=== PATIENT | male | born 1960 | race Caucasian/White ===

== ENCOUNTER 2016-08-02 12:08 | Inpatient (IN) | payer OTHER ==
[~2016-08-02] VITALS: Ht 175.3 cm; Wt 96.8 kg
[2016-08-02] VITALS (9 sets, daily range): BP systolic 118–130; BP diastolic 67–110
[2016-08-02] MEDS ORDERED: DILTIAZEM 100 MG/VIAL (CARDIZEM) ADD-VANTAGE IV ONE (12:14)
[2016-08-02] MEDS ORDERED: DILTIAZEM 25 MG/5 ML INJ (CARDIZEM) VIAL ONE (12:14)
[2016-08-02] MEDS ORDERED: SODIUM CHLORIDE (ADD-VANTAGE) 100 ML IV ONE (12:15)
[2016-08-02 12:34] LABS: BASOPHILS # (AUTO) 0.1 10^3/uL (0.0-0.1); BASOPHILS % (AUTO) 1 % (0-10); EOSINOPHILS # (AUTO) 0.6 10^3/uL (0.0-0.3); EOSINOPHILS % (AUTO) 5 % (0-10); LYMPHOCYTES % (AUTO) 17 % (12-44); MEAN CORPUSCULAR HEMOGLOBIN 31 PG (25-34); MEAN CORPUSCULAR HGB CONC 33 G/DL (32-36); MEAN CORPUSCULAR VOLUME 93 FL (80-99); MEAN PLATELET VOLUME 10.1 FL (7.4-10.4); MONOCYTES % (AUTO) 8 % (0-12); NEUTROPHILS # (AUTO) 8.5 X 10^3 (1.8-7.8); NEUTROPHILS % (AUTO) 70 % (42-75); PLATELET COUNT 266 10^3/uL (130-400); RED BLOOD COUNT 4.99 10^6/uL (4.35-5.85); RED CELL DISTRIBUTION WIDTH 15.3 % (10.0-14.5); WHITE BLOOD COUNT 12.1 10^3/uL (4.3-11.0)
--- NOTE | 2016-08-02 12:41 | ED Cardiac General ---
History of Present Illness General Chief Complaint: Cardiac/General Problems Stated Complaint: SOB Source: patient Exam Limitations: no limitations History of Present Illness Time seen by provider: 12:40 Initial Comments To ER per private vehicle with reports of shortness of breath 1.5 weeks. He's never had this before. He had a cough that is nonproductive. States he is unable to lay flat because of the worsening dyspnea. He had some intermittent chest pains over the past week. He states that it's because of his cough he believed. No fevers. He does smoke. He states he nearly passed out several times this past week but ignored that. He does not have a regular physician and his last primary care physician was in [place]. 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 ASA po TUBER MACHINE OPERATOR: No Associated Systoms: Chest Pain, Cough Allergies and Home Medications Allergies Coded Allergies: No Known Drug Allergies (Unverified , 08/02/16) Review of Systems Constitutional: see HPI EENTM: No Symptoms Reported Respiratory: See HPI, Cough, Orthopnea Cardiovascular: See HPI, Chest Pain, Irregular Heart Rate, Palpitations, Other (near syncope) Gastrointestinal: See HPI Genitourinary: No Symptoms Reported Musculoskeletal: no symptoms reported Skin: no symptoms reported Psychiatric/Neurological: No Symptoms Reported Endocrine: No Symptoms Reported Hematologic/Lymphatic: No Symptoms Reported Past Cupeajd-Iodryv-Jahqpi Hx Patient Social History Recent Foreign Travel: No Contact w/Someone Who Travel: No Physical Exam Vital Signs Vital Sign - Last 12Hours 08/02/16 12:15 Temp 98.9 Pulse 166 Resp 30 B/P (MAP) 99/87 Pulse Ox 95 O2 Delivery Room Air Capillary Refill : General Appearance: No Apparent Distress, Moderate Distress, Other (heart rate 150-170 atrial fibrillation, blood pressure 100/80) HEENT: PERRL/EOMI, TMs Normal Neck: Full Range of Motion, Normal Inspection Respiratory: Normal Breath Sounds, No Accessory Muscle Use, No Respiratory Distress Cardiovascular: Normal Peripheral Pulses, Irregularly Irregular, Tachycardia Gastrointestinal: Normal Bowel Sounds, Non Tender, Soft Extremity: Normal Capillary Refill, Normal Inspection Neurologic/Psychiatric: Alert, Oriented x3, No Motor/Sensory Deficits Skin: Normal Color, Warm/Dry Progress/Results/Core Measures Results/Orders Lab Results Laboratory Tests Test 08/02/16 12:20 Range/Units White Blood Count 12.1 H 4.3-11.0 10^3/uL Red Blood Count 4.99 4.35-5.85 10^6/uL Hemoglobin 15.4 13.3-17.7 G/DL Hematocrit 47 40-54 % Mean Corpuscular Volume 93 80-99 FL Mean Corpuscular Hemoglobin 31 25-34 PG Mean Corpuscular Hemoglobin Concent 33 32-36 G/DL Red Cell Distribution Width 15.3 H 10.0-14.5 % Platelet Count 266 130-400 10^3/uL Mean Platelet Volume 10.1 7.4-10.4 FL Neutrophils (%) (Auto) 70 42-75 % Lymphocytes (%) (Auto) 17 12-44 % Monocytes (%) (Auto) 8 0-12 % Eosinophils (%) (Auto) 5 0-10 % Basophils (%) (Auto) 1 0-10 % Neutrophils # (Auto) 8.5 H 1.8-7.8 X 10^3 Lymphocytes # (Auto) 2.0 1.0-4.0 X 10^3 Monocytes # (Auto) 1.0 0.0-1.0 X 10^3 Eosinophils # (Auto) 0.6 H 0.0-0.3 10^3/uL Basophils # (Auto) 0.1 0.0-0.1 10^3/uL Prothrombin Time 15.9 H 12.2-14.7 SEC INR Comment 1.3 0.8-1.4 Activated Partial Thromboplast Time 30 24-35 SEC Sodium Level 137 135-145 MMOL/L Potassium Level 4.5 3.6-5.0 MMOL/L Chloride Level 104 98-107 MMOL/L Carbon Dioxide Level 24 21-32 MMOL/L Anion Gap 9 5-14 MMOL/L Blood Urea Nitrogen 13 7-18 MG/DL Creatinine 0.94 0.60-1.30 MG/DL Estimat Glomerular Filtration Rate > 60 BUN/Creatinine Ratio 14 Glucose Level 108 H 70-105 MG/DL Calcium Level 8.9 8.5-10.1 MG/DL Magnesium Level 1.8 1.8-2.4 MG/DL Total Bilirubin 1.1 H 0.1-1.0 MG/DL Aspartate Amino Transf (AST/SGOT) 51 H 5-34 U/L Alanine Aminotransferase (ALT/SGPT) 87 H 0-55 U/L Alkaline Phosphatase 101 40-136 U/L Troponin I < 0.30 <0.30 NG/ML B-Type Natriuretic Peptide 610.5 H <100.0 PG/ML Total Protein 6.2 L 6.4-8.2 G/DL Albumin 3.7 3.2-4.5 G/DL My Orders Orders - SHALA MAI APRN Troponin I (08/02/16 12:34) Magnesium (08/02/16 12:34) Protime With Inr (08/02/16 12:34) Partial Thromboplastin Time (08/02/16 12:34) Drug Screen Stat (Urine) (08/02/16 12:34) BNP (08/02/16 12:34) Sodium Chloride (Ad... W/Diltiazem Drip (08/02/16 12:45) Diltiazem Injection (Cardizem Injection) (08/02/16 12:45) Aspirin Chewable Tablet (Baby Aspirin Ch (08/02/16 12:45) Ns Iv 1000 Ml (Sodium Chloride 0.9%) (08/02/16 12:55) Apixaban Tablet (Eliquis Tablet) (08/02/16 13:15) Medications Given in ED Current Medications Medications Dose Ordered Sig/Rao Route Start Time Stop Time Status Last Admin Dose Admin Diltiazem HCl 10 mg ONCE ONCE IVP 08/02/16 12:45 08/02/16 12:46 DC 08/02/16 12:18 10 MG Vital Signs/I&O Vital Sign - Last 12Hours 08/02/16 08/02/16 12:15 12:23 Temp 98.9 Pulse 166 166 Resp 30 30 B/P (MAP) 99/87 99/87 Pulse Ox 95 95 O2 Delivery Room Air Departure Communication Time/Spoke to Admitting Phy: 13:[address] Moreland Time/Spoke to Consulting Physi: 13:13 Communication/Consulting Consult to Dr. Lugo who would like Eliquis and a 2-D echo. Progress Notes 1224-upon arrival patient was given a liter of IV fluids, 324 mg baby aspirin, 10 mg IV Cardizem and Cardizem drip started at 10 mg an hour and subsequently increased to 15 mg an hour. Heart rate decreased from 170s to 110s. Blood pressure improved. Dyspnea improved. Awaiting labs. 1313- heart rate reduced to the 105-110 range. Dyspnea is much improved. Cardizem drip remains at 15 mg an hour Impression Impression: Primary Impression: New onset atrial fibrillation Disposition: ADMITTED INPATIENT Condition: Stable Decision to Admit Reason: Admit from ER (General) Decision to Admit/Date: August 02, 2016 Time/Decision to Admit Time: 12:43 Departure-Patient Inst. Referrals: NO,LOCAL PHYSICIAN (PCP/Family) Primary Care Physician SHALA MAI APRN August 02, 2016 12:41
[2016-08-02 12:44] LABS: INR 1.3 (0.8-1.4); MAGNESIUM 1.8 MG/DL (1.8-2.4); PROTHROMBIN TIME PATIENT 15.9 SEC (12.2-14.7)
[2016-08-02] MEDS ORDERED: ASPIRIN 81 MG CHEW (CHILDREN'S ASA) PO ONE (12:45)
[2016-08-02] MEDS ORDERED: DILTIAZEM DRIP 100 MG in SODIUM CHLORIDE (ADD-VANTAGE) 100 ML IV SCH (12:45)
[2016-08-02] MEDS ORDERED: DILTIAZEM 25 MG/5 ML INJ (CARDIZEM) VIAL IVP ONE (12:45)
[2016-08-02 12:53] LABS: ALANINE AMINOTRANSFERASE 87 U/L (0-55); ALBUMIN 3.7 G/DL (3.2-4.5); ANION GAP 9 MMOL/L (5-14); ASPARTATE AMINO TRANSFERASE 51 U/L (5-34); BILIRUBIN,TOTAL 1.1 MG/DL (0.1-1.0); BLOOD UREA NITROGEN 13 MG/DL (7-18); BUN/CREATININE RATIO 14; CALCIUM 8.9 MG/DL (8.5-10.1); CARBON DIOXIDE 24 MMOL/L (21-32); CHLORIDE 104 MMOL/L (98-107); CREATININE SERUM 0.94 MG/DL (0.60-1.30); GFR ESTIMATED > 60; GLUCOSE 108 MG/DL (70-105); POTASSIUM 4.5 MMOL/L (3.6-5.0); SODIUM 137 MMOL/L (135-145); TOTAL PROTEIN 6.2 G/DL (6.4-8.2)
[2016-08-02] MEDS ORDERED: NS IV 1000 ML 1,000 ML ONE ×2 (12:55→14:48)
[2016-08-02 12:59] LABS: TROPONIN I < 0.30 NG/ML (<0.30)
[2016-08-02] MEDS ORDERED: APIXABAN 5 MG (ELIQUIS) TABLET PO ONE (13:15)
--- NOTE | 2016-08-02 13:15 | Diagnostic Imaging Report ---
INDICATION: Difficulty breathing x 1 week with intermittent chest pain. COMPARISON STUDY: None. FINDINGS: A portable view of the chest demonstrates the heart size to be in the upper normal range with mild infiltrates in the left base. The vascularity is normal. There are no effusions. IMPRESSION: There are mild infiltrates in the left lung base. Dictated by: Dictated on workstation # [id number]
[2016-08-02] MEDS ORDERED: CEFEPIME INJECTION 2,000 MG in NS (IVPB) 50 ML IV ONE (13:30)
[2016-08-02] MEDS ORDERED: LORazepam INJ 2 MG/ML (ATIVAN) VIAL IVP ONE (13:30)
[2016-08-02] MEDS: NS IV 1000 ML 1,000 ML IV SCH (15:07)
[2016-08-02] MEDS ORDERED: CATHETER FLUSH 10 ML SYR IV PRN (15:15)
[2016-08-02] MEDS: DILTIAZEM DRIP 100 MG/NS 100 ML IV SCH ×4 (15:51→18:53)
[2016-08-02] MEDS: LEVOFLOXACIN 750 MG/150 ML IV 150 ML IV SCH (16:53)
--- NOTE | 2016-08-02 17:58 | Consultation-Cardiology ---
HPI-Cardiology Cardiology Consultation: Date of Consultation 08/02/16 Date of Admission Attending Physician Gloria Moreland DO Admitting Physician Inocencia,Local Physician Consulting Physician Paul LUGO MD HPI: Chief Complaint: shortness of breath, fast heart beating this is a 55-year-old gentleman who denies any past medical or cardiac history. He presents with shortness of breath, cough and fast heart beating. He was found to be in atrial fibrillation with rapid ventricular rate. He responded to IV Cardizem. Chest x-ray showed an infiltrate in the left lung. Review of Systems-Cardiology Review of Systems Constitutional: No As described under HPI, No no symptoms reported, No chills, No fever, No lightheadedness, No malaise, No tiredness, No weight loss, No weight gain, No other Eyes: No As described under HPI, No no symptoms reported, No blindness, No blurred vision, No contact lenses, No drainage, No decreased acuity, No foreign body sensation, No glasses, No inflammation, No pain, No photophobia, No previous injury, No shadows, No tunnel vision, No other, No vision change Ears/Nose/Throat: No As described under HPI, No no symptoms reported, No chronic hearing loss, No epistaxis, No ear discharge, No ear pain, No loose teeth, No mouth pain, No mouth swelling, No nasal drainage, No nose pain, No recent hearing loss, No throat pain, No throat swelling, No ulcerations, No other Respiratory: cough, shortness of breath Cardiovascular: palpitations Gastrointestinal: No no symptoms reported, No As described under HPI, No abdomen distended, No abdominal pain, No blood streaked bowels, No constipation , No diarrhea, No difficulty swallowing, No nausea, No poor appetite, No poor fluid intake, No rectal bleeding, No vomiting, No other, No nausea/vomiting/ diarrhea, No stool coloration changes Genitourinary: No no symptoms reported, No As described under HPI, No burning, No dysuria, No discharge, No frequency, No flank pain, No hematuria, No incontinence, No pain, No urgency, No other, No urine frequency changes, No urine coloration changes Musculoskeletal: No no symptoms reported, No As describe under HPI, No back pain, No gout, No joint pain, No joint swelling, No muscle pain, No muscle stiffness, No neck pain, No other Skin: No no symptoms reported, No As described under HPI, No change in color, No change in hair/nails, No dryness, No lesions, No lumps, No rash, No other, No skin related problems, No ulcerations, No rash on exposed areas, No ulcerations on exposed areas Psychiatric/Neurological: No As described under HPI, No anxiety, No depression , No emotional problems, No focal weakness, No headache, No no symptoms reported , No numbness, No other, No pre-existing deficit, No seizure, No syncope, No tingling, No tremors, No weakness Hematologic: No no symptoms reported, No As described under HPI, No anemia, No blood clots, No easy bleeding, No easy bruising, No swollen glands, No other, No bleeding abnormalities MTS-Uaskhj-Tdmakg Hx Patient Social History Alcohol Use: Rarely Uses Recreational Drug Use: No Smoking Status: Current Everyday Smoker Type Used: Cigarettes 2nd Hand Smoke Exposure: No Recent Foreign Travel: No Recent Infectious Disease Expo: No Hospitalization with Isolation: Denies Physical Abuse Screen: No Sexual Abuse: No Past Medical History PMH As described under Assessment. Allergies and Home Medications Allergies Coded Allergies: No Known Drug Allergies (Unverified , 08/02/16) Home Medications No Active Prescriptions or Reported Meds Physical Exam-Cardiology Physical Exam Vital Signs/I&O Vital Sign - Last 12Hours 08/02/16 08/02/16 08/02/16 08/02/16 12:15 12:23 14:17 14:55 Temp 98.9 98.3 99.5 Pulse 166 166 109 Resp 30 30 20 B/P (MAP) 99/87 99/87 Pulse Ox 95 95 96 O2 Delivery Room Air 08/02/16 08/02/16 08/02/16 08/02/16 15:00 16:00 16:00 17:00 Temp 99.0 Pulse 108 92 112 Resp 30 17 22 B/P (MAP) 121/90 118/96 130/94 Pulse Ox 95 O2 Delivery Room Air Room Air Room Air Room Air 08/02/16 18:00 Pulse 118 Resp 22 B/P (MAP) 127/67 Pulse Ox 93 O2 Delivery Room Air Capillary Refill : Less Than 3 Seconds Constitutional: No appears stated age, No AAO x 3, No apparent distress, No PERRL, No well-developed, No well-nourished, No other HEENT: No PERRL, No normal ENT inspection, No TMs normal, No pharynx normal, No scleral icterus (R), No scleral icterus (L), No pale conjunctivae (R), No pale conjunctivae (L), No photophobia, No TM abnormal (R), No TM abnormal (L), No pharyngeal erythema, No tonsillar exudate, No other, No discharge, No EOMI, No hearing is well preserved, No hard of hearing, No oral hygience is good, No ulceration, No xanthelasmas are seen Neck: No non-tender, No full range of motion, No supple, No normal inspection, No carotid bruit, No limited range of motion, No lymphadenopathy (R), No lymphadenopathy (L), No tender lateral, No tender midline, No thyromegaly, No other, No carotid pulses are 2 + bilaterally, No with good upstrokes Respiratory: chest expansion is symmetric, chest is bilaterally symmetric, lungs clear to auscultation Cardiovascular: irregularly irregular, S1 and S2 Gastrointestinal: No tender, No soft, No round, No distended, No pulsatile mass , No organomegaly, No guarding, No rebound, No tenderness, No hernia, No mass, No audible bowel sounds, No abnormal bowel sounds, No abdominal bruits, No spleenomegaly, No other Rectal: deferred Extremities: No normal range of motion, No non-tender, No normal inspection, No pedal edema, No calf tenderness, No normal capillary refill, No pelvis stable , No calf tenderness, No inflammation, No pedal edema, No slow capillary refill , No swelling, No other, No abrasion, No clubbing, No cyanosis, No ecchymosis, No laceration, No no lower extremity edema bilateral, No significant edema, No tenderness, No wound Neurologic/Psychiatric: No assistant director of nursing II-XII nml as tested, No no motor/sensory deficits, No alert, No normal mood/affect, No oriented x 3, No abnormal cerebellar tests, No abnormal assistant director of nursing II-XII, No abnormal gait, No aphasia, No EOM palsy, No facial droop, No motor weakness, No sensory deficit, No depressed affect, No disoriented x 3, No other, No grossly intact, No power is 5/5 both on sides Skin: No normal color, No warm/dry, No cyanosis, No cool, No diaphoresis, No damp, No ecchymosis, No jaundice, No mottled, No pallor, No rash, No tattoos/ piercings, No ulcerations, No rash on exposed areas, No ulcerations on exposed areas, No other Data Review Labs Laboratory Tests 08/02/16 12:20: White Blood Count 12.1H, Red Blood Count 4.99, Hemoglobin 15.4, Hematocrit 47, Mean Corpuscular Volume 93, Mean Corpuscular Hemoglobin 31, Mean Corpuscular Hemoglobin Concent 33, Red Cell Distribution Width 15.3H, Platelet Count 266, Mean Platelet Volume 10.1, Neutrophils (%) (Auto) 70, Lymphocytes (%) (Auto) 17 , Monocytes (%) (Auto) 8, Eosinophils (%) (Auto) 5, Basophils (%) (Auto) 1, Neutrophils # (Auto) 8.5H, Lymphocytes # (Auto) 2.0, Monocytes # (Auto) 1.0, Eosinophils # (Auto) 0.6H, Basophils # (Auto) 0.1, Prothrombin Time 15.9H, INR Comment 1.3, Activated Partial Thromboplast Time 30, Sodium Level 137, Potassium Level 4.5, Chloride Level 104, Carbon Dioxide Level 24, Anion Gap 9, Blood Urea Nitrogen 13, Creatinine 0.94, Estimat Glomerular Filtration Rate > 60 , BUN/Creatinine Ratio 14, Glucose Level 108H, Calcium Level 8.9, Magnesium Level 1.8, Total Bilirubin 1.1H, Aspartate Amino Transf (AST/SGOT) 51H, Alanine Aminotransferase (ALT/SGPT) 87H, Alkaline Phosphatase 101, Troponin I < 0.30, B- Type Natriuretic Peptide 610.5H, Total Protein 6.2L, Albumin 3.7 08/02/16 13:31: Lactic Acid Level 0.84 ECG Impression ECG Initial ECG Impression: Atrial Fibrillation w/RVR A/P-Cardiology Assessment/Admission Diagnosis atrial fibrillation with RVR, Shortness of breath, Pneumonia Plan AF: IV cardizem, Eliquis. Echo. Shortness of breath: mild elevation of BNP. could be secondary to pneumonia and AF. No overt CHF. Pneumonia: defer to primary team. Thank you for your consultation. Please call me if you have any questions. Zen Lugo MD, FACP, FACC, FSCAI, FHRS, CCDS Interventional Cardiology Cardiac Electrophysiology Vascular Medicine and Endovascular Interventions Clinical Quality Measures AMI/AHF: ASA po Prior to arrival: No DVT/VTE Risk/Contraindication: Risk Factor Score Per Nursin RFS Level Per Nursing on Admit: 2=Moderate Paul LUGO MD August 02, 2016 5:58 pm
[2016-08-02] MEDS ORDERED: RT-ALBUTEROL/IPRATROPIUM 3 ML (DUONEB) VIAL ONE (19:25)
[2016-08-02] MEDS ORDERED: RT-ALBUTEROL/IPRATROPIUM 3 ML (DUONEB) VIAL INH PRN (20:45)
[2016-08-02] MEDS: APIXABAN 5 MG (ELIQUIS) TABLET PO SCH (21:25)
[2016-08-02] MEDS: CEFEPIME 2 GM/NS 50 ML IVPB IV SCH ×2 (21:26)
[2016-08-03] VITALS (15 sets, daily range): BP systolic 109–142; BP diastolic 86–109
[2016-08-03] MEDS: NS IV 1000 ML 1,000 ML IV SCH ×3 (02:17→16:04)
[2016-08-03 04:36] LABS: BASOPHILS # (AUTO) 0.1 10^3/uL (0.0-0.1); BASOPHILS % (AUTO) 1 % (0-10); EOSINOPHILS # (AUTO) 0.5 10^3/uL (0.0-0.3); EOSINOPHILS % (AUTO) 5 % (0-10); LYMPHOCYTES # (AUTO) 1.9 X 10^3 (1.0-4.0); LYMPHOCYTES % (AUTO) 18 % (12-44); MEAN CORPUSCULAR HEMOGLOBIN 31 PG (25-34); MEAN CORPUSCULAR HGB CONC 33 G/DL (32-36); MEAN CORPUSCULAR VOLUME 94 FL (80-99); MEAN PLATELET VOLUME 10.2 FL (7.4-10.4); MONOCYTES # (AUTO) 0.8 X 10^3 (0.0-1.0); MONOCYTES % (AUTO) 8 % (0-12); NEUTROPHILS # (AUTO) 7.4 X 10^3 (1.8-7.8); NEUTROPHILS % (AUTO) 69 % (42-75); PLATELET COUNT 230 10^3/uL (130-400); RED BLOOD COUNT 4.56 10^6/uL (4.35-5.85); RED CELL DISTRIBUTION WIDTH 15.3 % (10.0-14.5); WHITE BLOOD COUNT 10.7 10^3/uL (4.3-11.0)
[2016-08-03 04:48] LABS: ANION GAP 10 MMOL/L (5-14); BLOOD UREA NITROGEN 12 MG/DL (7-18); BUN/CREATININE RATIO 15; CALCIUM 8.5 MG/DL (8.5-10.1); CARBON DIOXIDE 18 MMOL/L (21-32); CHLORIDE 108 MMOL/L (98-107); CREATININE SERUM 0.82 MG/DL (0.60-1.30); GFR ESTIMATED > 60; GLUCOSE 102 MG/DL (70-105); MAGNESIUM 1.7 MG/DL (1.8-2.4); POTASSIUM 4.5 MMOL/L (3.6-5.0); SODIUM 136 MMOL/L (135-145)
[2016-08-03] MEDS: MAGNESIUM 1 GM/100 ML IVPB 100 ML IV SCH ×2 (05:11→06:16)
[2016-08-03] MEDS ORDERED: MAGNESIUM 1 GM/100 ML IVPB 100 ML IV SCH (06:00)
[2016-08-03] MEDS ORDERED: KCL 20 MEQ TAB (K-DUR) PO SCH (06:00)
[2016-08-03] MEDS ORDERED: POTASSIUM CL 10MEQ/50ML IVPB 50 ML IV SCH (06:00)
--- NOTE | 2016-08-03 06:22 | Pulmonary Consultation ---
History of Present Illness History of Present Illness Date of Consultation 08/03/16 06:16 Date of Admission History of Present Illness 55yo pt presented to ED secondary to SOB, cough and palpitations. Found to be in afib RVR. He was tx with IV cardizem which helpled. CXR shows left lung infiltrate. Pt admitted to ICU with cardizem gtt and IV Abx. I am consulted for pulmonary management. Allergies and Home Medications Allergies Coded Allergies: No Known Drug Allergies (Unverified , 08/02/16) Home Medications No Active Prescriptions or Reported Meds Past Junsmdf-Kvtlzc-Ryfoyc Hx Patient Social History Alcohol Use: Rarely Uses Recreational Drug Use: No Smoking Status: Current Everyday Smoker Type Used: Cigarettes 2nd Hand Smoke Exposure: No Recent Foreign Travel: No Contact w/Someone Who Travel: No Recent Infectious Disease Expo: No Recent Hopitalizations: No Physical Abuse Screen: No Sexual Abuse: No Seasonal Allergies Seasonal Allergies: No Reproductive System Sexually Transmitted Disease: No HIV/AIDS: No Musculoskeletal Musculoskeletal Disorders: Rheumatoid Arthritis Psychosocial Behavioral Health Disorders: Depression Blood Transfusions Adverse Reaction to a Blood Tr: No Review of Systems Constitutional: Malaise, Weakness, No: Chills, Fever, Other, Sweats Eyes: No: Conjunctivae inflammation, Eyelid inflammation, Other, Pain, Redness , Vision change ENT: No: Ear discharge, Ear pain, Mouth pain, Mouth swelling, Nose congestion, Nose discharge, Nose pain, Other, Throat pain, Throat swelling Respiratory: SOB with excertion, Shortness of breath, Sputum Cardiovascular: Lt Headedness, Orthopnea, Palpitations, Paroxysmal Noc. Dyspnea Gastrointestinal: No: Abdominal Pain, Constipation, Diarrhea, Hematochezia, Melena, Nausea, Other, Vomiting Genitourinary: No Dysuria, No Frequency, No Incontinence, No Hematuria, No Retention, No Other Musculoskeletal: No: arm pain, back pain, foot pain, hand pain, leg pain, neck pain, other, shoulder pain Exam Exam Vital Signs Date Time Temp Pulse Resp B/P (MAP) Pulse Ox O2 Delivery O2 Flow Rate FiO2 08/03/16 06:06 82 30 94 Room Air 08/03/16 05:04 98 33 93 Room Air 08/03/16 04:09 98.4 Room Air 08/03/16 04:00 103 30 94 Room Air 08/03/16 02:45 89 12 110/99 92 Room Air 08/03/16 02:00 87 24 122/101 94 Room Air 08/03/16 01:51 67 119/86 08/03/16 01:00 82 23 109/107 96 Room Air 08/03/16 00:59 85 08/03/16 00:23 97.4 Room Air 08/03/16 00:00 92 17 114/99 92 Room Air 08/02/16 23:00 90 31 118/110 96 Room Air 08/02/16 22:00 87 32 129/105 96 Room Air 08/02/16 21:00 100 23 129/104 95 Room Air 08/02/16 20:00 104 24 119/85 94 Room Air 08/02/16 19:40 98.6 Room Air 08/02/16 19:34 96 08/02/16 19:31 96 08/02/16 19:02 99 08/02/16 19:00 98 30 120/86 94 Room Air 08/02/16 18:53 108 111/92 08/02/16 18:00 118 22 127/67 93 Room Air 08/02/16 17:00 112 22 130/94 Room Air 08/02/16 16:00 92 17 118/96 95 Room Air 08/02/16 16:00 99.0 Room Air 08/02/16 15:00 108 30 121/90 Room Air 08/02/16 14:55 99.5 08/02/16 14:17 98.3 109 20 96 08/02/16 12:23 166 30 99/87 95 08/02/16 12:15 95 08/02/16 12:15 98.9 166 30 99/87 95 Room Air I & O 08/03/16 07:00 Intake Total 3440 ml Output Total 2250 ml Balance 1190 ml General Appearance: No Apparent Distress, Moderate Distress, Other (heart rate 150-170 atrial fibrillation, blood pressure 100/80) HEENT: PERRL/EOMI, TMs Normal Neck: Full Range of Motion, Normal Inspection Respiratory: Normal Breath Sounds, No Accessory Muscle Use, No Respiratory Distress Cardiovascular: Normal Peripheral Pulses, Irregularly Irregular, Tachycardia Capillary Refill: Less Than 3 Seconds Extremity: Normal Capillary Refill, Normal Inspection Neurologic/Psychiatric: Alert, Oriented x3, No Motor/Sensory Deficits Skin: Normal Color, Warm/Dry Results Lab Laboratory Tests 08/02/16 12:20 08/03/16 04:00 Assessment/Plan Assessment/Plan Pneumonia -stone culture -Continue cefepime, and levaquin Afib RVR -cardizem -Cardiology is consulted. Clinical Quality Measures AMI/AHF: ASA po Prior to arrival: No DVT/VTE Risk/Contraindication: Risk Factor Score Per Nursin RFS Level Per Nursing on Admit: 2=Moderate LUCRECIA ARAGON DO August 03, 2016 06:22
[2016-08-03] MEDS: ASPIRIN 81 MG CHEW (CHILDREN'S ASA) PO SCH (09:09)
[2016-08-03] MEDS: APIXABAN 5 MG (ELIQUIS) TABLET PO SCH ×2 (09:09→20:54)
[2016-08-03] MEDS: CEFEPIME 2 GM/NS 50 ML IVPB IV SCH ×4 (09:11→20:54)
[2016-08-03] MEDS ORDERED: DILTIAZEM 240 MG (CARDIZEM CD) CAP PO SCH (10:25)
[2016-08-03] MEDS: RT-ALBUTEROL/IPRATROPIUM 3 ML (DUONEB) VIAL INH SCH ×3 (10:49→20:04)
[2016-08-03] MEDS ORDERED: ASPI-999 PO (11:49)
[2016-08-03] MEDS ORDERED: DILT240C63 PO (11:49)
[2016-08-03] MEDS ORDERED: APIX5TAB PO (11:49)
[2016-08-03] MEDS ORDERED: CEFD300C3 PO (11:49)
--- NOTE | 2016-08-03 11:50 | Cardiology Progress Note ---
Cardiology SOAP Progress Note Subjective: Feeling better Objective: I&O/Vital Signs Vital Sign - Last 12Hours 08/03/16 08/03/16 08/03/16 08/03/16 00:00 00:23 00:59 01:00 Temp 97.4 Pulse 92 85 82 Resp 17 23 B/P (MAP) 114/99 109/107 Pulse Ox 92 96 O2 Delivery Room Air Room Air Room Air 08/03/16 08/03/16 08/03/16 08/03/16 01:51 02:00 02:45 04:00 Pulse 67 87 89 103 Resp 24 12 30 B/P (MAP) 119/86 122/101 110/99 Pulse Ox 94 92 94 O2 Delivery Room Air Room Air Room Air 08/03/16 08/03/16 08/03/16 08/03/16 04:09 05:04 06:06 06:26 Temp 98.4 Pulse 98 82 89 Resp 33 30 32 B/P (MAP) 122/107 Pulse Ox 93 94 94 O2 Delivery Room Air Room Air Room Air Room Air 08/03/16 08/03/16 07:00 10:49 Pulse 93 Pulse Ox 95 Intake and Output 08/03/16 00:00 Intake Total 2090 ml Output Total 1250 ml Balance 840 ml Weight (Pounds): 212 Weight (Ounces): 0.4 Weight (Calculated Kilograms): 96.255361 Constitutional: No appears stated age, No AAO x 3, No apparent distress, No PERRL, No well-developed, No well-nourished, No other Respiratory: chest expansion is symmetric, chest is bilaterally symmetric, lungs clear to auscultation Cardiovascular: irregularly irregular, S1 and S2 Gastrointestional: No tender, No soft, No round, No distended, No pulsatile mass, No organomegaly, No guarding, No rebound, No tenderness, No hernia, No mass, No audible bowel sounds, No abnormal bowel sounds, No abdominal bruits, No spleenomegaly, No other Extremities: No normal range of motion, No non-tender, No normal inspection, No pedal edema, No calf tenderness, No normal capillary refill, No pelvis stable , No calf tenderness, No inflammation, No pedal edema, No slow capillary refill , No swelling, No other, No abrasion, No clubbing, No cyanosis, No ecchymosis, No laceration, No no lower extremity edema bilateral, No significant edema, No tenderness, No wound Neurologic/Psychiatric: No certified dietary manager II-XII nml as tested, No no motor/sensory deficits, No alert, No normal mood/affect, No oriented x 3, No abnormal cerebellar tests, No abnormal certified dietary manager II-XII, No abnormal gait, No aphasia, No EOM palsy, No facial droop, No motor weakness, No sensory deficit, No depressed affect, No disoriented x 3, No other, No grossly intact, No power is 5/5 both on sides Skin: No normal color, No warm/dry, No cyanosis, No cool, No diaphoresis, No damp, No ecchymosis, No jaundice, No mottled, No pallor, No rash, No tattoos/ piercings, No ulcerations, No rash on exposed areas, No ulcerations on exposed areas, No other Results/Procedures: Labs Laboratory Tests 08/02/16 12:20: White Blood Count 12.1H, Red Blood Count 4.99, Hemoglobin 15.4, Hematocrit 47, Mean Corpuscular Volume 93, Mean Corpuscular Hemoglobin 31, Mean Corpuscular Hemoglobin Concent 33, Red Cell Distribution Width 15.3H, Platelet Count 266, Mean Platelet Volume 10.1, Neutrophils (%) (Auto) 70, Lymphocytes (%) (Auto) 17 , Monocytes (%) (Auto) 8, Eosinophils (%) (Auto) 5, Basophils (%) (Auto) 1, Neutrophils # (Auto) 8.5H, Lymphocytes # (Auto) 2.0, Monocytes # (Auto) 1.0, Eosinophils # (Auto) 0.6H, Basophils # (Auto) 0.1, Prothrombin Time 15.9H, INR Comment 1.3, Activated Partial Thromboplast Time 30, Sodium Level 137, Potassium Level 4.5, Chloride Level 104, Carbon Dioxide Level 24, Anion Gap 9, Blood Urea Nitrogen 13, Creatinine 0.94, Estimat Glomerular Filtration Rate > 60 , BUN/Creatinine Ratio 14, Glucose Level 108H, Calcium Level 8.9, Magnesium Level 1.8, Total Bilirubin 1.1H, Aspartate Amino Transf (AST/SGOT) 51H, Alanine Aminotransferase (ALT/SGPT) 87H, Alkaline Phosphatase 101, Troponin I < 0.30, B- Type Natriuretic Peptide 610.5H, Total Protein 6.2L, Albumin 3.7 08/02/16 13:31: Lactic Acid Level 0.84 08/03/16 04:00: White Blood Count 10.7, Red Blood Count 4.56, Hemoglobin 14.2, Hematocrit 43, Mean Corpuscular Volume 94, Mean Corpuscular Hemoglobin 31, Mean Corpuscular Hemoglobin Concent 33, Red Cell Distribution Width 15.3H, Platelet Count 230, Mean Platelet Volume 10.2, Neutrophils (%) (Auto) 69, Lymphocytes (%) (Auto) 18 , Monocytes (%) (Auto) 8, Eosinophils (%) (Auto) 5, Basophils (%) (Auto) 1, Neutrophils # (Auto) 7.4, Lymphocytes # (Auto) 1.9, Monocytes # (Auto) 0.8, Eosinophils # (Auto) 0.5H, Basophils # (Auto) 0.1, Sodium Level 136, Potassium Level 4.5, Chloride Level 108H, Carbon Dioxide Level 18L, Anion Gap 10, Blood Urea Nitrogen 12, Creatinine 0.82, Estimat Glomerular Filtration Rate > 60, BUN/ Creatinine Ratio 15, Glucose Level 102, Calcium Level 8.5, Magnesium Level 1.7L , Phosphorus Level 3.0 A/P: Assessment/Dx: atrial fibrillation with RVR, Shortness of breath, Pneumonia Plan: AF: Eliquis. Echo. Change IV Cardizem to by mouth Cardizem. Shortness of breath: mild elevation of BNP. could be secondary to pneumonia and AF. No overt CHF. Pneumonia: defer to primary team. Thank you for your consultation. Please call me if you have any questions. Zen Lugo MD, FACP, FACC, FSCAI, FHRS, CCDS Interventional Cardiology Cardiac Electrophysiology Vascular Medicine and Endovascular Interventions Clinical Quality Measures AMI/AHF: ASA po Prior to arrival: Paul Swift MD August 03, 2016 11:50
--- NOTE | 2016-08-03 12:04 | History & Physical-Hospitalist ---
HPI History of Present Illness: HPI/Chief Complaint CC: Shortness of breath HPI: This is a 55-year-old white male that previously was seeing a [facility] physician many years ago before he became homeless 8 years ago and could not afford an office visit and his blood pressure medication the presented to the emergency room with shortness of breath was found to have new onset atrial for ablation with rapid ventricular response and was placed in ICU on Cardizem drip and treated for pneumonia on chest x-ray. Overall he feels much better and doing quite well in the mist of converting from Cardizem drip to by mouth rate control and I appreciate cardiology management. Pharmacy Review: Pt will be on Omnicef at discharge plan for tomorrow. director service: Pt Cardizem drip has been stopped. Pt will have PO Cardizem. Dr. Dudley wants states pt needs ABX for a little longer. Pt is on normal saline of 100. Patient Interview: Pt states he is a current smoker. Pt denies drinking ETOH for 15 years. Pt states he has been homeless for the last 7-8 weeks (7-8 years?) and has been cold and wet. Pt states he was having difficulty breathing but states he feels better now. Physical exam was stable. Pt states he was on BP meds but could not afford it so stopped taking it. Pt states he is wanting to get out as soon as possible so he does not run up his medical bill. Pt states he has children in the area. Scribed by Adin Leyva under the direct supervision of Dr. Canchola. Source: patient Exam Limitations: no limitations Date Seen 08/03/16 Attending Physician Gloria Canchola DO PCP No,Local Physician Referring Physician Date of Admission August 02, 2016 at 13:28 Home Medications & Allergies Home Medications Reviewed patient Home Medication Reconciliation Form Allergies Allergies Coded Allergies No Known Drug Allergies (Unverified08/02/16) Past Mncywug-Hvrile-Ytbbqt Hx Patient Social History Marrital Status: single Employed/Student: unemployed Alcohol Use: Rarely Uses Recreational Drug Use: No Smoking Status: Current Everyday Smoker Type Used: Cigarettes 2nd Hand Smoke Exposure: No Physical Abuse Screen: No Sexual Abuse: No Recent Foreign Travel: No Contact w/other who traveled: No Recent Hopitalizations: No Recent Infectious Disease Expo: No Seasonal Allergies Seasonal Allergies: No Surgeries HX Surgeries: No Respiratory Hx Respiratory Disorders: No Cardiovascular Hx Cardiovascular Disorders: Yes Cardiac Disorders: Hypertension Neurological Hx Neurological Disorders: No Reproductive System Sexually Transmitted Disease: No HIV/AIDS: No Genitourinary Hx Genitourinary Disorders: No Gastrointestinal Hx Gastrointestinal Disorders: No Musculoskeletal Hx Musculoskeletal Disorders: Yes Musculoskeletal Disorders: Rheumatoid Arthritis Endocrine Hx Endocrine Disorders: No HEENT HX ENT Disorders: No Cancer Hx Cancer: No Psychosocial Hx Psychiatric Problems: No Behavioral Health Disorders: Depression Blood Transfusions Adverse Reaction to a Blood Tr: No Reviewed Nursing Assessment Reviewed/Agree w Nursing PMH: Yes Review of Systems Constitutional: see HPI, weakness EENTM: no symptoms reported Respiratory: dyspnea on exertion, short of breath, wheezing Cardiovascular: chest pain, palpitations Gastrointestinal: no symptoms reported Genitourinary: no symptoms reported Musculoskeletal: no symptoms reported Skin: no symptoms reported Psychiatric/Neurological: No Symptoms Reported All Other Systems Reviewed Negative Unless Noted: Yes Physical Exam Physical Exam Vital Signs Vital Sign - Last 12Hours Capillary Refill : Less Than 3 Seconds General Appearance: No Apparent Distress, WD/WN, Chronically ill, Obese Eyes: Bilateral Eye Normal Inspection, Bilateral Eye PERRL HEENT: PERRL/EOMI, Normal ENT Inspection, Pharynx Normal Neck: Full Range of Motion, Normal Inspection, Non Tender, Supple, Carotid Bruit Respiratory: Chest Non Tender, No Accessory Muscle Use, No Respiratory Distress , Crackles (subtle in the bases), Decreased Breath Sounds Cardiovascular: No Edema, No Gallop, No JVD, No Murmur, Normal Peripheral Pulses, Irregularly Irregular, Tachycardia Gastrointestinal: Normal Bowel Sounds, No Organomegaly, No Pulsatile Mass, Non Tender, Soft Back: Normal Inspection, No CVA Tenderness, No Vertebral Tenderness Extremity: Normal Capillary Refill, Normal Inspection, Normal Range of Motion, Non Tender, No Calf Tenderness, No Pedal Edema Neurologic/Psychiatric: Alert, Oriented x3, No Motor/Sensory Deficits, Normal Mood/Affect Skin: Normal Color, Warm/Dry Lymphatic: No Adenopathy Results Results/Procedures Lab Laboratory Tests 08/02/16 12:20 08/03/16 04:00 Assessment/Plan Admission Diagnosis Assessment: New onset atrial defibrillation with rapid ventricular response Pneumonia History of hypertension noncompliant with meds Homelessness Leukocytosis Elevated BNP with volume overload on chest x-ray Smoker Previous alcoholism Assessment and Plan Plan: Discharge is planned for Saturday since all medications were sent to [facility] and social work accommodated coupon for anticoagulation and help with antibiotic and rate control meds Smoking cessation counseled Establish with primary care provider for follow-up care Clinical Quality Measures AMI/AHF: ASA po Prior to arrival: No DVT/VTE Risk/Contraindication: Risk Factor Score Per Nursin RFS Level Per Nursing on Admit: 2=Moderate GLORIA CANCHOLA DO August 03, 2016 12:04
[2016-08-03] MEDS: LEVOFLOXACIN 750 MG/150 ML IV 150 ML IV SCH (16:04)
[2016-08-03] MEDS ORDERED: DILTIAZEM 120 MG (CARDIZEM CD) CAP PO NR (18:00)
[2016-08-04] MEDS: NS IV 1000 ML 1,000 ML IV SCH (03:29)
[2016-08-04 04:42] LABS: BASOPHILS # (AUTO) 0.1 10^3/uL (0.0-0.1); BASOPHILS % (AUTO) 1 % (0-10); EOSINOPHILS # (AUTO) 0.7 10^3/uL (0.0-0.3); EOSINOPHILS % (AUTO) 7 % (0-10); LYMPHOCYTES # (AUTO) 1.6 X 10^3 (1.0-4.0); LYMPHOCYTES % (AUTO) 16 % (12-44); MEAN CORPUSCULAR HEMOGLOBIN 31 PG (25-34); MEAN CORPUSCULAR HGB CONC 33 G/DL (32-36); MEAN CORPUSCULAR VOLUME 93 FL (80-99); MEAN PLATELET VOLUME 10.1 FL (7.4-10.4); MONOCYTES # (AUTO) 0.7 X 10^3 (0.0-1.0); MONOCYTES % (AUTO) 7 % (0-12); NEUTROPHILS # (AUTO) 7.1 X 10^3 (1.8-7.8); NEUTROPHILS % (AUTO) 70 % (42-75); PLATELET COUNT 227 10^3/uL (130-400); RED BLOOD COUNT 4.72 10^6/uL (4.35-5.85); RED CELL DISTRIBUTION WIDTH 15.3 % (10.0-14.5); WHITE BLOOD COUNT 10.2 10^3/uL (4.3-11.0)
[2016-08-04 05:02] LABS: ANION GAP 10 MMOL/L (5-14); BLOOD UREA NITROGEN 13 MG/DL (7-18); BUN/CREATININE RATIO 16; CALCIUM 8.8 MG/DL (8.5-10.1); CARBON DIOXIDE 17 MMOL/L (21-32); CHLORIDE 110 MMOL/L (98-107); CREATININE SERUM 0.83 MG/DL (0.60-1.30); GFR ESTIMATED > 60; GLUCOSE 102 MG/DL (70-105); MAGNESIUM 1.9 MG/DL (1.8-2.4); PHOSPHORUS 3.2 MG/DL (2.3-4.7); POTASSIUM 4.8 MMOL/L (3.6-5.0); SODIUM 137 MMOL/L (135-145)
[2016-08-04] MEDS: RT-ALBUTEROL/IPRATROPIUM 3 ML (DUONEB) VIAL INH SCH (07:39)
[2016-08-04 08:00] VITALS: BP 117/87
[2016-08-04] MEDS: APIXABAN 5 MG (ELIQUIS) TABLET PO SCH (08:37)
[2016-08-04] MEDS: ASPIRIN 81 MG CHEW (CHILDREN'S ASA) PO SCH (08:38)
[2016-08-04] MEDS: CEFEPIME 2 GM/NS 50 ML IVPB IV SCH ×2 (08:38)
[2016-08-04] MEDS ORDERED: DILT360C36 PO (08:41)
[2016-08-04] MEDS ORDERED: DILTIAZEM 180 MG (CARDIZEM CD) CAP PO SCH (09:00)
--- NOTE | 2016-08-04 09:50 | Discharge Summary-Hospitalist ---
Diagnosis/Chief Complaint Date of Admission August 02, 2016 at 13:28 Date of Discharge Admission Diagnosis Assessment: New onset atrial defibrillation with rapid ventricular response Pneumonia History of hypertension noncompliant with meds Homelessness Leukocytosis Elevated BNP with volume overload on chest x-ray Smoker Previous alcoholism Reason Hospital Visit/Course CC: Shortness of breath HPI: This is a 55-year-old white male that previously was seeing a [facility] physician many years ago before he became homeless 8 years ago and could not afford an office visit and his blood pressure medication the presented to the emergency room with shortness of breath was found to have new onset atrial for ablation with rapid ventricular response and was placed in ICU on Cardizem drip and treated for pneumonia on chest x-ray. Overall he feels much better and doing quite well in the mist of converting from Cardizem drip to by mouth rate control and I appreciate cardiology management. Pharmacy Review: Pt will be on Omnicef at discharge plan for tomorrow. thresher broomcorn: Pt Cardizem drip has been stopped. Pt will have PO Cardizem. Dr. Dudley wants states pt needs ABX for a little longer. Pt is on normal saline of 100. Patient Interview: Pt states he is a current smoker. Pt denies drinking ETOH for 15 years. Pt states he has been homeless for the last 7-8 weeks (7-8 years?) and has been cold and wet. Pt states he was having difficulty breathing but states he feels better now. Physical exam was stable. Pt states he was on BP meds but could not afford it so stopped taking it. Pt states he is wanting to get out as soon as possible so he does not run up his medical bill. Pt states he has children in the area. Scribed by Adin Leyva under the direct supervision of Dr. Moreland. Hospital course: Patient was admitted intensive care unit and started on a Cardizem drip as well as IV antibiotics. He apparently converted to sinus rhythm for short period of time but then was back in atrial fibrillation with controlled ventricular response on by mouth Cardizem. He was feeling much better afebrile maintaining saturations greater than 90 percent on room air with stable vital signs. He was set up to the [facility] to get Omnicef and Cardizem CD 360 mg every morning daily. He's been a patient apparently several years ago at [facility] and is either been given an appointment in there or the number of to call. He is motivated to follow up with medical care after this hospital admission. He understands the consequence of increased risk for stroke not to mention reduced exercise capability if he does not take his medication in regards controlling atrial fibrillation. he will be staying with his daughter and tell he is feeling better now. His nurse was advised to call Dr. Lugo to discuss future cardiology follow-up plans before discharge. Discharge Summary Discharge Physical Examination Allergies: Coded Allergies: No Known Drug Allergies (Unverified , 08/02/16) Vitals & I&Os Vital Signs Date Time Temp Pulse Resp B/P (MAP) Pulse Ox O2 Delivery O2 Flow Rate FiO2 08/04/16 08:13 91 08/04/16 08:00 97.3 99 16 117/87 08/03/16 14:00 Room Air Hospital Course Labs (last 24 hrs) Laboratory Tests 08/04/16 04:08: White Blood Count 10.2, Red Blood Count 4.72, Hemoglobin 14.5, Hematocrit 44, Mean Corpuscular Volume 93, Mean Corpuscular Hemoglobin 31, Mean Corpuscular Hemoglobin Concent 33, Red Cell Distribution Width 15.3H, Platelet Count 227, Mean Platelet Volume 10.1, Neutrophils (%) (Auto) 70, Lymphocytes (%) (Auto) 16 , Monocytes (%) (Auto) 7, Eosinophils (%) (Auto) 7, Basophils (%) (Auto) 1, Neutrophils # (Auto) 7.1, Lymphocytes # (Auto) 1.6, Monocytes # (Auto) 0.7, Eosinophils # (Auto) 0.7H, Basophils # (Auto) 0.1, Sodium Level 137, Potassium Level 4.8, Chloride Level 110H, Carbon Dioxide Level 17L, Anion Gap 10, Blood Urea Nitrogen 13, Creatinine 0.83, Estimat Glomerular Filtration Rate > 60, BUN/ Creatinine Ratio 16, Glucose Level 102, Calcium Level 8.8, Phosphorus Level 3.2 , Magnesium Level 1.9 Microbiology 08/02/16 Blood Culture - Preliminary, Resulted No growth 08/02/16 MRSA Screen - Final, Complete MRSA not isolated Pending Labs Laboratory Tests 08/04/16 04:08: White Blood Count 10.2, Red Blood Count 4.72, Hemoglobin 14.5, Hematocrit 44, Mean Corpuscular Volume 93, Mean Corpuscular Hemoglobin 31, Mean Corpuscular Hemoglobin Concent 33, Red Cell Distribution Width 15.3, Platelet Count 227, Mean Platelet Volume 10.1, Neutrophils (%) (Auto) 70, Lymphocytes (%) (Auto) 16 , Monocytes (%) (Auto) 7, Eosinophils (%) (Auto) 7, Basophils (%) (Auto) 1, Neutrophils # (Auto) 7.1, Lymphocytes # (Auto) 1.6, Monocytes # (Auto) 0.7, Eosinophils # (Auto) 0.7, Basophils # (Auto) 0.1, Sodium Level 137, Potassium Level 4.8, Chloride Level 110, Carbon Dioxide Level 17, Anion Gap 10, Blood Urea Nitrogen 13, Creatinine 0.83, Estimat Glomerular Filtration Rate > 60, BUN/ Creatinine Ratio 16, Glucose Level 102, Calcium Level 8.8, Phosphorus Level 3.2 , Magnesium Level 1.9 Discharge Home Medications: Active Scripts Active Diltiazem 24Hr ER (Diltiazem HCl) 360 Mg Cap.er.24h 360 Mg PO DAILY 30 Days Cefdinir 300 Mg Capsule 300 Mg PO BID Aspirin 81 Mg Tab.chew 81 Mg PO DAILY@0900 Eliquis (Apixaban) 5 Mg Tablet 5 Mg PO BID Instructions to patient/family Please see electonic discharge instructions given to patient. Clinical Quality Measures AMI/AHF: ASA po Prior to arrival: No DVT/VTE Risk/Contraindication: Risk Factor Score Per Nursin RFS Level Per Nursing on Admit: 2=Moderate GUSTAVO TRAN MD August 04, 2016 09:50
--- NOTE | 2016-08-04 11:21 | Cardiology Progress Note ---
Cardiology SOAP Progress Note Subjective: Significantly improved shortness of breath Objective: I&O/Vital Signs Vital Sign - Last 12Hours 08/03/16 08/03/16 08/04/16 08/04/16 23:58 23:59 01:28 04:00 Pulse 77 113 Pulse Ox 97 96 08/04/16 08/04/16 08/04/16 08/04/16 04:00 07:00 07:39 08:00 Temp 97.3 Pulse 105 96 99 Resp 16 B/P (MAP) 117/87 Pulse Ox 93 91 08/04/16 08:13 Pulse Ox 91 Intake and Output 08/04/16 00:00 Intake Total 2270 ml Output Total 625 ml Balance 1645 ml Weight (Pounds): 213 Weight (Ounces): 8.0 Weight (Calculated Kilograms): 96.814746 Constitutional: No appears stated age, No AAO x 3, No apparent distress, No PERRL, No well-developed, No well-nourished, No other Respiratory: chest expansion is symmetric, chest is bilaterally symmetric, lungs clear to auscultation Cardiovascular: irregularly irregular, S1 and S2 Gastrointestional: No tender, No soft, No round, No distended, No pulsatile mass, No organomegaly, No guarding, No rebound, No tenderness, No hernia, No mass, No audible bowel sounds, No abnormal bowel sounds, No abdominal bruits, No spleenomegaly, No other Extremities: No normal range of motion, No non-tender, No normal inspection, No pedal edema, No calf tenderness, No normal capillary refill, No pelvis stable , No calf tenderness, No inflammation, No pedal edema, No slow capillary refill , No swelling, No other, No abrasion, No clubbing, No cyanosis, No ecchymosis, No laceration, No no lower extremity edema bilateral, No significant edema, No tenderness, No wound Neurologic/Psychiatric: No regional commercial sales manager II-XII nml as tested, No no motor/sensory deficits, No alert, No normal mood/affect, No oriented x 3, No abnormal cerebellar tests, No abnormal regional commercial sales manager II-XII, No abnormal gait, No aphasia, No EOM palsy, No facial droop, No motor weakness, No sensory deficit, No depressed affect, No disoriented x 3, No other, No grossly intact, No power is 5/5 both on sides Skin: No normal color, No warm/dry, No cyanosis, No cool, No diaphoresis, No damp, No ecchymosis, No jaundice, No mottled, No pallor, No rash, No tattoos/ piercings, No ulcerations, No rash on exposed areas, No ulcerations on exposed areas, No other Results/Procedures: Labs Laboratory Tests 08/04/16 04:08: White Blood Count 10.2, Red Blood Count 4.72, Hemoglobin 14.5, Hematocrit 44, Mean Corpuscular Volume 93, Mean Corpuscular Hemoglobin 31, Mean Corpuscular Hemoglobin Concent 33, Red Cell Distribution Width 15.3H, Platelet Count 227, Mean Platelet Volume 10.1, Neutrophils (%) (Auto) 70, Lymphocytes (%) (Auto) 16 , Monocytes (%) (Auto) 7, Eosinophils (%) (Auto) 7, Basophils (%) (Auto) 1, Neutrophils # (Auto) 7.1, Lymphocytes # (Auto) 1.6, Monocytes # (Auto) 0.7, Eosinophils # (Auto) 0.7H, Basophils # (Auto) 0.1, Sodium Level 137, Potassium Level 4.8, Chloride Level 110H, Carbon Dioxide Level 17L, Anion Gap 10, Blood Urea Nitrogen 13, Creatinine 0.83, Estimat Glomerular Filtration Rate > 60, BUN/ Creatinine Ratio 16, Glucose Level 102, Calcium Level 8.8, Phosphorus Level 3.2 , Magnesium Level 1.9 Microbiology 08/02/16 Blood Culture - Preliminary, Resulted No growth 08/02/16 MRSA Screen - Final, Complete MRSA not isolated A/P: Assessment/Dx: atrial fibrillation with RVR, Shortness of breath, Pneumonia, Active smoking Plan: AF: Eliquis. By mouth Cardizem. Much better rate control. Shortness of breath: mild elevation of BNP. could be secondary to pneumonia and AF. No overt CHF. Complains of mild discomfort in the left thigh with exercise: This may suggest claudication. PAD workup as an outpatient is recommended. Smoking cessation was strongly recommended. Pneumonia: defer to primary team. Okay to discharge and follow up with me in office in 10 days. Thank you for your consultation. Please call me if you have any questions. Zen Lugo MD, FACP, FACC, FSCAI, FHRS, CCDS Interventional Cardiology Cardiac Electrophysiology Vascular Medicine and Endovascular Interventions Clinical Quality Measures AMI/AHF: ASA po Prior to arrival: Paul Swift MD August 04, 2016 11:21 am
[2016-08-04 11:30] VITALS: BP 117/87
--- NOTE | 2016-08-04 19:36 | ECHOCARDIOGRAPHY REPORT ---
DATE OF SERVICE: 08/02/2016 [facility] PHYSICIAN: Dr. Moreland. READING PHYSICIAN: Dr. Zen Lugo. DIAGNOSIS: New onset atrial fibrillation, left lower lobe pneumonia. FINDINGS: 1. The study is performed in atrial fibrillation. 2. There is mild left atrial enlargement. 3. Aortic root dimensions are normal. 4. Left ventricular systolic function is borderline normal. Left ventricular ejection fraction of 50%. Moderate concentric LVH is present with diastolic interventricular septal diameter 1.6 cm. 5. There is no significant wall motion abnormalities. 6. There is mild right ventricular enlargement and right atrial enlargement. 7. There is no evidence of pericardial effusion. 8. As this patient was in atrial fibrillation, complete diastolic evaluation was not performed. 9. IVC is dilated with a diameter of 2.7 cm, which suggests increased right atrial pressure. VALVULAR STRUCTURE OF THE HEART: Severe mitral regurgitation is noted with peak velocity of 5.89 meters per second. There is moderate tricuspid regurgitation with RVSP of 34 mmHg. Sclerotic aortic valve without stenosis is noted. The pulmonic valve was not well visualized. CONCLUSION: 1. Borderline LV systolic function with an EF of 50%. 2. Moderate concentric LVH. 3. Mildly enlarged right ventricle and right atrium. 4. Severe mitral regurgitation. 5. Moderate tricuspid regurgitation. 6. Dilated IVC suggests increased right atrial pressure. 7. The study was performed in atrial fibrillation. Job ID: [id number] DocumentID: [id number] Dictated Date: 08/03/2016 15:33:48 Cloth Cutting Inspector Date: 08/04/2016 10:48:51 Dictated By: LEW LUGO MD
== END 2016-08-04 11:35 | disposition home or self-care (01) | DRG 308 ==
LOC: EDUNIT# 12:08 → ER 12:11 → ICU 13:28
PROVIDERS: ADMIT Internal Medicine; ATTEND Internal Medicine
DX: I48.91 Unspecified atrial fibrillation (principal); J18.9 Pneumonia, unspecified organism; I10 Essential (primary) hypertension; F17.210 Nicotine dependence, cigarettes, uncomplicated; Z91.14 Patient's other noncompliance with medication regimen; Z59.0 Homelessness
CPT/HCPCS: 36415; 71010; 80048; 80053; 83605; 83735; 83880; 84100; 84484; 85025; 85610; 85730; 87040; 87081; 93005; 93306; 94640; 94760; 96361; 96365; 96366; 96375

== ENCOUNTER 2016-08-14 13:29 | Emergency (ER) | payer SELFPAY ==
[~2016-08-14] VITALS: Ht 175.3 cm; Wt 86.2 kg
[~2016-08-14 13:29] MED LIST: APIX5TAB PO; ASPI-999 PO; CEFD300C3 PO; DILT240C63 PO; DILT360C36 PO
[2016-08-14] MEDS ORDERED: NS IV 500 ML 500 ML IV ONE (13:44)
[2016-08-14] MEDS ORDERED: DILTIAZEM 25 MG/5 ML INJ (CARDIZEM) VIAL IVP ONE (13:45)
[2016-08-14] MEDS ORDERED: DILTIAZEM DRIP 100 MG in SODIUM CHLORIDE (ADD-VANTAGE) 100 ML IV SCH (13:45)
[2016-08-14] MEDS ORDERED: ASPIRIN 81 MG CHEW (CHILDREN'S ASA) PO ONE (13:45)
[2016-08-14 13:57] LABS: BASOPHILS # (AUTO) 0.1 10^3/uL (0.0-0.1); BASOPHILS % (AUTO) 1 % (0-10); EOSINOPHILS # (AUTO) 0.3 10^3/uL (0.0-0.3); EOSINOPHILS % (AUTO) 3 % (0-10); LYMPHOCYTES # (AUTO) 1.7 X 10^3 (1.0-4.0); LYMPHOCYTES % (AUTO) 16 % (12-44); MEAN CORPUSCULAR HEMOGLOBIN 31 PG (25-34); MEAN CORPUSCULAR HGB CONC 34 G/DL (32-36); MEAN CORPUSCULAR VOLUME 91 FL (80-99); MEAN PLATELET VOLUME 9.5 FL (7.4-10.4); MONOCYTES # (AUTO) 0.7 X 10^3 (0.0-1.0); MONOCYTES % (AUTO) 6 % (0-12); NEUTROPHILS # (AUTO) 8.2 X 10^3 (1.8-7.8); NEUTROPHILS % (AUTO) 75 % (42-75); PLATELET COUNT 346 10^3/uL (130-400); RED BLOOD COUNT 5.38 10^6/uL (4.35-5.85); RED CELL DISTRIBUTION WIDTH 14.8 % (10.0-14.5)
--- NOTE | 2016-08-14 13:57 | ED Chest Pain ---
General Chief Complaint: Respiratory Problems Stated Complaint: ABDOMINAL PAIN/DIARRHEA Source: patient Exam Limitations: no limitations History of Present Illness Time seen by provider: 13:35 Initial Comments Here with report of having abdominal pain over the past couple of days that is low to middle centrally and feeling increasingly short of breath. Patient was in the hospital recently for A. fib with rapid ventricular response. He was started on medicines for that as well as an antibiotic for questionable pneumonia. He was having difficulties with abdominal pain and nausea and vomiting and called his heart doctor who reportedly told him to call his primary care doctor and that doctor apparently wanted him to stop all meds and follow back up here. He reports that the abdominal pain is actually gotten better since he completed his antibiotics yesterday but he has been off of his Cardizem for 2 or 3 days. He notes that his shortness of breath is increasing today and he feels a fluttering in his chest. States nausea and vomiting got away now. Denies dysuria or diarrhea. Patient is having difficulty with access to care per his report. 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: No Associated Symptoms: No abdominal pain, fatigue, nausea/vomiting, shortness of breath, No weakness Allergies and Home Medications Allergies Coded Allergies: No Known Drug Allergies (Unverified , 08/02/16) Home Medications Apixaban 5 Mg Tablet, 5 MG PO BID, #60 Prescribed by: MAYITO CANCHOLA on 08/03/16 1149 Aspirin 81 Mg Tab.chew, 81 MG PO DAILY, (Reported) Diltiazem HCl 360 Mg Cap.er.24h, 360 MG PO DAILY for 30 Days Prescribed by: GUSTAVO TRAN on 08/04/16 0841 Review of Systems Constitutional: see HPI, No chills, No fever EENTM: No Symptoms Reported Respiratory: See HPI, Shortness of Air, SOA With Exertion, Denies Wheezing Cardiovascular: Denies Chest Pain, Irregular Heart Rate, Palpitations Gastrointestinal: No Symptoms Reported Genitourinary: No Symptoms Reported Musculoskeletal: no symptoms reported All Other Systems Reviewed Negative Unless Noted: Yes Past Zsyxcsx-Zrpsrb-Wedvtq Hx Patient Social History Alcohol Use: Denies Use Recreational Drug Use: No Smoking Status: Current Everyday Smoker Type Used: Cigarettes 2nd Hand Smoke Exposure: No Recent Foreign Travel: No Contact w/Someone Who Travel: No Recent Hopitalizations: No Seasonal Allergies Seasonal Allergies: No Surgeries HX Surgeries: No Respiratory Hx Respiratory Disorders: No Cardiovascular Hx Cardiac Disorders: Yes Cardiac Disorders: Atrial Fibrillation, Hypertension, Irregular Heartbeat, Palpitations Neurological Hx Neurological Disorders: No Reproductive System Sexually Transmitted Disease: No HIV/AIDS: No Genitourinary Hx Genitourinary Disorders: No Gastrointestinal Hx Gastrointestinal Disorders: No Musculoskeletal Hx Musculoskeletal Disorders: Yes Musculoskeletal Disorders: Rheumatoid Arthritis Endocrine Hx Endocrine Disorders: No HEENT HX ENT Disorders: No Cancer Hx Cancer: No Psychosocial Hx Psychiatric Problems: No Behavioral Health Disorders: Depression Blood Transfusions Adverse Reaction to a Blood Tr: No Reviewed Nursing Assessment Reviewed/Agree w Nursing PMH: Yes Family Medical History Significant Family History: No Pertinent Family Hx Physical Exam Vital Signs Vital Sign - Last 12Hours 08/14/16 13:37 Temp 97.9 Pulse 174 Resp 22 B/P (MAP) 146/138 Pulse Ox 95 O2 Delivery Room Air Capillary Refill : General Appearance: No Apparent Distress, WD/WN HEENT: PERRL/EOMI, Pharynx Normal Neck: Full Range of Motion, Non Tender, Supple Respiratory: Lungs Clear, Normal Breath Sounds Cardiovascular: No Murmur, Irregularly Irregular, Tachycardia Gastrointestinal: Normal Bowel Sounds, No Organomegaly, No Pulsatile Mass, Non Tender, Soft Extremity: Normal Inspection, Normal Range of Motion, Non Tender, No Calf Tenderness Neurologic/Psychiatric: Alert, Oriented x3, No Motor/Sensory Deficits Skin: Normal Color, Warm/Dry Progress/Results/Core Measures Results/Orders Lab Results Laboratory Tests Test 08/14/16 13:40 Range/Units White Blood Count 11.0 4.3-11.0 10^3/uL Red Blood Count 5.38 4.35-5.85 10^6/uL Hemoglobin 16.4 13.3-17.7 G/DL Hematocrit 49 40-54 % Mean Corpuscular Volume 91 80-99 FL Mean Corpuscular Hemoglobin 31 25-34 PG Mean Corpuscular Hemoglobin Concent 34 32-36 G/DL Red Cell Distribution Width 14.8 H 10.0-14.5 % Platelet Count 346 130-400 10^3/uL Mean Platelet Volume 9.5 7.4-10.4 FL Neutrophils (%) (Auto) 75 42-75 % Lymphocytes (%) (Auto) 16 12-44 % Monocytes (%) (Auto) 6 0-12 % Eosinophils (%) (Auto) 3 0-10 % Basophils (%) (Auto) 1 0-10 % Neutrophils # (Auto) 8.2 H 1.8-7.8 X 10^3 Lymphocytes # (Auto) 1.7 1.0-4.0 X 10^3 Monocytes # (Auto) 0.7 0.0-1.0 X 10^3 Eosinophils # (Auto) 0.3 0.0-0.3 10^3/uL Basophils # (Auto) 0.1 0.0-0.1 10^3/uL Prothrombin Time 14.0 12.2-14.7 SEC INR Comment 1.1 0.8-1.4 Activated Partial Thromboplast Time 31 24-35 SEC Sodium Level 137 135-145 MMOL/L Potassium Level 4.5 3.6-5.0 MMOL/L Chloride Level 104 98-107 MMOL/L Carbon Dioxide Level 24 21-32 MMOL/L Anion Gap 9 5-14 MMOL/L Blood Urea Nitrogen 21 H 7-18 MG/DL Creatinine 0.92 0.60-1.30 MG/DL Estimat Glomerular Filtration Rate > 60 BUN/Creatinine Ratio 23 Glucose Level 114 H 70-105 MG/DL Calcium Level 9.2 8.5-10.1 MG/DL Magnesium Level 2.1 1.8-2.4 MG/DL Total Bilirubin 1.2 H 0.1-1.0 MG/DL Aspartate Amino Transf (AST/SGOT) 50 H 5-34 U/L Alanine Aminotransferase (ALT/SGPT) 60 H 0-55 U/L Alkaline Phosphatase 78 40-136 U/L Myoglobin 70.5 10.0-92.0 NG/ML Troponin I < 0.30 <0.30 NG/ML Total Protein 6.8 6.4-8.2 G/DL Albumin 3.8 3.2-4.5 G/DL Amylase Level 33 25-125 U/L Lipase 23 8-78 U/L My Orders Orders - GLADIS ELLIS MD Cbc With Automated Diff (08/14/16 13:44) Magnesium (08/14/16 13:44) Chest 1 View, Ap/Pa Only (08/14/16 13:44) Ekg Tracing (08/14/16 13:44) Cardiac Profile 1 (08/14/16 13:44) Comprehensive Metabolic Panel (08/14/16 13:44) Myoglobin Serum (08/14/16 13:44) Protime With Inr (08/14/16 13:44) Partial Thromboplastin Time (08/14/16 13:44) O2 (08/14/16 13:44) Monitor-Rhythm Ecg Trace Only (08/14/16 13:44) Lipid Panel (08/15/16 06:00) Aspirin Chewable Tablet (Baby Aspirin Ch (08/14/16 13:45) Saline Lock/Iv-Start (08/14/16 13:44) Lipase (08/14/16 13:44) Amylase (08/14/16 13:44) Saline Lock/Iv-Start (08/14/16 13:44) Ns Iv 500 Ml (Sodium Chloride 0.9%) (08/14/16 13:44) Diltiazem Injection (Cardizem Injection) (08/14/16 13:45) Sodium Chloride (Ad... W/Diltiazem Drip (08/14/16 13:45) Apixaban Tablet (Eliquis Tablet) (08/14/16 14:00) Medications Given in ED Current Medications Medications Dose Ordered Sig/Rao Route Start Time Stop Time Status Last Admin Dose Admin Apixaban 5 mg ONCE ONCE PO 08/14/16 14:00 08/14/16 14:01 DC 08/14/16 14:27 5 MG Aspirin 324 mg ONCE ONCE PO 08/14/16 13:45 08/14/16 13:47 DC 08/14/16 13:52 324 MG Diltiazem HCl 15 mg ONCE ONCE IVP 08/14/16 13:45 08/14/16 13:47 DC 08/14/16 13:52 15 MG Sodium Chloride 500 ml @ 0 mls/hr Q0M ONCE IV 08/14/16 13:44 08/14/16 13:47 DC 08/14/16 13:57 0 MLS/HR Vital Signs/I&O Vital Sign - Last 12Hours 08/14/16 08/14/16 13:37 13:54 Temp 97.9 97.9 Pulse 174 174 Resp 22 22 B/P (MAP) 146/138 146/138 Pulse Ox 95 95 O2 Delivery Room Air Progress Note : Progress Note Seen and evaluated. IV, labs, EKG and chest x-ray ordered. ASA 324 mg by mouth. Eliquis 5 mg by mouth. Normal saline 500 mL bolus. Patient noted to be in A. fib with rapid ventricular response rate 160s to 170s. Cardizem bolus 15 mg IV and drip at 15 mg an hour initiated. Monitor patient. 1432: Patient does really want to stay. Rate is controlled on Cardizem. We will attempt oral Cardizem that he artery has. He has plenty of dosing. I did discuss the case with Dr. Lugo. He will happily see the patient in follow-up. If this fails he will also see him in the hospital as a consult as well. I did discuss this with the patient and he reports that he does have follow-up with Dr. Lugo on 08/22/16 at 11 a.m. He states he will keep that appointment. He really would like to go home if possible. We will monitor him for 30 minutes and make final decision at that point. 1540: Heart rate 95 and doing much better. He is still an atrial fibrillation. He is not having any abdominal pain. He has his medicines. He was instructed on follow-up instructions. He states he will definitely follow-up. Discharged home with return precautions. Patient verbalize understanding instructions and agreement with plan. ECG Initial ECG Impression Date: August 14, 2016 Initial ECG Impression Time: 13:51 Initial ECG Rate: 169 Initial ECG Rhythm: A Fib/Flutter Initial ECG Impression: Atrial Fibrillation w/RVR Comment Atrial fibrillation with rapid ventricular response. Normal rightward axis. No evidence of ST elevation MT. Morphology similar to previous but rate much increased from 08/02/16. Interpreted by me. Departure Impression Impression: Primary Impression: Paroxysmal atrial fibrillation with RVR Disposition: 01 HOME, SELF-CARE Condition: Improved Departure-Patient Inst. Decision time for Depature: 14:55 Referrals: Paul LUGO MD NO,LOCAL PHYSICIAN (PCP) Primary Care Physician Patient Instructions: Atrial Fibrillation (DC) Add. Discharge Instructions: All discharge instructions reviewed with patient and/or family. Voiced understanding. Take medications as directed. Follow-up with your heart doctor as scheduled next week. Return for worse pain, fever, vomiting, weakness, breathing problems or other concerns as needed. You should seek local medical doctor. You may use list provided to assist in finding a local medical doctor. Work/School Note: Local Medical Staff Listing Copy Copies To 1: Paul LUGO MD, TIMOTHY D MD August 14, 2016 13:57
[2016-08-14] MEDS ORDERED: APIXABAN 5 MG (ELIQUIS) TABLET PO ONE (14:00)
[2016-08-14 14:08] LABS: INR 1.1 (0.8-1.4)
[2016-08-14 14:16] LABS: ALANINE AMINOTRANSFERASE 60 U/L (0-55); ALBUMIN 3.8 G/DL (3.2-4.5); AMYLASE 33 U/L (25-125); ANION GAP 9 MMOL/L (5-14); ASPARTATE AMINO TRANSFERASE 50 U/L (5-34); BILIRUBIN,TOTAL 1.2 MG/DL (0.1-1.0); BLOOD UREA NITROGEN 21 MG/DL (7-18); BUN/CREATININE RATIO 23; CALCIUM 9.2 MG/DL (8.5-10.1); CARBON DIOXIDE 24 MMOL/L (21-32); CHLORIDE 104 MMOL/L (98-107); CREATININE SERUM 0.92 MG/DL (0.60-1.30); GFR ESTIMATED > 60; GLUCOSE 114 MG/DL (70-105); LIPASE 23 U/L (8-78); MAGNESIUM 2.1 MG/DL (1.8-2.4); SODIUM 137 MMOL/L (135-145); TOTAL PROTEIN 6.8 G/DL (6.4-8.2)
[2016-08-14 14:18] LABS: POTASSIUM 4.5 MMOL/L (3.6-5.0)
[2016-08-14 14:24] LABS: MYOGLOBIN SERUM 70.5 NG/ML (10.0-92.0)
--- NOTE | 2016-08-14 14:38 | Diagnostic Imaging Report ---
INDICATION: Tachycardia. COMPARISON: 08/02/2016. FINDINGS: Stable cardiomegaly. Central vascular indistinctness is similar. Left basilar ill-defined opacities have improved. No pleural effusion. Please note posterior lower lobes are poorly evaluated by portable radiography. No pneumothorax. IMPRESSION: 1. Cardiomegaly with possible early interstitial pulmonary edema. No pleural effusions. Dictated by: Dictated on workstation # [id number]
[2016-08-14] MEDS ORDERED: ASPI-999 PO (14:47)
[2016-08-14 16:11] VITALS: BP 122/105
== END 2016-08-14 16:15 | disposition home or self-care (01) ==
LOC: EDUNIT# 13:29 → ER 13:33
DX: I48.0 Paroxysmal atrial fibrillation (principal); R19.7 Diarrhea, unspecified; I10 Essential (primary) hypertension; F17.210 Nicotine dependence, cigarettes, uncomplicated; Z79.01 Long term (current) use of anticoagulants; Z79.82 Long term (current) use of aspirin; Z79.899 Other long term (current) drug therapy
CPT/HCPCS: 36415; 71010; 80053; 82150; 83690; 83735; 83874; 84484; 85025; 85610; 85730; 93005; 93041; 96361; 96365

== ENCOUNTER 2016-08-23 08:01 | Day surgery (SDC) | payer OTHER ==
[2016-08-23] VITALS (20 sets, daily range): BP systolic 96–150; BP diastolic 60–115
[~2016-08-23] VITALS: Ht 175.3 cm; Wt 91.6 kg
[~2016-08-23 08:01] MED LIST changes: +LIDOCAINE 2% VISCOUS 15 ML UDC ONE; +NS IV 1000 ML 1,000 ML ONE
[2016-08-23] MEDS ORDERED: NS IV 1000 ML 1,000 ML IV SCH ×2 (08:05→13:41)
[2016-08-23 08:38] LABS: MEAN PLATELET VOLUME 8.9 FL (7.4-10.4); RED BLOOD COUNT 5.48 10^6/uL (4.35-5.85); RED CELL DISTRIBUTION WIDTH 15.3 % (10.0-14.5)
[2016-08-23 08:47] LABS: INR 1.2 (0.8-1.4); PROTHROMBIN TIME PATIENT 14.7 SEC (12.2-14.7)
[2016-08-23 08:53] LABS: ALANINE AMINOTRANSFERASE 19 U/L (0-55); ALBUMIN 4.2 G/DL (3.2-4.5); ANION GAP 10 MMOL/L (5-14); ASPARTATE AMINO TRANSFERASE 20 U/L (5-34); BILIRUBIN,TOTAL 0.8 MG/DL (0.1-1.0); BLOOD UREA NITROGEN 12 MG/DL (7-18); BUN/CREATININE RATIO 14; CALCIUM 9.5 MG/DL (8.5-10.1); CARBON DIOXIDE 26 MMOL/L (21-32); CHLORIDE 103 MMOL/L (98-107); CHOLESTEROL 231 MG/DL (< 200); CREATININE SERUM 0.83 MG/DL (0.60-1.30); DIRECT LDL 166 MG/DL (1-129); GFR ESTIMATED > 60; GLUCOSE 95 MG/DL (70-105); POTASSIUM 4.1 MMOL/L (3.6-5.0); SODIUM 139 MMOL/L (135-145); TOTAL PROTEIN 7.3 G/DL (6.4-8.2); TRIGLYCERIDES 107 MG/DL (<150); VLDL CHOLESTEROL 21 MG/DL (5-40)
[2016-08-23] MEDS ORDERED: MIDAZOLAM 5 MG/5 ML (VERSED) VIAL ONE ×2 (09:05→12:54)
[2016-08-23] MEDS ORDERED: fentaNYL INJECTION 100 MCG/2 ML AMP ONE ×2 (09:05→12:55)
[2016-08-23] MEDS ORDERED: APIX5TAB PO (09:12)
[2016-08-23] MEDS ORDERED: DILT360C36 PO (09:12)
--- NOTE | 2016-08-23 10:51 | Cardiac Procedure Note-CS/ASA ---
Pre-Procedure Note Pre-Op Procedure Note H&P Reviewed The H&P was reviewed, patient examined and no changes noted. Date H&P Reviewed: Aug 23, 2016 Time H&P Reviewed: 09:00 Conscious Sedation Pre-Proced Time Reviewed: 09:00 ASA Class: 3 Airway Mallampati Classification: ([place] appropriate class) I. II. III, IV Lungs Heart ASA score ASA 1: a normal healthy patient ASA 2: a patient with a mild systemic disease (mid diabetes, controlled hypertension, obesity ASA 3: a patient with a severe systemic disease that limits activity (angina , COPD, prior Myocardial infarction) ASA 4: a patient with an incapacitating disease that is a constant threat to life (CHF, renal failure) ASA 5: a moribund patient not expected to survive 24 hrs. (ruptured aneurysm) ASA 6: a declared brain patient whose organs are being harvested. For emergent operations, add the letter E after the classification Grade 1 Sedation Plan: Analgesia, Amnesia, Plan communicated to team members, Discussed options with patient/fam, Discussed risks with patient/fam Note The patient is an appropriate candidate to undergo the planned procedure, sedation, and anesthesia. The patient immediately re-assessed prior to indication. Paul DICKSON MD Aug 23, 2016 10:51 am
--- NOTE | 2016-08-23 10:53 | Cardiology Post Procedure Note ---
Post-Procedure Note Physician (s)/Superintendent Job (s) Physician Paul DICKSON MD Pre-Procedure Diagnosis Pre-Procedure Diagnosis: Mitral regurgitation Post-Procedure Note Procedure Start Date: Aug 23, 2016 Procedure Start Time: 10:00 Name of Procedure: MARILY Findings/Procedure Note Severe mitral regurgitation. no LV/LA/ERICA clots. Normal LV and RV function. No significant aortic valve pathology. Anesthesia Type: Conscious Sedation Estimated blood loss (mL): 0 Contrast Amount: 0 Post-Procedure Diagnosis Post-operative diagnosis: Severe mitral regurgitation Paul DICKSON MD Aug 23, 2016 10:53 am
[2016-08-23] MEDS ORDERED: HEParin (CATH LAB) 2,000 ML IV ONE (12:09)
--- NOTE | 2016-08-23 13:37 | Cardiac Procedure Note-CS/ASA ---
Pre-Procedure Note Pre-Op Procedure Note H&P Reviewed The H&P was reviewed, patient examined and no changes noted. Date H&P Reviewed: Aug 23, 2016 Time H&P Reviewed: 09:00 Conscious Sedation Pre-Proced Time Reviewed: 09:00 ASA Class: 3 Airway Mallampati Classification: ([place] appropriate class) I. II. III, IV Lungs Heart ASA score ASA 1: a normal healthy patient ASA 2: a patient with a mild systemic disease (mid diabetes, controlled hypertension, obesity ASA 3: a patient with a severe systemic disease that limits activity (angina , COPD, prior Myocardial infarction) ASA 4: a patient with an incapacitating disease that is a constant threat to life (CHF, renal failure) ASA 5: a moribund patient not expected to survive 24 hrs. (ruptured aneurysm) ASA 6: a declared brain patient whose organs are being harvested. For emergent operations, add the letter E after the classification Grade 1 Sedation Plan: Analgesia, Amnesia, Plan communicated to team members, Discussed options with patient/fam, Discussed risks with patient/fam Note The patient is an appropriate candidate to undergo the planned procedure, sedation, and anesthesia. The patient immediately re-assessed prior to indication. Paul DICKSON MD Aug 23, 2016 1:37 pm
--- NOTE | 2016-08-23 13:41 | Cardiology Post Procedure Note ---
Post-Procedure Note Physician (s)/Managing Consultant (s) Physician Paul DICKSON MD Pre-Procedure Diagnosis Pre-Procedure Diagnosis: Mitral regurgitation, pre-cardiac surgery Post-Procedure Note Procedure Start Date: Aug 23, 2016 Procedure Start Time: 13:00 Name of Procedure: coronary angiography, left heart catheterization, distal abdominal aortogram Findings/Procedure Note urjw-zg-[id number] disease in the mid RCA. Mild disease in the LAD and left circumflex artery. Normal LV function with severe mitral regurgitation. Infrarenal abdominal aortic aneurysm noted. fluoroscopy time 3.1 minutes. flouroscopy dose 474 mgy. Contrast 70 mL of Omnipaque. Anesthesia Type: Conscious Sedation Estimated blood loss (mL): 10 Contrast Amount: 70 Post-Procedure Diagnosis Post-operative diagnosis: jvkx-oc-ljjvjbal coronary artery disease. Normal LV function with severe MR. infrarenal abdominal aortic aneurysm. Paul DICKSON MD Aug 23, 2016 1:41 pm
[2016-08-23] MEDS ORDERED: PATIENT MAY USE OWN MEDS, ALL PO SCH (13:45)
[2016-08-23] MEDS ORDERED: ATOR10TA PO (16:03)
--- NOTE | 2016-08-23 16:04 | Discharge Inst-Post CATH ---
Discharge Inst-CATH Post Cardiac Cath D/C Inst Follow Up/Plan Follow up with Dr Benigno Weber on Saturday. Follow up with Dr Lugo in two weeks CARDIAC CATH DISCHARGE INSTRUCTIONS *Hold Metformin for 48 hours post heart cath. ACTIVITY * Go Home directly and rest. * Limit activity of the leg (or wrist if it was used) for 7 days including aerobics, swimming, jogging, bicycling, etc. * Restrict stair-climbing for 7 days if possible, if not, climb up with your non -cath leg, then bring together on the same step. * Avoid lifting, pushing, pulling or excessive movement of the affected extremity for 7 days. * Customary sexual activity may be resumed after 2 days-use caution not to use a position that strains or causes pain to the affected extremity. * No driving for 24 hours. * NO SMOKING. * Avoid straining for bowel movements for 7 days. * Gentle walking on level ground is allowed. * Returning to work will depend on the type of procedure and the results. Your doctor will discuss this with you. CALL YOUR DOCTOR FOR ANY OF THE FOLLOWING: *If bleeding from the puncture site occurs- Apply gentle pressure to site with clean cloth and call your doctor or EMS. * If a knot or lump forms under the skin, increases in size, or causes pain. * If bruising appears to be worsening or moving further down your leg instead of disappearing. * Temperature above 101 F. CARE OF YOUR GROIN INCISION; * Bruising or purple discoloration of the skin near the puncture site is common. * You may shower only, no bathtub bathing for 5 days. Be careful to avoid slipping as your leg may feel stiff. * If a closure device was used on your femoral artery, please see the attached guide regarding care of the device and your leg. * REMOVE the dressing from your groin the next day after your procedure in the shower. CARE OF YOUR WRIST INCISION; * Bruising or purple discoloration of the skin near the puncture site is common. * You may shower. * DO NOT submerge wrist. * Remove dressing in 24 hours. Paul LUGO MD Aug 23, 2016 4:03 pm
--- NOTE | 2016-08-23 22:53 | CARDIAC CATHETERIZATION ---
DATE OF SERVICE: 08/23/2016 CORONARY ANGIOGRAPHY INDICATION: Severe mitral regurgitation, precardiac surgery evaluation. PREOPERATIVE DIAGNOSIS: Severe mitral regurgitation, precardiac surgery evaluation. POSTOPERATIVE DIAGNOSIS: zroc-ke-gyjtdqzf coronary artery disease. Small infrarenal abdominal aortic aneurysm. HISTORY OF PRESENT ILLNESS: The patient is a 55-year-old gentleman who has severe mitral regurgitation by transesophageal echocardiogram. He will be referred for cardiac surgery. Coronary angiography is being performed as a preoperative evaluation. PROCEDURES PERFORMED: 1. Coronary angiography. 2. Left heart catheterization. 3. Abdominal aortogram. COMPLICATIONS: None. SPECIMENS: None. ESTIMATED BLOOD LOSS: 10 mL. ANTICOAGULATION: None. CONTRAST: 70 mL of Omnipaque. FLUOROSCOPY TIME: 3.1 minutes. FLUOROSCOPY DOSE: 474 mGy. PROCEDURE DETAILS: The patient was brought to the director of cath lab after informed consent was taken. All the risks and complications were explained. The patient was draped and prepped in the usual sterile fashion. We gained access in the right femoral artery with 6-Tajik sheath. RCA was engaged with JR4 catheter. The left coronary system was engaged with a JL4 catheter. Left heart catheterization and abdominal aortogram was performed with the pigtail catheter. While advancing the wire in the distal abdominal aorta, we felt significant resistance; therefore, abdominal aortogram was performed. FINDINGS: 1. Left main is patent. 2. LAD has mild proximal disease. The LAD is a transapical vessel. 3. The left circumflex artery has mild proximal disease. 4. The RCA has odyk-yy-fhowgtew mid RCA disease. 5. Left heart catheterization. Aortic pressure 126/85 mmHg. LV pressure 118/7 mmHg. LVEDP 18 mmHg. Normal LV function with no wall motion abnormalities. Severe mitral regurgitation is noted. There was no gradient across the aortic valve. 6. Distal abdominal aortogram: The pigtail catheter was pulled back to the level of the distal abdominal aorta and angiogram was performed, which showed a small infrarenal abdominal aortic aneurysm. There is no significant disease in the bilateral common iliac artery, external iliac artery and internal iliac artery. CONCLUSIONS: 1. Znpx-ob-flbocngj coronary artery disease. 2. Normal LV function with severe mitral regurgitation. 3. Small infrarenal abdominal aortogram. Abdominal aortic aneurysm noted. Job ID: [id number] DocumentID: [id number] Dictated Date: 08/23/2016 16:54:04 Sulfuric Acid Plant Operator Date: 08/23/2016 20:58:23 Dictated By: LEW DICKSON MD MTDD
--- NOTE | 2016-08-24 07:52 | TEE REPORT ---
DATE OF SERVICE: 08/23/2016 PRIMARY PHYSICIAN: [facility]. PERFORMING PHYSICIAN: Dr. Zen Lugo. DIAGNOSIS: Severe mitral regurgitation. PROCEDURE NOTE: After explaining the procedure to the patient, all pros and cons were explained. All questions were answered. The patient signed an informed consent. The oropharynx was anesthetized using xylocaine spray. Conscious sedation was performed. MARILY probe was introduced through the oropharynx into the esophagus. Multiple views were obtained. At the end of the procedure, MARILY probe was removed. There were no complications noted. FINDINGS: 1. The left ventricle size is normal with preserved ejection fraction. 2. Left atrial size is mildly enlarged. There is no clot or thrombus seen within the left atrium. The left atrial appendage also does not have any evidence of thrombus. 3. The right atrium and right ventricular size are normal. 4. The patient has severe mitral regurgitation. Vena contracta was over 0.7 cm. The mitral regurgitant jet is covering more than 50% of the area of the left atrium, also, mitral regurgitant jet is reaching the posterior wall of the left atrium. All of this suggests severe mitral regurgitation. There is also an eccentric portion of the jet which is directed posteriorly suggesting possible prolapse of the anterior mitral leaflet. 5. The aortic valve is trileaflet with mild thickening. There is no significant stenosis or regurgitation. 6. The tricuspid valve is normal with mild tricuspid regurgitation. 7. There is no pericardial effusion. 8. The interatrial septum was evaluated using color Doppler flow and agitated saline contrast media. There is no evidence of intracardiac shunting including ASD or PFO. 9. Portion of the aorta was evaluated and aortic plaque was noted. In the area evaluated, there was no dissection or aneurysm seen. CONCLUSIONS: 1. Normal LV size and function with EF of 50% to 55%. 2. Severe mitral regurgitation with possible prolapse of the anterior mitral leaflet. 3. No LV, LA or left atrial appendage thrombus noted. 4. Normal RV size and function. Job ID: [id number] DocumentID: [id number] Dictated Date: 08/23/2016 16:46:22 Sterile Instrument Technician Date: 08/23/2016 18:24:24 Dictated By: LEW LUGO MD
== END 2016-08-23 17:30 | disposition home or self-care (01) ==
LOC: CATH 08:01 → ICU 13:50 → ENPENDDIS 17:00 → CATH 17:30
PROVIDERS: ATTEND Internal Medicine Interventional Cardiology
DX: I34.0 Nonrheumatic mitral (valve) insufficiency (principal); I25.10 Atherosclerotic heart disease of native coronary artery without angina pectoris; I71.4 Abdominal aortic aneurysm, without rupture; R06.02 Shortness of breath; I48.0 Paroxysmal atrial fibrillation; I73.9 Peripheral vascular disease, unspecified; M79.89 Other specified soft tissue disorders; Z72.0 Tobacco use; Z79.899 Other long term (current) drug therapy; Z79.01 Long term (current) use of anticoagulants
CPT/HCPCS: 36415; 75625; 80053; 80061; 85027; 85610; 85730; 87081; 93005; 93312; 93320; 93325; 93458

== ENCOUNTER → 2016-08-28 | Outpatient (CLI) | payer OTHER ==
[~2016-08-28] MED LIST changes: +ATOR10TA PO; -LIDOCAINE 2% VISCOUS 15 ML UDC ONE; -NS IV 1000 ML 1,000 ML ONE
== END ==
LOC: RAD 13:23
PROVIDERS: ATTEND Internal Medicine Interventional Cardiology
DX: I73.9 Peripheral vascular disease, unspecified (principal); Z72.0 Tobacco use
CPT/HCPCS: 93923

== ENCOUNTER → 2016-09-05 | Outpatient (CLI) | payer OTHER | LOC: RT 12:45 | PROVIDERS: ATTEND Thoracic Surgery (Cardiothoracic Vascular Surgery) | DX: J43.1 Panlobular emphysema (principal) ==

== ENCOUNTER 2017-01-17 09:11 | Outpatient (RCR) | payer MEDICAID, OTHER ==
[2017-01-28] MEDS ORDERED: ASPI325T32 PO (12:14)
[2017-01-28] MEDS ORDERED: ATOR10TA66 PO (12:14)
[2017-01-28] MEDS ORDERED: ZOLP10TA5 PO (12:14)
[2017-01-28] MEDS ORDERED: METO-387 PO (12:14)
[2017-01-29] MEDS ORDERED: CEPH-507 PO (12:38)
[2017-01-29] MEDS ORDERED: METO-387 PO (12:38)
== END 2017-04-17 | disposition home or self-care (01) ==
LOC: CARD 09:11
PROVIDERS: ATTEND Internal Medicine Interventional Cardiology
DX: I48.91 Unspecified atrial fibrillation (principal); R42 Dizziness and giddiness; I34.0 Nonrheumatic mitral (valve) insufficiency; R06.02 Shortness of breath; Z72.0 Tobacco use
CPT/HCPCS: 93225; 93226

== ENCOUNTER → 2017-01-17 | Outpatient (CLI) | payer OTHER | LOC: CARD 09:07 | PROVIDERS: ATTEND Internal Medicine Interventional Cardiology | DX: I48.91 Unspecified atrial fibrillation (principal); I34.0 Nonrheumatic mitral (valve) insufficiency; R42 Dizziness and giddiness; R06.02 Shortness of breath; Z72.0 Tobacco use | CPT/HCPCS: 93306 ==

== ENCOUNTER → 2017-03-05 | Outpatient (CLI) | payer OTHER ==
[~2017-03-05] MED LIST changes: +ASPI325T32 PO; +ATOR10TA66 PO; +CEPH-507 PO; +METO-387 PO; +ZOLP10TA5 PO
--- NOTE | 2017-03-05 12:53 | Diagnostic Imaging Report ---
PA and lateral views of the chest. INDICATION: Chest pain. COMPARISON: 01/28/2017. FINDINGS: The lungs appear clear. The heart size is normal. There are right atrial and right ventricular leads seen similar to the previous exam. No effusion or pneumothorax. The mediastinum and [place] appear unremarkable. Sternotomy wires are seen. IMPRESSION: No acute process. Dictated by: Dictated on workstation # [id number]
== END ==
LOC: CARD 12:34
PROVIDERS: ATTEND Family Medicine
DX: R07.89 Other chest pain (principal)
CPT/HCPCS: 71020; 93306

== ENCOUNTER → 2017-03-07 | Outpatient (CLI) | payer MEDICAID, OTHER ==
--- NOTE | 2017-03-07 16:15 | Diagnostic Imaging Report ---
PROCEDURE: ECG gated cardiac CT without contrast. TECHNIQUE: Multiple contiguous axial images were obtained through the heart with retrospective ECG gating, without the use of intravenous contrast. With multiplanar reconstructions performed. INDICATION: Chest pain. Evaluate pacer leads position. FINDINGS: There is a mitral valve replacement. There are right atrial and right ventricular pacemaker leads in place. The right ventricular lead appears to run obliquely through the myometrium in the inferior wall of the right ventricle. It is surrounded by significant artifact. The tip of the lead appears to be projecting into the pericardial region with no definitive evidence of perforation. There is no pericardial effusion or pericardial hematoma. The ascending aorta is 4.5 cm in caliber at mid ascending level. The aortic root does not appear to be significantly dilated however. The visualized portions of the lungs appear unremarkable. There are sternotomy wires seen with the sternotomy demonstrating no evidence of healing and sclerotic lines compatible with nonunion. IMPRESSION: 1. The right ventricular lead tip is centered along the area of the inferior wall of the myometrium of the right ventricle and appears to slightly project into the pericardial area with no definite evidence of perforation. No pericardial effusion or hemorrhage. 2. A 4.5 cm ascending aortic aneurysm. 3. 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 Dictated by: Dictated on workstation # [id number]
== END ==
LOC: RAD 14:07
PROVIDERS: ATTEND Internal Medicine Interventional Cardiology
DX: I71.2 Thoracic aortic aneurysm, without rupture (principal); Z95.2 Presence of prosthetic heart valve; Z98.890 Other specified postprocedural states
CPT/HCPCS: 71250

== ENCOUNTER 2017-11-11 10:02 | Outpatient (RCR) | payer MEDICAID | END 2017-11-22 | disposition home or self-care (01) | LOC: CARD 10:02 | PROVIDERS: ATTEND Family Medicine | DX: R55 Syncope and collapse (principal) | CPT/HCPCS: 93225; 93226 ==

== ENCOUNTER → 2018-02-10 | Outpatient (CLI) | payer MEDICAID ==
[~2018-02-10] MED LIST changes: -DILT240C63 PO; +DILT240C97 PO
== END ==
LOC: CARD 10:15
PROVIDERS: ATTEND Internal Medicine Interventional Cardiology
DX: I48.0 Paroxysmal atrial fibrillation (principal); I44.1 Atrioventricular block, second degree
CPT/HCPCS: 93225; 93226

== ENCOUNTER 2018-02-17 13:29 | Observation (INO) | payer MEDICAID ==
[~2018-02-17] VITALS: Ht 177.8 cm; Wt 92.7 kg
[2018-02-17] MEDS ORDERED: NITROGLYCERIN 0.4 MG SL TABS BTL 25'S SL PRN (13:45)
--- NOTE | 2018-02-17 13:45 | ED Chest Pain ---
General Stated Complaint: CHEST PAIN Source: patient Exam Limitations: no limitations History of Present Illness Date Seen by Provider: Feb 17, 2018 Time Seen by Provider: 13:43 Initial Comments To ER with reports of left sternal border chest pain. This began last night and is described as a squeezing sensation. He states that he went to the bathroom and "blacked out" awakening on the bathroom floor about an hour later. He states that he remembers talking to his daughter at 6:30 PM last night and he remembers awakening at about 10 AM, so this syncopal event was sometime between 6:30 and 10. He does have a [employer] pacemaker. This morning he nearly ran off the road on his way here due to the severe pain. He states that the pain is severe and is worse with touching this area and he states that he was nearly unable to turn the steering wheel in his [employer] truck because this movement worsens the pain. He denies shortness of breath. History of CABG several years ago. He's had several dizzy spells and will occasionally pass out or become lightheaded and very dizzy and "things go black" briefly while sitting down watching TV. 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: Yes NTG SL CHIEF JUVENILE PROBATION OFFICER: No Allergies and Home Medications Allergies Coded Allergies: No Known Drug Allergies (Unverified , 08/02/16) Home Medications Aspirin 325 Mg Tablet.dr, 325 MG PO DAILY, (Reported) Atorvastatin Calcium 10 Mg Tablet, 10 MG PO DAILY, (Reported) Cephalexin 500 Mg Capsule, 500 MG PO TID Prescribed by: Paul LUGO on 01/29/17 1238 Metoprolol Succinate 25 Mg Tab.er.24h, 50 MG PO DAILY Prescribed by: Paul LUGO on 01/29/17 1238 Zolpidem Tartrate 10 Mg Tablet, 10 MG PO HS PRN for SLEEP, (Reported) Patient Home Medication List Home Medication List Reviewed: Yes Review of Systems Review of Systems Constitutional: see HPI EENTM: No Symptoms Reported Respiratory: No Symptoms Reported Cardiovascular: See HPI, Chest Pain, Irregular Heart Rate, Lightheadedness, Syncope Gastrointestinal: No Symptoms Reported Genitourinary: No Symptoms Reported Musculoskeletal: no symptoms reported Skin: no symptoms reported Psychiatric/Neurological: No Symptoms Reported Endocrine: No Symptoms Reported Hematologic/Lymphatic: No Symptoms Reported Past Wzkqitu-Dypuha-Aertpi Hx Patient Social History Type Used: Cigars 2nd Hand Smoke Exposure: Yes Recent Hopitalizations: Yes Immunizations Up To Date Tetanus Booster (TDap): More than 5yrs Seasonal Allergies Seasonal Allergies: No Past Medical History Surgeries: No Respiratory: No Pneumonia Cardiac: Yes Atrial Fibrillation, Hypertension, Irregular Heartbeat, Palpitations Neurological: No Sexually Transmitted Disease: No HIV/AIDS: No Genitourinary: No Gastrointestinal: No Musculoskeletal: Yes Rheumatoid Arthritis Endocrine: No HEENT: No Cancer: No Psychosocial: Yes Depression Integumentary: No Blood Disorders: No Adverse Reaction/Blood Tranf: No Family Medical History No Pertinent Family Hx Physical Exam Vital Signs Vital Signs - First Documented Capillary Refill : Height, Weight, BMI Height: 5'6.00" Weight: 235lbs. 0.0oz. 106.388488op; 37.9 BMI Method:Stated General Appearance: No Apparent Distress, WD/WN HEENT: PERRL/EOMI, TMs Normal Neck: Full Range of Motion, Normal Inspection Respiratory: Normal Breath Sounds, No Accessory Muscle Use, No Respiratory Distress Cardiovascular: Regular Rate, Rhythm, Normal Peripheral Pulses Gastrointestinal: Non Tender, Soft Neurologic/Psychiatric: Alert, Oriented x3 Skin: Normal Color, Warm/Dry Other comments Ventricular trigeminy noted on EKG, but there are no ST segment changes Progress/Results/Core Measures Results/Orders Lab Results Laboratory Tests Test 02/17/18 13:43 Range/Units White Blood Count 12.7 H 4.3-11.0 10^3/uL Red Blood Count 5.88 H 4.35-5.85 10^6/uL Hemoglobin 18.3 H 13.3-17.7 G/DL Hematocrit 52 40-54 % Mean Corpuscular Volume 88 80-99 FL Mean Corpuscular Hemoglobin 31 25-34 PG Mean Corpuscular Hemoglobin Concent 36 32-36 G/DL Red Cell Distribution Width 13.7 10.0-14.5 % Platelet Count 278 130-400 10^3/uL Mean Platelet Volume 8.9 7.4-10.4 FL Neutrophils (%) (Auto) 76 H 42-75 % Lymphocytes (%) (Auto) 14 12-44 % Monocytes (%) (Auto) 5 0-12 % Eosinophils (%) (Auto) 4 0-10 % Basophils (%) (Auto) 1 0-10 % Neutrophils # (Auto) 9.7 H 1.8-7.8 X 10^3 Lymphocytes # (Auto) 1.8 1.0-4.0 X 10^3 Monocytes # (Auto) 0.6 0.0-1.0 X 10^3 Eosinophils # (Auto) 0.6 H 0.0-0.3 10^3/uL Basophils # (Auto) 0.1 0.0-0.1 10^3/uL Prothrombin Time 12.8 12.2-14.7 SEC INR Comment 1.0 0.8-1.4 Activated Partial Thromboplast Time 27 24-35 SEC Sodium Level 138 135-145 MMOL/L Potassium Level 4.2 3.6-5.0 MMOL/L Chloride Level 102 98-107 MMOL/L Carbon Dioxide Level 23 21-32 MMOL/L Anion Gap 13 5-14 MMOL/L Blood Urea Nitrogen 16 7-18 MG/DL Creatinine 0.99 0.60-1.30 MG/DL Estimat Glomerular Filtration Rate > 60 BUN/Creatinine Ratio 16 Glucose Level 101 70-105 MG/DL Calcium Level 10.0 8.5-10.1 MG/DL Corrected Calcium 8.5-10.1 MG/DL Magnesium Level 2.0 1.8-2.4 MG/DL Total Bilirubin 0.7 0.1-1.0 MG/DL Aspartate Amino Transf (AST/SGOT) 15 5-34 U/L Alanine Aminotransferase (ALT/SGPT) 10 0-55 U/L Alkaline Phosphatase 61 40-136 U/L Myoglobin 46.9 10.0-92.0 NG/ML Troponin I < 0.30 <0.30 NG/ML B-Type Natriuretic Peptide 76.3 <100.0 PG/ML Total Protein 8.0 6.4-8.2 GM/DL Albumin 4.8 H 3.2-4.5 GM/DL Lipase 26 8-78 U/L My Orders Orders - SHALA MAI APRN Cbc With Automated Diff (02/17/18 13:34) Magnesium (02/17/18 13:34) Chest 1 View, Ap/Pa Only (02/17/18 13:34) Ekg Tracing (02/17/18 13:34) Cardiac Profile 1 (02/17/18 13:34) Comprehensive Metabolic Panel (02/17/18 13:34) Myoglobin Serum (02/17/18 13:34) Protime With Inr (02/17/18 13:34) Partial Thromboplastin Time (02/17/18 13:34) O2 (02/17/18 13:34) Monitor-Rhythm Ecg Trace Only (02/17/18 13:34) Lipid Panel (02/18/18 06:00) Nitroglycerin 0.4 Mg Btl 25's (Nitrostat (02/17/18 13:45) Saline Lock/Iv-Start (02/17/18 13:34) BNP (02/17/18 13:34) Morphine Injection (Morphine Injection (02/17/18 14:15) Ns Iv 1000 Ml (Sodium Chloride 0.9%) (02/17/18 14:15) Ct Head Wo (02/17/18 14:08) Ct Angio Chest W (02/17/18 14:08) Lipase (02/17/18 14:08) Iohexol Injection (Omnipaque 350 Mg/Ml 1 (02/17/18 14:30) Contrast Received (Contrast Received) (02/17/18 14:30) Ns (Ivpb) (Sodium Chloride 0.9%) (02/17/18 14:30) Ketorolac Injection (Toradol Injection) (02/17/18 15:30) Medications Given in ED Current Medications Medications Dose Ordered Sig/Rao Route Start Time Stop Time Status Last Admin Dose Admin Iohexol 125 ml ONCE ONCE IV 02/17/18 14:30 02/17/18 14:36 DC 02/17/18 15:01 125 ML Ketorolac Tromethamine 30 mg ONCE ONCE IVP 02/17/18 15:30 02/17/18 15:31 DC 02/17/18 15:38 30 MG Morphine Sulfate 4 mg ONCE ONCE IVP 02/17/18 14:15 02/17/18 14:16 DC 02/17/18 14:19 4 MG Nitroglycerin 0.4 mg UD PRN SL 02/17/18 13:45 02/17/18 13:49 0.4 MG Sodium Chloride 250 ml ONCE ONCE IV 02/17/18 14:30 02/17/18 14:36 DC 02/17/18 15:01 80 ML Vital Signs/I&O 02/17/18 02/17/18 13:29 13:29 Temp 99.5 Pulse 75 Resp 15 B/P (MAP) 186/122 (143) Pulse Ox 100 O2 Delivery Room Air Room Air Departure Communication (Admissions) Time/Spoke to Admitting Phy: 15:[address] Moreland. We will admit and consult Dr. Lugo. I spoke with Dr. Douglas and he would like to have pacemaker Brand identified so that this can be interrogated. 1401-initial blood pressure 183/109, he was given one sublingual nitroglycerin which reduced his blood pressure to 109/80. No additional nitroglycerin will be given at this time. He took full dose aspirin at home before he came in here. This nitroglycerin also reduced his pain from 10 out of 10-6 out of 10. He states that he feels like his heart is "fluttering" and he believes he can feel the pacemaker wires right in the middle of his heart contributing to this pain. Impression Primary Impression: Chest pain Qualified Codes: R07.9 - Chest pain, unspecified Disposition: ADMITTED INPATIENT Condition: Stable Admissions Decision to Admit Reason: Admit from ER (General) Decision to Admit/Date: Feb 17, 2018 Time/Decision to Admit Time: 14:02 Departure-Patient Inst. Referrals: GAURANG MOLINA MD (PCP/Family) Primary Care Physician SHALA MAI APRN Feb 17, 2018 13:45
[2018-02-17 13:50] LABS: BASOPHILS # (AUTO) 0.1 10^3/uL (0.0-0.1); BASOPHILS % (AUTO) 1 % (0-10); EOSINOPHILS # (AUTO) 0.6 10^3/uL (0.0-0.3); EOSINOPHILS % (AUTO) 4 % (0-10); HEMATOCRIT 52 % (40-54); HEMOGLOBIN 18.3 G/DL (13.3-17.7); LYMPHOCYTES # (AUTO) 1.8 X 10^3 (1.0-4.0); LYMPHOCYTES % (AUTO) 14 % (12-44); MEAN CORPUSCULAR HEMOGLOBIN 31 PG (25-34); MEAN CORPUSCULAR HGB CONC 36 G/DL (32-36); MEAN CORPUSCULAR VOLUME 88 FL (80-99); MEAN PLATELET VOLUME 8.9 FL (7.4-10.4); MONOCYTES # (AUTO) 0.6 X 10^3 (0.0-1.0); MONOCYTES % (AUTO) 5 % (0-12); NEUTROPHILS # (AUTO) 9.7 X 10^3 (1.8-7.8); NEUTROPHILS % (AUTO) 76 % (42-75); PLATELET COUNT 278 10^3/uL (130-400); RED BLOOD COUNT 5.88 10^6/uL (4.35-5.85); RED CELL DISTRIBUTION WIDTH 13.7 % (10.0-14.5); WHITE BLOOD COUNT 12.7 10^3/uL (4.3-11.0)
[2018-02-17 14:07] LABS: PROTHROMBIN TIME PATIENT 12.8 SEC (12.2-14.7)
[2018-02-17] MEDS ORDERED: NS IV 1000 ML 1,000 ML IV SCH ×2 (14:15→17:15)
[2018-02-17] MEDS ORDERED: morphine INJ 10 MG/ML 1ML (SYR OR VIAL) IVP ONE (14:15)
--- NOTE | 2018-02-17 14:16 | Diagnostic Imaging Report ---
INDICATION: Chest pain. TIME OF EXAM: 2:08 p.m. COMPARISON: Correlation is made with prior study from 03/05/2017. FINDINGS: Changes of median sternotomy and CABG are noted. Dual-lead left subclavian cardiac pacemaker remains in place. No infiltrate is seen. No effusion is identified. There is no pneumothorax. IMPRESSION: Stable chest. No acute cardiopulmonary process is detected. Dictated by: Dictated on workstation # [id number]
[2018-02-17 14:20] LABS: MYOGLOBIN SERUM 46.9 NG/ML (10.0-92.0)
[2018-02-17 14:23] LABS: ALANINE AMINOTRANSFERASE 10 U/L (0-55); ALBUMIN 4.8 GM/DL (3.2-4.5); ALKALINE PHOSPHATASE 61 U/L (40-136); BILIRUBIN,TOTAL 0.7 MG/DL (0.1-1.0); BUN/CREATININE RATIO 16; CARBON DIOXIDE 23 MMOL/L (21-32); CHLORIDE 102 MMOL/L (98-107); CREATININE SERUM 0.99 MG/DL (0.60-1.30); GFR ESTIMATED > 60; GLUCOSE 101 MG/DL (70-105); POTASSIUM 4.2 MMOL/L (3.6-5.0); SODIUM 138 MMOL/L (135-145)
[2018-02-17] MEDS ORDERED: NS 250 ML (IVPB) BAG IV ONE (14:30)
[2018-02-17] MEDS ORDERED: IOHEXOL 350 MG/ML 150 ML (OMNIPAQUE 350) VIAL IV ONE (14:30)
[2018-02-17] MEDS ORDERED: RECEIVED CONTRAST (Hold Metformin) IV SCH (14:30)
--- NOTE | 2018-02-17 15:26 | Diagnostic Imaging Report ---
PROCEDURE: CT angiography of the chest with contrast. TECHNIQUE: Multiple contiguous axial images were obtained through the chest after uneventful bolus administration of intravenous contrast. 2D reconstructed CTA MIP acquisitions were also performed. INDICATION: Chest pain. COMPARISON: No prior studies are available. FINDINGS: Evaluation of the pulmonary arterial system is without evidence of thromboemboli. No filling defects are seen within central, lobar, or segmental branches. Ascending thoracic aorta is mildly dilated measuring 4.8 cm AP. No dissection is seen. No pericardial or pleural fluid is identified. There are postop changes of median sternotomy. Left chest wall cardiac pacemaker is in place. No axillary, hilar, or mediastinal lymphadenopathy is seen. Parenchymal evaluation does show some dependent atelectasis in both lower lobes. No infiltrates, nodules, or masses are seen. Upper abdomen is unremarkable. IMPRESSION: No evidence of pulmonary embolism or thoracic aortic dissection. Dictated by: Dictated on workstation # [id number]
[2018-02-17] MEDS ORDERED: KETOROLAC 30 MG/ML VIAL IVP ONE (15:30)
--- NOTE | 2018-02-17 15:31 | Diagnostic Imaging Report ---
INDICATION: Syncope. TECHNIQUE: Noncontrast brain CT is performed. FINDINGS: There are no extra-axial fluid collections. No intracranial hemorrhage. No intracranial mass or mass effect. No midline shift. The ventricles are normal in size and position. There are no focal parenchymal abnormalities in the brain. Calvarial windows are unremarkable. IMPRESSION: Negative noncontrast brain CT. Dictated by: Dictated on workstation # [id number]
--- OUTSIDE RECORDS SUMMARY | 2018-02-17 16:31 | XMS REPORT ---
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 Name Role Phone GAURANG MOLINA Unavailable PROBLEMS Type Condition ICD9-CM Code ITX52-FS Code Onset Dates Condition Status SNOMED Code Problem Valvular heart disease I38 Active 971681 Problem Essential hypertension I10 Active 07983155 Problem Coronary artery disease involving [place] coronary artery of tak[place] 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.10 Active 2850836991939 Problem Gastroesophageal reflux disease, esophagitis presence not specified K21.9 Active 541268985 Problem COPD exacerbation J44.1 Active 087999554 Problem Primary insomnia F51.01 Active 3109100 Problem H/O mitral valve replacement Z95.2 Active 6153245311920 Problem COPD with exacerbation J44.1 Active 903885451968093 Problem Moderate episode of recurrent major depressive disorder F33.1 Active 207989439 Problem Non-rheumatic mitral regurgitation I34.0 Active 628869225 Problem Tobacco abuse Z72.0 Active 601894329 Problem Panlobular emphysema J43.1 Active 5023221 Problem Mixed hyperlipidemia E78.2 Active 324991379 Problem Paroxysmal atrial fibrillation I48.0 Active 013576580 ALLERGIES No Information ENCOUNTERS Encounter Location Date Diagnosis [facility] [id number], [place] [address] Nov, Coronary artery disease involving takot[place] coronary artery of takot[place] 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.10 [facility] [address] [facility] [id number] [address] Nov, [facility] [id number], [place] [address] Nov, [facility] [id number], [place] [address] Nov, Paroxysmal atrial fibrillation I48.0 ; Gastroesophageal reflux disease, esophagitis presence not specified K21.9 and Valvular heart disease I38 [id number] [place] [address] Oct, [address] [place] [id number] [place] [address] Oct, [address] [address] Oct, [address] [address] [address] Oct, Primary insomnia F51.01 ; COPD with exacerbation J44.1 ; Left arm pain M79.602 and Cardiac related syncope R55 [id number] [place] [address] Oct, [address] [address] Aug, [place] [id number] [place] [address] Aug, Coronary artery disease involving takot[place] coronary artery of tak[place] 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.10 [place] [id number] [place] [address] Aug, COPD with exacerbation J44.1 ; Dizziness R42 ; Fall, initial encounter W19.XXXA and Homelessness Z59.0 [place] [id number] [place] [address] Aug, Coronary artery disease involving takotna coronary artery of takot[place] 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.10 [address] [address] [address] Aug, [place] [id number] [place] [address] May, Coronary artery disease involving takotna coronary artery of takotna 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.10 [address] [address] [place] [address] Apr, Coronary artery disease involving takotna coronary artery of takotna 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.10 [facility] [id number] [place] [address] Mar, [facility] [id number] [place] [address] Mar, COPD exacerbation J44.1 and Influenza A J10.1 [facility] [id number] [place] [address] Mar, Cough R05 and Influenza A J10.1 [facility] [id number] [place] [address] Mar, [facility] [id number] [place] [address]- [address] Mar, [facility] [id number] [place] [address]- [address] Mar, Cough R05 and COPD with exacerbation J44.1 [facility] [id number] [place] [address] Feb, [facility] [id number] [place] [address] Feb, [facility] [id number] [place] [address] Feb, Essential hypertension I10 ; Atypical chest pain R07.89 ; Tobacco abuse Z72.0 and Coronary artery disease involving takotna coronary artery of takotna 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.10 [facility] [id number] [place] [address] Jan, [facility] [id number] [place] [address]- [address] Dec, [facility] [id number] [place] [address] Nov, [facility] [address], [place] [address] Nov, Coronary artery disease involving takotna coronary artery of takotna 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.10 ; Paroxysmal atrial fibrillation I48.0 ; Primary insomnia F51.01 and H/O mitral valve replacement Z95.2 [facility] [id number], [place] [address] Nov, 2016 [address] [place] [id number] [place] [address] Oct, Post-op pain G89.18 ; Primary insomnia F51.01 ; Muscle spasm M62.838 ; H/O mitral valve replacement Z95.2 ; Coronary artery disease involving takotna coronary artery of takotna 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.10 and Moderate episode of recurrent major depressive disorder F33.1 [address] [id number] [place] [address] Sep, [place] [id number] [place] [address] Sep, Coronary artery disease involving takotna coronary artery of takotna 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.10 ; Paroxysmal atrial fibrillation I48.0 ; Valvular heart disease I38 ; Tobacco abuse Z72.0 and Essential hypertension I10 [facility] [address] [place] [id number] Aug, Dental caries K02.9 [facility] [id number] [place] [id number] Aug, [facility] [id number] [place] [id number] Aug, Dental examination Z01.20 [place] [id number] [place] [address] Aug, [place] [id number] [address] 14 Jun, 2014 [address] [place] [id number] [place] [address]- [address] Jun, [facility] [address] [facility] [id number] [address] Nov, [facility] [address], [place] [address] Sep, [facility] [id number] [address] July, [facility] [address] [address] Jun, [facility] [address] [address] Apr, [facility] [address], [place] [address] Apr, [facility] [address], [place] [address] Apr, IMMUNIZATIONS No Known Immunizations SOCIAL HISTORY Never Assessed REASON FOR VISIT Request script PLAN OF CARE VITAL SIGNS MEDICATIONS Medication Instructions Dosage Frequency Start Date End Date Duration Status Pantoprazole Sodium 40 mg Orally Once a day 1 tablet 24h Nov, 30 day(s) Active RESULTS No Results PROCEDURES No Known procedures INSTRUCTIONS MEDICATIONS ADMINISTERED No Known Medications MEDICAL (GENERAL) HISTORY Type Description Date Medical History Atrial Fibrillation Medical History Hyperlipidemia Medical History Pacemaker Surgical History mitral valve replacement-mechanical 09/2016 Surgical History PACEMAKER PLACED BY DR DICKSON 01/2017 Hospitalization History Pneumonia 07/2016 Hospitalization History mitral valve replacement x5 days , [facility] Benigno [facility]
--- OUTSIDE RECORDS SUMMARY | 2018-02-17 16:31 | XMS REPORT ---
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 Active 8052638603500 Problem Gastroesophageal reflux disease, esophagitis presence not specified K21.9 Active 366905632 Problem COPD exacerbation J44.1 Active 398190443 Problem Primary insomnia F51.01 Active 9687988 Problem H/O mitral valve replacement Z95.2 Active 8319082059363 Problem COPD with exacerbation J44.1 Active 478720694964978 Problem Moderate episode of recurrent major depressive disorder F33.1 Active 757477112 Problem Non-rheumatic mitral regurgitation I34.0 Active 454046677 Problem Tobacco abuse Z72.0 Active 929249408 Problem Panlobular emphysema J43.1 Active 4999077 Problem Mixed hyperlipidemia E78.2 Active 014273068 Problem Paroxysmal atrial fibrillation I48.0 Active 293406375 ALLERGIES Substance Reaction Event Type Date Status Penicillin V Potassium Unknown Drug Allergy Oct, Active Ibuprofen Unknown Drug Allergy Oct, Active Aspirin Unknown Drug Allergy Oct, Active ENCOUNTERS Encounter Location Date Diagnosis [facility] [address] [facility] [id number] [address] Nov, 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 [facility] [address] [facility] [id number] [address] Nov, [facility] [id number] [address] 05 Nov, 2017 [place] [id number] [place] [address] 37461- 1706 04 Nov, 2017 Paroxysmal atrial fibrillation I48.0 ; Gastroesophageal reflux disease, esophagitis presence not specified K21.9 and Valvular heart disease I38 [place] [id number] [place] [address] 93631- 4750 Oct, [place] [address] [address]- 1063 Oct, [place] [id number] [place] [address] 00355- 5378 Oct, [place] [address] 03992- 2507 Oct, Primary insomnia F51.01 ; COPD with exacerbation J44.1 ; Left arm pain M79.602 and Cardiac related syncope R55 [address] [address]- [address] Oct, [place] [id number] [place] [address] 01895- 9583 Aug, [place] [id number] [place] [address] 92663- 9821 Aug, 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 [place] [id number] [place] [address] 70041- 3775 Aug, COPD with exacerbation J44.1 ; Dizziness R42 ; Fall, initial encounter W19.XXXA and Homelessness Z59.0 [place] [id number] [place] [address] 35121- 1640 Aug, 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 [place] [id number] [place] [address] 83363- 4051 Aug, [place] [id number] [place] [address] 13968- 8199 May, 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 [facility] [address] [place] [address] 99557- 1300 Apr, 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 [facility] [address] [address] Mar, [facility] [id number] [place] [address] 67083- 9652 Mar, COPD exacerbation J44.1 and Influenza A J10.1 [facility] [id number] [place] [address] 44111 -2333 Mar, Cough R05 and Influenza A J10.1 [facility] [id number] [place] [address] 72748- 6386 Mar, [facility] [id number] [place] [address] 61153- 9422 Mar, [facility] [id number] [place] [address] 49131- 6344 Mar, Cough R05 and COPD with exacerbation J44.1 [facility] [id number] [place] [address] 54112- 9966 Feb, [facility] [id number] [place] [address] 02632- 8188 Feb, [facility] [id number] [place] [address] 31741- 7571 Feb, Essential hypertension I10 ; Atypical chest pain R07.89 ; Tobacco abuse Z72.0 and 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 [facility] [address] [id number] [address] Jan, [facility] [id number] [place] [address] 40009- 5030 Dec, [place] [address] [address] 6[address] Nov, [place] [id number] [place] [address] 32256- 4599 Nov, 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 ; Paroxysmal atrial fibrillation I48.0 ; Primary insomnia F51.01 and H/O mitral valve replacement Z95.2 [place] [id number] [place] [address] 36287- 9206 08 Nov, 2016 [place] [id number] [place] [address] 49350- 7741 Oct, Post-op pain G89.18 ; Primary insomnia F51.01 ; Muscle spasm M62.838 ; H/O mitral valve replacement Z95.2 ; 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 and Moderate episode of recurrent major depressive disorder F33.1 [place] [address] [address] Sep, [place] [address] [place] [address] 03512- 8258 Sep, 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 ; Paroxysmal atrial fibrillation I48.0 ; Valvular heart disease I38 ; Tobacco abuse Z72.0 and Essential hypertension I10 [facility] [address] [id number] Aug, Dental caries K02.9 [facility] [address] [place] [address] [id number] Aug, [facility] [id number] [place] [address] [id number] Aug, Dental examination Z01.20 [place] [address] [address] 07 Aug, 2016 [place] [id number] [place] [address] 48454- 0727 Jun, [facility] [id number] [address] 6[address] Jun, [facility] [address], [place] [address] Nov, [facility] [address] [place] [address] 26371- 6136 Sep, [facility] [id number] [place] [address] 06128- 4871 July, [facility] [address] [place] [address] 01918- 8468 Jun, [facility] [id number] [place] [address] 45189- 7507 Apr, [facility] [address] [place] [address] 43029- 3456 Apr, [facility] [id number] [place] [address] 23423- 7666 Apr, IMMUNIZATIONS No Known Immunizations SOCIAL HISTORY Never Assessed REASON FOR VISIT vomiting, knot in stomach., pt presents today with N/V for 3 days after consuming food and is stressed. states he has been dizzy. says he has a knot in his stomach everytime he coughs. c/o coughing up white "balls of stuff".-awoods PLAN OF CARE Activity Details Follow Up 4 Weeks with Hilary sofia start Reason: VITAL SIGNS Height 69.7 in 2017-11-04 Weight 207 lbs 2017-11-04 Temperature 98.3 degrees Fahrenheit 2017-11-04 Heart Rate 75 bpm 2017-11-04 Respiratory Rate 20 2017-11-04 Oximetry 96 % 2017-11-04 BMI 29.95 kg/m2 2017-11-04 Blood pressure systolic 150 mmHg 2017-11-04 Blood pressure diastolic 90 mmHg 2017-11-04 MEDICATIONS Medication Instructions Dosage Frequency Start Date End Date Duration Status Aspirin 325 MG Orally Once a day 1 tablet 24h Active Ipratropium-Albuterol 0.5-2.5 (3) MG/3ML Inhalation every 6 hrs 3 ml as needed 6h Oct, Active Spiriva HandiHaler 18 MCG Inhalation Once a day 1 capsule 24h Oct, Active Ambien 10 mg Orally Once a day 1 tablet at bedtime as needed 24h 25 Oct, 2016 30 days Active Atorvastatin Calcium 10 mg Orally Once a day 1 tablet 24h Feb, Active Metoprolol Succinate ER 50 mg Orally Once a day 2 tablet 24h Active Ambien 5 mg Orally Once a day 1 tablet at bedtime 24h Oct, 14 days Active ProAir HFA 108 (90 Base) MCG/ACT Inhalation every 6 hrs 2 puffs as needed 6h Mar, 30 days Active RESULTS No Results PROCEDURES Procedure Date Ordered Result Body Site NEBULIZER TREATMENT 2017-11-04 N/A HOLTER MONITOR (OUTPATIENT) 2017-11-04 N/A NEB/MDI RX INITIAL Nov 04, 2017 INSTRUCTIONS MEDICATIONS ADMINISTERED No Known Medications MEDICAL (GENERAL) HISTORY Type Description Date Medical History Atrial Fibrillation Medical History Hyperlipidemia Medical History Pacemaker Surgical History mitral valve replacement-mechanical 09/2016 Surgical History PACEMAKER PLACED BY DR DICKSON 01/2017 Hospitalization History Pneumonia 07/2016 Hospitalization History mitral valve replacement x5 days , Dr Benigno Weber CT [facility]urg [facility] 09/2016
--- OUTSIDE RECORDS SUMMARY | 2018-02-17 16:31 | XMS REPORT ---
Author Author GAURANG MOLINA Organization [facility] Address [address] [place] [address] Care Team Providers Care Asphalt Worker Name Role Phone GARUANG MOLINA Unavailable PROBLEMS Type Condition ICD9-CM Code ZLY77-JT Code Onset Dates Condition Status SNOMED Code Problem Mixed hyperlipidemia E78.2 Active 493859835 Problem Coronary artery disease involving [place] coronary artery of [place] 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.10 Active 0303639681299 Problem Valvular heart disease I38 Active 822957 Problem Tobacco abuse Z72.0 Active 552585395 Problem Panlobular emphysema J43.1 Active 4248298 Problem Non-rheumatic mitral regurgitation I34.0 Active 752085413 Problem Gastroesophageal reflux disease, esophagitis presence not specified K21.9 Active 970971243 Problem Moderate episode of recurrent major depressive disorder F33.1 Active 484060814 Problem Paroxysmal atrial fibrillation I48.0 Active 685806840 Problem Essential hypertension I10 Active 64608327 Problem H/O mitral valve replacement Z95.2 Active 0436032234799 Problem Primary insomnia F51.01 Active 8935760 ALLERGIES Substance Reaction Event Type Date Status Penicillin V Potassium Unknown Drug Allergy Jan, Active Ibuprofen Unknown Drug Allergy Jan, Active Aspirin Unknown Drug Allergy Jan, Active ENCOUNTERS Encounter Location Date Diagnosis [facility] [id number] [address] Feb, [facility] [id number] [address] Jan, Panlobular emphysema J43.1 ; Primary insomnia F51.01 ; Coronary artery disease involving [place] coronary artery of [place] 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.10 ; Mixed hyperlipidemia E78.2 ; Essential hypertension I10 ; Bilateral hand numbness R20.0 and Tobacco use Z72.0 [facility] [id number] [place] [address] 14689- 8172 Dec, Primary insomnia F51.01 [facility] [id number] [place] [address] 78185- 5950 Nov, Coronary artery disease involving [place] coronary artery of [place] 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.10 [facility] [id number] [place] [address] 86891- 9075 14 Nov, 2017 [facility] [address] 30407- 0101 05 Nov, 2017 [facility] [id number] [place] [address] 81308- 8504 04 Nov, 2017 Paroxysmal atrial fibrillation I48.0 ; Gastroesophageal reflux disease, esophagitis presence not specified K21.9 and Valvular heart disease I38 [facility] [id number] [place] [address] 79442- 7037 Oct, [facility] [address] 78114- 7332 Oct, [facility] [id number] [place] [address] 62455- 6686 Oct, [facility] [id number] [place] [address] 70839- 3573 Oct, Primary insomnia F51.01 ; COPD with exacerbation J44.1 ; Left arm pain M79.602 and Cardiac related syncope R55 [facility] [id number] [place] [address] 32147- 0242 Oct, [facility] [id number] [place] [address] 11728- 0142 Aug, [facility] [id number] [place] [address] 19055- 9071 Aug, Coronary artery disease involving [place] coronary artery of [place] 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.10 [facility] [id number] [place] [address] 60781- 3032 Aug, COPD with exacerbation J44.1 ; Dizziness R42 ; Fall, initial encounter W19.XXXA and Homelessness Z59.0 [place] [address] 75385- 7045 Aug, Coronary artery disease involving [place] coronary artery of [place] 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.10 [facility] [address] 38886- 2065 Aug, [facility] [address] 73309- 9322 May, Coronary artery disease involving [place] coronary artery of [place] 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.10 [place] [address] 67120- 9430 Apr, Coronary artery disease involving [place] coronary artery of [place] 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.10 [place] [address] 82670- 1305 Mar, [facility] [address] 37254- 3792 Mar, COPD exacerbation J44.1 and Influenza A J10.1 [facility] [id number] [place] [address] 90757 -2545 Mar, Cough R05 and Influenza A J10.1 [facility] [id number] [place] [address] 91955- 1717 Mar, [facility] [address] 65148- 6618 Mar, [facility] [id number] [place] [address] 70426- 8490 Mar, Cough R05 and COPD with exacerbation J44.1 [facility] [id number] [place] [address] 39949- 8426 Feb, [facility] [address] 25999- 0807 Feb, [facility] [address] [place] [address] 08593- 2028 Feb, Essential hypertension I10 ; Atypical chest pain R07.89 ; Tobacco abuse Z72.0 and Coronary artery disease involving [place] coronary artery of [place] 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.10 [facility] [id number] [place] [address] 12009- 1252 Jan, [facility] [id number] [place] [address] 55420- 9078 Dec, [facility] [id number] [place] [address] 94241- 8402 Nov, [facility] [id number] [place] [address] 00022- 0816 Nov, Coronary artery disease involving [place] coronary artery of [place] 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.10 ; Paroxysmal atrial fibrillation I48.0 ; Primary insomnia F51.01 and H/O mitral valve replacement Z95.2 [facility] [id number] [place] [address] 54782- 3371 Nov, [place] [id number] [place] [address] 41040- 4421 Oct, Post-op pain G89.18 ; Primary insomnia F51.01 ; Muscle spasm M62.838 ; H/O mitral valve replacement Z95.2 ; Coronary artery disease involving [place] coronary artery of [place] 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.10 and Moderate episode of recurrent major depressive disorder F33.1 [facility] [address] [place] [address] 57918- 5796 Sep, [facility] [id number] [place] [address] 72482- 9691 Sep, Coronary artery disease involving [place] coronary artery of [place] 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.10 ; Paroxysmal atrial fibrillation I48.0 ; Valvular heart disease I38 ; Tobacco abuse Z72.0 and Essential hypertension I10 [facility] [id number] [place] [address] [id number] Aug, Dental caries K02.9 [facility] [address] [id number] Aug, [facility] [id number] [place] [address] [id number] Aug, Dental examination Z01.20 [facility] [id number] [place] [address] 53017- 2616 Aug, [facility] [id number] [place] [address] 26494- 9576 Jun, [facility] [id number] [place] [address] 77776- 2821 Jun, [facility] [id number] [place] [address] 54585- 8546 Nov, [facility] [id number] [place] [address] 55204- 4596 Sep, [facility] [id number] [place] [address] 01714- 2716 July, [facility] [id number] [place] [address] 26551- 4666 Jun, [facility] [address], [place] [address]- 6006 Apr, [facility] [address], [place] [address]- 5906 Apr, [facility] [address], [place] [address]- 3806 Apr, IMMUNIZATIONS No Known Immunizations SOCIAL HISTORY Never Assessed REASON FOR VISIT COPD fu -- juliana nice, sleeping problems , numbness and pain in shoulder / gonzalez anmd hands PLAN OF CARE Activity Details Follow Up 3 Months with Hilary Reason: Pending Test TSH w/ FREE T4 Pending Test LIPID PANEL Pending Test CMP Pending Test CBC Pending Test A1C Pending Test Xray : Spine, Cervical (IN HOUSE) VITAL SIGNS Height 69.7 in 2018-01-27 Weight 206.0 lbs 2018-01-27 Temperature 98.0 degrees Fahrenheit 2018-01-27 Heart Rate 88 bpm 2018-01-27 Respiratory Rate 22 2018-01-27 BMI 29.81 kg/m2 2018-01-27 Blood pressure systolic 142 mmHg 2018-01-27 Blood pressure diastolic 88 mmHg 2018-01-27 MEDICATIONS Medication Instructions Dosage Frequency Start Date End Date Duration Status Ipratropium-Albuterol 0.5-2.5 (3) MG/3ML Inhalation every 6 hrs 3 ml as needed 6h Oct, Active Aspirin 325 MG Orally Once a day 1 tablet 24h Active Spiriva HandiHaler 18 MCG Inhalation Once a day 1 capsule 24h Oct, Active Ambien 5 mg Orally Once a day 1 tablet at bedtime 24h Oct, 14 days Active ProAir HFA 108 (90 Base) MCG/ACT Inhalation every 6 hrs 2 puffs as needed 6h Mar, 30 days Active Pantoprazole Sodium 40 mg Orally Once a day 1 tablet 24h Nov, 30 day(s) Active Metoprolol Succinate ER 50 MG Orally 2 times a day 1.5 tablet 12h Active Atorvastatin Calcium 10 mg Orally Once a day 1 tablet 24h Feb, 30 days Active RESULTS No Results PROCEDURES Procedure Date Ordered Result Body Site X-RAY EXAM OF NECK SPINE Jan 27, 2018 [facility] Jan [facility], 2018 VENIPUNCT, ROUTINE* Jan 27, 2018 Hemoglobin Test Send Out 0 dollar Jan 27, 2018 INSTRUCTIONS MEDICATIONS ADMINISTERED No Known Medications MEDICAL (GENERAL) HISTORY Type Description Date Medical History Atrial Fibrillation Medical History Hyperlipidemia Medical History Pacemaker Surgical History mitral valve replacement-mechanical 09/2016 Surgical History PACEMAKER PLACED BY DR DICKSON 01/2017 Hospitalization History Pneumonia 07/2016 Hospitalization History mitral valve replacement x5 days , Dr Benigno Weber CT Surg [facility] 09/2016
--- OUTSIDE RECORDS SUMMARY | 2018-02-17 16:31 | XMS REPORT ---
Author Author GAURANG MOLINA Organization [facility] Address [address] [place] [address] Care Team Providers Care Grant Writer Name Role Phone GAURANG MOLINA Unavailable PROBLEMS Type Condition ICD9-CM Code FLK65-TR Code Onset Dates Condition Status SNOMED Code Problem Valvular heart disease I38 Active 794189 Problem Essential hypertension I10 Active 97587540 Problem Coronary artery disease involving [place] coronary artery of [place] 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.10 Active 5975195251359 Problem Gastroesophageal reflux disease, esophagitis presence not specified K21.9 Active 804914278 Problem COPD exacerbation J44.1 Active 830096826 Problem Primary insomnia F51.01 Active 2607090 Problem H/O mitral valve replacement Z95.2 Active 7737150306236 Problem COPD with exacerbation J44.1 Active 709734191002117 Problem Moderate episode of recurrent major depressive disorder F33.1 Active 023087607 Problem Non-rheumatic mitral regurgitation I34.0 Active 398107061 Problem Tobacco abuse Z72.0 Active 206975814 Problem Panlobular emphysema J43.1 Active 4187348 Problem Mixed hyperlipidemia E78.2 Active 802053956 Problem Paroxysmal atrial fibrillation I48.0 Active 668086458 ALLERGIES No Information ENCOUNTERS Encounter Location Date Diagnosis [facility] [id number] [address] Jan, [facility] [id number] [address] Dec, Primary insomnia F51.01 [facility] [id number] [address] 21 Nov, 2017 Coronary artery disease involving [place] coronary artery of [place] 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.10 [facility] [id number] [address] 14 Nov, 2017 [place] [id number] [place] [address]- [address] Nov, [place] [address] [address] 04 Nov, 2017 Paroxysmal atrial fibrillation I48.0 ; Gastroesophageal reflux disease, esophagitis presence not specified K21.9 and Valvular heart disease I38 [place] [address] [address] Oct, [place] [address] [address]- [address] Oct, [place] [address] [address]- [address] Oct, [place] [address] [address]- [address] Oct, Primary insomnia F51.01 ; COPD with exacerbation J44.1 ; Left arm pain M79.602 and Cardiac related syncope R55 [place] [id number] [place] [address] 96253- 9747 Oct, [place] [id number] [place] [address] 23997- 7707 Aug, [place] [id number] [place] [address] 78371- 4526 Aug, Coronary artery disease involving [place] coronary artery of [place] 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.10 [place] [id number] [place] [address] 39956- 6237 Aug, COPD with exacerbation J44.1 ; Dizziness R42 ; Fall, initial encounter W19.XXXA and Homelessness Z59.0 [place] [id number] [place] [address] 86185- 5014 Aug, Coronary artery disease involving [place] coronary artery of [place] 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.10 [place] [id number] [place] [address] 15513- 26[address] Aug, [facility] [address] [address] May, Coronary artery disease involving [place] coronary artery of [place] 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.10 [facility] [address] [address] Apr, Coronary artery disease involving [place] coronary artery of [place] 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.10 [facility] [address] [address] Mar, [facility] [id number] [place] [address] 08282- 6683 Mar, COPD exacerbation J44.1 and Influenza A J10.1 [facility] [address] [address] Mar, Cough R05 and Influenza A J10.1 [facility] [id number] [place] [address] 81305- 0653 Mar, [facility] [id number] [place] [address] 28385- 0826 Mar, [facility] [id number] [place] [address] 24586- 5094 Mar, Cough R05 and COPD with exacerbation J44.1 [facility] [address] [address] Feb, [facility] [address] [address] Feb, [facility] [address] [place] [address] 06869- 6987 Feb, Essential hypertension I10 ; Atypical chest pain R07.89 ; Tobacco abuse Z72.0 and Coronary artery disease involving [place] coronary artery of [place] 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.10 [facility] [address] [address] Jan, [facility] [address] [address] Dec, [facility] [id number] [place] [address] 90829- 0832 Nov, [facility] [id number] [place] [address] 04982- 6128 Nov, Coronary artery disease involving [place] coronary artery of [place] 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.10 ; Paroxysmal atrial fibrillation I48.0 ; Primary insomnia F51.01 and H/O mitral valve replacement Z95.2 [facility] [id number] [place] [address] 15080- 2067 Nov, [place] [address] [place] [address] 27410- 7781 Oct, Post-op pain G89.18 ; Primary insomnia F51.01 ; Muscle spasm M62.838 ; H/O mitral valve replacement Z95.2 ; Coronary artery disease involving [place] coronary artery of [place] 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.10 and Moderate episode of recurrent major depressive disorder F33.1 [facility] [address] [place] [address] 62947- 4809 Sep, [facility] [address] [place] [address] 62423- 3948 Sep, Coronary artery disease involving [place] coronary artery of [place] 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.10 ; Paroxysmal atrial fibrillation I48.0 ; Valvular heart disease I38 ; Tobacco abuse Z72.0 and Essential hypertension I10 [facility] [address] [place] [id number] Aug, Dental caries K02.9 [facility] [id number] [place] [address] [id number] Aug, [facility] [id number] [place] [address] [id number] Aug, Dental examination Z01.20 [facility] [id number] [place] [address] 99814- 2546 Aug, [facility] [address] [address] Jun, [facility] [address] [address] Jun, [facility] [address] [address] 2546 Nov, [facility] [address] [address] Sep, [facility] [address] [address] July, [facility] [address] [address] 2546 Jun, [facility] [address] [address] 2546 Apr, [facility] [address] [address] Apr, [facility] [address] [address] Apr, IMMUNIZATIONS No Known Immunizations SOCIAL HISTORY Never Assessed REASON FOR VISIT Controlled Med Refill PLAN OF CARE VITAL SIGNS MEDICATIONS Medication Instructions Dosage Frequency Start Date End Date Duration Status Ambien 5 mg Orally Once a day 1 tablet at bedtime 24h Oct, 14 days Active RESULTS No Results PROCEDURES No Known procedures INSTRUCTIONS MEDICATIONS ADMINISTERED No Known Medications MEDICAL (GENERAL) HISTORY Type Description Date Medical History Atrial Fibrillation Medical History Hyperlipidemia Medical History Pacemaker Surgical History mitral valve replacement-mechanical 09/2016 Surgical History PACEMAKER PLACED BY DR DICKSON 01/2017 Hospitalization History Pneumonia 07/2016 Hospitalization History mitral valve replacement x5 days , Dr Benigno Weber [facility] Surg Mercjohn Mckeonin 09/2016
--- OUTSIDE RECORDS SUMMARY | 2018-02-17 16:31 | XMS REPORT ---
Author Author GAURANG MOLINA Organization [facility] Address [address] [place] [address] Care Team Providers Care Keg Washer Name Role Phone GAURANG MOLINA Unavailable PROBLEMS Type Condition ICD9-CM Code CKP65-PL Code Onset Dates Condition Status SNOMED Code Problem Valvular heart disease I38 Active 284946 Problem Essential hypertension I10 Active 70378114 Problem Coronary artery disease involving [place] coronary artery of [place] 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.10 Active 9158019769114 Problem Gastroesophageal reflux disease, esophagitis presence not specified K21.9 Active 795105583 Problem COPD exacerbation J44.1 Active 291751663 Problem Primary insomnia F51.01 Active 9669621 Problem H/O mitral valve replacement Z95.2 Active 0772848531805 Problem COPD with exacerbation J44.1 Active 421008978524541 Problem Moderate episode of recurrent major depressive disorder F33.1 Active 191700369 Problem Non-rheumatic mitral regurgitation I34.0 Active 419758907 Problem Tobacco abuse Z72.0 Active 335670784 Problem Panlobular emphysema J43.1 Active 8354978 Problem Mixed hyperlipidemia E78.2 Active 036913710 Problem Paroxysmal atrial fibrillation I48.0 Active 058134008 ALLERGIES No Information ENCOUNTERS Encounter Location Date Diagnosis [facility] [id number], [place] [address] Nov, Coronary artery disease involving [place] coronary artery of [place] 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.10 [facility] [address] [facility] [id number] [address] Nov, [facility] [id number] [address]- [address] Nov, [facility] [id number] [address]- 7529 Nov, Paroxysmal atrial fibrillation I48.0 ; Gastroesophageal reflux disease, esophagitis presence not specified K21.9 and Valvular heart disease I38 [id number] [place] [address] 46172- 7909 Oct, [place] [id number] [place] [address] 88450- 6906 Oct, [place] [address] [address]- 8423 Oct, [place] [address] [address]- 4089 Oct, Primary insomnia F51.01 ; COPD with exacerbation J44.1 ; Left arm pain M79.602 and Cardiac related syncope R55 [id number] [place] [address] 68662- 8529 Oct, [place] [address] 89[address]- 7042 Aug, [place] [id number] [place] [address] 49182- 9875 Aug, Coronary artery disease involving [place] coronary artery of [place] 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.10 [place] [id number] [place] [address] 90482- 2078 Aug, COPD with exacerbation J44.1 ; Dizziness R42 ; Fall, initial encounter W19.XXXA and Homelessness Z59.0 [place] [id number] [place] [address] 34126- 7685 Aug, Coronary artery disease involving [place] coronary artery of [place] 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.10 [place] [address] 79841- 7563 Aug, [place] [id number] [place] [address] 05477- 5577 May, Coronary artery disease involving [place] coronary artery of [place] 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.10 [place] [address] [place] [address]- 7293 Apr, Coronary artery disease involving [place] coronary artery of [place] 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.10 [facility] [id number] [place] [address] 09616- 0520 Mar, [facility] [id number] [place] [address] 04209- 1274 Mar, COPD exacerbation J44.1 and Influenza A J10.1 [facility] [id number] [place] [address] 69541 -8399 Mar, Cough R05 and Influenza A J10.1 [facility] [id number] [place] [address] 33631- 1118 Mar, [facility] [id number] [place] [address] 57375- 5162 Mar, [facility] [id number] [place] [address] 32424- 4674 Mar, Cough R05 and COPD with exacerbation J44.1 [facility] [id number] [place] [address] 67732- 2877 Feb, [facility] [id number] [place] [address] 80293- 1015 Feb, [facility] [id number] [place] [address] 81203- 5320 Feb, Essential hypertension I10 ; Atypical chest pain R07.89 ; Tobacco abuse Z72.0 and Coronary artery disease involving [place] coronary artery of [place] 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.10 [facility] [id number] [place] [address] 18890- 6754 Jan, [facility] [id number] [place] [address] 75477- 6520 Dec, [facility] [id number] [place] [address] 53576- 9198 Nov, [facility] [address], [place] [address]- 1713 Nov, Coronary artery disease involving [place] coronary artery of [place] 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.10 ; Paroxysmal atrial fibrillation I48.0 ; Primary insomnia F51.01 and H/O mitral valve replacement Z95.2 [facility] [id number], [place] [address]- [address] 08 Nov, 2016 [place] [id number] [place] [address] 28059- 9606 Oct, Post-op pain G89.18 ; Primary insomnia F51.01 ; Muscle spasm M62.838 ; H/O mitral valve replacement Z95.2 ; Coronary artery disease involving [place] coronary artery of [place] 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.10 and Moderate episode of recurrent major depressive disorder F33.1 [place] [id number] [place] [address] 17903- 3740 Sep, [place] [id number] [place] [address] 00515- 9553 Sep, Coronary artery disease involving [place] coronary artery of [place] 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.10 ; Paroxysmal atrial fibrillation I48.0 ; Valvular heart disease I38 ; Tobacco abuse Z72.0 and Essential hypertension I10 [facility] [address] [place] [address] [id number] Aug, Dental caries K02.9 [facility] [id number] [place] [address] [id number] Aug, [facility] [id number] [place] [address] [phone] Aug, Dental examination Z01.20 [address] [id number] [place] [address] 76686- 4740 Aug, [place] [id number] [address]- 3556 14 Jun, 2014 [place] [id number] [place] [address] 16254- 8769 Jun, [facility] [id number], [place] [address]- 2169 Nov, [facility] [address] [facility] [id number] [address] Sep, [facility] [id number] [address]- [address] July, [facility] [address], [place] [address]- 5066 Jun, [facility] [address], [place] [address]- 7265 Apr, [facility] [id number], [place] [address]- 0211 Apr, [facility] [id number] [address]- 3207 Apr, IMMUNIZATIONS No Known Immunizations SOCIAL HISTORY Never Assessed REASON FOR VISIT Refill request PLAN OF CARE VITAL SIGNS MEDICATIONS Unknown Medications RESULTS No Results PROCEDURES No Known procedures [...]
--- OUTSIDE RECORDS SUMMARY | 2018-02-17 16:32 | XMS REPORT ---
Author Author GAURANG MOLINA Organization [facility] [place] Address [address] [place] [address] Care Team Providers Care Metal Roaster Name Role Phone GAURANG MOLINA Unavailable PROBLEMS Type Condition ICD9-CM Code MLG13-NA Code Onset Dates Condition Status SNOMED Code Problem Valvular heart disease I38 Active 716809 Problem Essential hypertension I10 Active 75944686 Problem Coronary artery disease involving chitina coronary artery of chitina 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.10 Active 9687803691720 Problem Gastroesophageal reflux disease, esophagitis presence not specified K21.9 Active 972411499 Problem COPD exacerbation J44.1 Active 423704762 Problem Primary insomnia F51.01 Active 8728087 Problem H/O mitral valve replacement Z95.2 Active 7950264938732 Problem COPD with exacerbation J44.1 Active 728369700876319 Problem Moderate episode of recurrent major depressive disorder F33.1 Active 868257591 Problem Non-rheumatic mitral regurgitation I34.0 Active 688625565 Problem Tobacco abuse Z72.0 Active 141098554 Problem Panlobular emphysema J43.1 Active 9207973 Problem Mixed hyperlipidemia E78.2 Active 155605918 Problem Paroxysmal atrial fibrillation I48.0 Active 147779874 ALLERGIES Substance Reaction Event Type Date Status Penicillin V Potassium Unknown Drug Allergy Aug, Active Ibuprofen Unknown Drug Allergy Aug, Active Aspirin Unknown Drug Allergy Aug, Active ENCOUNTERS Encounter Location Date Diagnosis [facility] [place] [address] [facility] [id number], [place] [address] Nov, Coronary artery disease involving chitina coronary artery of chitina 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.10 [facility] [place] [address] [facility] [id number], [place] [address] Nov, [facility] [place] [address] [id number], [place] [address] 05 Nov, 2017 [place] [id number] [place] [address] 23230- 3264 04 Nov, 2017 Paroxysmal atrial fibrillation I48.0 ; Gastroesophageal reflux disease, esophagitis presence not specified K21.9 and Valvular heart disease I38 [place] [id number] [place] [address] 05824- 2537 Oct, [place] [address] [address]- [address] Oct, [place] [id number] [place] [address] 33868- 6873 Oct, [place] [address] 17[address]- 3777 Oct, Primary insomnia F51.01 ; COPD with exacerbation J44.1 ; Left arm pain M79.602 and Cardiac related syncope R55 [address] [address]- [address] Oct, [place] [id number] [place] [address] 31798- 9145 Aug, [place] [id number] [place] [address] 87883- 4706 Aug, Coronary artery disease involving chitina coronary artery of chitina 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.10 [place] [id number] [place] [address] 71241- 1873 Aug, COPD with exacerbation J44.1 ; Dizziness R42 ; Fall, initial encounter W19.XXXA and Homelessness Z59.0 [place] [id number] [place] [address] 13313- 0537 Aug, Coronary artery disease involving chitina coronary artery of chitina 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.10 [place] [id number] [place] [address] 36660- 4997 Aug, [place] [id number] [place] [address] 41652- 9212 May, Coronary artery disease involving chitina coronary artery of chitina 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.10 [facility] [place] [address] [place] [address] 25066- 6980 Apr, Coronary artery disease involving chitina coronary artery of chitina 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.10 [facility] [place] [address], [place] [address] Mar, [facility] [place] [id number] [place] [address] 28127- 6423 Mar, COPD exacerbation J44.1 and Influenza A J10.1 [facility] [id number] [place] [address] 42664 -6254 Mar, Cough R05 and Influenza A J10.1 [facility] [place] [id number] [place] [address] 87908- 2757 Mar, [facility] [place] [id number] [place] [address] 89583- 8246 Mar, [facility] [place] [id number] [place] [address] 84751- 3367 Mar, Cough R05 and COPD with exacerbation J44.1 [facility] [place] [id number] [place] [address] 49578- 2349 Feb, [facility] [place] [id number] [place] [address] 13713- 4114 Feb, [facility] [place] [id number] [place] [address] 02039- 7812 Feb, Essential hypertension I10 ; Atypical chest pain R07.89 ; Tobacco abuse Z72.0 and Coronary artery disease involving chitina coronary artery of chitina 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.10 [facility] [place] [address] [id number], [place] [address] Jan, [facility] [place] [id number] [place] [address] 65141- 1007 Dec, [place] [address], [place] [address] Nov, [place] [id number] [place] [address] 53577- 2901 Nov, Coronary artery disease involving chitina coronary artery of chitina 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.10 ; Paroxysmal atrial fibrillation I48.0 ; Primary insomnia F51.01 and H/O mitral valve replacement Z95.2 [place] [id number] [place] [address] 64288- 6166 08 Nov, 2016 [place] [id number] [place] [address] 72092- 4912 Oct, Post-op pain G89.18 ; Primary insomnia F51.01 ; Muscle spasm M62.838 ; H/O mitral valve replacement Z95.2 ; Coronary artery disease involving chitina coronary artery of chitina 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.10 and Moderate episode of recurrent major depressive disorder F33.1 [place] [address], [place] [address] Sep, [place] [address] [place] [address] 18367- 1436 Sep, Coronary artery disease involving chitina coronary artery of chitina 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.10 ; Paroxysmal atrial fibrillation I48.0 ; Valvular heart disease I38 ; Tobacco abuse Z72.0 and Essential hypertension I10 [facility] [address] [id number] Aug, Dental caries K02.9 [facility] [address] [place] [address] [id number] Aug, [facility] [id number] [place] [address] [id number] Aug, Dental examination Z01.20 [place] [address], [place] [address] 07 Aug, 2016 [place] [id number] [place] [address] 49656- 4608 Jun, [facility] [place] [id number], [place] [address] 6[address] Jun, [facility] [place] [address], [place] [address] 4463 Nov, [facility] [place] [address], [place] [address] 9316 Sep, [facility] [place] [id number], [place] [address]35 July, [facility] [place] [address], [place] [address]- 3274 Jun, [facility] [place] [address], [place] [address]- 2366 Apr, [facility] [place] [address], [place] [address]- 7826 Apr, [facility] [place] [address] [id number], [place] [address] 8336 Apr, IMMUNIZATIONS No Known Immunizations SOCIAL HISTORY Never Assessed REASON FOR VISIT COPD-NORM Bains PLAN OF CARE Activity Details Follow Up 4 Weeks with Hilary peck cardiology recs Reason: VITAL SIGNS Height 69.7 in 2017-09-10 Weight 219.2 lbs 2017-09-10 Temperature 97.6 degrees Fahrenheit 2017-09-10 Heart Rate 72 bpm 2017-09-10 Respiratory Rate 20 2017-09-10 Oximetry 99 % 2017-09-10 BMI 31.72 kg/m2 2017-09-10 Blood pressure systolic 146 mmHg 2017-09-10 Blood pressure diastolic 90 mmHg 2017-09-10 MEDICATIONS Medication Instructions Dosage Frequency Start Date End Date Duration Status Ambien 10 mg Orally Once a day 1 tablet at bedtime as needed 24h Oct, 30 days Active Atorvastatin Calcium 10 mg Orally Once a day 1 tablet 24h Feb, Active Aspirin 325 MG Orally Once a day 1 tablet 24h Active Ventolin HFA 108 (90 Base) MCG/ACT Inhalation every 6 hrs 2 puffs as needed 6h Aug, Active Metoprolol Succinate ER 50 mg Orally Once a day 2 tablet 24h Active ProAir HFA 108 (90 Base) MCG/ACT Inhalation every 6 hrs 2 puffs as needed 6h Mar, 30 days Active RESULTS No Results PROCEDURES No Known procedures INSTRUCTIONS MEDICATIONS ADMINISTERED No Known Medications MEDICAL (GENERAL) HISTORY Type Description Date Medical History Atrial Fibrillation Medical History Hyperlipidemia Medical History Pacemaker Surgical History mitral valve replacement-mechanical 09/2016 Surgical History PACEMAKER PLACED BY DR DICKSON 01/2017 Hospitalization History Pneumonia 07/2016 Hospitalization History mitral valve replacement x5 days , Dr Benigno Weber CT [facility] [place]
--- OUTSIDE RECORDS SUMMARY | 2018-02-17 16:32 | XMS REPORT ---
Author Author GAURANG MOLINA Organization [facility] Address [address] [place] [address] Care Team Providers Care Glost Placer Name Role Phone GAURANG MOLINA Unavailable PROBLEMS Type Condition ICD9-CM Code ZAB57-YI Code Onset Dates Condition Status SNOMED Code Problem Valvular heart disease I38 Active 086266 Problem Essential hypertension I10 Active 65000608 Problem Coronary artery disease involving coquille coronary artery of coquille 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.10 Active 9043325209545 Problem Gastroesophageal reflux disease, esophagitis presence not specified K21.9 Active 592838397 Problem COPD exacerbation J44.1 Active 558125948 Problem Primary insomnia F51.01 Active 3714263 Problem H/O mitral valve replacement Z95.2 Active 3758730305717 Problem COPD with exacerbation J44.1 Active 263277605874669 Problem Moderate episode of recurrent major depressive disorder F33.1 Active 953657848 Problem Non-rheumatic mitral regurgitation I34.0 Active 709105602 Problem Tobacco abuse Z72.0 Active 038474862 Problem Panlobular emphysema J43.1 Active 7127589 Problem Mixed hyperlipidemia E78.2 Active 511834508 Problem Paroxysmal atrial fibrillation I48.0 Active 103845275 ALLERGIES No Information ENCOUNTERS Encounter Location Date Diagnosis [facility] [id number], [place] [address] Nov, Coronary artery disease involving coquille coronary artery of coquille 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.10 [facility] [address] [facility] [id number], [place] [address] Nov, [facility] [id number], [place] [address]- 8[address] Nov, [facility] [id number], [place] [address]- 8963 Nov, Paroxysmal atrial fibrillation I48.0 ; Gastroesophageal reflux disease, esophagitis presence not specified K21.9 and Valvular heart disease I38 [place] [id number] [place] [address] 84343- 1663 Oct, [place] [id number] [place] [address] 61948- 6391 Oct, [place] [address] 39[address]- 0456 Oct, [place] [address] 58525- 0188 Oct, Primary insomnia F51.01 ; COPD with exacerbation J44.1 ; Left arm pain M79.602 and Cardiac related syncope R55 [place] [id number] [place] [address] 70765- 1777 Oct, [place] [address] 82350- 5703 Aug, [place] [id number] [place] [address] 58459- 7800 Aug, Coronary artery disease involving coquille coronary artery of coquille 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.10 [place] [id number] [place] [address] 63702- 3627 Aug, COPD with exacerbation J44.1 ; Dizziness R42 ; Fall, initial encounter W19.XXXA and Homelessness Z59.0 [place] [id number] [place] [address] 11018- 9707 Aug, Coronary artery disease involving coquille coronary artery of coquille 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.10 [place] [address] 72793- 8634 Aug, [place] [id number] [place] [address] 17906- 8502 May, Coronary artery disease involving coquille coronary artery of coquille 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.10 [place] [address] [place] [address]- 6283 Apr, Coronary artery disease involving coquille coronary artery of coquille 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.10 [facility] [id number] [place] [address] 34528- 3879 Mar, [facility] [id number] [place] [address] 97261- 7546 Mar, COPD exacerbation J44.1 and Influenza A J10.1 [facility] [id number] [place] [address] 18802 -4644 Mar, Cough R05 and Influenza A J10.1 [facility] [id number] [place] [address] 72195- 1650 Mar, [facility] [id number] [place] [address] 30332- 5266 Mar, [facility] [id number] [place] [address] 13556- 6590 Mar, Cough R05 and COPD with exacerbation J44.1 [facility] [id number] [place] [address] 13231- 6537 Feb, [facility] [id number] [place] [address] 34250- 5591 Feb, [facility] [id number] [place] [address] 68032- 6689 Feb, Essential hypertension I10 ; Atypical chest pain R07.89 ; Tobacco abuse Z72.0 and Coronary artery disease involving coquille coronary artery of coquille 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.10 [facility] [id number] [place] [address] 01435- 6627 Jan, [facility] [id number] [place] [address] 58620- 5102 Dec, [facility] [id number] [place] [address] 70587- 0839 Nov, [facility] [address], [place] [address]- 1208 Nov, Coronary artery disease involving coquille coronary artery of coquille 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.10 ; Paroxysmal atrial fibrillation I48.0 ; Primary insomnia F51.01 and H/O mitral valve replacement Z95.2 [facility] [id number], [place] [address]- 2776 08 Nov, 2016 [place] [id number] [place] [address] 81449- 8694 Oct, Post-op pain G89.18 ; Primary insomnia F51.01 ; Muscle spasm M62.838 ; H/O mitral valve replacement Z95.2 ; Coronary artery disease involving coquille coronary artery of coquille 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.10 and Moderate episode of recurrent major depressive disorder F33.1 [place] [id number] [place] [address] 31172- 1361 Sep, [place] [id number] [place] [address] 63270- 2296 Sep, Coronary artery disease involving coquille coronary artery of coquille 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.10 ; Paroxysmal atrial fibrillation I48.0 ; Valvular heart disease I38 ; Tobacco abuse Z72.0 and Essential hypertension I10 [facility] [address] [place] [address] [id number] Aug, Dental caries K02.9 [facility] [id number] [place] [address] [id number] Aug, [facility] [id number] [place] [address] [id number] Aug, Dental examination Z01.20 [place] [id number] [place] [address] 10808- 9140 Aug, [place] [id number], [place] [address]- 2155 14 Jun, 2014 [place] [id number] [place] [address] 35578- 0731 Jun, [facility] [id number], [place] [address]- 1088 Nov, [facility] [address], [place] [address] 2546 Sep, [facility] [id number], [place] [address]- 7006 July, [facility] [address], [place] [address] 2546 Jun, [facility] [address], [place] [address]- 1630 Apr, [facility] [id number], [place] [address]- 4331 Apr, [facility] [address], [place] [address]- 1624 Apr, IMMUNIZATIONS No Known Immunizations SOCIAL HISTORY Never Assessed REASON FOR VISIT Referral PLAN OF CARE VITAL SIGNS MEDICATIONS Unknown Medications RESULTS No Results PROCEDURES No Known procedures INSTRUCTIONS MEDICATIONS ADMINISTERED No Known Medications MEDICAL (GENERAL) HISTORY Type Description Date Medical History Atrial Fibrillation Medical History Hyperlipidemia Medical History Pacemaker Surgical History mitral valve replacement-mechanical 09/2016 Surgical History PACEMAKER PLACED BY DR DICKOSN 01/2017 Hospitalization History Pneumonia 07/2016 Hospitalization History mitral valve replacement x5 days , Dr Benigno Weber CT Surg [facility] 09/2016
--- OUTSIDE RECORDS SUMMARY | 2018-02-17 16:32 | XMS REPORT ---
Author Author GAURANG MOLINA Organization [facility] Address [address] [place] [address] Care Team Providers Care Printer'S Devil Name Role Phone GAURANG MOLINA Unavailable PROBLEMS Type Condition ICD9-CM Code JKY76-[id number] Code Onset Dates Condition Status SNOMED Code Problem Valvular heart disease I38 Active 400460 Problem Essential hypertension I10 Active 13399939 Problem Coronary artery disease involving [place] coronary artery of [place] 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.10 Active 1715270334502 Problem Gastroesophageal reflux disease, esophagitis presence not specified K21.9 Active 130381554 Problem COPD exacerbation J44.1 Active 343429401 Problem Primary insomnia F51.01 Active 2879167 Problem H/O mitral valve replacement Z95.2 Active 5418475434217 Problem COPD with exacerbation J44.1 Active 725701303492555 Problem Moderate episode of recurrent major depressive disorder F33.1 Active 183242391 Problem Non-rheumatic mitral regurgitation I34.0 Active 673616686 Problem Tobacco abuse Z72.0 Active 033551787 Problem Panlobular emphysema J43.1 Active 5106143 Problem Mixed hyperlipidemia E78.2 Active 783066238 Problem Paroxysmal atrial fibrillation I48.0 Active 681664144 ALLERGIES No Information ENCOUNTERS Encounter Location Date Diagnosis [facility] [id number] [place] [address] Nov, [facility] [address] [address] Nov, [facility] [id number] [place] [address] 48007- 0726 Nov, Paroxysmal atrial fibrillation I48.0 ; Gastroesophageal reflux disease, esophagitis presence not specified K21.9 and Valvular heart disease I38 [facility] [address] [place] [address]998 Oct, [facility] [address] [address] Oct, [facility] [address], [place] [address] Oct, [facility] [address], [place] [address] Oct, Primary insomnia F51.01 ; COPD with exacerbation J44.1 ; Left arm pain M79.602 and Cardiac related syncope R55 [facility] [address] [address] Oct, [facility] [id number] [place] [address] 18819- [address]40 Aug, [facility] [id number] [place] [address] 65385- 3257 Aug, Coronary artery disease involving [place] coronary artery of [place] 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.10 [facility] [address], [place] [address] Aug, COPD with exacerbation J44.1 ; Dizziness R42 ; Fall, initial encounter W19.XXXA and Homelessness Z59.0 [facility] [address], [place] [address] Aug, Coronary artery disease involving [place] coronary artery of [place] 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.10 [facility] [address], [place] [address] Aug, [facility] [address], [place] [address] May, Coronary artery disease involving [place] coronary artery of [place] 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.10 [facility] [address], [place] [address] Apr, Coronary artery disease involving [place] coronary artery of [place] 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.10 [facility] [id number] [address] Mar, [facility] [address], [place] [address] 11[address] Mar, COPD exacerbation J44.1 and Influenza A J10.1 [facility] [address], [place] [address] Mar, Cough R05 and Influenza A J10.1 [facility] [address], [place] [address] Mar, [facility] [address], [place] [address] Mar, [facility] [address], [place] [address] 6679 Mar, Cough R05 and COPD with exacerbation J44.1 [facility] [address], [place] [address] Feb, [facility] [address], [place] [address] Feb, [facility] [address], [place] [address] 6[address] Feb, Essential hypertension I10 ; Atypical chest pain R07.89 ; Tobacco abuse Z72.0 and Coronary artery disease involving [place] coronary artery of [place] 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.10 [facility] [address] [address] Jan, [facility] [address] [address] Dec, [facility] [address], [place] [address] Nov, [facility] [address], [place] [address] 57[address] Nov, Coronary artery disease involving [place] coronary artery of [place] 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.10 ; Paroxysmal atrial fibrillation I48.0 ; Primary insomnia F51.01 and H/O mitral valve replacement Z95.2 [facility] [address], [place] [address] 08 Nov, 2016 [facility] [address] [place] [address] 67299- 7493 Oct, Post-op pain G89.18 ; Primary insomnia F51.01 ; Muscle spasm M62.838 ; H/O mitral valve replacement Z95.2 ; Coronary artery disease involving [place] coronary artery of [place] 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.10 and Moderate episode of recurrent major depressive disorder F33.1 [facility] [id number] [place] [address] 95218- [address]647 Sep, [facility] [id number] [place] [address] 82205- 8048 Sep, Coronary artery disease involving [place] coronary artery of [place] 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.10 ; Paroxysmal atrial fibrillation I48.0 ; Valvular heart disease I38 ; Tobacco abuse Z72.0 and Essential hypertension I10 [facility] [address] [place] [phone] Aug, Dental caries K02.9 [facility] [id number] [place] [address] [id number] Aug, [facility] [id number] [place] [address] [id number] Aug, Dental examination Z01.20 [facility] [address] [place] [address] 19962- 3126 Aug, [facility] [address], [place] [address] Jun, [facility] [id number] [place] [address] 90882- 2031 Jun, [facility] [address], [place] [address]65 Nov, [facility] [address] [place] [address] Sep, [facility] [address] [facility] [id number] July, [facility] [id number] [address] Jun, [facility] [address] [facility] [id number] [address] 1513 Apr, [facility] [id number], [place] [address]20 Apr, [facility] [id number], [place] [address] 6[address] Apr, IMMUNIZATIONS No Known Immunizations SOCIAL HISTORY Never Assessed REASON FOR VISIT Requests return call PLAN OF CARE VITAL SIGNS MEDICATIONS Unknown [...] days , Dr Benigno Weber [facility]
--- OUTSIDE RECORDS SUMMARY | 2018-02-17 16:32 | XMS REPORT ---
Author Author GAURANG MOLINA Organization [facility] Address [address] [place] [address] Care Team Providers Care Food Beverage Attendant Name Role Phone GAURANG MOLINA Unavailable PROBLEMS Type Condition ICD9-CM Code GMS50-PZ Code Onset Dates Condition Status SNOMED Code Problem Valvular heart disease I38 Active 491885 Problem Essential hypertension I10 Active 82799567 Problem Coronary artery disease involving [place] coronary artery of [place] 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.10 Active 3223563746742 Problem Gastroesophageal reflux disease, esophagitis presence not specified K21.9 Active 590141316 Problem COPD exacerbation J44.1 Active 135439465 Problem Primary insomnia F51.01 Active 5944233 Problem H/O mitral valve replacement Z95.2 Active 3456700944516 Problem COPD with exacerbation J44.1 Active 062972759809735 Problem Moderate episode of recurrent major depressive disorder F33.1 Active 122231844 Problem Non-rheumatic mitral regurgitation I34.0 Active 670043556 Problem Tobacco abuse Z72.0 Active 121436167 Problem Panlobular emphysema J43.1 Active 9326344 Problem Mixed hyperlipidemia E78.2 Active 035826479 Problem Paroxysmal atrial fibrillation I48.0 Active 104360482 ALLERGIES No Information ENCOUNTERS Encounter Location Date Diagnosis [facility] [id number] [address] Nov, Coronary artery disease involving [place] coronary artery of [place] 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.10 [facility] [address] [facility] [id number] [address] Nov, [facility] [id number] [address]- 7492 Nov, [facility] [id number] [address]- 2160 Nov, Paroxysmal atrial fibrillation I48.0 ; Gastroesophageal reflux disease, esophagitis presence not specified K21.9 and Valvular heart disease I38 [place] [id number] [place] [address] 61397- 3418 Oct, [place] [id number] [place] [address] 84409- 7770 Oct, [place] [address] [address]- 5242 Oct, [place] [address] 63307- 5386 Oct, Primary insomnia F51.01 ; COPD with exacerbation J44.1 ; Left arm pain M79.602 and Cardiac related syncope R55 [id number] [place] [address] 37961- 7676 Oct, [place] [address] [address]- 6670 Aug, [place] [id number] [place] [address] 75662- 1885 Aug, Coronary artery disease involving [place] coronary artery of [place] 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.10 [place] [id number] [place] [address] 76276- 6996 Aug, COPD with exacerbation J44.1 ; Dizziness R42 ; Fall, initial encounter W19.XXXA and Homelessness Z59.0 [place] [id number] [place] [address] 58233- 4725 Aug, Coronary artery disease involving [place] coronary artery of [place] 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.10 [place] [address] 31075- 2738 Aug, [place] [id number] [place] [address] 79592- 3203 May, Coronary artery disease involving [place] coronary artery of [place] 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.10 [place] [address] [place] [address]- 2923 Apr, Coronary artery disease involving [place] coronary artery of [place] 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.10 [facility] [id number] [place] [address] 63531- 3092 Mar, [facility] [id number] [place] [address] 09740- 6206 Mar, COPD exacerbation J44.1 and Influenza A J10.1 [facility] [address] [place] [address] 09537 -7487 Mar, Cough R05 and Influenza A J10.1 [facility] [id number] [place] [address] 69742- 6409 Mar, [facility] [id number] [place] [address] 86583- 5619 Mar, [facility] [id number] [place] [address] 62922- 9700 Mar, Cough R05 and COPD with exacerbation J44.1 [facility] [id number] [place] [address] 78859- 9766 Feb, [facility] [id number] [place] [address] 87826- 6046 Feb, [facility] [id number] [place] [address] 02292- 2280 Feb, Essential hypertension I10 ; Atypical chest pain R07.89 ; Tobacco abuse Z72.0 and Coronary artery disease involving [place] coronary artery of [place] 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.10 [facility] [id number] [place] [address] 07326- 6038 Jan, [facility] [id number] [place] [address] 57843- 5891 Dec, [facility] [address] [place] [address] 49322- 6496 Nov, [facility] [address] [address]- 6995 Nov, Coronary artery disease involving [place] coronary artery of [place] 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.10 ; Paroxysmal atrial fibrillation I48.0 ; Primary insomnia F51.01 and H/O mitral valve replacement Z95.2 [facility] [id number] [address]- 86[address] 08 Nov, 2016 [place] [id number] [place] [address] 35281- 4568 Oct, Post-op pain G89.18 ; Primary insomnia F51.01 ; Muscle spasm M62.838 ; H/O mitral valve replacement Z95.2 ; Coronary artery disease involving [place] coronary artery of [place] 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.10 and Moderate episode of recurrent major depressive disorder F33.1 [place] [id number] [place] [address] 42403- 4374 Sep, [place] [id number] [place] [address] 36630- 0589 Sep, Coronary artery disease involving [place] coronary artery of [place] 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.10 ; Paroxysmal atrial fibrillation I48.0 ; Valvular heart disease I38 ; Tobacco abuse Z72.0 and Essential hypertension I10 [facility] [address] [place] [address] [id number] Aug, Dental caries K02.9 [facility] [id number] [place] [address] [id number] Aug, [facility] [id number] [place] [address] [id number] Aug, Dental examination Z01.20 [place] [id number] [place] [address] 72998- 6111 Aug, [place] [address] [id number] [address]- 1331 14 Jun, 2014 [place] [id number] [place] [address] 01448- 6877 Jun, [facility] [id number], [place] [address]- 7174 Nov, [facility] [address], [place] [address] 2546 Sep, [facility] [id number], [place] [address]- 9285 July, [facility] [address], [place] [address] 2546 Jun, [facility] [id number], [place] [address]- 1309 Apr, [facility] [id number], [place] [address]- 6838 Apr, [facility] [id number], [place] [address]- 0402 Apr, IMMUNIZATIONS No Known Immunizations SOCIAL HISTORY Never Assessed REASON FOR VISIT PLAN OF CARE VITAL SIGNS MEDICATIONS Unknown [...]
--- OUTSIDE RECORDS SUMMARY | 2018-02-17 16:32 | XMS REPORT ---
Author Author GAURANG MOLINA Organization [facility] Address [address] [place] [address] Care Team Providers Care Electrical Lineman Name Role Phone GAURANG MOLINA Unavailable PROBLEMS Type Condition ICD9-CM Code YSS86-UL Code Onset Dates Condition Status SNOMED Code Problem Valvular heart disease I38 Active 353129 Problem Essential hypertension I10 Active 77617176 Problem Coronary artery disease involving [place] coronary artery of [place] 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.10 Active 6600358367958 Problem Gastroesophageal reflux disease, esophagitis presence not specified K21.9 Active 235026345 Problem COPD exacerbation J44.1 Active 029989478 Problem Primary insomnia F51.01 Active 8158881 Problem H/O mitral valve replacement Z95.2 Active 3227307418176 Problem COPD with exacerbation J44.1 Active 452383717990124 Problem Moderate episode of recurrent major depressive disorder F33.1 Active 088179301 Problem Non-rheumatic mitral regurgitation I34.0 Active 256727227 Problem Tobacco abuse Z72.0 Active 886593586 Problem Panlobular emphysema J43.1 Active 1811265 Problem Mixed hyperlipidemia E78.2 Active 775596089 Problem Paroxysmal atrial fibrillation I48.0 Active 600011859 ALLERGIES No Information ENCOUNTERS Encounter Location Date Diagnosis [facility] [id number] [address] Nov, Coronary artery disease involving [place] coronary artery of [place] 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.10 [facility] [address] [facility] [id number] [address] Nov, [facility] [id number] [address] Nov, [facility] [id number] [address] 8[address] Nov, Paroxysmal atrial fibrillation I48.0 ; Gastroesophageal reflux disease, esophagitis presence not specified K21.9 and Valvular heart disease I38 [place] [id number] [place] [address] 72436- 1113 Oct, [place] [id number] [place] [address] 29005- 4787 Oct, [place] [address] [address]24- 5419 Oct, [place] [address] 94238- 5782 Oct, Primary insomnia F51.01 ; COPD with exacerbation J44.1 ; Left arm pain M79.602 and Cardiac related syncope R55 [id number] [place] [address] 58069- 5964 Oct, [place] [address] 26162- 0670 Aug, [place] [id number] [place] [address] 70213- 2705 Aug, Coronary artery disease involving [place] coronary artery of [place] 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.10 [place] [id number] [place] [address] 78982- 5157 Aug, COPD with exacerbation J44.1 ; Dizziness R42 ; Fall, initial encounter W19.XXXA and Homelessness Z59.0 [place] [id number] [place] [address] 27902- 0422 Aug, Coronary artery disease involving [place] coronary artery of [place] 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.10 [place] [address] 78230- 0315 Aug, [place] [id number] [place] [address] 15743- 7022 May, Coronary artery disease involving [place] coronary artery of [place] 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.10 [place] [address] [place] [address]- 5908 Apr, Coronary artery disease involving [place] coronary artery of [place] 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.10 [facility] [id number] [place] [address] 50890- 4829 Mar, [facility] [id number] [place] [address] 95834- 5915 Mar, COPD exacerbation J44.1 and Influenza A J10.1 [facility] [id number] [place] [address] 47281 -3226 Mar, Cough R05 and Influenza A J10.1 [facility] [id number] [place] [address] 82327- 4586 Mar, [facility] [id number] [place] [address] 18042- 6740 Mar, [facility] [id number] [place] [address] 03516- 8290 Mar, Cough R05 and COPD with exacerbation J44.1 [facility] [id number] [place] [address] 70479- 9497 Feb, [facility] [id number] [place] [address] 80209- 5473 Feb, [facility] [id number] [place] [address] 74246- 9734 Feb, Essential hypertension I10 ; Atypical chest pain R07.89 ; Tobacco abuse Z72.0 and Coronary artery disease involving [place] coronary artery of [place] 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.10 [facility] [id number] [place] [address] 06759- 3770 Jan, [facility] [id number] [place] [address] 04757- 0586 Dec, [facility] [id number] [place] [address] 33888- 5995 Nov, [facility] [address] [address]- 6435 Nov, Coronary artery disease involving [place] coronary artery of [place] 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.10 ; Paroxysmal atrial fibrillation I48.0 ; Primary insomnia F51.01 and H/O mitral valve replacement Z95.2 [facility] [id number] [address] 0[address] 08 Nov, 2016 [place] [id number] [place] [address] 69648- 6531 Oct, Post-op pain G89.18 ; Primary insomnia F51.01 ; Muscle spasm M62.838 ; H/O mitral valve replacement Z95.2 ; Coronary artery disease involving [place] coronary artery of [place] 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.10 and Moderate episode of recurrent major depressive disorder F33.1 [place] [id number] [place] [address] 74441- 2781 Sep, [place] [id number] [place] [address] 08157- 3955 Sep, Coronary artery disease involving [place] coronary artery of [place] 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.10 ; Paroxysmal atrial fibrillation I48.0 ; Valvular heart disease I38 ; Tobacco abuse Z72.0 and Essential hypertension I10 [facility] [id number] [place] [address] [id number] Aug, Dental caries K02.9 [facility] [id number] [place] [address] [id number] Aug, [facility] [id number] [place] [address] [id number] Aug, Dental examination Z01.20 [place] [id number] [place] [address] 62634- 7365 Aug, [place] [id number] [address]- 4365 14 Jun, 2014 [place] [id number] [place] [address] 25370- 1830 Jun, [facility] [id number] [address]- 2099 Nov, [facility] [address] [address] 2546 Sep, [facility] [id number] [address]- 2782 July, [facility] [address] [address] 2546 Jun, [facility] [id number] [address]- 7621 Apr, [facility] [id number] [address] 1989 Apr, [facility] [id number] [address]- 9906 Apr, IMMUNIZATIONS No Known Immunizations SOCIAL HISTORY [...]
--- OUTSIDE RECORDS SUMMARY | 2018-02-17 16:33 | XMS REPORT ---
Author Author GAURANG MOLINA Organization [facility] Address [address] [place] [address] Care Team Providers Care Publicity Writer Name Role Phone GAURANG MOLINA Unavailable PROBLEMS Type Condition ICD9-CM Code YZB96-SZ Code Onset Dates Condition Status SNOMED Code Problem Valvular heart disease I38 Active 894851 Problem Essential hypertension I10 Active 60016784 Problem Coronary artery disease involving [place] coronary artery of [place] 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.10 Active 9698599975137 Problem Tobacco abuse Z72.0 Active 770481432 Problem Panlobular emphysema J43.1 Active 2056997 Problem Non-rheumatic mitral regurgitation I34.0 Active 040933148 Problem Mixed hyperlipidemia E78.2 Active 585026080 Problem COPD exacerbation J44.1 Active 413761408 Problem COPD with exacerbation J44.1 Active 792821872356992 Problem Primary insomnia F51.01 Active 7980411 Problem Paroxysmal atrial fibrillation I48.0 Active 083174385 Problem Moderate episode of recurrent major depressive disorder F33.1 Active 685563728 Problem H/O mitral valve replacement Z95.2 Active 1843400188954 ALLERGIES No Information ENCOUNTERS Encounter Location Date Diagnosis [facility] [id number], [place] [address] Nov, [facility] [address], [place] [address]- 3756 Nov, [facility] [address] [place] [address] 64591- 6329 Oct, Primary insomnia F51.01 ; COPD with exacerbation J44.1 ; Left arm pain M79.602 and Cardiac related syncope R55 [facility] [id number], [place] [address]- 3092 Oct, [facility] [id number], [place] [address]- 3948 Aug, [facility] [address] [place] [address] 12857- 4707 Aug, Coronary artery disease involving [place] coronary artery of [place] 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.10 [facility] [address], [place] [address]- 4558 Aug, COPD with exacerbation J44.1 [facility] [id number] [place] [address] 42810- 7096 Aug, Coronary artery disease involving [place] coronary artery of [place] 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.10 [facility] [id number] [place] [address] 29037- 2040 Aug, [facility] [id number] [place] [address] 38337- 0894 May, Coronary artery disease involving [place] coronary artery of [place] 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.10 [facility] [address] [place] [address] 14139- 1001 Apr, Coronary artery disease involving [place] coronary artery of [place] 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.10 [facility] [address] [address]- 5487 Mar, [facility] [address], [place] [address]- 3434 Mar, COPD exacerbation J44.1 and Influenza A J10.1 [facility] IN [facility] [address], [place] [address] Mar, Cough R05 and Influenza A J10.1 [facility] [id number] [place] [address] 68207- 2962 Mar, [facility] [address], [place] [address]- 5104 Mar, [facility] [id number] [place] [address] 89251- 5213 Mar, Cough R05 and COPD with exacerbation J44.1 [facility] [id number] [place] [address] 80520- 6559 Feb, [facility] [id number] [place] [address] 13907- 4117 Feb, [facility] [id number] [place] [address] 20426- 6344 Feb, Essential hypertension I10 ; Atypical chest pain R07.89 ; Tobacco abuse Z72.0 and Coronary artery disease involving [place] coronary artery of [place] 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.10 [place] [id number] [place] [address] 32643- 9242 Jan, [place] [id number] [place] [address] 30164- 1428 Dec, [place] [id number] [place] [address] 21588- 8815 Nov, [facility] [id number] [place] [address] 20541- 7918 Nov, Coronary artery disease involving [place] coronary artery of [place] 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.10 ; Paroxysmal atrial fibrillation I48.0 ; Primary insomnia F51.01 and H/O mitral valve replacement Z95.2 [place] [address], [place] [address]- 7349 Nov, [place] [id number] [place] [address] 15091- 9751 Oct, Post-op pain G89.18 ; Primary insomnia F51.01 ; Muscle spasm M62.838 ; H/O mitral valve replacement Z95.2 ; Coronary artery disease involving [place] coronary artery of [place] 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.10 and Moderate episode of recurrent major depressive disorder F33.1 [facility] [id number] [place] [address] 41268- 9819 Sep, [place] [address] [address]- 4816 Sep, Coronary artery disease involving [place] coronary artery of [place] 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.10 ; Paroxysmal atrial fibrillation I48.0 ; Valvular heart disease I38 ; Tobacco abuse Z72.0 and Essential hypertension I10 [facility] [address] [id number] Aug, Dental caries K02.9 [facility] [id number] [place] [address] [id number] Aug, [facility] [id number] [place] [address] [id number] Aug, Dental examination Z01.20 [facility] [id number] [place] [address] 27345- 9916 Aug, [facility] [id number] [place] [address] 06106- 5546 Jun, [facility] [id number] [place] [address] 70175- 1761 Jun, [facility] [id number] [place] [address] 45881- 8008 Nov, [facility] [id number] [place] [address] 22682- 3296 Sep, [facility] [address] [place] [address] 16567- 1596 July, [facility] [id number] [place] [address] 52809- 2996 Jun, [facility] [id number] [place] [address] 082934- 4983 Apr, [facility] [id number] [place] [address] 532980- 3956 Apr, [facility] [address] 9096 Apr, IMMUNIZATIONS No Known Immunizations SOCIAL HISTORY Never Assessed REASON FOR VISIT Medication refill request PLAN OF CARE VITAL SIGNS MEDICATIONS [...]
--- OUTSIDE RECORDS SUMMARY | 2018-02-17 16:33 | XMS REPORT ---
Author Author GAURANG MOLINA Organization [facility] Address [address] [place] [address] Care Team Providers Care Attorney At Law Name Role Phone GAURANG MOLINA Unavailable PROBLEMS Type Condition ICD9-CM Code [id number] Code Onset Dates Condition Status SNOMED Code Problem Valvular heart disease I38 Active 074889 Problem Essential hypertension I10 Active 40335770 Problem Coronary artery disease involving [place] coronary artery of [place] 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.10 Active 7655552956190 Problem Tobacco abuse Z72.0 Active 096955981 Problem Panlobular emphysema J43.1 Active 8248260 Problem Non-rheumatic mitral regurgitation I34.0 Active 904107039 Problem Mixed hyperlipidemia E78.2 Active 580191731 Problem COPD exacerbation J44.1 Active 145304230 Problem COPD with exacerbation J44.1 Active 501811354186386 Problem Primary insomnia F51.01 Active 0555160 Problem Paroxysmal atrial fibrillation I48.0 Active 468687784 Problem Moderate episode of recurrent major depressive disorder F33.1 Active 983796727 Problem H/O mitral valve replacement Z95.2 Active 7519385101683 ALLERGIES No Information ENCOUNTERS Encounter Location Date Diagnosis [facility] [id number], [place] [address]- 0673 Nov, [facility] [address], [place] [address]- 2806 Nov, [facility] [id number] [place] [address] 29817- 6968 Oct, [facility] [address] [place] [address] 11977- 5621 Oct, [facility] [id number], [place] [address]- 3778 Oct, Primary insomnia F51.01 ; COPD with exacerbation J44.1 ; Left arm pain M79.602 and Cardiac related syncope R55 [facility] [id number] [place] [address] 72356- 2901 Oct, [facility] [id number] [place] [address] 64153- 1484 Aug, [facility] [id number] [place] [address] 71404- 4825 Aug, Coronary artery disease involving [place] coronary artery of [place] 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.10 [facility] [id number] [place] [address] 02165- 4558 Aug, COPD with exacerbation J44.1 ; Dizziness R42 ; Fall, initial encounter W19.XXXA and Homelessness Z59.0 [place] [address] 03369- 4829 Aug, Coronary artery disease involving [place] coronary artery of [place] 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.10 [facility] [id number] [place] [address] 77706- 3630 Aug, [facility] [id number] [place] [address] 02041- 3276 May, Coronary artery disease involving [place] coronary artery of [place] 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.10 [facility] [id number] [place] [address] 79689- 7064 Apr, Coronary artery disease involving [place] coronary artery of [place] 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.10 [facility] [id number] [place] [address] 55803- 8979 Mar, [facility] [id number] [place] [address] 45276- 9151 Mar, COPD exacerbation J44.1 and Influenza A J10.1 [facility] [address] [place] [address] 00653 -3057 Mar, Cough R05 and Influenza A J10.1 [facility] [address], [place] [address]- 2052 Mar, [facility] [id number] [place] [address] 37765- 5091 Mar, [facility] [id number] [place] [address] 47267- 7644 Mar, Cough R05 and COPD with exacerbation J44.1 [facility] [id number] [place] [address] 35988- 1551 Feb, [facility] [id number] [place] [address] 25235- 5959 Feb, [place] [id number] [place] [address] 63282- 6558 Feb, Essential hypertension I10 ; Atypical chest pain R07.89 ; Tobacco abuse Z72.0 and Coronary artery disease involving [place] coronary artery of [place] 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.10 [place] [id number] [place] [address] 48680- 6617 Jan, [place] [id number] [place] [address] 90857- 5812 Dec, [facility] [id number] [place] [address] 23034- 5422 Nov, [place] [id number] [place] [address] 63550- 6088 Nov, Coronary artery disease involving [place] coronary artery of [place] 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.10 ; Paroxysmal atrial fibrillation I48.0 ; Primary insomnia F51.01 and H/O mitral valve replacement Z95.2 [facility] [id number] [place] [address] 25259- 2995 08 Nov, 2016 [facility] [id number] [place] [address] 11128- 0456 Oct, Post-op pain G89.18 ; Primary insomnia F51.01 ; Muscle spasm M62.838 ; H/O mitral valve replacement Z95.2 ; Coronary artery disease involving [place] coronary artery of [place] 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.10 and Moderate episode of recurrent major depressive disorder F33.1 [facility] [id number] [place] [address] 99643- 4368 14 Sep, 2016 [facility] [id number] [place] [address] 87922- 4737 Sep, Coronary artery disease involving [place] coronary artery of [place] 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.10 ; Paroxysmal atrial fibrillation I48.0 ; Valvular heart disease I38 ; Tobacco abuse Z72.0 and Essential hypertension I10 [facility] [id number] [place] [address] [id number] Aug, Dental caries K02.9 [facility] [id number] [place] [address] [id number] Aug, [facility] [address] [id number] Aug, Dental examination Z01.20 [facility] [id number] [place] [address] 76098- 0471 Aug, [facility] [id number] [place] [address] 89088- 7415 Jun, [facility] [id number] [place] [address] 83019- 4768 Jun, [facility] [id number] [place] [address] 06512- 6071 Nov, [facility] [id number] [place] [address] 46698- 0501 Sep, [facility] [id number] [place] [address] 35444- 8852 July, [facility] [id number] [place] [address] 53204- 0181 Jun, [facility] [id number] [place] [address] 53917286- 7725 Apr, [facility] [address] [facility] [id number] [place] [address]- 4879 Apr, [facility] [address] [facility] [id number] [place] [address]- 5636 Apr, IMMUNIZATIONS No Known Immunizations SOCIAL HISTORY [...]
--- OUTSIDE RECORDS SUMMARY | 2018-02-17 16:33 | XMS REPORT ---
Author Author GAURANG MOLINA Organization [facility] Address [address] [place] [address] Care Team Providers Care Collections Curator Name Role Phone GAURANG MOLINA Unavailable PROBLEMS Type Condition ICD9-CM Code SMB51-TS Code Onset Dates Condition Status SNOMED Code Problem Valvular heart disease I38 Active 384954 Problem Essential hypertension I10 Active 35769650 Problem Coronary artery disease involving ute mountain coronary artery of ute mountain 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.10 Active 9606755870534 Problem Tobacco abuse Z72.0 Active 240542386 Problem Panlobular emphysema J43.1 Active 2380144 Problem Non-rheumatic mitral regurgitation I34.0 Active 606564910 Problem Mixed hyperlipidemia E78.2 Active 573583629 Problem COPD exacerbation J44.1 Active 479408640 Problem COPD with exacerbation J44.1 Active 042026806781196 Problem Primary insomnia F51.01 Active 8094757 Problem Paroxysmal atrial fibrillation I48.0 Active 542114607 Problem Moderate episode of recurrent major depressive disorder F33.1 Active 794246019 Problem H/O mitral valve replacement Z95.2 Active 2039753225482 ALLERGIES No Information ENCOUNTERS Encounter Location Date Diagnosis [facility] [id number] [address] Nov, [facility] [address] [address] Nov, [facility] [id number] [place] [address]8 Oct, Primary insomnia F51.01 ; COPD with exacerbation J44.1 ; Left arm pain M79.602 and Cardiac related syncope R55 [facility] [id number] [address] Oct, [facility] [id number] [address] Aug, [facility] [id number] [place] [address] 96929- 4[address] Aug, Coronary artery disease involving ute mountain coronary artery of ute mountain 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.10 [facility] [address] [address] Aug, COPD with exacerbation J44.1 [facility] [id number] [place] [address] 85897- 7636 Aug, Coronary artery disease involving ute mountain coronary artery of ute mountain 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.10 [facility] [place] [id number] [place] [address] 09352- 8877 Aug, [facility] [id number] [place] [address] 97510- 7278 May, Coronary artery disease involving ute mountain coronary artery of ute mountain 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.10 [facility] [id number] [place] [address] 59078- 5043 Apr, Coronary artery disease involving ute mountain coronary artery of ute mountain 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.10 [facility] [address] [address] Mar, [facility] [address] [address] Mar, COPD exacerbation J44.1 and Influenza A J10.1 [facility] [address] [address] Mar, Cough R05 and Influenza A J10.1 [facility] [id number] [place] [address] 71387- 7146 Mar, [facility] [address] [address] Mar, [facility] [id number] [place] [address] 21030- 8033 Mar, Cough R05 and COPD with exacerbation J44.1 [facility] [id number] [place] [address] 41703- 2279 Feb, [facility] [id number] [place] [address] 01058- 7675 Feb, [facility] [id number] [place] [address] 63065- 4998 Feb, Essential hypertension I10 ; Atypical chest pain R07.89 ; Tobacco abuse Z72.0 and Coronary artery disease involving ute mountain coronary artery of ute mountain 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.10 [facility] [facility] [id number] [place] [address] 10758- 8517 Jan, [place] [facility] [id number] [place] [address] 58669- 1582 Dec, [place] [facility] [id number] [place] [address] 60291- 4085 Nov, [facility] [id number] [place] [address] 88481- 7533 Nov, Coronary artery disease involving ute mountain coronary artery of ute mountain 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.10 ; Paroxysmal atrial fibrillation I48.0 ; Primary insomnia F51.01 and H/O mitral valve replacement Z95.2 [facility] [facility] [address] [address] Nov, [place] [facility] [id number] [place] [address] 68793- 6025 Oct, Post-op pain G89.18 ; Primary insomnia F51.01 ; Muscle spasm M62.838 ; H/O mitral valve replacement Z95.2 ; Coronary artery disease involving ute mountain coronary artery of ute mountain 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.10 and Moderate episode of recurrent major depressive disorder F33.1 [facility] [id number] [place] [address] 29915- 4323 Sep, [place] [facility] [id number] [address] Sep, Coronary artery disease involving ute mountain coronary artery of ute mountain 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.10 ; Paroxysmal atrial fibrillation I48.0 ; Valvular heart disease I38 ; Tobacco abuse Z72.0 and Essential hypertension I10 [facility] [address] [id number] Aug, Dental caries K02.9 [facility] [id number] [place] [id number] Aug, [facility] [id number] [place] [address] [id number] Aug, Dental examination Z01.20 [facility] [id number] [place] [address] 47835- 1136 Aug, [facility] [id number] [place] [address] 47542- 1866 Jun, [facility] [id number] [place] [address] 32279- 4167 Jun, [facility] [id number] [place] [address] 85665- 8097 Nov, [facility] [id number] [place] [address] 25170- 0196 Sep, [facility] [id number] [place] [address] 72338- 9116 July, [facility] [id number] [place] [address] 04768- 3486 Jun, [facility] [id number] [place] [address] 456123- 8245 Apr, [facility] [id number] [place] [address] 30273- 5576 Apr, [facility] [id number] [address] Apr, IMMUNIZATIONS No Known Immunizations SOCIAL HISTORY Never Assessed REASON FOR VISIT Partial refill PLAN OF CARE VITAL SIGNS MEDICATIONS Medication Instructions Dosage Frequency Start Date End Date Duration Status Atorvastatin Calcium 10 mg Orally Once a day 1 tablet 24h Feb, Active Metoprolol Succinate ER 50 mg Orally Once a day 2 tablet 24h Active RESULTS No Results PROCEDURES No Known procedures INSTRUCTIONS MEDICATIONS ADMINISTERED No Known Medications MEDICAL (GENERAL) HISTORY Type Description Date Medical History Atrial Fibrillation Medical History Hyperlipidemia Medical History Pacemaker Surgical History mitral valve replacement-mechanical 09/2016 Surgical History PACEMAKER PLACED BY DR DICKSON 01/2017 Hospitalization History Pneumonia 07/2016 Hospitalization History mitral valve replacement x5 days , Dr Benigno Weber CT Surg [facility] 09/2016
--- OUTSIDE RECORDS SUMMARY | 2018-02-17 16:33 | XMS REPORT ---
Author Author GAURANG MOLINA Organization [facility] Address [address] [place] [address] Care Team Providers Care Medical Insurance Collector Name Role Phone GAURANG MOLINA Unavailable PROBLEMS Type Condition ICD9-CM Code VGP90-PD Code Onset Dates Condition Status SNOMED Code Problem Valvular heart disease I38 Active 506134 Problem Essential hypertension I10 Active 48206465 Problem Coronary artery disease involving sioux coronary artery of sioux 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.10 Active 4661888283592 Problem Tobacco abuse Z72.0 Active 800447045 Problem Panlobular emphysema J43.1 Active 4749319 Problem Non-rheumatic mitral regurgitation I34.0 Active 142758544 Problem Mixed hyperlipidemia E78.2 Active 197854414 Problem COPD exacerbation J44.1 Active 801539515 Problem COPD with exacerbation J44.1 Active 185805087133201 Problem Primary insomnia F51.01 Active 5055750 Problem Paroxysmal atrial fibrillation I48.0 Active 435286761 Problem Moderate episode of recurrent major depressive disorder F33.1 Active 287414872 Problem H/O mitral valve replacement Z95.2 Active 0593441263042 ALLERGIES Substance Reaction Event Type Date Status Penicillin V Potassium Unknown Drug Allergy Mar, Active Ibuprofen Unknown Drug Allergy Mar, Active Aspirin Unknown Drug Allergy Mar, Active ENCOUNTERS Encounter Location Date Diagnosis [facility] [id number] [address] Nov, [facility] [address] [address] Oct, [facility] [address] [address] Oct, [facility] [id number] [address] 9[address] Aug, [facility] [address] [address] 27 Aug, 2017 Coronary artery disease involving sioux coronary artery of sioux 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.10 [facility] [address] [address] Aug, COPD with exacerbation J44.1 [facility] [address] [address] Aug, Coronary artery disease involving sioux coronary artery of sioux 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.10 [facility] [address] [address] Aug, [facility] [id number] [place] [address] 34050- 1739 May, Coronary artery disease involving sioux coronary artery of sioux 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.10 [facility] [address] [address] Apr, Coronary artery disease involving sioux coronary artery of sioux 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.10 [facility] [address] [address] Mar, [facility] [address] [address] Mar, COPD exacerbation J44.1 and Influenza A J10.1 [facility] [address] [address] Mar, Cough R05 and Influenza A J10.1 [facility] [address] [address] Mar, [facility] [address] [address] 0[address] Mar, [facility] [address] [address]- 9883 Mar, Cough R05 and COPD with exacerbation J44.1 [facility] [address] [address] Feb, [place] [id number] [place] [address] 11988- 5464 Feb, [facility] [id number] [place] [address] 64854- 7985 Feb, Essential hypertension I10 ; Atypical chest pain R07.89 ; Tobacco abuse Z72.0 and Coronary artery disease involving sioux coronary artery of sioux 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.10 [id number] [place] [address] 51781- 3561 Jan, [place] [facility] [id number] [place] [address] 96644- 2867 Dec, [place] [facility] [id number] [place] [address] 46168- 3528 Nov, [place] [facility] [id number] [place] [address] 27369- 2055 Nov, Coronary artery disease involving sioux coronary artery of sioux 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.10 ; Paroxysmal atrial fibrillation I48.0 ; Primary insomnia F51.01 and H/O mitral valve replacement Z95.2 [place] [address]- [address] Nov, [place] [address] [place] [address] 99834- 4653 Oct, Post-op pain G89.18 ; Primary insomnia F51.01 ; Muscle spasm M62.838 ; H/O mitral valve replacement Z95.2 ; Coronary artery disease involving sioux coronary artery of sioux 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.10 and Moderate episode of recurrent major depressive disorder F33.1 [address] [address]- 7[address] Sep, [place] [address] [address]- 4270 Sep, Coronary artery disease involving sioux coronary artery of sioux 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.10 ; Paroxysmal atrial fibrillation I48.0 ; Valvular heart disease I38 ; Tobacco abuse Z72.0 and Essential hypertension I10 [facility] [id number] [place] [id number] Aug, Dental caries K02.9 [facility] [id number] [place] [address] [id number] Aug, [facility] [id number] [place] [address] [id number] Aug, Dental examination Z01.20 [facility] [id number] [place] [address] 64037- 7931 Aug, [facility] [id number] [place] [address] 12674- 1737 Jun, [facility] [id number] [place] [address] 07189- 9481 Jun, [facility] [id number] [place] [address] 86824- 4901 Nov, [facility] [id number] [place] [address] 25145- 0859 Sep, [facility] [id number] [place] [address] [id number]- 5251 July, [facility] [id number] [place] [address] 93698- 6806 Jun, [facility] [id number] [place] [address] [id number]- 9980 Apr, [facility] [address] [address] Apr, [facility] [address] [address] Apr, IMMUNIZATIONS No Known Immunizations SOCIAL HISTORY Never Assessed REASON FOR VISIT Shortness of breath f/u PER JESSE, Dx with influenza A 04/11/17. Never picked up tamiflu or steroids. States he was unaware there were scripts being sent. States he started the prednisone today-NETO Felder PLAN OF CARE Activity Details Follow Up 2 Weeks with Jesse peck COPD exacerbation Reason: VITAL SIGNS Height 69 in 2017-04-15 Weight 254 lbs 2017-04-15 Temperature 98.2 degrees Fahrenheit 2017-04-15 Heart Rate 78 bpm 2017-04-15 Respiratory Rate 22 2017-04-15 Oximetry 95 % 2017-04-15 BMI 37.51 kg/m2 2017-04-15 Blood pressure systolic 134 mmHg 2017-04-15 Blood pressure diastolic 92 mmHg 2017-04-15 MEDICATIONS Medication Instructions Dosage Frequency Start Date End Date Duration Status Aspirin 325 MG Orally Once a day 1 tablet 24h Active Atorvastatin Calcium 10 mg Orally Once a day 1 tablet 24h Feb, 30 day(s) Active Metoprolol Succinate ER 50 MG Orally Once a day 2 tablet 24h Active Tamiflu 75 MG Orally Twice a day 1 capsule 12h Mar, 5 day(s) Not-Taking PredniSONE 20 MG Orally Once a day 2 tablet 24h Mar, Mar, 5 days Active Ambien 10 mg Orally Once a day 1 tablet at bedtime as needed 24h Oct, 30 days Active ProAir HFA 108 (90 Base) MCG/ACT Inhalation every 6 hrs 2 puffs as needed 6h Mar, 30 days Active RESULTS No Results PROCEDURES Procedure Date Ordered Result Body Site MEASURE BLOOD OXYGEN LEVEL Apr 15, 2017 INSTRUCTIONS MEDICATIONS ADMINISTERED No Known Medications MEDICAL (GENERAL) HISTORY Type Description Date Medical History Atrial Fibrillation Medical History Hyperlipidemia Medical History Pacemaker Surgical History mitral valve replacement-mechanical 09/2016 Surgical History PACEMAKER PLACED BY DR DICKSON 01/2017 Hospitalization History Pneumonia 07/2016 Hospitalization History mitral valve replacement x5 days , Dr Benigno Weber CT Surg [facility] 09/2016
--- OUTSIDE RECORDS SUMMARY | 2018-02-17 16:33 | XMS REPORT ---
Author Author GAURANG MOLINA Organization [facility] Address [address] [place] [address] Care Team Providers Care Health Information Technician Name Role Phone GAURANG MOLINA Unavailable PROBLEMS Type Condition ICD9-CM Code PZT48-NM Code Onset Dates Condition Status SNOMED Code Problem Valvular heart disease I38 Active 769883 Problem Essential hypertension I10 Active 69549497 Problem Coronary artery disease involving three affiliated coronary artery of three affiliated 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.10 Active 5770838662530 Problem Tobacco abuse Z72.0 Active 952749096 Problem Panlobular emphysema J43.1 Active 5966225 Problem Non-rheumatic mitral regurgitation I34.0 Active 416941301 Problem Mixed hyperlipidemia E78.2 Active 184717391 Problem COPD exacerbation J44.1 Active 084535994 Problem COPD with exacerbation J44.1 Active 504714922992291 Problem Primary insomnia F51.01 Active 0160186 Problem Paroxysmal atrial fibrillation I48.0 Active 673127887 Problem Moderate episode of recurrent major depressive disorder F33.1 Active 321914190 Problem H/O mitral valve replacement Z95.2 Active 1375903003462 ALLERGIES No Information ENCOUNTERS Encounter Location Date Diagnosis [facility] [id number], [place] [address] Nov, [facility] [address], [place] [address] Nov, [facility] [id number] [place] [address] 58160- 4684 Oct, [facility] [address] [place] [address] 73024- 0108 Oct, [facility] [id number], [place] [address] 2772 Oct, Primary insomnia F51.01 ; COPD with exacerbation J44.1 ; Left arm pain M79.602 and Cardiac related syncope R55 [facility] [id number] [place] [address] 75646- 1051 Oct, [facility] [id number] [place] [address] 64035- 1388 Aug, [facility] [id number] [place] [address] 38396- 8754 Aug, Coronary artery disease involving three affiliated coronary artery of three affiliated 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.10 [facility] [id number] [place] [address] 44579- 2707 Aug, COPD with exacerbation J44.1 ; Dizziness R42 ; Fall, initial encounter W19.XXXA and Homelessness Z59.0 [place] [address] [address]- 9505 Aug, Coronary artery disease involving three affiliated coronary artery of three affiliated 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.10 [facility] [id number] [place] [address] 90471- 7945 Aug, [facility] [id number] [place] [address] 37740- 8999 May, Coronary artery disease involving three affiliated coronary artery of three affiliated 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.10 [facility] [id number] [place] [address] 68058- 5117 Apr, Coronary artery disease involving three affiliated coronary artery of three affiliated 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.10 [facility] [id number] [place] [address] 02134- 3816 Mar, [facility] [id number] [place] [address] 78687- 5533 Mar, COPD exacerbation J44.1 and Influenza A J10.1 [facility] [address] [place] [address] 14331 -7271 Mar, Cough R05 and Influenza A J10.1 [facility] [address], [place] [address] 6766 Mar, [facility] [id number] [place] [address] 51472- 8696 Mar, [facility] [id number] [place] [address] 97085- 3826 Mar, Cough R05 and COPD with exacerbation J44.1 [facility] [id number] [place] [address] 58464- 9326 Feb, [facility] [id number] [place] [address] 22895- 8593 Feb, [place] [id number] [place] [address] 06276- 4095 Feb, Essential hypertension I10 ; Atypical chest pain R07.89 ; Tobacco abuse Z72.0 and Coronary artery disease involving three affiliated coronary artery of three affiliated 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.10 [place] [id number] [place] [address] 65923- 1267 Jan, [place] [id number] [place] [address] 69389- 7080 Dec, [facility] [id number] [place] [address] 60100- 9336 Nov, [place] [id number] [place] [address] 44043- 2885 Nov, Coronary artery disease involving three affiliated coronary artery of three affiliated 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.10 ; Paroxysmal atrial fibrillation I48.0 ; Primary insomnia F51.01 and H/O mitral valve replacement Z95.2 [facility] [id number] [place] [address] 25107- 7555 08 Nov, 2016 [facility] [id number] [place] [address] 58818- 1203 Oct, Post-op pain G89.18 ; Primary insomnia F51.01 ; Muscle spasm M62.838 ; H/O mitral valve replacement Z95.2 ; Coronary artery disease involving three affiliated coronary artery of three affiliated 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.10 and Moderate episode of recurrent major depressive disorder F33.1 [facility] [id number] [place] [address] 50328- 1125 14 Sep, 2016 [facility] [id number] [place] [address] 95154- 4228 Sep, Coronary artery disease involving three affiliated coronary artery of three affiliated 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.10 ; Paroxysmal atrial fibrillation I48.0 ; Valvular heart disease I38 ; Tobacco abuse Z72.0 and Essential hypertension I10 [facility] [id number] [place] [address] [id number] Aug, Dental caries K02.9 [facility] [id number] [place] [address] [id number] Aug, [facility] [address] [id number] Aug, Dental examination Z01.20 [facility] [id number] [place] [address] 90535- 0719 Aug, [facility] [id number] [place] [address] 45709- 9063 Jun, [facility] [id number] [place] [address] 33085- 4820 Jun, [facility] [id number] [place] [address] 50191- 4795 Nov, [facility] [id number] [place] [address] 01397- 8023 Sep, [facility] [id number] [place] [address] 20320- 7095 July, [facility] [id number] [place] [address] 74390- 5432 Jun, [facility] [id number] [place] [address] 63800119- 9794 Apr, [facility] [address] [facility] [id number] [place] [address] Apr, [facility] [address] [facility] [id number] [address] 1496 Apr, IMMUNIZATIONS No Known Immunizations SOCIAL HISTORY Never Assessed REASON FOR VISIT Refill request PLAN OF CARE VITAL SIGNS MEDICATIONS Medication [...]
--- OUTSIDE RECORDS SUMMARY | 2018-02-17 16:33 | XMS REPORT ---
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 Active 4317480615421 Problem Tobacco abuse Z72.0 Active 455719931 Problem Panlobular emphysema J43.1 Active 3547282 Problem Non-rheumatic mitral regurgitation I34.0 Active 329347102 Problem Mixed hyperlipidemia E78.2 Active 524794657 Problem COPD exacerbation J44.1 Active 981561051 Problem COPD with exacerbation J44.1 Active 848736584819862 Problem Primary insomnia F51.01 Active 1480229 Problem Paroxysmal atrial fibrillation I48.0 Active 297978979 Problem Moderate episode of recurrent major depressive disorder F33.1 Active 173062062 Problem H/O mitral valve replacement Z95.2 Active 1679254782403 ALLERGIES No Information ENCOUNTERS Encounter Location Date Diagnosis [facility] [id number], [place] [address] 8591 Aug, [facility] [id number], [place] [address]- 0915 Aug, 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 [facility] [id number] [place] [address] 32289- 0532 Aug, COPD with exacerbation J44.1 [facility] [id number], [place] [address]- 8385 Aug, 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 [facility] [address], [place] [address]- 6501 Aug, [facility] [address] [place] [address] 59065- 2337 May, 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1 [facility] [address], [place] [address]- 2295 Mar, [facility] [address] [place] [address] 19725- 0158 Mar, [facility] [address], [place] [address]- 3381 Mar, Cough R05 and COPD with exacerbation J44.1 [facility] [address], [place] [address]- 9260 Feb, [facility] [address] [place] [address] 42233- 3560 Feb, [facility] [address] [place] [address] 11824- 3842 Feb, Essential hypertension I10 ; Atypical chest pain R07.89 ; Tobacco abuse Z72.0 and 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 [place] [address], [place] [address]- 8029 Jan, [facility] [address], [place] [address]- 4717 Dec, [facility] [address], [place] [address]- 0076 Nov, [facility] [id number] [place] [address] 01117- 2847 Nov, 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 ; Paroxysmal atrial fibrillation I48.0 ; Primary insomnia F51.01 and H/O mitral valve replacement Z95.2 [place] [address] [place] [address] 22883- 9264 Nov, [facility] [address] [place] [address] 39091- 3154 Oct, Post-op pain G89.18 ; Primary insomnia F51.01 ; Muscle spasm M62.838 ; H/O mitral valve replacement Z95.2 ; 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 and Moderate episode of recurrent major depressive disorder F33.1 [facility] [address], [place] [address]- 0793 Sep, [facility] [address], [place] [address]- 3751 Sep, 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 ; Paroxysmal atrial fibrillation I48.0 ; Valvular heart disease I38 ; Tobacco abuse Z72.0 and Essential hypertension I10 [facility] [address] [id number] Aug, Dental caries K02.9 [facility] [address] [address] Aug, [facility] [id number] [place] [address] [id number] Aug, Dental examination Z01.20 [facility] [id number], [place] [address]- 7646 Aug, [facility] [address], [place] [address]- 9236 14 Jun, 2014 [facility] [address], [place] [address]- 0326 Jun, [facility] [address], [place] [address]- 8132 Nov, [facility] [address], [place] [address]- 0566 Sep, [facility] [address], [place] [address]- 9096 July, [facility] [address], [place] [address]- 2176 Jun, [facility] [address], [place] [address]- 7831 Apr, [facility] [address], [place] [address]- 7284 Apr, [facility] [address], [place] [address]- 1375 Apr, IMMUNIZATIONS No Known Immunizations SOCIAL HISTORY Never Assessed REASON FOR VISIT Refill request PLAN OF CARE VITAL SIGNS MEDICATIONS Medication Instructions Dosage Frequency Start Date End Date Duration Status Atorvastatin Calcium 10 mg Orally Once a day 1 tablet 24h Feb, 30 day(s) Active Metoprolol Succinate ER 50 mg Orally [...] , Dr Benigno Weber CT [facility] 09/2016
--- OUTSIDE RECORDS SUMMARY | 2018-02-17 16:34 | XMS REPORT ---
Author Author GAURANG MOLINA Organization [facility] Address [address] [place] [address] Care Team Providers Care Production Welding Supervisor Name Role Phone GAURANG MOLINA Unavailable PROBLEMS Type Condition ICD9-CM Code XSN23-XK Code Onset Dates Condition Status SNOMED Code Problem Valvular heart disease I38 Active 232575 Problem Essential hypertension I10 Active 14189976 Problem Coronary artery disease involving [place] coronary artery of [place] 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.10 Active 9995546685038 Problem Tobacco abuse Z72.0 Active 470901582 Problem Panlobular emphysema J43.1 Active 6028999 Problem Non-rheumatic mitral regurgitation I34.0 Active 713190102 Problem Mixed hyperlipidemia E78.2 Active 300957476 Problem COPD exacerbation J44.1 Active 941747232 Problem COPD with exacerbation J44.1 Active 848606369623033 Problem Primary insomnia F51.01 Active 0069329 Problem Paroxysmal atrial fibrillation I48.0 Active 469237380 Problem Moderate episode of recurrent major depressive disorder F33.1 Active 339324760 Problem H/O mitral valve replacement Z95.2 Active 0394148108414 ALLERGIES Substance Reaction Event Type Date Status Ibuprofen Unknown Drug Allergy Sep, Active Aspirin Unknown Drug Allergy Sep, Active Penicillins Unknown Non Drug Allergy Sep, Active ENCOUNTERS Encounter Location Date Diagnosis [facility] [address] [facility] [id number] [address] 5[address] May, Coronary artery disease involving [place] coronary artery of [place] 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.10 [facility] [id number] [address]- 3439 Apr, Coronary artery disease involving [place] coronary artery of [place] 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.10 [facility] [address] [facility] [id number], [place] [address]- 0553 Mar, [facility] [address], [place] [address]- 6625 Mar, COPD exacerbation J44.1 and Influenza A J10.1 [facility] IN [facility] [address], [place] [address] Mar, Cough R05 and Influenza A J10.1 [facility] [id number] [place] [address] 48218- 9684 Mar, [facility] [id number] [place] [address] 84840- 3264 Mar, [facility] [id number] [place] [address] 76098- 2178 Mar, Cough R05 and COPD with exacerbation J44.1 [facility] [id number] [place] [address] 42939- 9725 Feb, [facility] [id number] [place] [address] 83338- 6656 Feb, [facility] [address] [place] [address] 20332- 2196 Feb, Essential hypertension I10 ; Atypical chest pain R07.89 ; Tobacco abuse Z72.0 and Coronary artery disease involving [place] coronary artery of [place] 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.10 [facility] [address], [place] [address]- 0020 Jan, [facility] [address] [place] [address] 35989- 9110 Dec, [facility] [address] [place] [address] 51151- 5063 Nov, [facility] [id number] [place] [address] 13506- 5035 Nov, Coronary artery disease involving [place] coronary artery of [place] 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.10 ; Paroxysmal atrial fibrillation I48.0 ; Primary insomnia F51.01 and H/O mitral valve replacement Z95.2 [facility] [address], [place] [address]- 6583 08 Nov, 2016 [facility] [id number] [place] [address] 48449- 9073 Oct, Post-op pain G89.18 ; Primary insomnia F51.01 ; Muscle spasm M62.838 ; H/O mitral valve replacement Z95.2 ; Coronary artery disease involving [place] coronary artery of [place] 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.10 and Moderate episode of recurrent major depressive disorder F33.1 [facility] [address] [place] [address] 73304- 5649 Sep, [facility] [id number] [place] [address] 38650- 5905 Sep, Coronary artery disease involving [place] coronary artery of [place] 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.10 ; Paroxysmal atrial fibrillation I48.0 ; Valvular heart disease I38 ; Tobacco abuse Z72.0 and Essential hypertension I10 [facility] [id number] [place] [address] [id number] Aug, Dental caries K02.9 [facility] [id number] [place] [address] [phone] Aug, [facility] [id number] [place] [address] [id number] Aug, Dental examination Z01.20 [facility] [address] [place] [address] 70515- 4798 Aug, [facility] [id number] [place] [address] 11918- 3587 Jun, [facility] [id number] [place] [address] 79817- 5943 Jun, [facility] [id number] [place] [address] 91893- 5014 Nov, [facility] [address] [place] [address] 51798- 5319 Sep, [facility] [address] [facility] [id number], [place] [address]- 7256 July, [facility] [address] [facility] [id number] [address]- 0326 Jun, [facility] [address] [facility] [id number], [place] [address]- 1806 Apr, [facility] [address] [facility] [id number], [place] [address]- 9306 Apr, [facility] [address] [facility] [id number], [place] [address]- 0306 Apr, IMMUNIZATIONS No Known Immunizations SOCIAL HISTORY Never Assessed REASON FOR VISIT Establish Care--Mathew, -Patient is scheduled for heart surgery on Saturday by Dr. Ceballos in [place] PLAN OF CARE Activity Details Follow Up Will see in CT after surgery Reason: VITAL SIGNS Height 69 in 2016-10-01 Weight 209.5 lbs 2016-10-01 Temperature 98.1 degrees Fahrenheit 2016-10-01 Heart Rate 84 bpm 2016-10-01 Respiratory Rate 24 2016-10-01 BMI 30.93 kg/m2 2016-10-01 Blood pressure systolic 120 mmHg 2016-10-01 Blood pressure diastolic 78 mmHg 2016-10-01 MEDICATIONS Medication Instructions Dosage Frequency Start Date End Date Duration Status Diltiazem HCl ER Beads 360 MG Orally Once a day 1 capsule 24h Active Furosemide 20 MG Orally Once a day 1 tablet 24h Active Lovastatin 20 MG Orally Once a day 1 tablet with a meal 24h Active RESULTS No Results PROCEDURES No Known procedures INSTRUCTIONS MEDICATIONS ADMINISTERED No Known Medications MEDICAL (GENERAL) HISTORY Type Description Date Medical History Atrial Fibrillation Medical History Hyperlipidemia Medical History Pacemaker Surgical History mitral valve replacement-mechanical 09/2016 Surgical History PACEMAKER PLACED BY DR DICKSON 01/2017 Hospitalization History Pneumonia 07/2016 Hospitalization History mitral valve replacement x5 days , Dr Benigno Weber CT Surg [facility] [place] 09/2016
--- OUTSIDE RECORDS SUMMARY | 2018-02-17 16:34 | XMS REPORT ---
Author Author GAURANG MOLINA [facility] Address [address] [place] [address] Care Team Providers Care Quill Reamer Name Role Phone GAURANG MOLINA Unavailable PROBLEMS Type Condition ICD9-CM Code QRS60-OL Code Onset Dates Condition Status SNOMED Code Problem Valvular heart disease I38 Active 182172 Problem Essential hypertension I10 Active 97240367 Problem Coronary artery disease involving shoshone-bannock coronary artery of shoshone-bannock 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.10 Active 9719008887840 Problem Tobacco abuse Z72.0 Active 502496886 Problem Panlobular emphysema J43.1 Active 3880290 Problem Non-rheumatic mitral regurgitation I34.0 Active 162685504 Problem Mixed hyperlipidemia E78.2 Active 963333548 Problem COPD exacerbation J44.1 Active 205848958 Problem COPD with exacerbation J44.1 Active 511563144483537 Problem Primary insomnia F51.01 Active 9522637 Problem Paroxysmal atrial fibrillation I48.0 Active 811902254 Problem Moderate episode of recurrent major depressive disorder F33.1 Active 175554221 Problem H/O mitral valve replacement Z95.2 Active 5643039749572 ALLERGIES Substance Reaction Event Type Date Status Ibuprofen Unknown Drug Allergy Nov, Active Aspirin Unknown Drug Allergy Nov, Active Penicillins Unknown Non Drug Allergy Nov, Active ENCOUNTERS Encounter Location Date Diagnosis [facility] [address] [facility] [id number] [address] May, Coronary artery disease involving shoshone-bannock coronary artery of shoshone-bannock 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.10 [facility] [address] [id number] [address] Apr, Coronary artery disease involving shoshone-bannock coronary artery of shoshone-bannock 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.10 [facility] [address] [facility] [id number] [place] [address] Mar, [facility] [address] [address] Mar, COPD exacerbation J44.1 and Influenza A J10.1 [facility] [address] [address] Mar, Cough R05 and Influenza A J10.1 [facility] [id number] [place] [address] 40207- 9474 Mar, [facility] [id number] [place] [address] 14589- 1150 Mar, [facility] [id number] [place] [address] 38188- 1467 Mar, Cough R05 and COPD with exacerbation J44.1 [facility] [id number] [place] [address] 60051- 2360 Feb, [facility] [id number] [place] [address] 98410- 4387 Feb, [facility] [id number] [place] [address] 05083- 8056 Feb, Essential hypertension I10 ; Atypical chest pain R07.89 ; Tobacco abuse Z72.0 and Coronary artery disease involving shoshone-bannock coronary artery of shoshone-bannock 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.10 [facility] [address] [address] Jan, [facility] [id number] [place] [address] 46845- 0174 Dec, [facility] [id number] [place] [address] 55868- 2371 Nov, [facility] [id number] [place] [address] 91798- 9414 Nov, Coronary artery disease involving shoshone-bannock coronary artery of shoshone-bannock 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.10 ; Paroxysmal atrial fibrillation I48.0 ; Primary insomnia F51.01 and H/O mitral valve replacement Z95.2 [facility] [address] [address] 08 Nov, 2016 [facility] [id number] [place] [address] 29065- 0852 Oct, Post-op pain G89.18 ; Primary insomnia F51.01 ; Muscle spasm M62.838 ; H/O mitral valve replacement Z95.2 ; Coronary artery disease involving shoshone-bannock coronary artery of shoshone-bannock 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.10 and Moderate episode of recurrent major depressive disorder F33.1 [facility] [address] [place] [address] 67213- 2291 Sep, [facility] [id number] [place] [address] 64044- 3323 Sep, Coronary artery disease involving shoshone-bannock coronary artery of shoshone-bannock 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.10 ; Paroxysmal atrial fibrillation I48.0 ; Valvular heart disease I38 ; Tobacco abuse Z72.0 and Essential hypertension I10 [facility] [id number] [place] [address] [id number] Aug, Dental caries K02.9 [facility] [id number] [place] [address] [phone] Aug, [facility] [id number] [place] [address] [phone] Aug, Dental examination Z01.20 [facility] [address] [place] [address] 07662- 1093 Aug, [facility] [id number] [place] [address] 29637- 2955 Jun, [facility] [id number] [place] [address] 14599- 1360 Jun, [facility] [id number] [place] [address] 02352- 6851 Nov, [facility] [address] [place] [address] 80741- 3396 Sep, [facility] [address] [facility] [id number] [address] July, [facility] [address] [facility] [id number] [address] Jun, [facility] [address] [facility] [id number] [place] [address] Apr, [facility] [address] [facility] [id number] [address] Apr, [facility] [address] [facility] [id number] [place] [address] 6[address] Apr, IMMUNIZATIONS No Known Immunizations SOCIAL HISTORY Never Assessed REASON FOR VISIT pt. states he was supposed to be back on his eliquis after surgery but was never put back on and has been out for two months, pt. states he was out walking and got light headed and fell into a ditch and ever since he has had pain in left side and left hand and states he has been having swelling in the left side ever since, pt. states since taking ambien he has been able to sleep and would like to continue, pt. unable to afford medications at this time due to being in the process of getting medicare----JUAREZ Devlin PLAN OF CARE Activity Details Follow Up 3 Months with Hilary RAYA Reason: VITAL SIGNS Height 69 in 2016-12-13 Weight 226.1 lbs 2016-12-13 Temperature 97.8 degrees Fahrenheit 2016-12-13 Heart Rate 88 bpm 2016-12-13 Respiratory Rate 22 2016-12-13 BMI 33.39 kg/m2 2016-12-13 Blood pressure systolic 136 mmHg 2016-12-13 Blood pressure diastolic 83 mmHg 2016-12-13 MEDICATIONS Medication Instructions Dosage Frequency Start Date End Date Duration Status Atorvastatin Calcium 10 MG Orally Once a day 1 tablet 24h Active Metoprolol Succinate ER 25 MG Orally Once a day 1 tablet 24h Active Eliquis 5 mg Orally 2 times a day 1 tablet 12h Active Ambien 10 mg Orally Once a day 1 tablet at bedtime as needed 24h Oct, 30 days Active RESULTS No Results PROCEDURES No Known procedures INSTRUCTIONS MEDICATIONS ADMINISTERED No Known Medications MEDICAL (GENERAL) HISTORY Type Description Date Medical History Atrial Fibrillation Medical History Hyperlipidemia Medical History Pacemaker Surgical History mitral valve replacement-mechanical 09/2016 Surgical History PACEMAKER PLACED BY DR DICKSON 01/2017 Hospitalization History Pneumonia 07/2016 Hospitalization History mitral valve replacement x5 days , [facility] Benigno [facility]
--- OUTSIDE RECORDS SUMMARY | 2018-02-17 16:34 | XMS REPORT ---
Author Author GAURANG MOLINA Organization [facility] Address [address] [place] [address] Care Team Providers Care Fiber Optic Assembler Name Role Phone GAURANG MOLINA Unavailable PROBLEMS Type Condition ICD9-CM Code [id number] Code Onset Dates Condition Status SNOMED Code Problem Valvular heart disease I38 Active 586161 Problem Essential hypertension I10 Active 33909656 Problem Coronary artery disease involving morongo coronary artery of morongo 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.10 Active 1190757666091 Problem Tobacco abuse Z72.0 Active 120661381 Problem Panlobular emphysema J43.1 Active 1646854 Problem Non-rheumatic mitral regurgitation I34.0 Active 946129250 Problem Mixed hyperlipidemia E78.2 Active 325784169 Problem COPD exacerbation J44.1 Active 389800530 Problem COPD with exacerbation J44.1 Active 901811384251027 Problem Primary insomnia F51.01 Active 0425592 Problem Paroxysmal atrial fibrillation I48.0 Active 653505604 Problem Moderate episode of recurrent major depressive disorder F33.1 Active 018920828 Problem H/O mitral valve replacement Z95.2 Active 3582312859448 ALLERGIES No Information ENCOUNTERS Encounter Location Date Diagnosis [facility] [address] [facility] [id number] [address] May, Coronary artery disease involving morongo coronary artery of morongo 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.10 [facility] [address] [facility] [id number] [address] Apr, Coronary artery disease involving morongo coronary artery of morongo 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.10 [facility] [address] [id number] [address] Mar, [facility] [address] [id number] [address] Mar, COPD exacerbation J44.1 and Influenza A J10.1 [facility] [address] [address] Mar, Cough R05 and Influenza A J10.1 [facility] [address] [address]- [address] 18 Mar, 2017 [facility] [address] [place] [address] 01608- 2394 Mar, [facility] [id number] [place] [address] 01227- 9842 Mar, Cough R05 and COPD with exacerbation J44.1 [facility] [id number] [place] [address] 75043- 8217 Feb, [facility] [id number] [place] [address] 76654- 5877 Feb, [facility] [id number] [place] [address] 76429- 2322 Feb, Essential hypertension I10 ; Atypical chest pain R07.89 ; Tobacco abuse Z72.0 and Coronary artery disease involving morongo coronary artery of morongo 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.10 [facility] [address] [address]- 7[address] Jan, [facility] [address] [address]- 8355 Dec, [facility] [address] [place] [address] 37974- 2439 Nov, [facility] [address] [address]- 0602 Nov, Coronary artery disease involving morongo coronary artery of morongo 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.10 ; Paroxysmal atrial fibrillation I48.0 ; Primary insomnia F51.01 and H/O mitral valve replacement Z95.2 [facility] [address] [place] [address] 79464- 2727 Nov, [facility] [address] [address]- 7414 Oct, Post-op pain G89.18 ; Primary insomnia F51.01 ; Muscle spasm M62.838 ; H/O mitral valve replacement Z95.2 ; Coronary artery disease involving morongo coronary artery of morongo 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.10 and Moderate episode of recurrent major depressive disorder F33.1 [facility] [id number] [place] [address] 60445- 7361 Sep, [facility] [id number] [place] [address] 12889- 4759 Sep, Coronary artery disease involving morongo coronary artery of morongo 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.10 ; Paroxysmal atrial fibrillation I48.0 ; Valvular heart disease I38 ; Tobacco abuse Z72.0 and Essential hypertension I10 [facility] [id number] [place] [address] [id number] Aug, Dental caries K02.9 [facility] [id number] [place] [address] [id number] Aug, [facility] [id number] [place] [address] [phone] Aug, Dental examination Z01.20 [facility] [address], [place] [address]- [address] Aug, [facility] [address] [address]- 2429 Jun, [facility] [address] [id number] [address]- 0469 Jun, [facility] [id number] [place] [address] 12622- 4930 Nov, [facility] [address] [id number] [address] Sep, [facility] [address], [place] [address]- 2014 July, [facility] [address] [facility] [id number] [address]- 0286 Jun, [facility] [address] [facility] [id number] [address]- 1746 Apr, [facility] [address] [facility] [id number] [address]- 7412 Apr, [facility] [address] [facility] [id number] [address]- 8203 Apr, IMMUNIZATIONS No Known Immunizations SOCIAL HISTORY Never Assessed REASON FOR VISIT Med changes PLAN OF CARE VITAL SIGNS MEDICATIONS Medication Instructions Dosage Frequency Start Date End Date Duration Status Metoprolol Succinate ER 25 MG Orally Once a day 1 tablet 24h Active Atorvastatin Calcium 10 MG Orally Once a day 1 tablet 24h Active Aspirin 325 MG Orally Once a day 1 tablet 24h Active Ambien 10 mg Orally Once a [...]
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
--- OUTSIDE RECORDS SUMMARY | 2018-02-17 16:34 | XMS REPORT ---
Author Author GAURANG MOLINA Organization [facility] Address [address] [place] [address] Care Team Providers Care Vessel Scrapper Helper Name Role Phone GAURANG MOLINA Unavailable PROBLEMS Type Condition ICD9-CM Code CDB32-DB Code Onset Dates Condition Status SNOMED Code Problem Valvular heart disease I38 Active 300345 Problem Essential hypertension I10 Active 02141906 Problem Coronary artery disease involving [place] coronary artery of [place] 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.10 Active 7780856444640 Problem Tobacco abuse Z72.0 Active 318168816 Problem Panlobular emphysema J43.1 Active 3073178 Problem Non-rheumatic mitral regurgitation I34.0 Active 182103119 Problem Mixed hyperlipidemia E78.2 Active 103549675 Problem COPD exacerbation J44.1 Active 447075035 Problem COPD with exacerbation J44.1 Active 417853818339451 Problem Primary insomnia F51.01 Active 3717119 Problem Paroxysmal atrial fibrillation I48.0 Active 323942967 Problem Moderate episode of recurrent major depressive disorder F33.1 Active 358565370 Problem H/O mitral valve replacement Z95.2 Active [id number] ALLERGIES No Information ENCOUNTERS Encounter Location Date Diagnosis [facility] [address] [facility] [id number] [address] May, Coronary artery disease involving [place] coronary artery of [place] 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.10 [facility] [address] [facility] [id number] [address] Apr, Coronary artery disease involving [place] coronary artery of [place] 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.10 [facility] [id number] [address] Mar, [facility] [address] [id number] [address] Mar, COPD exacerbation J44.1 and Influenza A J10.1 [facility] [address] [address] Mar, Cough R05 and Influenza A J10.1 [facility] [address], [place] [address] 18 Mar, 2017 [facility] [address] [place] [address]- 9267 Mar, [facility] [id number] [place] [address] 80455- 7651 Mar, Cough R05 and COPD with exacerbation J44.1 [facility] [id number] [place] [address] 34148- 8344 Feb, [facility] [id number] [place] [address]39- 4597 Feb, [facility] [id number] [place] [address] 46570- 0577 Feb, Essential hypertension I10 ; Atypical chest pain R07.89 ; Tobacco abuse Z72.0 and Coronary artery disease involving [place] coronary artery of [place] 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.10 [facility] [address] [address] Jan, [facility] [address], [place] [address] Dec, [facility] [address] [place] [address] 20629- 3672 Nov, [facility] [address], [place] [address] Nov, Coronary artery disease involving [place] coronary artery of [place] 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.10 ; Paroxysmal atrial fibrillation I48.0 ; Primary insomnia F51.01 and H/O mitral valve replacement Z95.2 [facility] [address] [place] [address] 7[address]- 7120 Nov, [facility] [address] [address] Oct, Post-op pain G89.18 ; Primary insomnia F51.01 ; Muscle spasm M62.838 ; H/O mitral valve replacement Z95.2 ; Coronary artery disease involving [place] coronary artery of [place] 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.10 and Moderate episode of recurrent major depressive disorder F33.1 [facility] [id number] [place] [address] 8[address]- 8214 Sep, [facility] [id number] [place] [address] 84032- 6399 Sep, Coronary artery disease involving [place] coronary artery of [place] 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.10 ; Paroxysmal atrial fibrillation I48.0 ; Valvular heart disease I38 ; Tobacco abuse Z72.0 and Essential hypertension I10 [facility] [id number] [place] [id number] Aug, Dental caries K02.9 [facility] [id number] [place] [address] [id number] Aug, [facility] [id number] [place] [address] [phone] Aug, Dental examination Z01.20 [facility] [address], [place] [address] Aug, [facility] [address] [address] Jun, [facility] [address] [id number] [address] Jun, [facility] [id number] [place] [address] 82333- 5204 Nov, [facility] [id number] [address] [address] Sep, [facility] [address], [place] [address] July, [facility] [address] [facility] [id number] [address] Jun, [facility] [address] [facility] [id number], [place] [address] Apr, [facility] [address] [facility] [id number], [place] [address] Apr, [facility] [address] [facility] [id number], [place] [address] Apr, IMMUNIZATIONS No Known Immunizations SOCIAL HISTORY Never Assessed REASON FOR VISIT Phone triage PLAN OF CARE VITAL SIGNS MEDICATIONS Unknown [...] valve replacement x5 days , Dr Benigno Brunner [facility] 09/2016
--- OUTSIDE RECORDS SUMMARY | 2018-02-17 16:34 | XMS REPORT ---
Author Author GAURANG MOLINA Organization [facility] [place] Address [address] [place] [address] Care Team Providers Care Pollution Control Technician Name Role Phone GAURANG MOLINA Unavailable PROBLEMS Type Condition ICD9-CM Code LXZ88-UP Code Onset Dates Condition Status SNOMED Code Problem Valvular heart disease I38 Active 367273 Problem Essential hypertension I10 Active 88701576 Problem Coronary artery disease involving [place] coronary artery of [place] 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.10 Active 4963401464835 Problem Tobacco abuse Z72.0 Active 840123540 Problem Panlobular emphysema J43.1 Active 8811772 Problem Non-rheumatic mitral regurgitation I34.0 Active 681428406 Problem Mixed hyperlipidemia E78.2 Active 537418607 Problem COPD exacerbation J44.1 Active 763693347 Problem COPD with exacerbation J44.1 Active 742462682169665 Problem Primary insomnia F51.01 Active 1975392 Problem Paroxysmal atrial fibrillation I48.0 Active 520126425 Problem Moderate episode of recurrent major depressive disorder F33.1 Active 738312077 Problem H/O mitral valve replacement Z95.2 Active 3520197165322 ALLERGIES Substance Reaction Event Type Date Status Penicillin V Potassium Unknown Drug Allergy Mar, Active Ibuprofen Unknown Drug Allergy Mar, Active Aspirin Unknown Drug Allergy Mar, Active ENCOUNTERS Encounter Location Date Diagnosis [facility] [place] [address] [id number] [address] Aug, [facility] [place] [id number] [address] 6[address] Aug, Coronary artery disease involving [place] coronary artery of [place] 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.10 [facility] [place] [address] [id number] [address] Aug, [facility] [place] [id number] [address] 2479 May, Coronary artery disease involving [place] coronary artery of [place] 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.10 [facility] [place] [address] [place] [address] 14032- 9247 Apr, Coronary artery disease involving [place] coronary artery of [place] 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.10 [facility] [place] [address], [place] [address] Mar, [facility] [place] [id number] [place] [address] 11820- 6032 Mar, COPD exacerbation J44.1 and Influenza A J10.1 [facility] [id number] [place] [address]297 [address]05 Mar, Cough R05 and Influenza A J10.1 [facility] [place] [id number] [place] [address] 49386- 3622 Mar, [facility] [place] [id number] [place] [address] 09450- 5076 Mar, [facility] [place] [id number] [place] [address] 71232- 0815 Mar, Cough R05 and COPD with exacerbation J44.1 [facility] [place] [address] [place] [address] 73633- 3990 Feb, [facility] [place] [id number] [place] [address] 41436- 7139 Feb, [facility] [place] [id number] [place] [address] 91095- 1164 Feb, Essential hypertension I10 ; Atypical chest pain R07.89 ; Tobacco abuse Z72.0 and Coronary artery disease involving [place] coronary artery of [place] 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.10 [facility] [place] [address], [place] [address]- 3[address] Jan, [facility] [place] [id number] [place] [address] 08635- 4127 Dec, [facility] [place] [address], [place] [address]- 5717 Nov, [facility] [place] [id number] [place] [address] 55076- 2815 Nov, Coronary artery disease involving [place] coronary artery of [place] 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.10 ; Paroxysmal atrial fibrillation I48.0 ; Primary insomnia F51.01 and H/O mitral valve replacement Z95.2 [facility] [place] [address] [id number], [place] [address]- 33[address] Nov, [place] [id number] [place] [address] 69460- 8557 Oct, Post-op pain G89.18 ; Primary insomnia F51.01 ; Muscle spasm M62.838 ; H/O mitral valve replacement Z95.2 ; Coronary artery disease involving [place] coronary artery of [place] 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.10 and Moderate episode of recurrent major depressive disorder F33.1 [place] [address], [place] [address]- 2804 Sep, [place] [id number] [place] [address] 03766- 0873 Sep, Coronary artery disease involving [place] coronary artery of [place] 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.10 ; Paroxysmal atrial fibrillation I48.0 ; Valvular heart disease I38 ; Tobacco abuse Z72.0 and Essential hypertension I10 [facility] [address] [place] [id number] Aug, Dental caries K02.9 [facility] [address] [id number] Aug, [facility] [id number] [place] [address] [phone] Aug, Dental examination Z01.20 [place] [address] [place] [address] 60946- 2417 Aug, [place] [address] [id number], [place] [address]- [address] 14 Jun, 2014 [facility] [place] [address], [place] [address]- 7026 Jun, [facility] [place] [address], [place] [address]- 0696 Nov, [facility] [place] [address] [id number], [place] [address] 2546 Sep, [facility] [place] [id number] [place] [address] 76750- 0126 July, [facility] [place] [id number] [place] [address] 11580- 2886 Jun, [facility] [place] [id number] [place] [address] 55351- 3586 Apr, [facility] [place] [id number] [place] [address] 75488- 7926 Apr, [facility] [place] [address], [place] [address]- 2496 Apr, IMMUNIZATIONS Vaccine Route Administration Date Status DEPO MEDROL 80 MG/ML IM Intramuscular Mar 28, 2017 Administered SOCIAL HISTORY Never Assessed REASON FOR VISIT Congestion-tjanssenMA, --wheezing for the last week along with congestion. Very SOB , --sinus headache for the past week. PLAN OF CARE Activity Details Follow Up 4 Weeks with Gault f/u COPD Reason: VITAL SIGNS Height 69 in 2017-03-28 Weight 252 lbs 2017-03-28 Temperature 97.8 degrees Fahrenheit 2017-03-28 Heart Rate 78 bpm 2017-03-28 Respiratory Rate 22 2017-03-28 Oximetry 97 % 2017-03-28 BMI 37.21 kg/m2 2017-03-28 Blood pressure systolic 148 mmHg 2017-03-28 Blood pressure diastolic 92 mmHg 2017-03-28 MEDICATIONS Medication Instructions Dosage Frequency Start Date End Date Duration Status Atorvastatin Calcium 10 mg Orally Once a day 1 tablet 24h Feb, 30 day(s) Active Ambien 10 mg Orally Once a day 1 tablet at bedtime as needed 24h Oct, 30 days Active Aspirin 325 MG Orally Once a day 1 tablet 24h Active ProAir HFA 108 (90 Base) MCG/ACT Inhalation every 6 hrs 2 puffs as needed 6h Mar, 30 days Active Azithromycin 250 MG Orally Once a day 2 tablets on the first day, then 1 tablet daily for 4 days 24h Mar, Mar, 5 day(s) Active PredniSONE 20 mg Orally Once a day 1 tablet 24h Mar, Mar, 07 days Active Metoprolol Succinate ER 50 MG Orally Once a day 2 tablet 24h Active RESULTS Name Result Date Reference Range INFLUENZA A & B (IN HOUSE) 2017-03-28 INFLUENZA A Negative INFLUENZA B Negative Control + Lot # [id number] Exp date 06/04/2019 PROCEDURES Procedure Date Ordered Result Body Site MEASURE BLOOD OXYGEN LEVEL Mar 28, 2017 INFLUENZA ASSAY W/OPTIC Mar 28, 2017 THER/PROPH/DIAG INJ, SC/IM Mar 28, 2017 DEPO MEDROL 80 MG/ML Mar 28, 2017 INSTRUCTIONS MEDICATIONS ADMINISTERED No Known Medications [...]
--- OUTSIDE RECORDS SUMMARY | 2018-02-17 16:34 | XMS REPORT ---
Author Author GAURANG MOLINA Organization [facility] Address [address] [place] [address] Care Team Providers Care Cardiology Specialist Name Role Phone GAURANG MOLINA Unavailable PROBLEMS Type Condition ICD9-CM Code DVC49-KF Code Onset Dates Condition Status SNOMED Code Problem Valvular heart disease I38 Active 492915 Problem Essential hypertension I10 Active 23729971 Problem Coronary artery disease involving [place] coronary artery of [place] 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.10 Active 0592563585779 Problem Tobacco abuse Z72.0 Active 490703016 Problem Panlobular emphysema J43.1 Active 7616276 Problem Non-rheumatic mitral regurgitation I34.0 Active 992298896 Problem Mixed hyperlipidemia E78.2 Active 450459529 Problem COPD exacerbation J44.1 Active 619325688 Problem COPD with exacerbation J44.1 Active 864780629324552 Problem Primary insomnia F51.01 Active 0900083 Problem Paroxysmal atrial fibrillation I48.0 Active 717010733 Problem Moderate episode of recurrent major depressive disorder F33.1 Active 092973417 Problem H/O mitral valve replacement Z95.2 Active 9197240897722 ALLERGIES No Information ENCOUNTERS Encounter Location Date Diagnosis [facility] [id number], [place] [address] Aug, [facility] [id number], [place] [address]- 1795 Aug, Coronary artery disease involving [place] coronary artery of [place] 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.10 [facility] [id number] [place] [address] 92762- 4820 Aug, COPD with exacerbation J44.1 [facility] [id number], [place] [address]- 1494 Aug, Coronary artery disease involving [place] coronary artery of [place] 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.10 [facility] [address], [place] [address]- 3241 Aug, [facility] [address] [place] [address] 65504- 2479 May, Coronary artery disease involving [place] coronary artery of [place] 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.10 [facility] [address] [place] [address] 00127- 4386 Apr, Coronary artery disease involving [place] coronary artery of [place] heart without angina pectoris I25.10 [facility] [address], [place] [address]- 6210 Mar, [facility] [id number] [place] [address] 26745- 1244 Mar, COPD exacerbation J44.1 and Influenza A J10.1 [facility] [address], [place] [address] Mar, Cough R05 and Influenza A J10.1 [facility] [address], [place] [address]- 8846 Mar, [facility] [address] [place] [address] 83829- 0696 Mar, [facility] [address], [place] [address]- 3909 Mar, Cough R05 and COPD with exacerbation J44.1 [facility] [address], [place] [address]- 2235 Feb, [facility] [address] [place] [address] 25637- 4453 Feb, [facility] [address] [place] [address] 94190- 4928 Feb, Essential hypertension I10 ; Atypical chest pain R07.89 ; Tobacco abuse Z72.0 and Coronary artery disease involving [place] coronary artery of [place] heart without angina pectoris I25.10 [place] [address], [place] [address]- 2513 Jan, [facility] [address], [place] [address]- 6048 Dec, [facility] [address], [place] [address]- 8425 Nov, [facility] [id number] [place] [address] 52318- 0883 Nov, Coronary artery disease involving [place] coronary artery of [place] heart without angina pectoris I25.10 ; Paroxysmal atrial fibrillation I48.0 ; Primary insomnia F51.01 and H/O mitral valve replacement Z95.2 [place] [address] [place] [address] 54370- 4477 Nov, [facility] [address] [place] [address] 02003- 2775 Oct, Post-op pain G89.18 ; Primary insomnia F51.01 ; Muscle spasm M62.838 ; H/O mitral valve replacement Z95.2 ; Coronary artery disease involving [place] coronary artery of [place] heart without angina pectoris I25.10 and Moderate episode of recurrent major depressive disorder F33.1 [facility] [address], [place] [address]- 2058 Sep, [facility] [address], [place] [address]- 8323 Sep, Coronary artery disease involving [place] coronary artery of [place] heart without angina pectoris I25.10 ; Paroxysmal atrial fibrillation I48.0 ; Valvular heart disease I38 ; Tobacco abuse Z72.0 and Essential hypertension I10 [facility] [address] [address] Aug, Dental caries K02.9 [facility] [address] [id number] Aug, [facility] [id number] [place] [address] [id number] Aug, Dental examination Z01.20 [facility] [id number], [place] [address]- 8276 Aug, [facility] [address], [place] [address]- 5[address] 14 Jun, 2014 [facility] [address], [place] [address]- 1186 Jun, [facility] [address], [place] [address]- 2316 Nov, [facility] [address], [place] [address]- 2556 Sep, [facility] [address], [place] [address]- 4526 July, [facility] [address], [place] [address]- 3536 Jun, [facility] [address], [place] [address]- 3676 Apr, [facility] [address], [place] [address]- 3806 Apr, [facility] [address], [place] [address]- 5236 Apr, IMMUNIZATIONS No Known Immunizations SOCIAL HISTORY Never Assessed REASON FOR VISIT Medication refill request PLAN OF CARE VITAL SIGNS MEDICATIONS Medication Instructions Dosage Frequency Start Date End Date Duration Status Metoprolol Succinate ER 50 mg Orally Once a day 2 tablet 24h Active Atorvastatin Calcium 10 mg Orally Once a day 1 tablet 24h Feb, 30 day(s) Active RESULTS No Results PROCEDURES [...] , Dr Benigno Weber [facility] 09/2016
--- OUTSIDE RECORDS SUMMARY | 2018-02-17 16:35 | XMS REPORT ---
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 Active 9457790231332 Problem Tobacco abuse Z72.0 Active 575017091 Problem Panlobular emphysema J43.1 Active 7621987 Problem Non-rheumatic mitral regurgitation I34.0 Active 759585551 Problem Mixed hyperlipidemia E78.2 Active 213152109 Problem COPD exacerbation J44.1 Active 883416783 Problem COPD with exacerbation J44.1 Active 510164945616751 Problem Primary insomnia F51.01 Active 5904509 Problem Paroxysmal atrial fibrillation I48.0 Active 906136257 Problem Moderate episode of recurrent major depressive disorder F33.1 Active 763069305 Problem H/O mitral valve replacement Z95.2 Active [id number] ALLERGIES No Information ENCOUNTERS Encounter Location Date Diagnosis [place] [address] [id number], [place] [address] Aug, COPD with exacerbation J44.1 [facility] [address] [id number], [place] [address] 12 Aug, 2017 Coronary artery disease involving tunica-biloxi coronary artery of tunica-biloxi heart without angina pectoris I25.10 [facility] [address] [facility] [id number], [place] [address] Aug, [facility] [address] [id number], [place] [address] May, Coronary artery disease involving tunica-biloxi coronary artery of tunica-biloxi heart without angina pectoris I25.10 [facility] [address], [place] [address] Apr, Coronary artery disease involving tunica-biloxi coronary artery of tunica-biloxi heart without angina pectoris I25.10 [facility] [address] [id number], [place] [address] Mar, [facility] [id number] [place] [address]- 6113 Mar, COPD exacerbation J44.1 and Influenza A J10.1 [facility] [id number] [place] [address] -[address] Mar, Cough R05 and Influenza A J10.1 [facility] [id number] [place] [address] 50162- 0203 Mar, [facility] [id number] [place] [address] 45709- 4205 Mar, [facility] [id number] [place] [address] 00710- 4729 Mar, Cough R05 and COPD with exacerbation J44.1 [facility] [id number] [place] [address] 66177- 1748 Feb, [facility] [id number] [place] [address] 73375- 5020 Feb, [facility] [id number] [place] [address] 033[address]- 3905 Feb, Essential hypertension I10 ; Atypical chest pain R07.89 ; Tobacco abuse Z72.0 and Coronary artery disease involving tunica-biloxi coronary artery of tunica-biloxi heart without angina pectoris I25.10 [facility] [id number] [place] [address] 40123- 4051 Jan, [facility] [id number] [place] [address] 59217- 2305 Dec, [facility] [id number] [place] [address] 39862- 8549 Nov, [facility] [address], [place] [address] Nov, Coronary artery disease involving tunica-biloxi coronary artery of tunica-biloxi heart without angina pectoris I25.10 ; Paroxysmal atrial fibrillation I48.0 ; Primary insomnia F51.01 and H/O mitral valve replacement Z95.2 [facility] [address], [place] [address] Nov, [facility] [id number] [place] [address] 22336- 6629 Oct, Post-op pain G89.18 ; Primary insomnia F51.01 ; Muscle spasm M62.838 ; H/O mitral valve replacement Z95.2 ; Coronary artery disease involving tunica-biloxi coronary artery of tunica-biloxi heart without angina pectoris I25.10 and Moderate episode of recurrent major depressive disorder F33.1 [place] [id number] [place] [address] 20584- 6535 Sep, [facility] [address], [place] [address] 484[address] Sep, Coronary artery disease involving tunica-biloxi coronary artery of tunica-biloxi heart without angina pectoris I25.10 ; Paroxysmal atrial fibrillation I48.0 ; Valvular heart disease I38 ; Tobacco abuse Z72.0 and Essential hypertension I10 [facility] [address] [id number] Aug, Dental caries K02.9 [facility] [id number] [place] [id number] Aug, [facility] [address] [id number] Aug, Dental examination Z01.20 [facility] [address], [place] [address] 07 Aug, 2016 [facility] [address], [place] [address] Jun, [place] [id number], [place] [address] Jun, [facility] [id number], [place] [address] 6[address] Nov, [facility] [address], [place] [address] 2546 Sep, [facility] [id number], [place] [address] July, [facility] [address], [place] [address] 93[address] Jun, [facility] [address], [place] [address] 39[address] Apr, [facility] [address], [place] [address] 02[address] Apr, [facility] [address], [place] [address] 67[address] Apr, IMMUNIZATIONS No Known Immunizations SOCIAL HISTORY Never Assessed REASON FOR VISIT Patient Call PLAN OF CARE VITAL SIGNS MEDICATIONS No Known Medications RESULTS No Results PROCEDURES No Known procedures INSTRUCTIONS MEDICATIONS ADMINISTERED No Known Medications MEDICAL (GENERAL) HISTORY Type Description Date Medical History Atrial Fibrillation Medical History Hyperlipidemia Medical History Pacemaker Surgical History mitral valve replacement-mechanical 09/2016 Surgical History PACEMAKER PLACED BY DR DICKSON 01/2017 Hospitalization History Pneumonia 07/2016 Hospitalization History mitral valve replacement x5 days , Dr [facility]igno Weber [facility]
--- OUTSIDE RECORDS SUMMARY | 2018-02-17 16:35 | XMS REPORT ---
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 Name Role Phone GAURANG MOLINA Unavailable PROBLEMS Type Condition ICD9-CM Code [id number] Code Onset Dates Condition Status SNOMED Code Problem Valvular heart disease I38 Active 660548 Problem Essential hypertension I10 Active 03308444 Problem Coronary artery disease involving inaja coronary artery of inaja heart without angina pectoris I25.10 Active 9441754613242 Problem Tobacco abuse Z72.0 Active 979396978 Problem Panlobular emphysema J43.1 Active 0555268 Problem Non-rheumatic mitral regurgitation I34.0 Active 463451778 Problem Mixed hyperlipidemia E78.2 Active 995978052 Problem COPD exacerbation J44.1 Active 284530589 Problem COPD with exacerbation J44.1 Active 872770513569211 Problem Primary insomnia F51.01 Active 1731396 Problem Paroxysmal atrial fibrillation I48.0 Active 508014572 Problem Moderate episode of recurrent major depressive disorder F33.1 Active 951637108 Problem H/O mitral valve replacement Z95.2 Active 6347549391242 ALLERGIES No Information ENCOUNTERS Encounter Location Date Diagnosis [facility] [address] [facility] [id number] [address] May, Coronary artery disease involving inaja coronary artery of inaja heart without angina pectoris I25.10 [facility] [address] [facility] [id number], [place] [address] Apr, Coronary artery disease involving inaja coronary artery of inaja heart without angina pectoris I25.10 [facility] [id number], [place] [address] Mar, [facility] [id number], [place] [address] Mar, COPD exacerbation J44.1 and Influenza A J10.1 [facility] [address], [place] [address] Mar, Cough R05 and Influenza A J10.1 [facility] [address], [place] [address] 18 Mar, 2017 [facility] [address] [place] [address] 979[address]- 9992 Mar, [facility] [id number] [place] [address] 89150- 1117 Mar, Cough R05 and COPD with exacerbation J44.1 [facility] [id number] [place] [address]- [address] Feb, [facility] [id number] [place] [address] 45398- 6731 Feb, [facility] [id number] [place] [address] 51999- 5155 Feb, Essential hypertension I10 ; Atypical chest pain R07.89 ; Tobacco abuse Z72.0 and Coronary artery disease involving inaja coronary artery of inaja heart without angina pectoris I25.10 [facility] [address], [place] [address] Jan, [facility] [address], [place] [address]- [address] Dec, [facility] [address] [place] [address] 01674- 2994 Nov, [facility] [address], [place] [address]- [address] Nov, Coronary artery disease involving inaja coronary artery of inaja heart without angina pectoris I25.10 ; Paroxysmal atrial fibrillation I48.0 ; Primary insomnia F51.01 and H/O mitral valve replacement Z95.2 [facility] [address] [place] [address] 43018- 4068 Nov, [facility] [address], [place] [address]- [address] Oct, Post-op pain G89.18 ; Primary insomnia F51.01 ; Muscle spasm M62.838 ; H/O mitral valve replacement Z95.2 ; Coronary artery disease involving inaja coronary artery of inaja heart without angina pectoris I25.10 and Moderate episode of recurrent major depressive disorder F33.1 [facility] [id number] [place] [address] 26857- 4908 Sep, [facility] [id number] [place] [address] 04769- 5156 Sep, Coronary artery disease involving inaja coronary artery of inaja heart without angina pectoris I25.10 ; Paroxysmal atrial fibrillation I48.0 ; Valvular heart disease I38 ; Tobacco abuse Z72.0 and Essential hypertension I10 [facility] [id number] [place] [id number] Aug, Dental caries K02.9 [facility] [id number] [place] [address] [phone] Aug, [facility] [id number] [place] [address] [id number] Aug, Dental examination Z01.20 [facility] [address], [place] [address]- [address] Aug, [facility] [address], [place] [address]- 9304 Jun, [facility] [address] [id number], [place] [address]- 1039 Jun, [facility] [id number] [place] [address] 01686- 5510 Nov, [facility] [id number] [address] Sep, [facility] [address], [place] [address]- 77[address] July, [facility] [address] [facility] [id number] [address] Jun, [facility] [address] [facility] [id number], [place] [address]- [address] Apr, [facility] [address] [facility] [id number], [place] [address]- 7[address] Apr, [facility] [address] [facility] [id number], [place] [address]- [address]237 Apr, IMMUNIZATIONS No Known Immunizations SOCIAL HISTORY [...] replacement x5 days , [facility]ign[facility] Brunner [facility]
--- OUTSIDE RECORDS SUMMARY | 2018-02-17 16:35 | XMS REPORT ---
Author Author RANJAN CONWAY [facility] Address Unknown Care Team Providers Care Physician Specialist Name Role Phone RANJAN CONWAY Unavailable PROBLEMS Type Condition ICD9-CM Code GKP77-SN Code Onset Dates Condition Status SNOMED Code Problem Valvular heart disease I38 Active 618438 Problem Essential hypertension I10 Active 44974038 Problem Coronary artery disease involving mcgrath coronary artery of mcgrath heart without angina pectoris I25.10 Active 1210045080556 Problem Tobacco abuse Z72.0 Active 336156135 Problem Panlobular emphysema J43.1 Active 3970291 Problem Non-rheumatic mitral regurgitation I34.0 Active 048370705 Problem Mixed hyperlipidemia E78.2 Active 623230807 Problem COPD exacerbation J44.1 Active 962995523 Problem COPD with exacerbation J44.1 Active 121069980356694 Problem Primary insomnia F51.01 Active 2619614 Problem Paroxysmal atrial fibrillation I48.0 Active 999007100 Problem Moderate episode of recurrent major depressive disorder F33.1 Active 046693615 Problem H/O mitral valve replacement Z95.2 Active 9389921837957 ALLERGIES Substance Reaction Event Type Date Status Ibuprofen Unknown Drug Allergy Aug, Active Aspirin Unknown Drug Allergy Aug, Active Penicillins Unknown Non Drug Allergy Aug, Active ENCOUNTERS Encounter Location Date Diagnosis [facility] [address] [facility] [id number] [address] May, Coronary artery disease involving mcgrath coronary artery of mcgrath heart without angina pectoris I25.10 [facility] [address] [facility] [id number] [place] [address]- 67[address] Apr, Coronary artery disease involving mcgrath coronary artery of mcgrath heart without angina pectoris I25.10 [facility] [address] [facility] [id number] [place] [address] Mar, [facility] [address] [address]- 8[address] Mar, COPD exacerbation J44.1 and Influenza A J10.1 [facility] [id number] [place] [address]78 Mar, Cough R05 and Influenza A J10.1 [facility] [address] [address]- 2381 Mar, [facility] [id number] [place] [address] 24714- 5225 Mar, [facility] [id number] [place] [address] 44458- 3900 Mar, Cough R05 and COPD with exacerbation J44.1 [facility] [id number] [place] [address] 47419- 9441 Feb, [facility] [id number] [place] [address] 47430- 8340 Feb, [facility] [id number] [place] [address] 07733- 4306 Feb, Essential hypertension I10 ; Atypical chest pain R07.89 ; Tobacco abuse Z72.0 and Coronary artery disease involving mcgrath coronary artery of mcgrath heart without angina pectoris I25.10 [facility] [address] [address]- 7026 Jan, [facility] [address] [id number] [address]- 2314 Dec, [facility] [id number] [place] [address] 82220- 7661 Nov, [facility] [id number] [place] [address] 64542- 8817 Nov, Coronary artery disease involving mcgrath coronary artery of mcgrath heart without angina pectoris I25.10 ; Paroxysmal atrial fibrillation I48.0 ; Primary insomnia F51.01 and H/O mitral valve replacement Z95.2 [facility] [address] [id number] [address]- 46[address] 08 Nov, 2016 [facility] [address] [place] [address] 73799- 5068 Oct, Post-op pain G89.18 ; Primary insomnia F51.01 ; Muscle spasm M62.838 ; H/O mitral valve replacement Z95.2 ; Coronary artery disease involving mcgrath coronary artery of mcgrath heart without angina pectoris I25.10 and Moderate episode of recurrent major depressive disorder F33.1 [facility] [id number] [place] [address] 89569- 1173 Sep, [facility] [id number] [place] [address] 58350- 4531 Sep, Coronary artery disease involving mcgrath coronary artery of mcgrath heart without angina pectoris I25.10 ; Paroxysmal atrial fibrillation I48.0 ; Valvular heart disease I38 ; Tobacco abuse Z72.0 and Essential hypertension I10 [facility] [id number] [place] [address] [phone] Aug, Dental caries K02.9 [facility] [id number] [place] [address] [phone] Aug, [facility] [id number] [place] [address] [id number] Aug, Dental examination Z01.20 [facility] [address] [address]- 9410 Aug, [facility] [id number] [place] [address] 51759- 4814 Jun, [facility] [id number] [place] [address] 92629- 5375 Jun, [facility] [id number] [place] [address] 27632- 8392 Nov, [facility] [id number] [place] [address] 87247- 5402 Sep, [facility] [address] [id number] [address]- 7626 July, [facility] [address] [facility] [id number] [place] [address]- 5997 Jun, [facility] [address] [facility] [id number] [place] [address]- 2974 Apr, [facility] [address] [facility] [id number] [place] [address]- 4[address] Apr, [facility] [address] [facility] [id number] [place] Apr, IMMUNIZATIONS No Known Immunizations SOCIAL HISTORY Never Assessed REASON FOR VISIT MICHAEL PLAN OF CARE Activity Details Follow Up 1 Week Reason:Multi TE VITAL SIGNS Height 69 in 2016-08-30 Blood pressure systolic 138 mmHg 2016-08-30 Blood pressure diastolic 99 mmHg 2016-08-30 MEDICATIONS Medication Instructions Dosage Frequency Start Date End Date Duration Status Bactrim DS 800-160 mg 1 tablet by Oral route 2 times per day for 10 day(s) Jun, Active Lisinopril 10 mg take 1 tablet by Oral route 1 time per dayTake in am July, Active Diclofenac Sodium 75 mg 1 tablet by Oral route 2 times per dayPRN Nov, Active Atorvastatin Calcium Active RESULTS No Results PROCEDURES Procedure Date Ordered Result Body Site PANORAMIC FILM SEE ALSO CODE [id number] August 30, 2016 COMP ORAL EVALUATION - NEW/EST PT August 30, 2016 INTRAORL-PERIAPICAL 1 FILM [id number] August 30, 2016 INTRAORL-PERIAPICAL EA ADD FILM August 30, 2016 INTRAORL-PERIAPICAL EA ADD FILM August 30, 2016 INTRAORL-PERIAPICAL EA ADD FILM August 30, 2016 INTRAORL-PERIAPICAL EA ADD FILM August 30, 2016 INTRAORL-PERIAPICAL EA ADD FILM August 30, 2016 INTRAORL-PERIAPICAL EA ADD FILM August 30, 2016 INTRAORL-PERIAPICAL EA ADD FILM August 30, 2016 INSTRUCTIONS MEDICATIONS ADMINISTERED No Known Medications MEDICAL (GENERAL) HISTORY Type Description Date Medical History Atrial Fibrillation Medical History Hyperlipidemia Medical History Pacemaker Surgical History mitral valve replacement-mechanical 09/2016 Surgical History PACEMAKER PLACED BY DR DICKSON 01/2017 Hospitalization History Pneumonia 07/2016 Hospitalization History mitral valve replacement x5 days , Dr Benigno Weber CT Surg [facility] Villalobos 09/2016
--- OUTSIDE RECORDS SUMMARY | 2018-02-17 16:35 | XMS REPORT ---
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 Name Role Phone GAURANG MOLINA Unavailable PROBLEMS Type Condition ICD9-CM Code OWT91-ID Code Onset Dates Condition Status SNOMED Code Problem Valvular heart disease I38 Active 739494 Problem Essential hypertension I10 Active 86467855 Problem Coronary artery disease involving [place] coronary artery of [place] heart without angina pectoris I25.10 Active 9363694682460 Problem Tobacco abuse Z72.0 Active 712971715 Problem Panlobular emphysema J43.1 Active 8398056 Problem Non-rheumatic mitral regurgitation I34.0 Active 114873832 Problem Mixed hyperlipidemia E78.2 Active 234802784 Problem COPD exacerbation J44.1 Active 139772083 Problem COPD with exacerbation J44.1 Active 895951153910558 Problem Primary insomnia F51.01 Active 2353844 Problem Paroxysmal atrial fibrillation I48.0 Active 645962106 Problem Moderate episode of recurrent major depressive disorder F33.1 Active 910816926 Problem H/O mitral valve replacement Z95.2 Active [id number] ALLERGIES No Information ENCOUNTERS Encounter Location Date Diagnosis [facility] [facility] [id number], [place] [address] Aug, [facility] [id number], [place] [address] 12 Aug, 2017 Coronary artery disease involving [place] coronary artery of [place] heart without angina pectoris I25.10 [facility] [id number], [place] [address] 11 Aug, 2017 [place] [id number] [address] May, Coronary artery disease involving [place] coronary artery of [place] heart without angina pectoris I25.10 [place] [address], [place] [address] Apr, Coronary artery disease involving [place] coronary artery of [place] heart without angina pectoris I25.10 [facility] [address], [place] [address] Mar, [facility] [id number] [place] [address]6728- 4668 Mar, COPD exacerbation J44.1 and Influenza A J10.1 [facility] [address] [place] [address] Mar, Cough R05 and Influenza A J10.1 [facility] [id number] [place] [address] 78580- 5570 Mar, [facility] [id number] [place] [address] 48706- 7478 Mar, [facility] [id number] [place] [address] 80309- 8754 Mar, Cough R05 and COPD with exacerbation J44.1 [facility] [id number] [place] [address] 54788- 8284 Feb, [facility] [address] [place] [address] 39598- 0398 Feb, [facility] [address] [place] [address] 40273- 2938 Feb, Essential hypertension I10 ; Atypical chest pain R07.89 ; Tobacco abuse Z72.0 and Coronary artery disease involving [place] coronary artery of [place] heart without angina pectoris I25.10 [facility] [address], [place] [address] Jan, [facility] [id number] [address] 1310 Dec, [facility] [id number] [place] [address] 58096- 8209 Nov, [facility] [address], [place] [address] 14[address] Nov, Coronary artery disease involving [place] coronary artery of [place] heart without angina pectoris I25.10 ; Paroxysmal atrial fibrillation I48.0 ; Primary insomnia F51.01 and H/O mitral valve replacement Z95.2 [facility] [address] [place] [address] 77315- 2606 Nov, [facility] [id number] [place] [address] 69513- 4858 Oct, Post-op pain G89.18 ; Primary insomnia F51.01 ; Muscle spasm M62.838 ; H/O mitral valve replacement Z95.2 ; Coronary artery disease involving [place] coronary artery of [place] heart without angina pectoris I25.10 and Moderate episode of recurrent major depressive disorder F33.1 [place] [id number] [place] [address] 56736- 9810 Sep, [facility] [id number] [place] [address] 12900- 0464 Sep, Coronary artery disease involving [place] coronary artery of [place] heart without angina pectoris I25.10 ; Paroxysmal atrial fibrillation I48.0 ; Valvular heart disease I38 ; Tobacco abuse Z72.0 and Essential hypertension I10 [facility] [id number] [place] [address] [id number] Aug, Dental caries K02.9 [facility] [id number] [place] [address] [id number] Aug, [facility] [id number] [place] [address] [id number] Aug, Dental examination Z01.20 [place] [id number] [place] [address] 47684- 8593 07 Aug, 2016 [facility] [id number] [place] [address] 81805- 1710 Jun, [place] [id number] [address] Jun, [facility] [id number], [place] [address] 80[address] Nov, [facility] [id number], [place] [address] 9[address] Sep, [facility] [id number], [place] [address] 9[address] July, [facility] [address], [place] [address] 8[address] Jun, [facility] [address], [place] [address] 2883 Apr, [facility] [address], [place] [address] 2[address] Apr, [facility] [id number], [place] [address] 5[address] Apr, IMMUNIZATIONS No Known Immunizations SOCIAL HISTORY Never Assessed REASON FOR VISIT Scheduling an appt PLAN OF CARE VITAL SIGNS MEDICATIONS Unknown [...] days , Dr Benigno Weber CT Surg [facility] Griselda 09/2016
--- OUTSIDE RECORDS SUMMARY | 2018-02-17 16:35 | XMS REPORT ---
Author Author REMA ZARATE [facility] Address [address] [place] [address] Care Team Providers Care Electronic Science Teacher Name Role Phone ELLIOTJULIO GARCIAHANY Unavailable PROBLEMS Type Condition ICD9-CM Code UAY53-MN Code Onset Dates Condition Status SNOMED Code Problem Valvular heart disease I38 Active 013246 Problem Essential hypertension I10 Active 47878784 Problem Coronary artery disease involving [place] coronary artery of [place] heart without angina pectoris I25.10 Active 7383635931086 Problem Tobacco abuse Z72.0 Active 676232371 Problem Panlobular emphysema J43.1 Active 6309683 Problem Non-rheumatic mitral regurgitation I34.0 Active 853313318 Problem Mixed hyperlipidemia E78.2 Active 482011631 Problem COPD exacerbation J44.1 Active 383253505 Problem COPD with exacerbation J44.1 Active 260861366175455 Problem Primary insomnia F51.01 Active 7171695 Problem Paroxysmal atrial fibrillation I48.0 Active 805393152 Problem Moderate episode of recurrent major depressive disorder F33.1 Active 371221107 Problem H/O mitral valve replacement Z95.2 Active 2387235950991 ALLERGIES No Information ENCOUNTERS Encounter Location Date Diagnosis [facility] [address] [facility] [id number] [address] May, Coronary artery disease involving [place] coronary artery of [place] heart without angina pectoris I25.10 [facility] [address] [facility] [id number] [address] Apr, Coronary artery disease involving sle[place] coronary artery of [place]etm[place] heart without angina pectoris I25.10 [facility] [id number] [address] 50[address] Mar, [facility] [id number] [address]- 4787 Mar, COPD exacerbation J44.1 and Influenza A J10.1 [facility] [address] [address] Mar, Cough R05 and Influenza A J10.1 [facility] [address] [address]- 9[address] Mar, [facility] [id number] [place] [address] 82432- 7314 Mar, [facility] [id number] [place] [address] 06625- 5556 Mar, Cough R05 and COPD with exacerbation J44.1 [facility] [id number] [place] [address] 83073- 1925 Feb, [facility] [id number] [place] [address] 01801- 8208 Feb, [facility] [id number] [place] [address] 74750- 5262 Feb, Essential hypertension I10 ; Atypical chest pain R07.89 ; Tobacco abuse Z72.0 and Coronary artery disease involving [place] coronary artery of [place]etm[place] heart without angina pectoris I25.10 [facility] [address] [address]- 7[address] Jan, [facility] [address] [address]- 0971 Dec, [facility] [id number] [place] [address] 30027- 6649 Nov, [facility] [id number] [place] [address] 57298- 8824 Nov, Coronary artery disease involving sleetm[place] coronary artery of sleetm[place] heart without angina pectoris I25.10 ; Paroxysmal atrial fibrillation I48.0 ; Primary insomnia F51.01 and H/O mitral valve replacement Z95.2 [facility] [address] [place] [address] 46937- 9252 Nov, [facility] [address] [address]- 6478 Oct, Post-op pain G89.18 ; Primary insomnia F51.01 ; Muscle spasm M62.838 ; H/O mitral valve replacement Z95.2 ; Coronary artery disease involving sle[place] coronary artery of sleetm[place] heart without angina pectoris I25.10 and Moderate episode of recurrent major depressive disorder F33.1 [facility] [id number] [place] [address] 61700- 8622 Sep, [facility] [id number] [place] [address] 80651- 8646 Sep, Coronary artery disease involving sleetm[place] coronary artery of sleetm[place] heart without angina pectoris I25.10 ; Paroxysmal atrial fibrillation I48.0 ; Valvular heart disease I38 ; Tobacco abuse Z72.0 and Essential hypertension I10 [facility] [id number] [place] [address] [phone] Aug, Dental caries K02.9 [facility] [id number] [place] [address] [phone] Aug, [facility] [id number] [place] [address] [phone] Aug, Dental examination Z01.20 [facility] [id number] [place] [address] 10101- 4557 Aug, [facility] [id number] [place] [address] 77483- 5806 Jun, [facility] [id number] [place] [address] 76057- 4019 Jun, [facility] [id number] [place] [address] 98050- 8343 Nov, [facility] [id number] [place] [address] 21699- 1048 Sep, [facility] [id number] [place] [address] 85597- 5381 July, [facility] [address] [facility] [id number] [place] [address]- 6226 Jun, [facility] [address] [facility] [id number] [address]- 3026 Apr, [facility] [address] [facility] [id number] [address]- 3636 Apr, [facility] [address] [facility] [id number] [place] [address]- 5577 Apr, IMMUNIZATIONS No Known Immunizations SOCIAL HISTORY Never Assessed REASON FOR VISIT phone call PLAN OF CARE VITAL SIGNS MEDICATIONS Medication Instructions Dosage Frequency Start Date End Date Duration Status Diltiazem HCl ER Beads 360 MG Orally Once a day 1 capsule 24h Active RESULTS No Results PROCEDURES No [...]
--- OUTSIDE RECORDS SUMMARY | 2018-02-17 16:35 | XMS REPORT ---
Author Author GAURANG MOLINA [facility] Address [address] [place] [address] Care Team Providers Care Form Maker Plaster Name Role Phone GAURANG MOLINA Unavailable PROBLEMS Type Condition ICD9-CM Code ZFZ03-RT Code Onset Dates Condition Status SNOMED Code Problem Valvular heart disease I38 Active 768683 Problem Essential hypertension I10 Active 83801207 Problem Coronary artery disease involving koi coronary artery of koi heart without angina pectoris I25.10 Active 8036538505289 Problem Tobacco abuse Z72.0 Active 024399386 Problem Panlobular emphysema J43.1 Active 0948518 Problem Non-rheumatic mitral regurgitation I34.0 Active 029929006 Problem Mixed hyperlipidemia E78.2 Active 723750641 Problem COPD exacerbation J44.1 Active 681873103 Problem COPD with exacerbation J44.1 Active 176817306723981 Problem Primary insomnia F51.01 Active 2982022 Problem Paroxysmal atrial fibrillation I48.0 Active 984601663 Problem Moderate episode of recurrent major depressive disorder F33.1 Active 416076440 Problem H/O mitral valve replacement Z95.2 Active 5158800109876 ALLERGIES Substance Reaction Event Type Date Status Penicillin V Potassium Unknown Drug Allergy Feb, Active Ibuprofen Unknown Drug Allergy Feb, Active Aspirin Unknown Drug Allergy Feb, Active ENCOUNTERS Encounter Location Date Diagnosis [facility] [place] [address] [facility] [id number] [address] May, Coronary artery disease involving koi coronary artery of koi heart without angina pectoris I25.10 [facility] [place] [id number], [place] [address]- 6150 Apr, Coronary artery disease involving koi coronary artery of koi heart without angina pectoris I25.10 [facility] [place] [address] [facility] [id number], [place] [address]- 8496 Mar, [facility] [place] [address], [place] [address]- 2015 Mar, COPD exacerbation J44.1 and Influenza A J10.1 [facility] [address], [place] [address] Mar, Cough R05 and Influenza A J10.1 [facility] [place] [id number] [place] [address] 94810- 0229 Mar, [facility] [place] [id number] [place] [address] 25254- 4537 Mar, [facility] [place] [id number] [place] [address] 11675- 9846 Mar, Cough R05 and COPD with exacerbation J44.1 [facility] [place] [id number] [place] [address] 47146- 5156 Feb, [facility] [place] [id number] [place] [address] 48940- 8440 Feb, [facility] [place] [address] [place] [address] 07464- 9226 Feb, Essential hypertension I10 ; Atypical chest pain R07.89 ; Tobacco abuse Z72.0 and Coronary artery disease involving koi coronary artery of koi heart without angina pectoris I25.10 [facility] [place] [address], [place] [address]- 3867 Jan, [facility] [place] [address] [place] [address] 68446- 0735 Dec, [facility] [place] [address] [place] [address] 45682- 3765 Nov, [facility] [place] [id number] [place] [address] 65279- 3776 Nov, Coronary artery disease involving koi coronary artery of koi heart without angina pectoris I25.10 ; Paroxysmal atrial fibrillation I48.0 ; Primary insomnia F51.01 and H/O mitral valve replacement Z95.2 [facility] [place] [address], [place] [address]- 0799 08 Nov, 2016 [facility] [place] [id number] [place] [address] 38248- 3479 Oct, Post-op pain G89.18 ; Primary insomnia F51.01 ; Muscle spasm M62.838 ; H/O mitral valve replacement Z95.2 ; Coronary artery disease involving koi coronary artery of koi heart without angina pectoris I25.10 and Moderate episode of recurrent major depressive disorder F33.1 [facility] [place] [address] [place] [address] 27313- 2449 Sep, [facility] [place] [id number] [place] [address] 36752- 6099 Sep, Coronary artery disease involving koi coronary artery of koi heart without angina pectoris I25.10 ; Paroxysmal atrial fibrillation I48.0 ; Valvular heart disease I38 ; Tobacco abuse Z72.0 and Essential hypertension I10 [facility] [id number] [place] [address] [id number] Aug, Dental caries K02.9 [facility] [id number] [place] [address] [id number] Aug, [facility] [id number] [place] [address] [id number] Aug, Dental examination Z01.20 [facility] [place] [address] [place] [address] 29412- 6075 Aug, [facility] [place] [id number] [place] [address] 62802- 7810 Jun, [facility] [place] [id number] [place] [address] 14882- 4777 Jun, [facility] [place] [id number] [place] [address] 23392- 7226 Nov, [facility] [place] [address] [place] [address] 11102- 9249 Sep, [facility] [place] [address] [facility] [id number], [place] [address]- 8566 July, [facility] [place] [address] [facility] [id number], [place] [address]- 9576 Jun, [facility] [place] [address] [facility] [id number], [place] [address]- 1116 Apr, [facility] [place] [address] [facility] [id number], [place] [address]- 9466 Apr, [facility] [place] [address] [facility] [id number], [place] [address]- 7756 Apr, IMMUNIZATIONS No Known Immunizations SOCIAL HISTORY Never Assessed REASON FOR VISIT f/u tests at [facility] in [place], Pacemaker placed about [address] Lugo after a holter monitor., Echo done in [place] by Dr. May and was told it was normal. PLAN OF CARE Activity Details Follow Up 2 Weeks with Gault f/u pain Reason: VITAL SIGNS Height 69 in 2017-03-05 Weight 247 lbs 2017-03-05 Temperature 99.2 degrees Fahrenheit 2017-03-05 Heart Rate 70 bpm 2017-03-05 Respiratory Rate 22 2017-03-05 BMI 36.47 kg/m2 2017-03-05 Blood pressure systolic 170 mmHg 2017-03-05 Blood pressure diastolic 110 mmHg 2017-03-05 MEDICATIONS Medication Instructions Dosage Frequency Start Date End Date Duration Status Metoprolol Succinate ER 25 MG Orally Once a day 2 tablet 24h Active Ambien 10 mg Orally Once a day 1 tablet at bedtime as needed 24h Oct, 30 days Active Atorvastatin Calcium 10 mg Orally Once a day 1 tablet 24h Feb, 30 day(s) Active Aspirin 325 MG Orally Once a day 1 tablet 24h Active RESULTS Name Result Date Reference Range Xray : Chest (PA lateral) 2017-03-05 Echo 2D 2017-03-05 PROCEDURES No Known procedures INSTRUCTIONS MEDICATIONS ADMINISTERED No Known Medications MEDICAL (GENERAL) HISTORY Type Description Date Medical History Atrial Fibrillation Medical History Hyperlipidemia Medical History Pacemaker Surgical History mitral valve replacement-mechanical 09/2016 Surgical History PACEMAKER PLACED BY DR LUGO 01/2017 Hospitalization History Pneumonia 07/2016 Hospitalization History mitral valve replacement x5 days , Dr Benigno Weber CT Surg [facility] Villal[facility] 09/2016
--- OUTSIDE RECORDS SUMMARY | 2018-02-17 16:36 | XMS REPORT ---
Author Author GAURANG MOLINA Organization [facility] Address [address] [place] [address] Care Team Providers Care [employer]otive [employer] Counter Assistant Name Role Phone GAURANG MOLINA Unavailable PROBLEMS Type Condition ICD9-CM Code [id number] Code Onset Dates Condition Status SNOMED Code Problem Valvular heart disease I38 Active 446641 Problem Essential hypertension I10 Active 66640566 Problem Coronary artery disease involving [place] coronary artery of [place] heart without angina pectoris I25.10 Active 2707719477421 Problem Tobacco abuse Z72.0 Active 679227662 Problem Panlobular emphysema J43.1 Active 8363582 Problem Non-rheumatic mitral regurgitation I34.0 Active 966506521 Problem Mixed hyperlipidemia E78.2 Active 804042943 Problem COPD exacerbation J44.1 Active 625924072 Problem COPD with exacerbation J44.1 Active 756964642102366 Problem Primary insomnia F51.01 Active 3606512 Problem Paroxysmal atrial fibrillation I48.0 Active 160556323 Problem Moderate episode of recurrent major depressive disorder F33.1 Active 810683990 Problem H/O mitral valve replacement Z95.2 Active [id number] ALLERGIES No Information ENCOUNTERS Encounter Location Date Diagnosis [facility] [address] [facility] [id number] [address] May, Coronary artery disease involving [place] coronary artery of [place] heart without angina pectoris I25.10 [facility] [address] [facility] [id number] [address] Apr, Coronary artery disease involving [place] coronary artery of [place] heart without angina pectoris I25.10 [facility] [address] [id number] [address] Mar, [facility] [address] [id number] [address] Mar, COPD exacerbation J44.1 and Influenza A J10.1 [facility] [address] [address] Mar, Cough R05 and Influenza A J10.1 [facility] [address] [address] 18 Mar, 2017 [facility] [address] [place] [address] Mar, [facility] [id number] [place] [address] Mar, Cough R05 and COPD with exacerbation J44.1 [facility] [id number] [place] [address] Feb, [facility] [id number] [place] [address] Feb, [facility] [id number] [place] [address] Feb, Essential hypertension I10 ; Atypical chest pain R07.89 ; Tobacco abuse Z72.0 and Coronary artery disease involving [place] coronary artery of [place] heart without angina pectoris I25.10 [facility] [address] [address] Jan, [facility] [address] [address] Dec, [facility] [address] [place] [address] Nov, [facility] [address] [address] Nov, Coronary artery disease involving [place] coronary artery of [place] heart without angina pectoris I25.10 ; Paroxysmal atrial fibrillation I48.0 ; Primary insomnia F51.01 and H/O mitral valve replacement Z95.2 [facility] [address] [place] [address] Nov, [facility] [address] [address] Oct, Post-op pain G89.18 ; Primary insomnia F51.01 ; Muscle spasm M62.838 ; H/O mitral valve replacement Z95.2 ; Coronary artery disease involving [place] coronary artery of [place] heart without angina pectoris I25.10 and Moderate episode of recurrent major depressive disorder F33.1 [facility] [id number] [place] [address] Sep, [facility] [id number] [place] [address] Sep, Coronary artery disease involving [place] coronary artery of [place] heart without angina pectoris I25.10 ; Paroxysmal atrial fibrillation I48.0 ; Valvular heart disease I38 ; Tobacco abuse Z72.0 and Essential hypertension I10 [facility] [id number] [place] [id number] Aug, Dental caries K02.9 [facility] [id number] [place] [phone] Aug, [facility] [id number] [place] [phone] Aug, Dental examination Z01.20 [facility] [address] [address] Aug, [facility] [address] [address] Jun, [facility] [address] [id number] [address] Jun, [facility] [id number] [place] [address]- [address] Nov, [facility] [id number] [address] Sep, [facility] [address] [address] July, [facility] [address] [facility] [id number] [address] Jun, [facility] [address] [facility] [id number] Apr, [facility] [address] [facility] [id number] [address] Apr, [facility] [address] [facility] [id number] [address] Apr, IMMUNIZATIONS No Known Immunizations SOCIAL HISTORY Never Assessed REASON FOR VISIT echo result PLAN OF CARE VITAL SIGNS MEDICATIONS Unknown [...] replacement x5 days , Dr Benigno Brunner [facility] 09/2016
--- OUTSIDE RECORDS SUMMARY | 2018-02-17 16:36 | XMS REPORT ---
Author Author GAURANG MOLINA [facility] Address [address] [place] [address] Care Team Providers Care Senior Net Software Developer Name Role Phone GAURANG MOLINA Unavailable PROBLEMS Type Condition ICD9-CM Code EPH51-WM Code Onset Dates Condition Status SNOMED Code Problem Valvular heart disease I38 Active 279940 Problem Essential hypertension I10 Active 25856373 Problem Coronary artery disease involving [place] coronary artery of [place] heart without angina pectoris I25.10 Active 5234490803413 Problem Tobacco abuse Z72.0 Active 706147562 Problem Panlobular emphysema J43.1 Active 7352593 Problem Non-rheumatic mitral regurgitation I34.0 Active 266572029 Problem Mixed hyperlipidemia E78.2 Active 738745294 Problem COPD exacerbation J44.1 Active 320002348 Problem COPD with exacerbation J44.1 Active 360390253866908 Problem Primary insomnia F51.01 Active 0271088 Problem Paroxysmal atrial fibrillation I48.0 Active 647501232 Problem Moderate episode of recurrent major depressive disorder F33.1 Active 016202941 Problem H/O mitral valve replacement Z95.2 Active 1510884478764 ALLERGIES Substance Reaction Event Type Date Status Ibuprofen Unknown Drug Allergy Oct, Active Aspirin Unknown Drug Allergy Oct, Active Penicillins Unknown Non Drug Allergy Oct, Active ENCOUNTERS Encounter Location Date Diagnosis [facility] [address] [facility] [id number], [place] [address] May, Coronary artery disease involving [place] coronary artery of [place] heart without angina pectoris I25.10 [facility] [address] [id number] [address] Apr, Coronary artery disease involving [place] coronary artery of [place] heart without angina pectoris I25.10 [facility] [address] [facility] [id number], [place] [address] Mar, [facility] [address], [place] [address] Mar, COPD exacerbation J44.1 and Influenza A J10.1 [facility] [address] [address] Mar, Cough R05 and Influenza A J10.1 [facility] [id number] [place] [address] Mar, [facility] [id number] [place] [address] 88[address]- 6[address] Mar, [facility] [id number] [place] [address]- [address] Mar, Cough R05 and COPD with exacerbation J44.1 [facility] [id number] [place] [address] 57[address]- [address] Feb, [facility] [id number] [place] [address] 05131- 2899 Feb, [facility] [address] [place] [address]- [address] Feb, Essential hypertension I10 ; Atypical chest pain R07.89 ; Tobacco abuse Z72.0 and Coronary artery disease involving [place] coronary artery of [place] heart without angina pectoris I25.10 [facility] [address] [address] Jan, [facility] [address] [place] [address] 6[address]- 36[address] Dec, [facility] [address] [place] [address] 92957- 1386 Nov, [facility] [id number] [place] [address]44- [address] Nov, Coronary artery disease involving [place] coronary artery of [place] heart without angina pectoris I25.10 ; Paroxysmal atrial fibrillation I48.0 ; Primary insomnia F51.01 and H/O mitral valve replacement Z95.2 [facility] [address], [place] [address] 08 Nov, 2016 [facility] [id number] [place] [address]- 8[address] Oct, Post-op pain G89.18 ; Primary insomnia F51.01 ; Muscle spasm M62.838 ; H/O mitral valve replacement Z95.2 ; Coronary artery disease involving [place] coronary artery of [place] heart without angina pectoris I25.10 and Moderate episode of recurrent major depressive disorder F33.1 [facility] [address] [place] [address] 63[address]- 6699 Sep, [facility] [id number] [place] [address] 41293- 0491 Sep, Coronary artery disease involving [place] coronary artery of [place] heart without angina pectoris I25.10 ; Paroxysmal atrial fibrillation I48.0 ; Valvular heart disease I38 ; Tobacco abuse Z72.0 and Essential hypertension I10 [facility] [id number] [place] [phone] Aug, Dental caries K02.9 [facility] [id number] [place] [address] [phone] Aug, [facility] [id number] [place] [address] [phone] Aug, Dental examination Z01.20 [facility] [address] [place] [address] 767[address]- 135[address] Aug, [facility] [id number] [place] [address] 09255- 5759 Jun, [facility] [id number] [place] [address] 11520- 0789 Jun, [facility] [id number] [place] [address] 49371- 4236 Nov, [facility] [address] [place] [address] 11321- 4213 Sep, [facility] [address] [facility] [id number], [place] [address] July, [facility] [address] [facility] [id number], [place] [address] Jun, [facility] [address] [facility] [id number], [place] [address] Apr, [facility] [address] [facility] [id number], [place] [address] Apr, [facility] [address] [facility] [id number], [place] [address] Apr, IMMUNIZATIONS No Known Immunizations SOCIAL HISTORY Never Assessed REASON FOR VISIT Hospital f/u - [facility] PLAN OF CARE Activity Details Follow Up 4 Weeks with Gault f/u pain and insomnia Reason: VITAL SIGNS Height 69 in 2016-11-16 Weight 212.2 lbs 2016-11-16 Temperature 98.5 degrees Fahrenheit 2016-11-16 Heart Rate 88 bpm 2016-11-16 Respiratory Rate 20 2016-11-16 BMI 31.33 kg/m2 2016-11-16 Blood pressure systolic 124 mmHg 2016-11-16 Blood pressure diastolic 84 mmHg 2016-11-16 MEDICATIONS Medication Instructions Dosage Frequency Start Date End Date Duration Status Lovastatin 20 MG Orally Once a day 1 tablet with a meal 24h Active Aspirin 81 MG Orally Once a day 1 tablet 24h Active Avant 5-325 MG Orally TID 1 tablet as needed 8h Oct, Nov, 07 days Active Ambien 10 mg Orally Once a day 1 tablet at bedtime as needed 24h Oct, 30 days Active Metoprolol Succinate ER 25 MG Orally Once a day 1 tablet 24h Active Furosemide 20 MG Orally Once a day 1 tablet 24h Active RESULTS No Results PROCEDURES No Known procedures INSTRUCTIONS MEDICATIONS ADMINISTERED No Known Medications MEDICAL (GENERAL) HISTORY Type Description Date Medical History Atrial Fibrillation Medical History Hyperlipidemia Medical History Pacemaker Surgical History mitral valve replacement-mechanical 09/2016 Surgical History PACEMAKER PLACED BY DR DICKSON 01/2017 Hospitalization History Pneumonia 07/2016 Hospitalization History mitral valve replacement x5 days , Dr Benigno Weber [facility] Surg [facility] 09/2016
[2018-02-17 17:00] VITALS: BP 155/91
[2018-02-17] MEDS ORDERED: ONDANSETRON 4 MG/2 ML (SDV) Z0FRAN IV PRN (17:15)
--- NOTE | 2018-02-17 17:20 | Consultation-Cardiology ---
HPI-Cardiology Cardiology Consultation: Date of Consultation 02/17/18 Date of Admission Attending Physician Sunshine Richard MD Admitting Physician Sunshine Richard MD Consulting Physician Paul LUGO MD HPI: Time Seen by a Provider: 17:20 Chief Complaint: Chest pain This is a 57-year-old gentleman who is well known to me since I follow him as an outpatient. He has extensive cardiac history with atrial fibrillation with rapid ventricular rate, dual-chamber permanent pacemaker implantation, mitral valve replacement for severe mitral regurgitation. He presents with chest pain as well as possible syncope. According to him his syncope was for 2-1/2 hours from 8 p.m. yesterday until 1030 p.m. He complains of severe lower chest/ epigastric pain. His pain is reproducible. Review of Systems-Cardiology Review of Systems Constitutional: As described under HPI; No As described under HPI, No no symptoms reported, No chills, No fever, No lightheadedness Eyes: No As described under HPI, No no symptoms reported, No blindness, No blurred vision, No contact lenses, No drainage, No decreased acuity, No foreign body sensation, No pain, No vision change Ears/Nose/Throat: No As described under HPI, No no symptoms reported, No chronic hearing loss, No ear discharge, No ear pain, No nasal drainage, No ulcerations Respiratory: No no symptoms reported; As described under HPI; No As described under HPI, No cough, No orthopnea, No shortness of breath, No SOB with excertion Cardiovascular: No no symptoms reported; As described under HPI; No As described under HPI; chest pain; No edema, No irregular heart rate, No lightheadedness, No palpitations; syncope Gastrointestinal: No no symptoms reported, No As described under HPI, No abdomen distended; abdominal pain; No blood streaked bowels, No constipation, No diarrhea, No nausea, No vomiting, No stool coloration changes Genitourinary: No As described under HPI, No burning, No dysuria, No discharge , No frequency, No flank pain, No hematuria, No urgency Skin: No rash, No skin related problems, No ulcerations Psychiatric/Neurological: No anxiety, No depression, No seizure, No focal weakness, No syncope Hematologic: No bleeding abnormalities [id number]-Tptmce Hx Patient Social History Alcohol Use: Denies Use Recreational Drug Use: No Smoking Status: Current Everyday Smoker Type Used: Cigars 2nd Hand Smoke Exposure: Yes Recent Foreign Travel: No Recent Infectious Disease Expo: No Hospitalization with Isolation: Denies Immunizations Up To Date Tetanus Booster (TDap): More than 5yrs Past Medical History PMH As described under Assessment. Allergies and Home Medications Allergies Coded Allergies: No Known Drug Allergies (Unverified , 08/02/16) Home Medications Aspirin 325 Mg Tablet.dr, 325 MG PO DAILY, (Reported) Atorvastatin Calcium 10 Mg Tablet, 10 MG PO DAILY, (Reported) Cephalexin 500 Mg Capsule, 500 MG PO TID Prescribed by: Paul LUGO on 01/29/17 1238 Metoprolol Succinate 25 Mg Tab.er.24h, 50 MG PO DAILY Prescribed by: Paul LUGO on 01/29/17 1238 Zolpidem Tartrate 10 Mg Tablet, 10 MG PO HS PRN for SLEEP, (Reported) Patient Home Medication List Home Medication List Reviewed: Yes Physical Exam-Cardiology Physical Exam Vital Signs/I&O 02/17/18 02/17/18 13:29 13:29 Temp 99.5 Pulse 75 Resp 15 B/P (MAP) 186/122 (143) Pulse Ox 100 O2 Delivery Room Air Room Air Capillary Refill : Less Than 3 Seconds Constitutional: appears stated age, AAO x 3; No apparent distress; well- developed, well-nourished HEENT: PERRL; No normal ENT inspection, No TMs normal, No pharynx normal, No scleral icterus (R), No scleral icterus (L), No pale conjunctivae (R), No pale conjunctivae (L), No photophobia, No TM abnormal (R), No TM abnormal (L), No pharyngeal erythema, No tonsillar exudate, No other, No discharge, No EOMI; hearing is well preserved; No hard of hearing; oral hygience is good; No ulceration, No xanthelasmas are seen Neck: No non-tender, No full range of motion, No supple, No normal inspection, No carotid bruit, No limited range of motion, No lymphadenopathy (R), No lymphadenopathy (L), No tender lateral, No tender midline, No thyromegaly, No other; carotid pulses are 2 + bilaterally; No with good upstrokes Respiratory: No accessory muscle use, No respiratory distress, No chest tender , No chest expansion is symmetric; chest is bilaterally symmetric; No lungs clear to percussion; lungs clear to auscultation; No crackles, No rhonchi, No rales, No stridor, No wheezing, No pleural rub, No other Cardiovascular: regular rate-rhythm; No irregularly irregular, No extra beats, No parasternal heave is noted, No JVD, No edema, No bradycardia, No tachycardia , No point of maximal impulse, No cardiac thrills are palpable; S1 and S2; No gallop/S3, No gallop/S4, No diastolic murmur, No systolic murmur, No friction rub, No click, No other Gastrointestinal: No tender, No soft, No round, No distended, No pulsatile mass , No organomegaly, No guarding, No rebound, No tenderness, No hernia, No mass, No audible bowel sounds, No abnormal bowel sounds, No abdominal bruits, No spleenomegaly, No other Rectal: deferred Extremities: No normal range of motion, No non-tender, No normal inspection, No pedal edema, No calf tenderness, No normal capillary refill, No pelvis stable , No calf tenderness, No inflammation, No pedal edema, No slow capillary refill , No swelling, No other, No abrasion, No clubbing, No cyanosis, No ecchymosis, No laceration, No no lower extremity edema bilateral, No significant edema, No tenderness, No wound Neurologic/Psychiatric: no motor/sensory deficits, alert, normal mood/affect, oriented x 3, power is 5/5 both on sides Skin: No normal color, No warm/dry, No cyanosis, No cool, No diaphoresis, No damp, No ecchymosis, No jaundice, No mottled, No pallor, No rash, No tattoos/ piercings, No ulcerations, No rash on exposed areas, No ulcerations on exposed areas, No other Data Review Labs Laboratory Tests 02/17/18 13:43: White Blood Count 12.7H, Red Blood Count 5.88H, Hemoglobin 18.3H, Hematocrit 52 , Mean Corpuscular Volume 88, Mean Corpuscular Hemoglobin 31, Mean Corpuscular Hemoglobin Concent 36, Red Cell Distribution Width 13.7, Platelet Count 278, Mean Platelet Volume 8.9, Neutrophils (%) (Auto) 76H, Lymphocytes (%) (Auto) 14 , Monocytes (%) (Auto) 5, Eosinophils (%) (Auto) 4, Basophils (%) (Auto) 1, Neutrophils # (Auto) 9.7H, Lymphocytes # (Auto) 1.8, Monocytes # (Auto) 0.6, Eosinophils # (Auto) 0.6H, Basophils # (Auto) 0.1, Prothrombin Time 12.8, INR Comment 1.0, Activated Partial Thromboplast Time 27, Sodium Level 138, Potassium Level 4.2, Chloride Level 102, Carbon Dioxide Level 23, Anion Gap 13, Blood Urea Nitrogen 16, Creatinine 0.99, Estimat Glomerular Filtration Rate > 60 , BUN/Creatinine Ratio 16, Glucose Level 101, Calcium Level 10.0, Corrected Calcium , Magnesium Level 2.0, Total Bilirubin 0.7, Aspartate Amino Transf (AST/ SGOT) 15, Alanine Aminotransferase (ALT/SGPT) 10, Alkaline Phosphatase 61, Myoglobin 46.9, Troponin I < 0.30, B-Type Natriuretic Peptide 76.3, Total Protein 8.0, Albumin 4.8H, Lipase 26 ECG Impression ECG Initial ECG Rhythm: Normal Sinus, PVC A/P-Cardiology Assessment/Admission Diagnosis Chest pain/epigastric pain, history of hiatal hernia, Syncope, Dual-chamber permanent pacemaker, Status post mitral valve replacement, PVCs, Hypertrophic cardiomyopathy Plan Chest pain/epigastric pain, history of hiatal hernia, will rule out acute coronary syndrome with serial troponin. EKG does not reveal any acute ST-T wave abnormalities. Syncope: Remote device interrogation from last night does not reveal any rhythm abnormality. I have requested a in-hospital device interrogation tomorrow. Reevaluate echocardiogram. Dual-chamber permanent pacemaker, device interrogation tomorrow. Status post mitral valve replacement, follow clinically. PVCs, continue beta xavier. Hypertrophic cardiomyopathy Thank you for your consultation. Please call me if you have any questions. Zen Lugo MD, FACP, FACC, FSCAI, FHRS, CCDS Interventional Cardiology Cardiac Electrophysiology Vascular Medicine and Endovascular Interventions Clinical Quality Measures AMI/AHF: ASA po Prior to arrival: Yes Paul LUGO MD Feb 17, 2018 5:20 pm
[2018-02-17] MEDS ORDERED: CATHETER FLUSH 10 ML SYR IV PRN (17:30)
[2018-02-17] MEDS: morphine INJ 4 MG/ML 1 ML (VIAL/SYRINGE) IV PRN ×2 (17:42→22:48)
[2018-02-17] MEDS ORDERED: FLU QUADRIvalent (5+ YOA) 2018-2019 (AFLURIA) 0.5 ML IM ONE (17:45)
[2018-02-17 19:10] VITALS: BP 106/74
[2018-02-18] VITALS: BP 137/90
[2018-02-18 03:50] VITALS: BP 132/81
[2018-02-18] MEDS: morphine INJ 4 MG/ML 1 ML (VIAL/SYRINGE) IV PRN ×5 (03:52→20:13)
[2018-02-18 06:20] LABS: CHOLESTEROL 167 MG/DL (< 200); HDL CHOLESTEROL 28 MG/DL (40-60); TRIGLYCERIDES 275 MG/DL (<150); VLDL CHOLESTEROL 55 MG/DL (5-40)
[2018-02-18] MEDS ORDERED: METO-387 PO (07:46)
[2018-02-18 08:00] VITALS: BP 132/102
[2018-02-18] MEDS ORDERED: ASPIRIN 325 MG (5 GR) TABLET PO SCH (09:00)
[2018-02-18] MEDS ORDERED: RT-ALBUINH INH (09:08)
[2018-02-18] MEDS ORDERED: METO-370 PO (09:08)
[2018-02-18] MEDS ORDERED: IPRA3AMP31 NEB (09:08)
[2018-02-18] MEDS ORDERED: TIOT18CA2 INH (09:08)
[2018-02-18] MEDS ORDERED: ZOLP5TAB7 PO (09:08)
[2018-02-18] MEDS ORDERED: PANT40TA3 PO (09:08)
--- NOTE | 2018-02-18 09:24 | Cardiology Progress Note ---
Cardiology SOAP Progress Note Subjective: Continues to have reproducible chest pain. Objective: I&O/Vital Signs 02/18/18 02/18/18 02/18/18 03:50 07:00 08:00 Temp 96.9 96.7 Pulse 60 77 65 Resp 20 18 B/P (MAP) 132/81 (98) 132/102 (112) Pulse Ox 97 97 O2 Delivery Room Air Room Air 02/18/18 00:00 Intake Total 1626 ml Output Total 325 ml Balance 1301 ml Weight (Pounds): 204 Weight (Ounces): 6.0 Weight (Calculated Kilograms): 92.773685 Constitutional: appears stated age, AAO x 3; No apparent distress; well- developed, well-nourished Respiratory: No accessory muscle use, No respiratory distress, No chest tender , No chest expansion is symmetric; chest is bilaterally symmetric; No lungs clear to percussion; lungs clear to auscultation; No crackles, No rhonchi, No rales, No stridor, No wheezing, No pleural rub, No other Cardiovascular: regular rate-rhythm; No irregularly irregular, No extra beats, No parasternal heave is noted, No JVD, No edema, No bradycardia, No tachycardia , No point of maximal impulse, No cardiac thrills are palpable; S1 and S2; No gallop/S3, No gallop/S4, No diastolic murmur, No systolic murmur, No friction rub, No click, No other Gastrointestional: No tender, No soft, No round, No distended, No pulsatile mass, No organomegaly, No guarding, No rebound, No tenderness, No hernia, No mass, No audible bowel sounds, No abnormal bowel sounds, No abdominal bruits, No spleenomegaly, No other Extremities: No normal range of motion, No non-tender, No normal inspection, No pedal edema, No calf tenderness, No normal capillary refill, No pelvis stable , No calf tenderness, No inflammation, No pedal edema, No slow capillary refill , No swelling, No other, No abrasion, No clubbing, No cyanosis, No ecchymosis, No laceration, No no lower extremity edema bilateral, No significant edema, No tenderness, No wound Neurologic/Psychiatric: no motor/sensory deficits, alert, normal mood/affect, oriented x 3, power is 5/5 both on sides Skin: No normal color, No warm/dry, No cyanosis, No cool, No diaphoresis, No damp, No ecchymosis, No jaundice, No mottled, No pallor, No rash, No tattoos/ piercings, No ulcerations, No rash on exposed areas, No ulcerations on exposed areas, No other Results/Procedures: Labs Laboratory Tests 02/17/18 13:43: White Blood Count 12.7H, Red Blood Count 5.88H, Hemoglobin 18.3H, Hematocrit 52 , Mean Corpuscular Volume 88, Mean Corpuscular Hemoglobin 31, Mean Corpuscular Hemoglobin Concent 36, Red Cell Distribution Width 13.7, Platelet Count 278, Mean Platelet Volume 8.9, Neutrophils (%) (Auto) 76H, Lymphocytes (%) (Auto) 14 , Monocytes (%) (Auto) 5, Eosinophils (%) (Auto) 4, Basophils (%) (Auto) 1, Neutrophils # (Auto) 9.7H, Lymphocytes # (Auto) 1.8, Monocytes # (Auto) 0.6, Eosinophils # (Auto) 0.6H, Basophils # (Auto) 0.1, Prothrombin Time 12.8, INR Comment 1.0, Activated Partial Thromboplast Time 27, Sodium Level 138, Potassium Level 4.2, Chloride Level 102, Carbon Dioxide Level 23, Anion Gap 13, Blood Urea Nitrogen 16, Creatinine 0.99, Estimat Glomerular Filtration Rate > 60 , BUN/Creatinine Ratio 16, Glucose Level 101, Calcium Level 10.0, Corrected Calcium , Magnesium Level 2.0, Total Bilirubin 0.7, Aspartate Amino Transf (AST/ SGOT) 15, Alanine Aminotransferase (ALT/SGPT) 10, Alkaline Phosphatase 61, Myoglobin 46.9, Troponin I < 0.30, B-Type Natriuretic Peptide 76.3, Total Protein 8.0, Albumin 4.8H, Lipase 26 02/18/18 05:32: Triglycerides Level 275H, Cholesterol Level 167, LDL Cholesterol Direct 90, VLDL Cholesterol 55H, HDL Cholesterol 28L A/P: Assessment/Dx: Chest pain/epigastric pain, history of hiatal hernia, Syncope, Dual-chamber permanent pacemaker, Status post mitral valve replacement, PVCs, Hypertrophic cardiomyopathy Plan: Chest pain/epigastric pain, history of hiatal hernia, will rule out acute coronary syndrome with serial troponin. EKG does not reveal any acute ST-T wave abnormalities. The chest pain is reproducible on touching lower left sternal border every single time. I believe more and more that his chest pain is noncardiac in origin. Patient also complains of epigastric discomfort and has history of hiatal hernia. I will request general surgery consultation. Syncope: Remote device interrogation from last night does not reveal any rhythm abnormality. We performed a device interrogation while I was in the room. Normal capture and sensitivities for both atrial and ventricular leads. Stable impedances. No diaphragmatic stimulation on maximum output. Device interrogation does not show any bradycardia or tachycardia arrhythmias last night. I do not believe that his syncope is due to cardiac in origin. I also reviewed the CT chest and chest x-ray and the leads are in the same place as on implant. Reevaluate echocardiogram. Dual-chamber permanent pacemaker, normal device interrogation. Status post mitral valve replacement, follow clinically. PVCs, continue beta xavier. Hypertrophic cardiomyopathy. Complicated patient, time spent in the room was over 30 minutes. Thank you for your consultation. Please call me if you have any questions. Zen Lugo MD, FACP, FACC, FSCAI, FHRS, CCDS Interventional Cardiology Cardiac Electrophysiology Vascular Medicine and Endovascular Interventions Clinical Quality Measures AMI/AHF: ASA po Prior to arrival: Yes Paul LUGO MD Feb 18, 2018 9:24 am
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
[2018-02-18] MEDS ORDERED: RT-ALBUTEROL SULF 2.5 MG/3 ML PRE-MIX VIAL INH PRN (10:15)
[2018-02-18] MEDS ORDERED: RT-ALBUTEROL/IPRATROPIUM 3 ML (DUONEB) VIAL IH PRN (10:15)
[2018-02-18] MEDS ORDERED: ZOLPIDEM 5 MG (AMBIEN) TAB PO PRN (10:30)
[2018-02-18 12:00] VITALS: BP 131/98
[2018-02-18] MEDS: UMECLIDINIUM BROMIDE (INCRUSE ELLIPTA) 7'S IH SCH (13:09)
--- NOTE | 2018-02-18 14:10 | Physical Therapy Evaluation ---
PT Evaluation-General Medical Diagnosis Admission Date Feb 17, 2018 at 14:06 Medical Diagnosis: Chest Pain Onset Date: Feb 25, 2018 Therapy Diagnosis Therapy Diagnosis: General weakness Height/Weight Height (Feet): 5 Height (Inches): 10.00 Weight (Pounds): 204 Weight (Ounces): 6.0 Precautions Precautions/Isolations: Fall Prevention, Standard Precautions Weight Bear Status Right Lower Extremity: Right Full Weight Bearing Left Lower Extremity: Left Full Weight Bearing Referral Physician: Gloria Moreland DO Reason for Referral: Evaluation/Treatment Medical History Pertinent Medical History: Atrial Fib, CABG, HTN Current History Patient reported he was having chest pain and reported to ER after multiple syncope episodes. Reviewed History: Yes Social History Home: Single Level Current Living Status: Alone Entry Into Home: Stairs With Railing PT Steps Into Home: 5 PT Steps Inside Home: 0 Prior/Core FIM Prior Level of Function Functional [place] Measure 0=Not Assessed/NA 4=Minimal Assistance 1=Total Assistance 5=Supervision or Setup 2=Maximal Assistance 6=Modified [place] 3=Moderate Assistance 7=Complete [place] IRFPAI Quality Coding Scale 6 Independent with activity with or without an assistive device 5 Patient requires set up or clean up by helper. Patient completes activity by themselves 4 Supervision or touching assist (CGA). [place] provide cues , steadying assist 3 The helper provides less than half the effort to complete the activity 2 The helper provides more than half the effort to complete the activity 1 Dependent. The helper does all the effort to complete an activity 7 Patient refused to complete or attempt activity 9 The patient did not perform the activity before the current illness or injury 88 Not attempted due to Medical conditions or safety concerns Functional Abilities and Goals 3. Independent: Patient completed the activities by him/herself, with or without an assistive device, with no assistance from a helper. 2. Needed Some Help: Patient needed partial assistance from another person to complete activities. 1. Dependent: A helper completed the activities for the patient. 8. Unknown: 9. Not Applicable: Bed Mobility: 7 Transfers (B,C,W/C) (FIM): 7 Gait: 7 Stairs: 7 Indoor Mobility (Ambulation): Independent Stairs: Independent Prior Devices Use: Other-see list below Prior Device Use: walking stick for in the home PT Evaluation-Current Subjective Pt awake in room ordering lunch when PT entered. Pt agreed to PT evaluation. Pain Numeric Pain Scale: 8 Location: Left Location Body Site: Chest Pain Description: Acute Objective Patient Orientation: Normal For Age Problem Solving: Fair ROM/Strength ROM Upper Extremities WNL ROM Lower Extremities WNL Strength Upper Extremities WNL Strength Lower Extremities WNL Integumentary/Posture Bowel Incontinence: No Bladder Incontinence: No Neuromuscular (Tone, Coordination, Reflexes) Grossly intact Sensory Vision: Wears Glasses Hearing: Functional Sensation Right Upper Extremit: Intact Sensation Left Upper Extremity: Intact Sensation Right Lower Extremit: Intact Sensation Left Lower Extremity: Intact Transfers Functional [place] Measure 0=Not Assessed/NA 4=Minimal Assistance 1=Total Assistance 5=Supervision or Setup 2=Maximal Assistance 6=Modified [place] 3=Moderate Assistance 7=Complete [place] Transfers (B, C, W/C) (FIM): 5 Scootin Rollin Supine to/from Sit: 5 Gait Mode of Locomotion: Walk Anticipated Mode of Locomotion: Walk Distance (FIM): 0=does not occure Balance Sitting Static: Good Sitting Dynamic: Good Standing Static: Fair Standing Dynamic: Fair Assessment/Needs Pt was not able to ambulate for PT evaluation due to feeling dizzy and lightheaded. Patient has 5/5 B LE strength for gross motor assessment. Patient reported light headed like sensation when sitting at edge of bed and reported that his vision was spotty. Pt returned to supine and with all guard rails up on bed. Patient also stated he was instructed by physician to not ambulate or push/pull with bilateral UE's. Rehab Potential: Fair PT Residential Goals Residential Goals PT Residential Goals Time Frame: Feb 25, 2018 Transfers (B,C,W/C) (FIM): 7 Gait (FIM): 7 Gait distance (FIM): 3=150 ft Distance: >150' Gait Level of Assist: 7 Gait Assistive Device: None PT Plan Problem List Problem List: Activity Tolerance, Functional Strength, Safety, Balance, Gait, Transfer, Bed Mobility Treatment/Plan Treatment Plan: Continue Plan of Care Treatment Plan: Bed Mobility, Education, Functional Activity Turner, Functional Strength, Gait, Safety, Therapeutic Exercise, Transfers Treatment Duration: Feb 25, 2018 Frequency: 6 times per week Estimated Hrs Per Day: .25 hour per day Patient and/or Family Agrees t: Yes Time/GCodes Time In: 1250 Time Out: 1302 Total Billed Treatment Time: 12 Total Billed Treatment [facility] Codes Necessary: Yes PT/OT Therapy GCodes Therapy Functional Limitation: Physical Therapy Test(s)/Tool used to determine: Level of Assistance Scale Functional Limitation-Current Charge Code: SEAN Modifier: RYAN Functional Limitation-Goal Charge Code: VIPIN Modifier: MARGI TRAVIS PT Feb 18, 2018 14:10
[2018-02-18] MEDS ORDERED: HYDROcodone/APAP 10 MG/325 MG (LORTAB) TAB PO PRN (14:30)
[2018-02-18] MEDS ORDERED: NICOTINE 21 MG (NICODERM) PATCH TD SCH (15:00)
[2018-02-18 16:00] VITALS: BP 129/88
--- NOTE | 2018-02-18 16:45 | Consultation ---
History of Present Illness History of Present Illness Patient Consulted On(elisa/time) 02/18/18 16:32 Time Seen by Provider: 14:46 History of Present Illness Surgery is asked to consult regarding abdominal/chest pain, Nausea & vomiting, R /O Hiatal hernia HPI per ED:To ER with reports of left sternal border chest pain. This began last night and is described as a squeezing sensation. He states that he went to the bathroom and "blacked out" awakening on the bathroom floor about an hour later. He states that he remembers talking to his daughter at 6:30 PM last night and he remembers awakening at about 10 AM, so this syncopal event was sometime between 6:30 and 10. He does have a Biotron[employer] pacemaker. This morning he nearly ran off the road on his way here due to the severe pain. He states that the pain is severe and is worse with touching this area and he states that he was nearly unable to turn the steering wheel in his [employer] truck because this movement worsens the pain. He denies shortness of breath. History of CABG several years ago. He's had several dizzy spells and will occasionally pass out or become lightheaded and very dizzy and "things go black" briefly while sitting down watching TV. 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 He states that he was told he has a Hiatal hernia (can't remember how they found this out; "maybe x-ray") but states it has never been worked up. He has not been able to eat anything for the past month or two because of the pain and has lost 27 lbs. He states that after a few bites he gets very full, feels a pressure in middle of chest and then vomits everything back up. He is taking Protonix, but it has not helped his symptoms. He has not had a BM since he came into the hospital. He had open heart (he thinks for valve replacement) and was told by his Cardiothoracic surgeon that it will take a year or more "to heal the chest wound and bone". Allergies and Home Medications Allergies Coded Allergies: No Known Drug Allergies (Unverified , 08/02/16) Home Medications Albuterol Sulfate 1 Puff Puff, 2 PUFF INH Q4H PRN for SHORTNESS OF BREATH, ( Reported) LAST FILLED 09-10-17 Aspirin 325 Mg Tablet.dr, 325 MG PO DAILY, (Reported) Atorvastatin Calcium 10 Mg Tablet, 10 MG PO DAILY, (Reported) Ipratropium/Albuterol Sulfate 3 Ml Ampul.neb, 3 ML NEB Q6H PRN for SHORTNESS OF BREATH, (Reported) Metoprolol Succinate 50 Mg Tab.er.24h, 75 MG PO BID, (Reported) TAKES 1 & 1/2 (50MG) TABLETS Pantoprazole Sodium 40 Mg Tablet.dr, 40 MG PO DAILY, (Reported) Tiotropium Barry 1 Inh Aerp, 1 CAP INH DAILY, (Reported) LAST FILLED #30 11-04-17 Zolpidem Tartrate 5 Mg Tablet, 5 MG PO HS PRN for SLEEP, (Reported) Patient Home Medication List Home Medication List Reviewed: Yes Past [place]-Zqfjqq-Rsbwxy Hx Patient Social History Alcohol Use: Denies Use Recreational Drug Use: No Smoking Status: Current Everyday Smoker Type Used: Cigars 2nd Hand Smoke Exposure: Yes Recent Foreign Travel: No Contact w/Someone Who Travel: No Recent Infectious Disease Expo: No Recent Hopitalizations: Yes Physical Abuse Screen: No Sexual Abuse: No Immunizations Up To Date Tetanus Booster (TDap): More than 5yrs Seasonal Allergies Seasonal Allergies: No Surgeries History of Surgeries: Yes (open heart, pacemaker) Surgeries: Cardiac, CABG Respiratory History of Respiratory Disorde: Yes Respiratory Disorders: Pneumonia Cardiovascular History of Cardiac Disorders: Yes Cardiac Disorders: Atrial Fibrillation, Hypertension, Irregular Heartbeat, Palpitations Neurological History of Neurological Disord: No Reproductive System Sexually Transmitted Disease: No HIV/AIDS: No Genitourinary History of Genitourinary Disor: No Gastrointestinal History of Gastrointestinal Di: No Musculoskeletal History of Musculoskeletal Dis: Yes Musculoskeletal Disorders: Rheumatoid Arthritis Endocrine History of Endocrine Disorders: No HEENT History of HEENT Disorders: No Cancer History of Cancer: No Psychosocial History of Psychiatric Problem: Yes Behavioral Health Disorders: Depression Integumentary History of Skin or Integumenta: No Blood Transfusions History of Blood Disorders: No Adverse Reaction to a Blood Tr: No Family Medical History Significant Family History: CAD Under 55 Years Old Family Medial History: Alzheimer's disease 19 MOTHER Cardiovascular disease G8 BROTHER (PACEMAKER/DIFIB) Review of Systems-General Constitutional: No chills, No diaphoresis; weakness, weight loss EENTM: blurred vision; No mouth pain, No mouth swelling, No epistaxis, No throat pain, No throat swelling Respiratory: No cough, No dyspnea on exertion, No hemoptysis, No short of breath Cardiovascular: chest pain, Hx of Intervention; No palpitations; syncope Gastrointestinal: abdominal pain, constipation, dysphagia; No hematemesis, No jaundice, No melena Genitourinary: No dysuria, No frequency, No hematuria Musculoskeletal: joint pain, joint swelling, muscle stiffness Skin: No change in color, No change in hair/nails Psychiatric/Neurological: Depressed; Denies Pre-Existing Deficit, Denies Seizure, Denies Tremors Other pt denies any history of abnormal bruising or bleeding and no heat or cold intolerance Physical Exam-General Problems Physical Exam Vital Signs Vital Signs - First Documented Capillary Refill : Less Than 3 Seconds General Appearance: WD/WN, mild distress Eyes: Bilateral Eye PERRL, Bilateral Eye EOMI HEENT: pharynx normal; No scleral icterus (R), No scleral icterus (L); other ( pt is edentulous) Neck: non-tender, full range of motion, supple, normal inspection Respiratory: lungs clear, normal breath sounds, no respiratory distress, no accessory muscle use Cardiovascular: regular rate, rhythm, no edema, no murmur, other (No click) Gastrointestinal: soft, no organomegaly, no pulsatile mass, guarding (voluntary , jumps immediately when touched in subxyphoid area), tenderness (mid epigastric , subxyphoid and RUQ), other (Pain he complains about in HPI is reproducible with palpation of sternum) Rectal: deferred Back: no CVA tenderness, no vertebral tenderness Extremities: no pedal edema, no calf tenderness, normal capillary refill 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 His mat man does not think the pain is Cardiac in nature and thinks it may be abdominal. I believe the pain he describes is musculoskeletal; most likely from the sternal saw and subsequent closure. The CTA of the chest does not show any inflammation in this area; there is however a hernia from the incision. I do not think the hernia is causing his pain. He also complains of weight loss, esophageal dysphagia and vomiting. The work up for these symptoms include Barium swallow, EGD and then possible manometry. We can start that work up in the hospital, but it can be continued as an outpatient. I would recommend pain control and clear liquids; clears so the swallow study is more accurate. We may be able to do the EGD tomorrow as well. I discussed all of this with the pt and he was just very happy that, "finally this is gonna get worked up". Clinical Quality Measures AMI/AHF: ASA po Prior to arrival: Yes DVT/VTE Risk/Contraindication: Risk Factor Score Per Nursin RFS Level Per Nursing on Admit: 2=Moderate TAYLOR VERMA DO Feb 18, 2018 16:45
[2018-02-18 20:00] VITALS: BP 134/74
[2018-02-18] MEDS: meTOproloL SUCCINATE 50 MG (TOPROL XL) TAB PO SCH (20:12)
[2018-02-19] VITALS: BP 140/94
[2018-02-19] MEDS: morphine INJ 4 MG/ML 1 ML (VIAL/SYRINGE) IV PRN ×3 (00:27→09:34)
[2018-02-19 04:00] VITALS: BP 134/91
[2018-02-19] MEDS: UMECLIDINIUM BROMIDE (INCRUSE ELLIPTA) 7'S IH SCH (06:24)
[2018-02-19] MEDS ORDERED: PANTOPRAZOLE 40 MG (PROTONIX) TAB PO SCH (07:00)
[2018-02-19] MEDS ORDERED: BARIUM SUSPENSION 105% (LIQUID POLIBAR PLUS) 240 ML/DOSE PO ONE (08:00)
[2018-02-19] MEDS ORDERED: DIATRIZOATE MEGLUM/SODIUM 37% 120 ML (GASTROGRAFIN) PO ONE (08:00)
[2018-02-19] MEDS ORDERED: BARIUM SUSPENSION 60% (LIQUID EZ PAQUE) 240 ML DOSE PO ONE (08:00)
[2018-02-19 08:48] VITALS: BP 134/84
[2018-02-19] MEDS ORDERED: NICOTINE PATCH REMOVAL TP SCH (08:59)
[2018-02-19] MEDS ORDERED: ASPIRIN E.C. 325 MG (ECOTRIN) TABLET PO SCH (09:00)
[2018-02-19] MEDS ORDERED: ATORVASTATIN 10 MG (LIPITOR) TABLET PO SCH (09:00)
[2018-02-19] MEDS: meTOproloL SUCCINATE 50 MG (TOPROL XL) TAB PO SCH (09:33)
--- NOTE | 2018-02-19 10:53 | Discharge Instructions ---
Discharge [facility] Discharge Medications Continued Medications: Albuterol Sulfate (Proair Hfa) 1 Puff Puff 2 PUFF INH Q4H PRN for SHORTNESS OF BREATH, INHALER LAST FILLED 09-10-17 Aspirin (Aspirin EC) 325 Mg Tablet.dr 325 MG PO DAILY, TAB Atorvastatin Calcium (Atorvastatin Calcium) 10 Mg Tablet 10 MG PO DAILY, TAB Ipratropium/Albuterol Sulfate (Iprat-Albut 0.5-3(2.5) mg/3 ml) 3 Ml Ampul.neb 3 ML NEB Q6H PRN for SHORTNESS OF BREATH, EA Metoprolol Succinate (Metoprolol Succinate) 50 Mg Tab.er.24h 75 MG PO BID, TAB TAKES 1 & 1/2 (50MG) TABLETS Pantoprazole Sodium (Pantoprazole Sodium) 40 Mg Tablet.dr 40 MG PO DAILY, TAB Tiotropium [place] (Spiriva) 1 Inh Aerp 1 CAP INH DAILY, CAP LAST FILLED #30 11-04-17 Zolpidem Tartrate (Zolpidem Tartrate) 5 Mg Tablet 5 MG PO HS PRN for SLEEP, TAB Patient Instructions Goal/Follow Up Appt: Follow up with Dr. Richard 02/25/18 11:40am Activity & Diet Discharge Diet: Eat Small Frequent Meals Orders-Post D/C & Referrals Pneu Vac Indicated: Yes TELMA DAVIS DO Feb 19, 2018 10:52
--- NOTE | 2018-02-19 11:20 | Physical Therapy Progress Note ---
Therapy Progress Note Attempted PT visit. Pt declined. Reported he has been up and down several times today. Reports he gets dizzy when he stands up. Prefers not to walk right now. RONI ALCANTARA PT Feb 19, 2018 11:20
--- NOTE | 2018-02-19 11:23 | Cardiology Progress Note ---
Cardiology SOAP Progress Note Subjective: Still continues to have reproducible chest pain. Objective: I&O/Vital Signs 02/19/18 02/19/18 02/19/18 02/19/18 04:00 07:00 08:48 09:15 Temp 98.0 97.8 Pulse 56 53 59 Resp 20 14 B/P (MAP) 134/91 (105) 134/84 (101) Pulse Ox 97 96 O2 Delivery Room Air Room Air Room Air 02/19/18 11:45 B/P (MAP) 02/19/18 00:00 Intake Total 2790 ml Output Total 1575 ml Balance 1215 ml Weight (Pounds): 204 Weight (Ounces): 6.0 Weight (Calculated Kilograms): 92.280805 Constitutional: appears stated age, AAO x 3; No apparent distress; well- developed, well-nourished Respiratory: No accessory muscle use, No respiratory distress, No chest tender , No chest expansion is symmetric; chest is bilaterally symmetric; No lungs clear to percussion; lungs clear to auscultation; No crackles, No rhonchi, No rales, No stridor, No wheezing, No pleural rub, No other Cardiovascular: regular rate-rhythm; No irregularly irregular, No extra beats, No parasternal heave is noted, No JVD, No edema, No bradycardia, No tachycardia , No point of maximal impulse, No cardiac thrills are palpable; S1 and S2; No gallop/S3, No gallop/S4, No diastolic murmur, No systolic murmur, No friction rub, No click, No other Gastrointestional: No tender, No soft, No round, No distended, No pulsatile mass, No organomegaly, No guarding, No rebound, No tenderness, No hernia, No mass, No audible bowel sounds, No abnormal bowel sounds, No abdominal bruits, No spleenomegaly, No other Extremities: No normal range of motion, No non-tender, No normal inspection, No pedal edema, No calf tenderness, No normal capillary refill, No pelvis stable , No calf tenderness, No inflammation, No pedal edema, No slow capillary refill , No swelling, No other, No abrasion, No clubbing, No cyanosis, No ecchymosis, No laceration, No no lower extremity edema bilateral, No significant edema, No tenderness, No wound Neurologic/Psychiatric: no motor/sensory deficits, alert, normal mood/affect, oriented x 3, power is 5/5 both on sides Skin: No normal color, No warm/dry, No cyanosis, No cool, No diaphoresis, No damp, No ecchymosis, No jaundice, No mottled, No pallor, No rash, No tattoos/ piercings, No ulcerations, No rash on exposed areas, No ulcerations on exposed areas, No other A/P: Assessment/Dx: Chest pain/epigastric pain, history of hiatal hernia, Syncope, Dual-chamber permanent pacemaker, Status post mitral valve replacement, PVCs, Hypertrophic cardiomyopathy Plan: Chest pain/epigastric pain, history of hiatal hernia, acute coronary syndrome ruled out with negative serial troponin. EKG does not reveal any acute ST-T wave abnormalities. The chest pain is reproducible on touching lower left sternal border every single time. I believe more and more that his chest pain is noncardiac in origin. Patient also complains of epigastric discomfort and has history of hiatal hernia. I appreciate Dr. Barry's consultation. Syncope: Remote device interrogation from last night does not reveal any rhythm abnormality. We performed a device interrogation while I was in the room. Normal capture and sensitivities for both atrial and ventricular leads. Stable impedances. No diaphragmatic stimulation on maximum output. Device interrogation does not show any bradycardia or tachycardia arrhythmias last night. I do not believe that his syncope is due to cardiac in origin. I also reviewed the CT chest and chest x-ray with the radiologist and the leads are in the same place as on implant. Reevaluate echocardiogram. Dual-chamber permanent pacemaker, normal device interrogation. Status post mitral valve replacement, follow clinically. PVCs, continue beta xavier. Hypertrophic cardiomyopathy. Complicated patient, time spent in the room was over 30 minutes. Thank you for your consultation. Please call me if you have any questions. Zen Lugo MD, FACP, FACC, FSCAI, FHRS, CCDS Interventional Cardiology Cardiac Electrophysiology Vascular Medicine and Endovascular Interventions Clinical Quality Measures AMI/AHF: ASA po Prior to arrival: Yes Paul LUGO MD Feb 19, 2018 11:22
--- NOTE | 2018-02-19 11:54 | Progress Note ---
Subjective Time Seen by a Provider: 11:06 Subjective/Events-last exam Pt seen and examined. I had already stopped by and discussed Barium swallow with Radiologist. Pt states he is still having pain at subxyphoid area and says there is a bulge. He is being sent home now; he is worried about pain meds. Tolerating diet. Review of Systems General: No Chills, No Night Sweats Pulmonary: No Dyspnea, No Cough Cardiovascular: No: Chest Pain, Palpitations Gastrointestinal: Abdominal Pain; No: Nausea, Vomiting Objective Exam Vital Signs Date Time Temp Pulse Resp B/P (MAP) Pulse Ox O2 Delivery O2 Flow Rate FiO2 02/19/18 09:15 Room Air 02/19/18 08:48 97.8 59 14 134/84 (101) 96 Room Air 02/19/18 07:00 53 02/19/18 04:00 98.0 56 20 134/91 (105) 97 Room Air 02/19/18 01:00 60 02/19/18 00:00 97.2 61 20 140/94 (109) 97 Room Air 02/18/18 21:00 Room Air 02/18/18 20:00 97.6 66 18 134/74 (94) 95 Room Air 02/18/18 19:00 79 02/18/18 16:00 97.3 67 19 129/88 (102) 97 Room Air 02/18/18 13:00 70 02/18/18 12:00 97.1 61 18 131/98 (109) 96 Room Air I & O 02/19/18 07:00 Intake Total 2790 ml Output Total 1725 ml Balance 1065 ml Capillary Refill : Less Than 3 Seconds General Appearance: WD/WN, Anxious, Mild Distress HEENT: PERRL/EOMI, Moist Mucous Membranes Respiratory: Chest Non Tender, Lungs Clear, Normal Breath Sounds, No Accessory Muscle Use, No Respiratory Distress Cardiovascular: Regular Rate, Rhythm, No Edema, No Murmur, Normal Peripheral Pulses Gastrointestinal: soft, no organomegaly, no pulsatile mass, guarding (voluntary , jumps immediately when touched in subxyphoid area), tenderness (mid epigastric , subxyphoid and RUQ), hernia (pt has an incisional hernia, which may have some fat stuck in it. This area is also very tender when palpated), other (Pain he complains about in HPI is reproducible with palpation of sternum) Extremity: Normal Capillary Refill, Non Tender, No Calf Tenderness, No Pedal Edema Neurologic/Psychiatric: Alert, Oriented x3, No Motor/Sensory Deficits, Normal Mood/Affect Skin: Normal Color, Warm/Dry Assessment/Plan Assessment/Plan Assessment/Plan Vomiting Dysphagia Weight loss Ventral/Incisional Hernia R/O Hiatal Hernia Chest/Abdominal pain Pt was very upset this am because he did not get the Barium swallow until today. He states no one came and told him yesterday when it was going to occur. I discussed the findings with the pt; No Hiatal hernia, no stricture or narrowing of esophagus and no reflux was seen. I did explain to him that the CT and physical exam demonstrated and incisional hernia at the spot he complains of pain and bulge. However, I also told him that fixing the hernia would not fix all of his pain. He definitely has pain from the sternum, because of his open heart s surgery. In addition I jelani him 2 pictures; one of a Hiatal Hernia and one of an Incisional hernia to help him understand the difference between the two. At this point I don't think an EGD is necessary. He may benefit from seeing a pain specialist to get a block of the sternum. It is possible that both the hernia and sternum are causing his pain; but, I don 't know how to attribute a percentage to each. I told him he can follow up in my office if he wants to discuss hernia repair in more detail. Clinical Quality Measures AMI/AHF: ASA po Prior to arrival: Yes DVT/VTE Risk/Contraindication: Risk Factor Score Per Nursin RFS Level Per Nursing on Admit: 2=Moderate TAYLOR VERMA DO Feb 19, 2018 11:54
--- NOTE | 2018-02-19 12:05 | Diagnostic Imaging Report ---
INDICATION: Chest pain. Study is performed to evaluate for hiatal hernia. Patient ingested effervescent crystals as well as thin and thick barium and imaging over the esophagus was performed. One minute and 31 seconds of fluoroscopy was utilized. Preliminary radiograph demonstrates postop changes of median sternotomy. Cardiac pacemaker is in place. Lungs are clear. The esophagus has a smooth contour. No mass or stricture is identified. No hiatal hernia or gastroesophageal reflux was demonstrated. Limited images of the stomach are unremarkable. Impression: Unremarkable esophagram. Dictated by: Dictated on workstation # [id number]
--- NOTE | 2018-02-19 20:26 | Discharge Summary ---
Diagnosis/Chief Complaint Date of Admission Feb 17, 2018 at 17:00 Date of Discharge Feb 19, 2018 at 11:45 Admission Diagnosis Admission Diagnosis Syncope CABG 2017 Hiatal hernia Smoker Discharge Diagnosis Chest Pain, non-cardiac in origin - per Dr. Lugo: Chest pain/epigastric pain, history of hiatal hernia, acute coronary syndrome ruled out with negative serial troponin. EKG does not reveal any acute ST-T wave abnormalities. "The chest pain is reproducible on touching lower left sternal border every single time. I believe more and more that his chest pain is noncardiac in origin." - offered steroid burst at discharge for chest wall pain, pt declined at discharge. Dr. Barry suggested considering Pain Management referral for injections at the sternotomy site. Syncope - placed on Telemetry and consulted Dr Lugo - per Dr. Lugo: "Remote device interrogation from last night does not reveal any rhythm abnormality. We performed a device interrogation while I was in the room. Normal capture and sensitivities for both atrial and ventricular leads. Stable impedances. No diaphragmatic stimulation on maximum output. Device interrogation does not show any bradycardia or tachycardia arrhythmias last night. I do not believe that his syncope is due to cardiac in origin. I also reviewed the CT chest and chest x-ray with the radiologist and the leads are in the same place as on implant." CABG [address] Barry - Barium swallow today was normal without evidence of hiatal hernia. Dr. Barry discussed incisional hernia is likely causing the epigastric bulge patient has. Smoker Patient has f/u with Dr. Richard 02/25/18 at 11:40am Discharge Summary-OBS Procedures None. Consultations Discharge Physical Examination Allergies: Coded Allergies: No Known Drug Allergies (Unverified , 08/02/16) Vitals & I&Os Intake and Output 02/19/18 00:00 Intake Total 2790 ml Output Total 1575 ml Balance 1215 ml Vital Sign - Last 12Hours Date Time Temp Pulse Resp B/P (MAP) Pulse Ox O2 Delivery O2 Flow Rate FiO2 02/19/18 11:45 02/19/18 09:15 Room Air 02/19/18 08:48 97.8 59 14 96 General Appearance: Alert, Oriented X3, Cooperative Psych/Mental Status: Mental Status NL Discharge Instructions to patient/family Discharge Medications Continued Medications: Albuterol Sulfate (Proair Hfa) 1 Puff Puff 2 PUFF INH Q4H PRN for SHORTNESS OF BREATH, INHALER LAST FILLED 09-10-17 Aspirin (Aspirin EC) 325 Mg Tablet.dr 325 MG PO DAILY, TAB Atorvastatin Calcium (Atorvastatin Calcium) 10 Mg Tablet 10 MG PO DAILY, TAB Ipratropium/Albuterol Sulfate (Iprat-Albut 0.5-3(2.5) mg/3 ml) 3 Ml Ampul.neb 3 ML NEB Q6H PRN for SHORTNESS OF BREATH, EA Metoprolol Succinate (Metoprolol Succinate) 50 Mg Tab.er.24h 75 MG PO BID, TAB TAKES 1 & 1/2 (50MG) TABLETS Pantoprazole Sodium (Pantoprazole Sodium) 40 Mg Tablet.dr 40 MG PO DAILY, TAB Tiotropium [place] (Spiriva) 1 Inh Aerp 1 CAP INH DAILY, CAP LAST FILLED #30 11-04-17 Zolpidem Tartrate (Zolpidem Tartrate) 5 Mg Tablet 5 MG PO HS PRN for SLEEP, TAB Patient Instructions Goal/Follow Up Appt: Follow up with Dr. Richard 02/25/18 11:40am Discharge Medications Reviewed and agree with Discharge Medication list on patient's Discharge Instruction sheet Clinical Quality Measures AMI/AHF: ASA po Prior to arrival: Yes DVT/VTE Risk/Contraindication: Risk Factor Score Per Nursin RFS Level Per Nursing on Admit: 2=Moderate Copy Copies To 1: GAURANG RICHARD MD, LINDA K DO Feb 19, 2018 20:26
== END 2018-02-19 11:20 | disposition home or self-care (01) ==
LOC: EDUNIT# 13:29 → ER 13:30 → 4TH 14:06 → UNDOADMOB 14:06 → 4TH 17:00
PROVIDERS: ADMIT Internal Medicine; ATTEND Family Medicine
DX: R07.89 Other chest pain (principal); I95.1 Orthostatic hypotension; R42 Dizziness and giddiness; E86.0 Dehydration; R13.10 Dysphagia, unspecified; K43.2 Incisional hernia without obstruction or gangrene; I25.10 Atherosclerotic heart disease of native coronary artery without angina pectoris; I48.91 Unspecified atrial fibrillation; I10 Essential (primary) hypertension; I42.2 Other hypertrophic cardiomyopathy; I49.3 Ventricular premature depolarization; M05.9 Rheumatoid arthritis with rheumatoid factor, unspecified; F32.9 Major depressive disorder, single episode, unspecified; R11.10 Vomiting, unspecified; R63.4 Abnormal weight loss; F17.290 Nicotine dependence, other tobacco product, uncomplicated; Z95.0 Presence of cardiac pacemaker; Z95.1 Presence of aortocoronary bypass graft; Z95.2 Presence of prosthetic heart valve; Z79.82 Long term (current) use of aspirin; Z79.899 Other long term (current) drug therapy
CPT/HCPCS: 36415; 70450; 71045; 71275; 74220; 80053; 80061; 83690; 83735; 83874; 83880; 84484; 85025; 85610; 85730; 93005; 93041; 93306; G0378

== ENCOUNTER 2018-06-20 15:51 | Observation (INO) | payer MEDICAID ==
[~2018-06-20] VITALS: Ht 177.8 cm; Wt 89.6 kg
[~2018-06-20 15:51] MED LIST changes: +IPRA3AMP31 NEB; +METO-370 PO; +PANT40TA3 PO; +RT-ALBUINH INH; +TIOT18CA2 INH; +ZOLP5TAB7 PO
--- OUTSIDE RECORDS SUMMARY | 2018-06-20 15:55 | XMS REPORT ---
Author Author GAURANG MOLINA Organization [facility] Address [address] [place] [address] Care Team Providers Care International Organizer Name Role Phone GAURANG MOLINA Unavailable PROBLEMS Type Condition ICD9-CM Code EGY47-CO Code Onset Dates Condition Status SNOMED Code Problem Mixed hyperlipidemia E78.2 Active 004460023 Problem Coronary artery disease involving [place] coronary artery of [place] heart without angina pectoris I25.10 Active 6724179809378 Problem Valvular heart disease I38 Active 791955 Problem Tobacco abuse Z72.0 Active 530649565 Problem Panlobular emphysema J43.1 Active 7365492 Problem Non-rheumatic mitral regurgitation I34.0 Active 866232409 Problem Gastroesophageal reflux disease, esophagitis presence not specified K21.9 Active 214720892 Problem Moderate episode of recurrent major depressive disorder F33.1 Active 957451582 Problem Paroxysmal atrial fibrillation I48.0 Active 076852381 Problem Essential hypertension I10 Active 69810428 Problem H/O mitral valve replacement Z95.2 Active 8617911413322 Problem Primary insomnia F51.01 Active 4149385 ALLERGIES Substance Reaction Event Type Date Status Penicillin V Potassium Unknown Drug Allergy Nov, Active Ibuprofen Unknown Drug Allergy Nov, Active Aspirin Unknown Drug Allergy Nov, Active ENCOUNTERS Encounter Location Date Diagnosis [facility] [id number], [place] [address] Feb, [facility] [id number], [place] [address] Feb, [facility] [address], [place] [address] Jan, [facility] [id number], [place] [address] Jan, [facility] [id number] [place] [address] 36344- 7263 Jan, Panlobular emphysema J43.1 ; Primary insomnia F51.01 ; Coronary artery disease involving [place] coronary artery of [place] heart without angina pectoris I25.10 ; Mixed hyperlipidemia E78.2 ; Essential hypertension I10 ; Bilateral hand numbness R20.0 and Tobacco use Z72.0 [place] [address] [address] Dec, Primary insomnia F51.01 [facility] [address] [address] 21 Nov, 2017 Coronary artery disease involving [place] coronary artery of [place] heart without angina pectoris I25.10 [place] [address] [address]- [address] 14 Nov, 2017 [place] [address] [address]- [address] Nov, [place] [address] [address]- [address] 04 Nov, 2017 Paroxysmal atrial fibrillation I48.0 ; Gastroesophageal reflux disease, esophagitis presence not specified K21.9 and Valvular heart disease I38 [place] [address] [address]- [address] Oct, [place] [id number] [place] [address] 13836- 6772 Oct, [facility] [address] [address]- [address]69 Oct, [facility] [address] [address]- 8799 Oct, Primary insomnia F51.01 ; COPD with exacerbation J44.1 ; Left arm pain M79.602 and Cardiac related syncope R55 [facility] [address] [address]- [address] Oct, [facility] [address] [address]- 113[address] Aug, [facility] [id number] [place] [address] 43663- 8435 Aug, Coronary artery disease involving [place] coronary artery of [place] heart without angina pectoris I25.10 [facility] [address], [place] [address] Aug, COPD with exacerbation J44.1 ; Dizziness R42 ; Fall, initial encounter W19.XXXA and Homelessness Z59.0 [facility] [id number] [place] [address] 70827- 9685 12 Aug, 2017 Coronary artery disease involving [place] coronary artery of [place] heart without angina pectoris I25.10 [facility] [id number] [place] [address] 90129- 6398 Aug, [facility] [id number] [place] [address] 61476- 8615 May, Coronary artery disease involving [place] coronary artery of [place] heart without angina pectoris I25.10 [facility] [address], [place] [address] Apr, Coronary artery disease involving [place] coronary artery of [place] heart without angina pectoris I25.10 [facility] [address], [place] [address] Mar, [facility] [id number] [place] [address] 71350- 4988 Mar, COPD exacerbation J44.1 and Influenza A J10.1 [facility] [address], [place] [address] Mar, Cough R05 and Influenza A J10.1 [facility] [address], [place] [address] Mar, [facility] [address], [place] [address] 4[address] Mar, [facility] [address] [place] [address] 66366- 3847 04 Mar, 2017 Cough R05 and COPD with exacerbation J44.1 [place] [id number] [place] [address] 76147- 9655 18 Feb, 2017 [place] [id number] [place] [address] 15464- 2109 Feb, [place] [id number] [place] [address] 87841- 3677 Feb, Essential hypertension I10 ; Atypical chest pain R07.89 ; Tobacco abuse Z72.0 and Coronary artery disease involving [place] coronary artery of [place] heart without angina pectoris I25.10 [place] [id number] [place] [address] 10909- 9514 Jan, [place] [id number] [place] [address] 56564- 2225 Dec, [place] [id number] [place] [address] 88245- 5149 Nov, [place] [id number] [place] [address] 95228- 1298 Nov, Coronary artery disease involving [place] coronary artery of [place] heart without angina pectoris I25.10 ; Paroxysmal atrial fibrillation I48.0 ; Primary insomnia F51.01 and H/O mitral valve replacement Z95.2 [place] [id number] [place] [address] 33603- 1044 Nov, [place] [id number] [place] [address] 37894- 6231 Oct, Post-op pain G89.18 ; Primary insomnia F51.01 ; Muscle spasm M62.838 ; H/O mitral valve replacement Z95.2 ; Coronary artery disease involving [place] coronary artery of [place] heart without angina pectoris I25.10 and Moderate episode of recurrent major depressive disorder F33.1 [place] [id number] [place] [address] 73094- 1332 Sep, [facility] [address], [place] [address] Sep, Coronary artery disease involving [place] coronary artery of [place] heart without angina pectoris I25.10 ; Paroxysmal atrial fibrillation I48.0 ; Valvular heart disease I38 ; Tobacco abuse Z72.0 and Essential hypertension I10 [facility] [address] [id number] Aug, Dental caries K02.9 [facility] [id number] [place] [address] [id number] Aug, [facility] [id number] [place] [address] [id number] Aug, Dental examination Z01.20 [facility] [id number] [place] [address] 21829- 2546 Aug, [facility] [id number] [place] [address]51- 1966 Jun, [facility] [id number] [place] [address] 85446- 3796 Jun, [facility] [id number] [place] [address] 81598- 9366 Nov, [facility] [address], [place] [address] 3[address] Sep, [facility] [address], [place] [address] July, [facility] [address], [place] [address]- 25[address] Jun, [facility] [id number] [place] [address] 17908- 2906 Apr, [facility] [address], [place] [address]- 9726 Apr, [facility] [id number] [place] [address] 70937- 9916 Apr, IMMUNIZATIONS No Known Immunizations SOCIAL HISTORY Never Assessed REASON FOR VISIT Stomach f/u Pt reports feeling weird since changes were made to his pacemaker NORM [place] PLAN OF CARE Activity Details Follow Up prn Reason: VITAL SIGNS Height 69.7 in 2017-11-26 Weight 206.8 lbs 2017-11-26 Temperature 98.9 degrees Fahrenheit 2017-11-26 Heart Rate 72 bpm 2017-11-26 Respiratory Rate 20 2017-11-26 BMI 29.93 kg/m2 2017-11-26 Blood pressure systolic 158 mmHg 2017-11-26 Blood pressure diastolic 94 mmHg 2017-11-26 MEDICATIONS Medication Instructions Dosage Frequency Start Date End Date Duration Status Spiriva HandiHaler 18 MCG Inhalation Once a day 1 capsule 24h Oct, Active Ipratropium-Albuterol 0.5-2.5 (3) MG/3ML Inhalation every 6 hrs 3 ml as needed 6h Oct, Active Ambien 5 mg Orally Once a day 1 tablet at bedtime 24h Oct, 14 days Active ProAir HFA 108 (90 Base) MCG/ACT Inhalation every 6 hrs 2 puffs as needed 6h Mar, 30 days Active Aspirin 325 MG Orally Once a day 1 tablet 24h Active Metoprolol Succinate ER 50 mg Orally Once a day 2 tablet 24h Active Atorvastatin Calcium 10 mg Orally Once a day 1 tablet 24h Feb, Active Ambien 10 mg Orally Once a day 1 tablet at bedtime as needed 24h Oct, 30 days Not-Taking RESULTS No Results PROCEDURES No Known procedures [...]
--- OUTSIDE RECORDS SUMMARY | 2018-06-20 15:56 | XMS REPORT ---
Author Author GAURANG MOLINA Organization [facility] Address [address] [place] [address] Care Team Providers Care Coding Quality Analyst Name Role Phone GAURANG MOLINA Unavailable PROBLEMS Type Condition ICD9-CM Code MVW82-SJ Code Onset Dates Condition Status SNOMED Code Problem Mixed hyperlipidemia E78.2 Active 091199536 Problem Coronary artery disease involving [place] coronary artery of [place] heart without angina pectoris I25.10 Active 6339105737020 Problem Valvular heart disease I38 Active 806123 Problem Tobacco abuse Z72.0 Active 249767869 Problem Panlobular emphysema J43.1 Active 0833529 Problem Non-rheumatic mitral regurgitation I34.0 Active 251141439 Problem Gastroesophageal reflux disease, esophagitis presence not specified K21.9 Active 207938611 Problem Moderate episode of recurrent major depressive disorder F33.1 Active 405364726 Problem Paroxysmal atrial fibrillation I48.0 Active 760393826 Problem Essential hypertension I10 Active 40975982 Problem H/O mitral valve replacement Z95.2 Active 8777393608379 Problem Primary insomnia F51.01 Active 2972770 ALLERGIES No Information ENCOUNTERS Encounter Location Date Diagnosis [place] [id number] [place] [address] 76948- 7347 Feb, [facility] [id number] [place] [address] 07332- 1737 Jan, [facility] [id number] [place] [address] 48445- 7165 Jan, Panlobular emphysema J43.1 ; Primary insomnia F51.01 ; Coronary artery disease involving [place] coronary artery of [place] heart without angina pectoris I25.10 ; Mixed hyperlipidemia E78.2 ; Essential hypertension I10 ; Bilateral hand numbness R20.0 and Tobacco use Z72.0 [facility] [address] [place] [address]- 6738 Dec, Primary insomnia F51.01 [facility] [id number] [place] [address] 09978- 2618 Nov, Coronary artery disease involving [place] coronary artery of [place] heart without angina pectoris I25.10 [facility] [id number] [place] [address] 07360- 8750 14 Nov, 2017 [facility] [address] [address]31- 6918 05 Nov, 2017 [facility] [id number] [place] [address] 27780- 1728 Nov, Paroxysmal atrial fibrillation I48.0 ; Gastroesophageal reflux disease, esophagitis presence not specified K21.9 and Valvular heart disease I38 [facility] [id number] [place] [address] 87400- 1483 Oct, [facility] [address] 94062- 9367 Oct, [facility] [id number] [place] [address] 35454- 0869 Oct, [facility] [id number] [place] [address] 15061- 6574 Oct, Primary insomnia F51.01 ; COPD with exacerbation J44.1 ; Left arm pain M79.602 and Cardiac related syncope R55 [facility] [id number] [place] [address] 86256- 8097 Oct, [facility] [id number] [place] [address] 90102- 4002 Aug, [facility] [id number] [place] [address] 65527- 9986 Aug, Coronary artery disease involving [place] coronary artery of [place] heart without angina pectoris I25.10 [facility] [id number] [place] [address] 80233- 0425 Aug, COPD with exacerbation J44.1 ; Dizziness R42 ; Fall, initial encounter W19.XXXA and Homelessness Z59.0 [address] [address] 87980- 7371 Aug, Coronary artery disease involving [place] coronary artery of [place] heart without angina pectoris I25.10 [facility] [address] 67613- 2836 Aug, [place] [address] 08865- 9682 May, Coronary artery disease involving [place] coronary artery of [place] heart without angina pectoris I25.10 [place] [address] 63981- 5701 Apr, Coronary artery disease involving [place] coronary artery of [place] heart without angina pectoris I25.10 [place] [address] 18616- 3792 Mar, [facility] [address] 52485- 7138 Mar, COPD exacerbation J44.1 and Influenza A J10.1 [facility] [id number] [place] [address] 47594 -1113 Mar, Cough R05 and Influenza A J10.1 [facility] [id number] [place] [address] 33251- 9839 Mar, [facility] [id number] [place] [address] 79703- 7807 Mar, [facility] [id number] [place] [address] 68824- 1317 Mar, Cough R05 and COPD with exacerbation J44.1 [facility] [id number] [place] [address] 07685- 5060 Feb, [facility] [address] 48532- 5849 Feb, [facility] [address] [place] [address] 51187- 8513 Feb, Essential hypertension I10 ; Atypical chest pain R07.89 ; Tobacco abuse Z72.0 and Coronary artery disease involving [place] coronary artery of [place] heart without angina pectoris I25.10 [facility] [id number] [place] [address] 11011- 5177 Jan, [facility] [id number] [place] [address] 42728- 7249 Dec, [facility] [id number] [place] [address] 56914- 6880 Nov, [facility] [id number] [place] [address] 15231- 7170 Nov, Coronary artery disease involving [place] coronary artery of [place] heart without angina pectoris I25.10 ; Paroxysmal atrial fibrillation I48.0 ; Primary insomnia F51.01 and H/O mitral valve replacement Z95.2 [facility] [id number] [place] [address] 14902- 8956 Nov, [place] [id number] [place] [address] 88306- 7122 Oct, Post-op pain G89.18 ; Primary insomnia F51.01 ; Muscle spasm M62.838 ; H/O mitral valve replacement Z95.2 ; Coronary artery disease involving [place] coronary artery of [place] heart without angina pectoris I25.10 and Moderate episode of recurrent major depressive disorder F33.1 [facility] [address] [place] [address] 52584- 8674 Sep, [place] [id number] [place] [address] 05813- 2348 Sep, Coronary artery disease involving [place] coronary artery of [place] heart without angina pectoris I25.10 ; Paroxysmal atrial fibrillation I48.0 ; Valvular heart disease I38 ; Tobacco abuse Z72.0 and Essential hypertension I10 [facility] [address] [place] [address] [id number] Aug, Dental caries K02.9 [facility] [id number] [id number] Aug, [facility] [address] [id number] Aug, Dental examination Z01.20 [facility] [address], [place] [address]- 4366 Aug, [facility] [address], [place] [address]- 3626 Jun, [facility] [address] [place] [address] 34575- 3706 Jun, [facility] [id number] [place] [address] 57375- 4596 Nov, [facility] [address], [place] [address]- 1266 Sep, [facility] [address], [place] [address]- 6146 July, [facility] [address], [place] [address]- 8866 Jun, [facility] [address], [place] [address]- 6516 Apr, [facility] [address], [place] [address]- 3176 Apr, [facility] [address], [place] [address]- 7366 Apr, IMMUNIZATIONS No Known Immunizations SOCIAL HISTORY Never Assessed REASON FOR VISIT Patient Concerns-hiatal hernia PLAN OF CARE VITAL SIGNS MEDICATIONS Unknown [...]
--- OUTSIDE RECORDS SUMMARY | 2018-06-20 15:56 | XMS REPORT ---
Author Author GAURANG MOLINA Organization [facility] Address [address] [place] [address] Care Team Providers Care Shipping Track Supervisor Name Role Phone GAURANG MOLINA Unavailable PROBLEMS Type Condition ICD9-CM Code EMO81-KG Code Onset Dates Condition Status SNOMED Code Problem Mixed hyperlipidemia E78.2 Active 673746108 Problem Coronary artery disease involving eyak coronary artery of eyak heart without angina pectoris I25.10 Active 9793122603617 Problem Valvular heart disease I38 Active 273775 Problem Tobacco abuse Z72.0 Active 756970926 Problem Panlobular emphysema J43.1 Active 7645705 Problem Non-rheumatic mitral regurgitation I34.0 Active 571550951 Problem Gastroesophageal reflux disease, esophagitis presence not specified K21.9 Active 929888483 Problem Moderate episode of recurrent major depressive disorder F33.1 Active 420692229 Problem Paroxysmal atrial fibrillation I48.0 Active 843205447 Problem Essential hypertension I10 Active 28841358 Problem H/O mitral valve replacement Z95.2 Active 3957381606211 Problem Primary insomnia F51.01 Active 9552758 ALLERGIES No Information ENCOUNTERS Encounter Location Date Diagnosis [place] [id number], [place] [address] Feb, [facility] [id number] [place] [address] Feb, [facility] [id number] [place] [address] Jan, [facility] [id number] [place] [address] Jan, [place] [address] [place] [address] Jan, Panlobular emphysema J43.1 ; Primary insomnia F51.01 ; Coronary artery disease involving eyak coronary artery of eyak heart without angina pectoris I25.10 ; Mixed hyperlipidemia E78.2 ; Essential hypertension I10 ; Bilateral hand numbness R20.0 and Tobacco use Z72.0 [facility] [address] [address] Dec, Primary insomnia F51.01 [facility] [address] [address] 21 Nov, 2017 Coronary artery disease involving eyak coronary artery of eyak heart without angina pectoris I25.10 [facility] [address] [address] 14 Nov, 2017 [facility] [address] [address] 05 Nov, 2017 [facility] [address] [address] Nov, Paroxysmal atrial fibrillation I48.0 ; Gastroesophageal reflux disease, esophagitis presence not specified K21.9 and Valvular heart disease I38 [facility] [address] [address] Oct, [facility] [address] [address] Oct, [facility] [address] [address] Oct, [facility] [address] [address] Oct, Primary insomnia F51.01 ; COPD with exacerbation J44.1 ; Left arm pain M79.602 and Cardiac related syncope R55 [facility] [address] [address] Oct, [facility] [address] [address] Aug, [facility] [address] [address] Aug, Coronary artery disease involving eyak coronary artery of eyak heart without angina pectoris I25.10 [facility] [address] [place] [address] Aug, COPD with exacerbation J44.1 ; Dizziness R42 ; Fall, initial encounter W19.XXXA and Homelessness Z59.0 [place] [id number] [place] [address] Aug, Coronary artery disease involving eyak coronary artery of eyak heart without angina pectoris I25.10 [place] [id number] [place] [address] 735[address]- [address] Aug, [place] [id number] [place] [address] May, Coronary artery disease involving eyak coronary artery of eyak heart without angina pectoris I25.10 [place] [id number] [place] [address] 39[address]- 2[address] Apr, Coronary artery disease involving eyak coronary artery of eyak heart without angina pectoris I25.10 [facility] [id number] [place] [address] 01536- [address] Mar, [facility] [id number] [place] [address] 63[address]- 150[address] Mar, COPD exacerbation J44.1 and Influenza A J10.1 [facility] [address] [place] [address] Mar, Cough R05 and Influenza A J10.1 [facility] [address] [place] [address] 18324- 9627 Mar, [facility] [id number] [place] [address] 21199- 0[address] Mar, [facility] [address] [place] [address] 09042- 2691 Mar, Cough R05 and COPD with exacerbation J44.1 [facility] [address], [place] [address] 18 Feb, 2017 [facility] [id number] [place] [address] 56802- 7178 Feb, [facility] [address] [address] Feb, Essential hypertension I10 ; Atypical chest pain R07.89 ; Tobacco abuse Z72.0 and Coronary artery disease involving eyak coronary artery of eyak heart without angina pectoris I25.10 [place] [id number] [place] [address] 8[address]90- 0867 Jan, [place] [id number] [place] [address] 80012- 1136 Dec, [place] [id number] [place] [address] 23493- 6[address] Nov, [facility] [id number] [place] [address] 26116- 9037 Nov, Coronary artery disease involving eyak coronary artery of eyak heart without angina pectoris I25.10 ; Paroxysmal atrial fibrillation I48.0 ; Primary insomnia F51.01 and H/O mitral valve replacement Z95.2 [place] [address], [place] [address] Nov, [place] [address] [place] [address] 9[address]- [address] Oct, Post-op pain G89.18 ; Primary insomnia F51.01 ; Muscle spasm M62.838 ; H/O mitral valve replacement Z95.2 ; Coronary artery disease involving eyak coronary artery of eyak heart without angina pectoris I25.10 and Moderate episode of recurrent major depressive disorder F33.1 [facility] [address], [place] [address] 14 Sep, 2016 [place] [id number] [place] [address] 63495- 8532 Sep, Coronary artery disease involving eyak coronary artery of eyak heart without angina pectoris I25.10 ; Paroxysmal atrial fibrillation I48.0 ; Valvular heart disease I38 ; Tobacco abuse Z72.0 and Essential hypertension I10 [facility] [address] [id number] Aug, Dental caries K02.9 [facility] [address] [id number] Aug, [facility] [id number] [place] [id number] Aug, Dental examination Z01.20 [facility] [id number] [place] [address] 78452- 1176 Aug, [facility] [id number] [place] [address] 81637- 9626 Jun, [facility] [id number] [place] [address] 81373- 8276 Jun, [facility] [id number] [place] [address] 11252- 5622 Nov, [facility] [id number] [place] [address] 875942- 3039 Sep, [facility] [address] [address] July, [facility] [id number] [place] [address] 49124- 1436 Jun, [facility] [id number] [place] [address] 43475694- 4322 Apr, [facility] [id number] [place] [address] 145382- 7107 Apr, [facility] [address] [address] Apr, IMMUNIZATIONS No Known Immunizations SOCIAL HISTORY Never Assessed REASON FOR VISIT Request medication PLAN OF CARE VITAL SIGNS MEDICATIONS Unknown [...]
--- NOTE | 2018-06-20 16:46 | NUR ---
Pt also reports a sharp pain with inspiration in the chest and back.
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
[2018-06-20 17:56] LABS: BILIRUBIN,URINE NEGATIVE (NEGATIVE); CLARITY,URINE CLEAR; COLOR,URINE YELLOW; GLUCOSE, URINE (UA) NEGATIVE (NEGATIVE); KETONES,URINE NEGATIVE (NEGATIVE); LEUKOCYTE ESTERASE ,URINE NEGATIVE (NEGATIVE); NITRITE,URINE NEGATIVE (NEGATIVE); PH,URINE 7 (5-9); PROTEIN,URINE NEGATIVE (NEGATIVE); UROBILINOGEN,URINE NORMAL (NORMAL)
[2018-06-20 17:57] LABS: BASOPHILS # (AUTO) 0.1 10^3/uL (0.0-0.1); BASOPHILS % (AUTO) 1 % (0-10); EOSINOPHILS # (AUTO) 1.4 10^3/uL (0.0-0.3); EOSINOPHILS % (AUTO) 13 % (0-10); HEMATOCRIT 48 % (40-54); HEMOGLOBIN 17.1 G/DL (13.3-17.7); LYMPHOCYTES # (AUTO) 1.7 X 10^3 (1.0-4.0); LYMPHOCYTES % (AUTO) 15 % (12-44); MEAN CORPUSCULAR HEMOGLOBIN 32 PG (25-34); MEAN CORPUSCULAR HGB CONC 36 G/DL (32-36); MEAN CORPUSCULAR VOLUME 88 FL (80-99); MEAN PLATELET VOLUME 8.9 FL (7.4-10.4); MONOCYTES # (AUTO) 0.6 X 10^3 (0.0-1.0); MONOCYTES % (AUTO) 5 % (0-12); NEUTROPHILS # (AUTO) 7.2 X 10^3 (1.8-7.8); NEUTROPHILS % (AUTO) 66 % (42-75); PLATELET COUNT 236 10^3/uL (130-400); RED CELL DISTRIBUTION WIDTH 13.5 % (10.0-14.5)
[2018-06-20 18:02] LABS: BACTERIA,URINE NEGATIVE /HPF
[2018-06-20 18:13] LABS: BAND NEUTROPHILS 0 %; BASOPHILS % (MANUAL) 1 %; EOSINOPHILS % (MANUAL) 15 %; LYMPHOCYTES % (MANUAL) 19 %; MONOCYTES % (MANUAL) 3 %; NEUTROPHILS % (MANUAL) 62 %; RBC MORPH NORMAL
[2018-06-20 18:13] LABS: AMPHETAMINE SCREEN, URINE NEGATIVE (NEGATIVE); BARBITURATE SCREEN URINE NEGATIVE (NEGATIVE); BENZODIAZEPINES SCREEN URINE NEGATIVE (NEGATIVE); CANNABINOID SCREEN, URINE POSITIVE (NEGATIVE); COCAINE SCREEN URINE NEGATIVE (NEGATIVE); METHADONE STAT NEGATIVE (NEGATIVE); METHAMPHETAMINE SCREEN URINE S NEGATIVE (NEGATIVE); OPIATE SCREEN URINE NEGATIVE (NEGATIVE); OXYCODONE STAT NEGATIVE (NEGATIVE); PROPOXYPHENE STAT NEGATIVE (NEGATIVE); TRICYCLIC ANTIDEPRESSANTS SCRE NEGATIVE (NEGATIVE)
[2018-06-20 18:15] LABS: ALANINE AMINOTRANSFERASE 13 U/L (0-55); ALBUMIN 4.1 GM/DL (3.2-4.5); ALKALINE PHOSPHATASE 64 U/L (40-136); BILIRUBIN,TOTAL 0.4 MG/DL (0.1-1.0); BUN/CREATININE RATIO 14; CALCIUM 9.5 MG/DL (8.5-10.1); CARBON DIOXIDE 24 MMOL/L (21-32); CHLORIDE 104 MMOL/L (98-107); CREATININE SERUM 0.87 MG/DL (0.60-1.30); GFR ESTIMATED > 60; GLUCOSE 91 MG/DL (70-105); MAGNESIUM 2.2 MG/DL (1.8-2.4); POTASSIUM 4.5 MMOL/L (3.6-5.0); SODIUM 138 MMOL/L (135-145); TOTAL PROTEIN 7.2 GM/DL (6.4-8.2)
[2018-06-20] MEDS ORDERED: NS IV 1000 ML 1,000 ML IV SCH (18:17)
[2018-06-20] MEDS ORDERED: IOHEXOL 350 MG/ML 100 ML (OMNIPAQUE 350) VIAL IV ONE ×2 (18:45→19:15)
[2018-06-20] MEDS ORDERED: HOLD METFORMIN - RECEIVED CONTRAST 20 ML VIAL IV SCH ×2 (18:45→19:15)
--- NOTE | 2018-06-20 18:53 | NUR ---
Report given to NETO Saeed
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
[2018-06-20 19:30] VITALS: BP 121/71
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
[2018-06-20 20:00] VITALS: BP_SYST 159; BP_SYST 174; BP_SYST 184; BP_DIAS 105; BP_DIAS 108; BP_DIAS 109
[2018-06-20] MEDS ORDERED: NS IV 1000 ML 1,000 ML IV ONE (20:02)
--- NOTE | 2018-06-20 20:35 | NUR ---
sandwich tray provided by house steward/stewardess.
[2018-06-20] MEDS ORDERED: CYCLOBENZAPRINE 10 MG (FLEXERIL) TAB PO ONE (21:15)
[2018-06-20] MEDS ORDERED: MECLIZINE 25 MG (ANTIVERT) TAB PO ONE (21:15)
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
[2018-06-20] MEDS ORDERED: meTOproloL SUCCINATE 50 MG (TOPROL XL) TAB PO SCH (21:45)
--- NOTE | 2018-06-20 22:10 | NUR ---
ZEE VELEZ I admitted to room 411-1, with an admitting diagnosis of SYNCOPE, DIZZINESS, HTN, on 06/20/18 from ED via , accompanied by STAFF.ZEE VELEZ I introduced to surroundings, call light, bed controls, phone, TV, temperature control, lights, meal times, smoking policy, visitor policy, side rail policy, bathrooms and showers. Patient Rights given to patient in the handbook. ZEE VELEZ I verbalizes understanding that [facility] is not responsible for the loss or damage to any personal effects or valuables that are kept in the patients possession during their hospitalization. PLANS OF CARE DISCUSSED WITH THE PT AND VERBALIZES UNDERSTANDING. ZEE VELEZ I verbalizes understanding of Interdisciplinary Patient Education. Patient and/or family were informed about the Rapid Response Team and its purpose.
[2018-06-20] MEDS ORDERED: MECLIZINE 25 MG (ANTIVERT) TAB PO PRN (22:15)
[2018-06-20] MEDS ORDERED: CYCLOBENZAPRINE 10 MG (FLEXERIL) TAB PO PRN (22:15)
[2018-06-20] MEDS: NS IV 1000 ML 1,000 ML IV SCH (22:18)
[2018-06-20 22:35] VITALS: BP 165/99
[2018-06-20 23:58] VITALS: BP 164/91
[2018-06-21 02:28] VITALS: BP 156/98
[2018-06-21 04:00] VITALS: BP 149/64
[2018-06-21 04:21] LABS: BASOPHILS # (AUTO) 0.1 10^3/uL (0.0-0.1); BASOPHILS % (AUTO) 1 % (0-10); EOSINOPHILS # (AUTO) 1.4 10^3/uL (0.0-0.3); EOSINOPHILS % (AUTO) 13 % (0-10); HEMATOCRIT 46 % (40-54); HEMOGLOBIN 16.2 G/DL (13.3-17.7); LYMPHOCYTES # (AUTO) 1.9 X 10^3 (1.0-4.0); LYMPHOCYTES % (AUTO) 17 % (12-44); MEAN CORPUSCULAR HEMOGLOBIN 31 PG (25-34); MEAN CORPUSCULAR HGB CONC 35 G/DL (32-36); MEAN CORPUSCULAR VOLUME 88 FL (80-99); MEAN PLATELET VOLUME 9.1 FL (7.4-10.4); MONOCYTES # (AUTO) 0.7 X 10^3 (0.0-1.0); MONOCYTES % (AUTO) 6 % (0-12); NEUTROPHILS # (AUTO) 7.3 X 10^3 (1.8-7.8); NEUTROPHILS % (AUTO) 64 % (42-75); PLATELET COUNT 204 10^3/uL (130-400); RED CELL DISTRIBUTION WIDTH 13.6 % (10.0-14.5); WHITE BLOOD COUNT 11.5 10^3/uL (4.3-11.0)
[2018-06-21 04:39] LABS: BUN/CREATININE RATIO 12; CALCIUM 8.8 MG/DL (8.5-10.1); CARBON DIOXIDE 19 MMOL/L (21-32); CHLORIDE 108 MMOL/L (98-107); CREATININE SERUM 0.83 MG/DL (0.60-1.30); GFR ESTIMATED > 60; GLUCOSE 88 MG/DL (70-105); SODIUM 137 MMOL/L (135-145)
[2018-06-21] MEDS: NS IV 1000 ML 1,000 ML IV SCH (08:26)
[2018-06-21 08:31] VITALS: BP 137/88
[2018-06-21] MEDS ORDERED: PANTOPRAZOLE 40 MG (PROTONIX) TAB PO SCH (09:00)
[2018-06-21] MEDS ORDERED: ASPIRIN E.C. 325 MG (ECOTRIN) TABLET PO SCH (09:00)
--- NOTE | 2018-06-21 09:55 | Occ Therapy Progress Note ---
Therapy Progress Note 1045 Pt seen in room, up in bed. Pt stated, "I'm not doing anything. My heart rate is too low and the pacemaker naveed is on his way from [place]. I'm not getting up because I get dizzy and fall." Pt educ on purpose of therapy but he continued to decline, saying that "Dr. escobar told me not to get up because my heart rate is too low and they can't give me medicine until it's faster." Will continue to follow. visit GENI RENE OT Jun 21, 2018 09:55
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
--- NOTE | 2018-06-21 10:27 | Physical Therapy Progress Note ---
Therapy Progress Note Patient in bed upon PT arrival. Patient voiced the following, "You are the fourth F person in here and I'm not going to do anything with anyone. I don't feel good and I don't want anyone in my room." RN informed. 1 ref ([id number]) MARGI ASTUDILLO PT Jun 21, 2018 10:27
[2018-06-21 12:00] VITALS: BP 150/86
--- NOTE | 2018-06-21 12:36 | History & Physical-Hospitalist ---
History of Present Illness HPI/Chief Complaint CC: Inability to walk due to dizziness HPI: This is a 57yoWM clinic patient of [facility] with extensive heart disease hx including valve replacement and pacemaker who presented to the ER with dizziness and syncope and had multiple tests done which were all negative for concerning pathology so he was admitted and placed on Tely for observation. Patient angry and does not want to be disturbed. After he took a nap he told the nurse he was leaving so he is leaving AMA. Source: patient Exam Limitations: other (angry, frustrated, refuses to provide any details to me) Date Seen 06/21/18 Time Seen by a Provider: 11:15 Attending Physician Gloria Moreland Holly R MD Referring Physician Date of Admission Jun 20, 2018 at 21:24 Home Medications & Allergies Home Medications Reviewed patient Home Medication Reconciliation performed by pharmacy medication reconciliations switch technician and/or nursing. Patients Allergies have been reviewed. Allergies Allergies Coded Allergies No Known Drug Allergies (Unverified08/02/16) Past Vcljgel-Ucvjnb-Lhcnyd Hx Past Med/Social Hx: Reviewed Nursing Past Med/Soc Hx, Reviewed and Corrections made Patient Social History Marrital Status: single Employed/Student: unemployed Alcohol Use: Denies Use Recreational Drug Use: Yes Drug of Choice: marijuana Smoking Status: Current Everyday Smoker Type Used: Cigars, Cigarettes 2nd Hand Smoke Exposure: Yes Recent Foreign Travel: No Contact w/other who traveled: No Recent Hopitalizations: Yes Recent Infectious Disease Expo: No Immunizations Up To Date Tetanus Booster (TDap): More than 5yrs Seasonal Allergies Seasonal Allergies: No Past Medical History Surgeries: Cardiac, Valve Replacement Cardiac: Atrial Fibrillation (paroxysmal) Sexually Transmitted Disease: No HIV/AIDS: No Musculoskeletal: Rheumatoid Arthritis Psychosocial: Depression History of Blood Disorders: No Adverse Reaction to Blood Fernandez: No Family History Alzheimer's disease 19 MOTHER Cardiovascular disease G8 BROTHER (PACEMAKER/DIFIB) No Pertinent Family Hx, Diabetes Review of Systems Constitutional: see HPI Physical Exam Physical Exam Vital Signs Vital Signs - First Documented 06/20/18 06/20/18 15:55 19:30 Temp 98.6 Pulse 64 Resp 18 B/P (MAP) 174/97 (122) Pulse Ox 99 O2 Delivery Room Air Capillary Refill : Less Than 3 Seconds Height, Weight, BMI Height: 5'10.00" Weight: 197lbs. 9.0oz. 89.774673bd; 29.1 BMI Method:Stated General Appearance: No Apparent Distress, WD/WN, Chronically ill Respiratory: Lungs Clear, Normal Breath Sounds Cardiovascular: Regular Rate, Rhythm, No Edema Neurologic/Psychiatric: Alert, Oriented x3 Skin: Normal Color, Warm/Dry Results Results/Procedures Labs Laboratory Tests 06/20/18 17:45 06/21/18 04:05 Patient resulted labs reviewed. Assessment/Plan Admission Diagnosis Assessment: Syncope AF Pacemaker Valvular heart disease Plan: Supportive care Patient leaving AMA Admission Status: Observation Diagnosis/Problems Diagnosis/Problems (1) Syncope Status: Acute Qualifiers: Syncope type: unspecified Qualified Codes: R55 - Syncope and collapse (2) Hypertension Status: Acute Qualifiers: Hypertension type: unspecified Qualified Codes: I10 - Essential (primary) hypertension (3) Dizziness Status: Acute (4) CAD (coronary artery disease) Status: Chronic (5) Hx of CABG Status: Chronic (6) Smoker Status: Chronic Clinical Quality Measures DVT/VTE Risk/Contraindication: Risk Factor Score Per Nursin RFS Level Per Nursing on Admit: 2=Moderate GLORIA MORELAND DO Jun 21, 2018 12:36
--- NOTE | 2018-06-21 14:30 | NUR ---
PT LEFT UNIT AMA AMBULATORY, PT HAS PERSONAL BELONGINGS WITH HIM. THIS RN NOTIFIED DR CANCHOLA THAT PT WAS GOING TO LEAVE AMA. Addendum: 06/21/18 at 1437 by CRISTIN PATEL RN PT IV REMOVED.
== END 2018-06-21 14:30 | disposition left against medical advice (07) ==
LOC: ER 15:51 → 4TH 21:24
PROVIDERS: ADMIT Internal Medicine; ATTEND Internal Medicine
DX: R42 Dizziness and giddiness (principal); R55 Syncope and collapse; I25.10 Atherosclerotic heart disease of native coronary artery without angina pectoris; F17.210 Nicotine dependence, cigarettes, uncomplicated; I48.0 Paroxysmal atrial fibrillation; M06.9 Rheumatoid arthritis, unspecified; F32.9 Major depressive disorder, single episode, unspecified; I10 Essential (primary) hypertension; Z95.1 Presence of aortocoronary bypass graft; Z95.0 Presence of cardiac pacemaker; Z95.2 Presence of prosthetic heart valve
CPT/HCPCS: 36415; 70450; 70496; 70498; 71260; 72125; 73030; 74177; 80048; 80053; 80306; 80320; 81000; 82962; 83735; 84484; 85007; 85025; 85027; 93005; 93041

== ENCOUNTER 2018-06-30 07:08 | Outpatient (CLI) | payer MEDICAID ==
[~2018-06-30] VITALS: Ht 177.8 cm; Wt 89.4 kg
== END 2018-06-30 09:49 | disposition home or self-care (01) ==
LOC: PREOP 07:08
PROVIDERS: ATTEND Surgery
DX: Z01.818 Encounter for other preprocedural examination (principal)

== ENCOUNTER 2018-07-02 07:16 | Day surgery (SDC) | payer MEDICAID ==
[~2018-07-02] VITALS: Ht 177.8 cm; Wt 89.4 kg
[2018-07-02 07:25] VITALS: BP 175/105
[2018-07-02] MEDS ORDERED: LACTATED RINGERS 1,000 ML IV PRN ×2 (07:29→08:28)
[2018-07-02] MEDS ORDERED: ceFAZolin 2 GM IV Premixed 50 ML IV ONE (07:30)
[2018-07-02] MEDS ORDERED: CATHETER FLUSH 10 ML SYR IV PRN (07:45)
[2018-07-02] MEDS ORDERED: RT-ALBUTEROL SULF 2.5 MG/3 ML PRE-MIX VIAL ONE (07:50)
[2018-07-02] MEDS ORDERED: BUP/EPI 0.5% 1:200,000 (SENSORCAINE) 30 ML VIAL ONE (07:50)
[2018-07-02] MEDS ORDERED: LIDOCAINE 1% INJ 20 ML 20 ML VIAL ONE (07:50)
[2018-07-02] MEDS ORDERED: fentaNYL INJECTION 100 MCG/2 ML AMP ONE ×2 (08:20→09:41)
[2018-07-02] MEDS ORDERED: MIDAZOLAM 2 MG/2 ML (VERSED) VIAL ONE (08:26)
--- NOTE | 2018-07-02 08:27 | Progress Note-Pre Operative ---
Pre-Operative Progress Note H&P Reviewed The H&P was reviewed, patient examined and no changes noted. Time Seen by Provider: 08:19 Date H&P Reviewed: Jul 02, 2018 Time H&P Reviewed: 08:20 Pre-Operative Diagnosis: Incisional Ventral Hernia, Gastritis TAYLOR VERMA DO Jul 02, 2018 08:27
[2018-07-02] MEDS ORDERED: SEVOFLURANE (ULTANE) 15 ML INHAL SOLN ONE ×3 (08:28→10:14)
[2018-07-02] MEDS ORDERED: GLYCOPYRROLATE 0.2 MG/ML (ROBINUL) 2 ML VIAL ONE ×2 (08:28→10:28)
[2018-07-02] MEDS ORDERED: proPOfol 200 MG/20 ML (DIPRIVAN) VIAL IV ONE (08:28)
[2018-07-02] MEDS ORDERED: NEOSTIGMINE 1 MG/ML 5 ML SYRINGE ONE (08:28)
[2018-07-02] MEDS ORDERED: ONDANSETRON 4 MG/2 ML (SDV) Z0FRAN ONE (08:28)
[2018-07-02] MEDS ORDERED: LIDOCAINE PF 2% 5 ML (XYLOCAINE) VIAL ONE (08:28)
[2018-07-02] MEDS ORDERED: ROCURONIUM 10 MG/ML 5 ML SYRINGE IV ONE (08:28)
[2018-07-02] MEDS ORDERED: DEXAMETHASONE 10 MG/ML (DECADRON) 1 ML VIAL ONE (08:28)
[2018-07-02] MEDS ORDERED: ESMOLOL 100 MG/10 ML (BREVIBLOC) VIAL ONE (09:34)
--- NOTE | 2018-07-02 10:10 | Progress Note-Post Operative ---
Post-Operative Progess Note Surgeon (s)/Shift Production Supervisor (s) Surgeon TAYLOR VERMA DO Shift Production Supervisor: Maryellen Pre-Operative Diagnosis Incisional Ventral Hernia, Gastritis Post-Operative Diagnosis Gastritis, Esophagitis Incarcerated Incisional/Ventral Hernia Procedure & Operative Findings Date of Procedure 07/02/18 Procedure Performed/Findings EGD with bx Lap Inc/Ventral hernia with mesh placement Anesthesia Type GET Estimated Blood Loss Estimated blood loss (mL): scant Specimens/Packing Specimens Removed antral bx GE jxn bx x 2 TAYLOR VERMA DO Jul 02, 2018 10:10
[2018-07-02] MEDS ORDERED: ACHD5005 PO (10:11)
--- NOTE | 2018-07-02 10:12 | Discharge Inst-Surgical ---
Discharge Inst-Surgical Depart Medication/Instructions New, Converted or Re-Newed RX: RX Given to Pt/Family Patient Instructions Follow up Appt: Make appointment for 1 week. [phone] Instructions: No lifting greater than 20 pounds. No strenuous activity. May shower in 24 hours, no tub bath or soaking. Use incentive spirometer at home as directed. No Smoking Skin/Wound Care: May remove bandages in am. You need to leave the Dermabond on incision it will fall off on it's own. Symptoms to Report: Appetite Changes, Extremity Discoloration, Numbness/Tingling, Swelling Increased , Bleeding Excessive, Eyesight Changes, Pain Increased, Urine Color Change, Constipation(Persistent), Fever over 101 degree F, Pain/Pressure in chest, Urinating Difficulty, Cough Up/Vomit Blood, Heart Beat Irreg/Pounding, Pain/ Pressure in jaw, Cramps in feet or legs, Lightheadedness, Pain/Pressure in shoulder, Diarrhea(Persistent), Memory Changes Suddenly, Questions/Concerns, Weight gain consecutive days, Dizziness/Fainting, Nausea/Vomiting, Shortness of Breath, Weight gain over 2 pounds If questions or concerns contact your physician Or seek help at emergency department. Activity Activity Instructions: Avoid Stress to Incision Driving Instructions: No Driving/Refer to Dr. Lyon Discharge Diet: Cardiac Diet Diet After 24 Hours: Clear Liquid if Nauseous If Any Problems/Questions/Issu: Contact Your Physician, Go to Emergency Room Skin/Wound Care Infection Signs and Symptoms: Increased Redness, Foul Odor of Wound, Increased Drainage, Skin Itchy or Has a Rash, Increased Swelling, Temperature Above 101 F Wound Care Comment: heating pad to neck or shoulder tonight for pain Bathing Instructions: Shower Stitches/Maynor/Dermabond Dis: Dermabond Ice Pack: Ice On and Off Site (as needed for pain at incision sites) TAYLOR VERMA DO Jul 02, 2018 10:12
[2018-07-02] MEDS ORDERED: HYDROmorphone 2 MG/ML VIAL (DILAUDID) ONE (10:37)
[2018-07-02] MEDS ORDERED: morphine INJ 10 MG/ML 1ML (SYR OR VIAL) IVP ONE (10:45)
[2018-07-02] MEDS ORDERED: ONDANSETRON 4 MG/2 ML (SDV) Z0FRAN IVP PRN (10:45)
[2018-07-02] MEDS ORDERED: HYDROmorphone 2 MG/ML VIAL (DILAUDID) IV ONE (10:45)
[2018-07-02 11:35] VITALS: BP 134/93
--- NOTE | 2018-07-02 11:35 | NUR ---
TO AMB SURG FROM PAR PER CART. AWAKE, BUT DROWSY, C/O MID UPPER ABD PAIN RATED 10, BUT QUICKLY BACK TO SLEEP. ICE PACK ON. PO FLUIDS TO BEDSIDE, FAMILY IN ROOM.
[2018-07-02] MEDS ORDERED: HYDROcodone/APAP 5 MG/325 MG (LORTAB) TAB ONE (12:23)
[2018-07-02] MEDS ORDERED: HYDROcodone/APAP 5 MG/325 MG (LORTAB) TAB PO ONE (12:30)
--- NOTE | 2018-07-02 12:32 | NUR ---
LORTAB 5/325 MG, 1 TAB, GIVEN PO FOR C/O MID UPPER ABD PAIN RATED 10. MORE ALERT NOW, TAKING PO FLUIDS AND CRACKERS WITHOUT PROBLEM.
[2018-07-02 12:35] VITALS: BP 142/106
[2018-07-02 13:30] VITALS: BP 148/93
--- NOTE | 2018-07-02 14:00 | NUR ---
HAS BEEN RESTING QUIETLY IN BED. ALERT AND VISITING AND JOKING WITH FAMILY AND STAFF. RATES MID UPPER ABD PAIN 4. MOVES WELL WHEN UP TO DRESS FOR DISMISSAL.
--- NOTE | 2018-07-02 14:24 | Anesthesia-General Post-Op ---
General Patient Condition Mental Status/LOC: Same as Preop Cardiovascular: Satisfactory Nausea/Vomiting: Absent Respiratory: Satisfactory Pain: Controlled Complications: Absent Post Op Complications Complications None Follow Up Care/Instructions Patient Instructions None needed. Anesthesia/Patient Condition Patient Condition Patient is doing well, no complaints, stable vital signs, no apparent adverse anesthesia problems. No complications reported per nursing. MEL GALVAN CRNA Jul 02, 2018 14:24
[2018-07-02 14:30] VITALS: BP 148/93
--- NOTE | 2018-07-02 15:49 | OPERATIVE REPORT ---
DATE OF SERVICE: 07/02/2018 PREOPERATIVE DIAGNOSES: 1. Gastritis. 2. Incisional ventral hernia. POSTOPERATIVE DIAGNOSES: 1. Gastritis. 2. Esophagitis. 3. Incarcerated incisional ventral hernia. PROCEDURE: 1. EGD with biopsy. 2. Laparoscopic incisional ventral herniorrhaphy with mesh placement. SURGEON: Heriberto Barry DO PROCESS SERVER: Dr. Bojorquez. ANESTHESIA: General endotracheal tube. SPECIMEN: Biopsy from antrum and GE junction. BLOOD LOSS: Scant. FLUIDS: Per anesthesia. POSTOPERATIVE CONDITION: Stable. INDICATION FOR PROCEDURE: The patient is a 57-year-old male who has been having some abdominal pain. He it is from his incisional hernia, also was complaining of some burning, possibly gastritis and needed to work this up. I did have a long discussion with the patient regarding the fact that I was not convinced that the hernia would be causing his problem and that fixing it may not change his pain at all. I, in fact had another discussion with him just prior to surgery today. When I again explained exactly what we were going to do and he understood, but he was convinced that this was going to take care of it. FINDINGS: The patient had some gastritis and some esophagitis, and he had incarcerated incisional ventral hernia, actually it had couple holes and we also found a left inguinal hernia. Pictures of all these were taken. PROCEDURE NOTE: After informed consent was obtained, the patient was brought to the operating room, placed on the table in supine position. He was intubated. Then, I started with EGD, placed the scope down the mouth through the esophagus into the stomach. In the stomach noted some mild gastritis, took a picture of this, pushed in the duodenum and duodenum looked fine. I elected to do a biopsy of the antrum, pulled back, retroflexed the scope. I did not really see a hiatal hernia, but it looked like he may have had one, then pulled back into the GE junction, saw little bit of creeping up of the Z-line, and I elected to do 2 biopsies here at the GE junction. The rest of the esophagus looks fine. Pulled the scope up the esophagus and out the mouth. The patient was then sterilely prepped and draped in normal fashion. Local lidocaine was used to infiltrate the skin below the umbilicus and made incision with #11 blade, carried down through the skin into subcutaneous tissue and deepened down to the subcutaneous tissue with Bovie electrocautery down to fascia. Fascia incised with Bovie electrocautery and bluntly entered the abdomen, swept a finger around, placed 0 Vicryl [id number]-nz-[id number] suture and placed an 11 mm trocar port under direct visualization. Created pneumoperitoneum and then placed 2 more ports in normal fashion using local lidocaine, 11 blade for stab incision and VersaStep system, all done under direct visualization, both out in the lateral aspects of the abdominal wall just slightly above the umbilicus. Able to visualize then start taking down the falciform and the preperitoneal tissue going up towards the sternum. While we take this down, we were then able to identify the fascial defects in the hernia. There was some fat stuck up in the hernia. This was carefully removed. Pushed all this down straight preperitoneally. At this point, I then elected to place a Bard 4 x 6 inch mesh, pushed and placed this into the abdomen and then made a small stab incision in the abdomen, able to then use a Jordan-Monika to go through this incision, grasped the balloon core capped and pulled this up, and then blew up the balloon, create some more preperitoneal space and then placed the balloon up past the hernia defects, and then tacked this in place with a SecureStrap, then tacked around it and then removed the balloon and then tacked the base and then tacked the middle incisions, and finally grasped the preperitoneal tissue as well as the falciform ligament, and tacked this backed up with SecureStrap. The mesh laid in there very nicely covering everything. Preperitoneal tissue covered this backed up at least half of it. It was very good closure. I then looked down into the pelvis, saw left inguinal hernia on the right. At this point, I then removed the ports under direct visualization and allowed pneumoperitoneum to escape. Closed the infraumbilical incision with 0 Vicryl suture previously placed. Copiously irrigated all incisions with normal saline and closed the 2 small 5 mm incisions with a single interrupted 4-0 undyed Monocryl subcuticular stitch and the infraumbilical incision closed with 3 interrupted 4-0 undyed Monocryl subcuticular stitches. Area was cleaned and dried, and Dermabond placed as well as Band-Aids. The patient then transferred to recovery room in stable condition. Sponge, instrument and needle count were correct at the end of the case. Dr. Bojorquez assisted in the laparoscopic ventral herniorrhaphy helping to make incisions, close incisions as well as identify anatomy, hold the anatomy out of the way and use of LigaSure. Job ID: [id number] DocumentID: [id number] Dictated Date: 07/02/2018 11:28:43 Carton Liner Date: 07/02/2018 15:25:16 Dictated By: HERIBERTO BARRY DO
== END 2018-07-02 14:30 | disposition home or self-care (01) ==
LOC: SDC 07:16
PROVIDERS: ATTEND Surgery
DX: K29.50 Unspecified chronic gastritis without bleeding (principal); K21.0 Gastro-esophageal reflux disease with esophagitis; K43.2 Incisional hernia without obstruction or gangrene; K40.90 Unilateral inguinal hernia, without obstruction or gangrene, not specified as recurrent; I48.0 Paroxysmal atrial fibrillation; I08.1 Rheumatic disorders of both mitral and tricuspid valves; I11.9 Hypertensive heart disease without heart failure; M06.9 Rheumatoid arthritis, unspecified; F32.9 Major depressive disorder, single episode, unspecified; F17.210 Nicotine dependence, cigarettes, uncomplicated; Z79.899 Other long term (current) drug therapy; Z79.82 Long term (current) use of aspirin; Z95.2 Presence of prosthetic heart valve; Z79.01 Long term (current) use of anticoagulants; Z95.0 Presence of cardiac pacemaker; Z86.73 Personal history of transient ischemic attack (TIA), and cerebral infarction without residual deficits
CPT/HCPCS: 87081; 88305; 88342; 93005; 94640; 94664

== ENCOUNTER → 2018-10-10 | Outpatient (CLI) | payer MEDICAID ==
[~2018-10-10] MED LIST changes: +ACHD5005 PO
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
== END ==
LOC: RAD 13:55
PROVIDERS: ATTEND Otolaryngology Otolaryngology/Facial Plastic Surgery
DX: H57.12 Ocular pain, left eye (principal); R51 Headache
CPT/HCPCS: 70486

== ENCOUNTER 2018-12-13 12:42 | Emergency (ER) | payer OTHER, MEDICAID | END 2018-12-13 17:01 | disposition home or self-care (01) | LOC: ER FS 12:42 ==

== ENCOUNTER → 2019-06-01 | Outpatient (CLI) | payer MEDICAID ==
[~2019-06-01] MED LIST changes: +DILT240C92 PO; -DILT240C97 PO; +IBUP-1780 PO; -METO-370 PO; -METO-387 PO; +METO50TA7 PO; +MTP25TSR PO
--- NOTE | 2019-06-01 14:45 | Diagnostic Imaging Report ---
INDICATION: Pre-MRI screening. TIME OF EXAM: 2:42 p.m. COMPARISON: Correlation is made with prior chest from 12/13/2018. FINDINGS: Changes of median sternotomy are noted. There is a dual lead left subclavian cardiac pacemaker. Pacemaker lead tips appear to be in the region of the right atrium and right ventricle. No abandoned leads are identified. The lungs are clear. The pulmonary vascularity is normal. There is no infiltrate, effusion, or pneumothorax. IMPRESSION: No evidence of abandoned leads. Dictated by: Dictated on workstation # [id number]
--- NOTE | 2019-06-01 16:06 | Diagnostic Imaging Report ---
EXAMINATION: Magnetic resonance imaging of the left wrist without contrast. DATE: June 01, 2019. COMPARISON: None. HISTORY: 58-year-old male, fall 4 months ago. Left wrist pain. TECHNIQUE: Magnetic Resonance Imaging sequences were performed of the wrist without contrast. FINDINGS: TRIANGULAR FIBROCARTILAGE COMPLEX: The triangular fibrocartilage is grossly intact on non arthrogram assessment. INTRINSIC LIGAMENTS: The lunotriquetral ligament is grossly intact. There is increased signal in the scapholunate ligament raising suspicion for potential tear of the ligament. This would be more optimally evaluated with a dedicated MRI arthrogram study. JOINTS: There is severe joint space loss of the radioscaphoid articulation. There is no large joint effusion. CARPAL TUNNEL: The flexor retinaculum is unremarkable. The flexor digitorum superficialis and profundus are intact. The median nerve is unremarkable. FLEXOR TENDONS: The flexor carpi ulnaris, flexor pollicis longus, and carpi radialis are intact. EXTENSOR TENDONS: Radial side extensor tendons are intact including: extensor pollicis longus, extensor carpi radialis brevis, extensor carpi radialis longus, extensor pollicis brevis, and abductor pollicis longus. The extensor carpi ulnaris, extensor digitorum, extensor digiti minimi, and extensor indicis tendons are intact. BONE: There are cystic changes in the scaphoid and lunate centered near the scapholunate interval. There are cystic changes in the capitate. There is no proximal migration of the capitate. There is widening of the scapholunate interval. There is no abnormal widening of the lunotriquetral interval. There is a type II lunate facet with arthrosis between the lunate and hamate. BURSAE AND SOFT TISSUES: The bursae and soft tissues surrounding the wrist are within normal limits. IMPRESSION: 1. Severe joint space loss of the radioscaphoid articulation. 2. Abnormal signal in the scapholunate ligament which does raise suspicion of a tear. There is mild widening of the scapholunate interval without proximal migration of the capitate. There are degenerative related marrow changes adjacent to the scapholunate interval. 3. Intact tendons without evidence of tenosynovitis. 4. No acute fracture or evidence of osteonecrosis. 5. No joint effusion. Dictated by: Dictated on workstation # [id number]
== END ==
LOC: RAD 13:43
PROVIDERS: ATTEND Nurse Practitioner
DX: S62.025A Nondisplaced fracture of middle third of navicular [scaphoid] bone of left wrist, initial encounter for closed fracture (principal); M25.832 Other specified joint disorders, left wrist
CPT/HCPCS: 71045; 73221

== ENCOUNTER 2021-10-26 13:57 | Emergency (ER) | payer MEDICAID ==
[~2021-10-26] VITALS: Ht 175.3 cm; Wt 90.7 kg
[~2021-10-26 13:57] MED LIST changes: +CLN.1T PO; +GABA300C PO; +GABA300S2 PO; +LOSA100T57 PO; +METO50TA15 PO; -PANT40TA3 PO; +PANT40TA52 PO
--- NOTE | 2021-10-26 14:25 | ED Upper Extremity ---
General Chief Complaint: Upper Extremity Stated Complaint: L SIDED PAIN, FELL Source: patient Exam Limitations: no limitations (CORONA QUIROZ) History of Present Illness Date Seen by Provider: Oct 26, 2021 Time Seen by Provider: 14:22 Initial Comments Patient is a 60-year-old male who presents ED for left shoulder pain, left hip pain and left foot pain. Patient states 2 days ago he was attempting to climb a fence when he missed a step falling into the mud on his left side. Denies hitting his head or loss of conscious but complaining of left shoulder pain. Was able to ambulate and crawl up the bank as he was attempting to get water for his truck that overheated. He is on blood thinners. Denies any head pain, neck pain. Patient's main complaint is left shoulder pain which became worse the next day with any type of movement. Took anti-inflammatories at home without much improvement. Patient does have a pacemaker on the left side. Denies of any abdominal pain, chest pain, cough, shortness of breath, fever, chills, lower extremity numbness or tingling. Able to ambulate and walk. (CORONA QUIROZ) Allergies and Home Medications Allergies Coded Allergies: No Known Drug Allergies (Unverified , 08/02/16) Patient Home Medication List Home Medication List Reviewed: Yes (CORONA QUIROZ) Atorvastatin Calcium (Atorvastatin Calcium) 10 Mg Tablet, 10 MG PO HS, (Reported) Entered as Reported by: BOLIVAR POOL on 01/28/17 1214 Clonidine HCl (Clonidine HCl) 0.1 Mg Tablet, 0.1 MG PO TID PRN for BLOOD PRESSURE, (Reported) Entered as Reported by: ELIZABETH CORBIN on 06/21/21 0303 Gabapentin (Neurontin) 300 Mg Capsule, 300 MG PO TID, (Reported) Entered as Reported by: BONNIE JHAVERI on 06/21/21 0947 Hydrocodone/Acetaminophen (Hydrocodone-Acetamin 5-325 mg) 5 Mg-325 Mg Tablet, 1 TAB PO Q4H PRN for PAIN-MODERATE (5-7) Prescribed by: YESENIA TADEO on 10/26/21 1519 Ipratropium/Albuterol Sulfate (Iprat-Albut 0.5-3(2.5) mg/3 ml) 3 Ml Ampul.neb, 3 ML NEB Q6H PRN for SHORTNESS OF BREATH, (Reported) Entered as Reported by: BOLIVAR POOL on 02/18/18 0908 Losartan Potassium (Losartan Potassium) 100 Mg Tablet, 100 MG PO DAILY, (Reported) Entered as Reported by: ELIZABETH CORBIN on 06/21/21 0256 Losartan Potassium (Losartan Potassium) 100 Mg Tablet, 100 MG PO DAILY Prescribed by: YESENIA TADEO on 10/26/21 1519 Metoprolol Tartrate (Metoprolol Tartrate) 50 Mg Tablet, 75 MG PO BID, (Reported) Entered as Reported by: BONNIE JHAVERI on 06/21/21 0947 Pantoprazole Sodium (Pantoprazole Sodium) 40 Mg Tablet.dr, 40 MG PO DAILY, (Reported) Entered as Reported by: BOLIVAR POOL on 02/18/18 0908 Review of Systems Constitutional: No chills, No diaphoresis, No fever, No malaise, No weakness EENTM: No hearing loss, No ear pain, No blurred vision, No mouth pain, No mouth swelling, No throat pain, No throat swelling Cardiovascular: No chest pain, No Hx of Intervention, No syncope, No vascular heart diseas Gastrointestinal: No abdominal pain, No diarrhea, No nausea, No vomiting Genitourinary: No decreased output, No discharge Musculoskeletal: No back pain; joint pain, muscle pain, muscle stiffness Skin: No change in color (CORONA QUIROZ) All Other Systems Reviewed Negative Unless Noted: Yes (CORONA QUIROZ) Past Emyjzqa-Lexqzu-Ornhva Hx Immunizations Up To Date Tetanus Booster (TDap): More than 5yrs (CORONA QUIROZ) Seasonal Allergies Seasonal Allergies: No (CORONA QUIROZ) Past Medical History Surgery/Hospitalization HX: cabg, valve replacement, ppm, afib, htn, arthritis Surgeries: Yes Abdominal, Cardiac, Coronary Stent, Pacemaker, Valve Replacement Respiratory: Yes Pneumonia Cardiac: Yes Atrial Fibrillation, High Cholesterol, Hypertension, Valvular Heart Disease Neurological: No Sexually Transmitted Disease: No HIV/AIDS: No Genitourinary: No Gastrointestinal: No Musculoskeletal: Yes Arthritis, Rheumatoid Arthritis Endocrine: No HEENT: Yes (EDENTULOUS) Cancer: No Psychosocial: Yes (SUBSTANCE ABUSE) Anxiety, Depression Integumentary: No Blood Disorders: No Adverse Reaction/Blood Tranf: No (CORONA QUIROZ) Family Medical History Alzheimer's disease 19 MOTHER Cardiovascular disease G8 BROTHER (PACEMAKER/DIFIB) No Pertinent Family Hx, Diabetes PT WITH LONG HISTORY OF NON-COMPLIANCE IN ALL ASPECTS OF CARE, PER OLD RECORDS SOCIAL HISTORY: -SMOKES 1 PPD -ETOH--UNKNOWN IF HE DRINKS, OF 06/21/21 -DRUGS--UDS + FOR METHAMPHETAMINE AND THC 06/21/21 PAST SURGICAL HISTORY: -07/02/2018-EGD + REPAIR OF INCARCERATED VENTRAL INCISIONAL HERNIA WITH MESH PLACEMENT BY DR. VERMA. -08/23/2016--CARDIAC CATH BY DR. DICKSON: Post-operative diagnosis: [id number] coronary artery disease. Normal LV function with severe MR. infrarenal abdominal aortic aneurysm. -09/2016--MITRAL VALVE REPLACEMENT -01/28/2017--DUAL CHAMBER PACEMAKER BY DR. DICKSON. (CORONA QUIROZ) Physical Exam Vital Signs Vital Signs - First Documented 10/26/21 14:04 Temp 37.2 Pulse 70 Resp 18 B/P (MAP) 121/90 (100) Pulse Ox 98 O2 Delivery Room Air (GILMAR LORD MD) Vital Signs Capillary Refill : (CORONA QUIROZ) Height, Weight, BMI Height: 5'10.00" Weight: 197lbs. 0.0oz. [id number]; 30.72 BMI Method:Stated General Appearance: WD/WN, no apparent distress HEENT: PERRL/EOMI, normal ENT inspection, TMs normal, pharynx normal Neck: non-tender, full range of motion, supple Cardiovascular: regular rate, rhythm, no edema, no gallop, no JVD Respiratory: chest non-tender, lungs clear, normal breath sounds, no respiratory distress, no accessory muscle use Gastrointestinal: normal bowel sounds, non tender, soft, no organomegaly, no pulsatile mass Back: normal inspection, no CVA tenderness, no vertebral tenderness Shoulder: pain (Left anterior shoulder, left lateral shoulder.), soft tissue tenderness Elbow/Forearm: normal inspection, non-tender, no evidence of injury, normal ROM, Left Wrist: Yes normal inspection, Yes non-tender, Yes no evidence of injury, Yes normal ROM Hand: normal inspection, non-tender, no evidence of injury, normal ROM, Left Neurologic/Tendon: normal sensation, normal motor functions, normal tendon functions Neurologic/Psychiatric: 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 Limited passive and active range of motion left shoulder. Cannot rule out rotator cuff injury but I am concern secondary to weakness noted on the left shoulder with certain movements. This will need to be further evaluated by orthopedic. sling for comfort but discussed range of motion exercises at home. Orthopedic outpatient follow-up 7 to 10 days for further evaluation as needed. Recommend rest. Will discharge with pain medication. Patient is with requesting refill of his losartan. (CORONA QUIROZ) Impression Primary Impression: Shoulder pain Disposition: 01 HOME, SELF-CARE Condition: Stable Departure-Patient Inst. Decision time for Depature: 15:11 (CORONA QUIROZ) Referrals: NO,LOCAL PHYSICIAN (PCP) Primary Care Physician MARTINEZ WHITTINGTON MD Patient Instructions: Shoulder Pain ED Scripts Hydrocodone/Acetaminophen (Hydrocodone-Acetamin 5-325 mg) 5 Mg-325 Mg Tablet 1 TAB PO Q4H PRN for PAIN-MODERATE (5-7), #8 TAB Prov: COROAN QUIROZ 10/26/21 Losartan Potassium (Losartan Potassium) 100 Mg Tablet 100 MG PO DAILY, #20 TAB Prov: CORONA QUIROZ 10/26/21 PHYSICIAN ATTESTATION NOTE: I was present in the ER while CLEARING TUB WORKER / PA saw the patient, but I was not involved in the care, exam, or management of the patient. (GILMAR LORD MD) CORONA QUIROZ Oct 26, 2021 14:24 GILMAR LORD MD Oct 28, 2021 23:06
[2021-10-26] MEDS ORDERED: HYDROcodone/APAP 5 MG/325 MG (LORTAB) TAB PO ONE (14:30)
--- NOTE | 2021-10-26 14:59 | Diagnostic Imaging Report ---
INDICATION: Fall, with left chest pain. TIME OF EXAM: 2:42 p.m. COMPARISON: Correlation is made with prior chest from 06/23/2021. FINDINGS: Changes of median sternotomy are noted. Cardiac pacer is in place. Lungs are clear. No pulmonary contusion is seen. There is no effusion or pneumothorax. No definite rib fracture is seen. IMPRESSION: No acute cardiopulmonary process is detected. Dictated by: Dictated on workstation # [id number]
--- NOTE | 2021-10-26 15:00 | Diagnostic Imaging Report ---
INDICATION: Left shoulder pain, fall. TIME OF EXAM: 2:43 p.m. FINDINGS: Three views of the left shoulder demonstrate normal glenohumeral and acromioclavicular alignment. Acromiohumeral space is normal. No fracture or dislocation is identified. There are some degenerative changes at the acromioclavicular and glenohumeral joints. IMPRESSION: Degenerative changes. No acute bony abnormality is detected. Dictated by: Dictated on workstation # [id number]
--- NOTE | 2021-10-26 15:01 | Diagnostic Imaging Report ---
EXAMINATION: Left hip unilateral 2 or 3 views (w/pelvis when done) HISTORY: Pain status post injury. COMPARISON: None available. FINDINGS: Minimal spurring seen along the lateral border of the femoral head. There are no fractures or dislocations. Soft tissues unremarkable. IMPRESSION: No acute fracture. Dictated by: Dictated on workstation # [id number]
[2021-10-26] MEDS ORDERED: LOSA100T57 PO ×2 (15:12→15:19)
[2021-10-26] MEDS ORDERED: ACHD5005 PO ×2 (15:12→15:19)
[2021-10-26 15:15] VITALS: BP 127/87
== END 2021-10-26 15:15 | disposition home or self-care (01) ==
LOC: EDUNIT# 13:57 → ER 13:59
DX: M25.512 Pain in left shoulder (principal); I48.91 Unspecified atrial fibrillation; Z28.310 Unvaccinated for COVID-19; Z79.01 Long term (current) use of anticoagulants
CPT/HCPCS: 71045; 73030; 73502

== ENCOUNTER 2021-11-18 21:32 | Emergency (ER) | payer MEDICAID ==
[2021-11-18 22:06] VITALS: BP_SYST 121; BP_SYST 127; BP_SYST 148; BP_DIAS 112; BP_DIAS 89; BP_DIAS 96
[2021-11-18] MEDS ORDERED: NS IV 1000 ML 1,000 ML IV SCH (23:15)
== END 2021-11-18 23:07 | disposition left against medical advice (07) ==
LOC: EDUNIT# 21:32 → ER 21:35
DX: T82.118A Breakdown (mechanical) of other cardiac electronic device, initial encounter (principal); R55 Syncope and collapse; Z95.0 Presence of cardiac pacemaker; Z28.310 Unvaccinated for COVID-19; W19.XXXA Unspecified fall, initial encounter
CPT/HCPCS: 93005

== ENCOUNTER → 2021-11-21 | Outpatient (CLI) | payer MEDICAID | LOC: CARD 09:11 | PROVIDERS: ATTEND Internal Medicine Cardiovascular Disease | DX: I11.9 Hypertensive heart disease without heart failure (principal); I35.0 Nonrheumatic aortic (valve) stenosis; I25.10 Atherosclerotic heart disease of native coronary artery without angina pectoris; Z95.2 Presence of prosthetic heart valve | CPT/HCPCS: 93306 ==

== ENCOUNTER → 2021-11-29 | Outpatient (CLI) | payer MEDICAID ==
[~2021-11-29] VITALS: Ht 177 cm; Wt 91.0 kg
[~2021-11-29] MED LIST changes: +ONDANSETRON 4 MG/2 ML (SDV) Z0FRAN IVP ONE; +ONDANSETRON 4 MG/2 ML (SDV) Z0FRAN ONE; +REGADENOSON 0.4 MG/5 ML SYR (LEXISCAN) IV ONE; +meTOprolol 5 MG/5 ML (LOPRESSOR) VIAL IV ONE; +meTOprolol 5 MG/5 ML (LOPRESSOR) VIAL ONE
[2021-11-29] MEDS: CATHETER FLUSH 10 ML SYR IVP PRN ×3 (07:04→09:32)
[2021-11-29 08:55] VITALS: BP 173/113
[2021-11-29 09:20] VITALS: BP 168/142
--- NOTE | 2021-11-29 13:21 | Cardiology Stress Test Report ---
Stress Test Report Date of Procedure/Referring: Date of Procedure: Nov 29, 2021 PCP No,Local Physician Admitting Physician Admitting Physician: Attending Physician: Jeffy Parks MD Indications: CP Baseline Heart Rate: 77 Baseline Blood Pressure: Blood Pressure Systolic: 168 Blood Pressure Diastolic: 142 Baseline Vitals Vital Signs Date Time Temp Pulse Resp B/P (MAP) Pulse Ox O2 Delivery O2 Flow Rate FiO2 11/29/21 08:55 77 173/113 (133) 11/29/21 09:20 20 99 Room Air Baseline EKG: Baseline EKG: NSR Summary After explaining the procedure to the patient, he signed a consent and then brought to the stress nuclear laboratory. Patient received 0.4 mg Lexiscan for stress test, ECG, heart rate and blood pressure were monitored continuously. Resting and stress dose of radio tracer were injected, imaging was acquired and reviewed in short axis, horizontal long axis and vertical long axis views. TID: 1.14 SSS: 6 SDS: 5 EF: 48 1. Patient tolerated Lexiscan well 2. Diaphragmatic attenuation with reversible ischemia involving the mid to apical inferior wall and inferolateral wall 3. Normal left ventricular size, mild hypokinesia of the inferior wall, ejection fraction 48% JEFFY PARKS MD Nov 29, 2021 13:21
== END ==
LOC: CARD 08:00
PROVIDERS: ATTEND Internal Medicine Cardiovascular Disease
DX: I25.10 Atherosclerotic heart disease of native coronary artery without angina pectoris (principal); I10 Essential (primary) hypertension
CPT/HCPCS: 78452; 93017; A9502

== ENCOUNTER 2021-12-06 11:00 | Day surgery (SDC) | payer MEDICAID ==
[2021-12-06] VITALS (19 sets, daily range): BP systolic 142–195; BP diastolic 106–138
[~2021-12-06] VITALS: Ht 177.8 cm; Wt 87.3 kg
[2021-12-06 09:30] LABS: HEMATOCRIT 47 % (40-54); HEMOGLOBIN 16.1 g/dL (13.3-17.7); MEAN CORPUSCULAR HEMOGLOBIN 32 pg (25-34); MEAN CORPUSCULAR HGB CONC 34 g/dL (32-36); MEAN CORPUSCULAR VOLUME 94 fL (80-99); PLATELET COUNT 255 10^3/uL (130-400); WHITE BLOOD COUNT 10.5 10^3/uL (4.3-11.0)
[2021-12-06 09:53] LABS: INR 1.1 (0.8-1.4); PROTHROMBIN TIME PATIENT 14.4 SEC (12.2-14.7)
--- NOTE | 2021-12-06 09:53 | Diagnostic Imaging Report ---
INDICATION: Abnormal stress test. COMPARISON: 10/26/2021. EXAMINATION: Portable chest. FINDINGS: The lungs are well-aerated and clear. The heart is not enlarged. A dual-chamber pacemaker is present with the leads unchanged in position. No evidence of pulmonary edema. No hilar adenopathy. No pneumothorax or pleural effusion. IMPRESSION: No significant change when compared with the previous exam. Dictated by: Dictated on workstation # [id number]
[2021-12-06 10:02] LABS: ALBUMIN 4.3 GM/DL (3.2-4.5); CALCIUM 9.2 MG/DL (8.5-10.1); CREATININE SERUM 1.17 MG/DL (0.60-1.30); POTASSIUM 3.9 MMOL/L (3.6-5.0); TOTAL PROTEIN 7.4 GM/DL (6.4-8.2)
--- NOTE | 2021-12-06 10:05 | Cardiac Procedure Note-CS/ASA ---
Pre-Procedure Note Pre-Op Procedure Note Date of Available H&P: Nov 30, 2021 Date H&P Reviewed: Dec 06, 2021 Time H&P Reviewed: 10:05 History & Physical: H&P Reviewed, Patient Examed, No changes noted Pre-Operative Diagnosis: CAD Conscious Sedation Pre-Proced Time 10:05 ASA Score 3 For ASA 3 and 4: Consider anesthesia and medical clearance. Also, for patients with a history of failed moderate sedation consider anesthesia. Airway Lungs Heart ASA score ASA 1: a normal healthy patient ASA 2: a patient with a mild systemic disease (mid diabetes, controlled hypertension, obesity x ASA 3: a patient with a severe systemic disease that limits activity (angina, COPD, prior Myocardial infarction) ASA 4: a patient with an incapacitating disease that is a constant threat to life (CHF, renal failure) ASA 5: a moribund patient not expected to survive 24 hrs. (ruptured aneurysm) ASA 6: a declared brain- patient whose organs are being harvested. For emergent operations, add the letter E after the classification Mallampati Classification Grade 3 Sedation Plan Analgesia, Amnesia, Plan communicated to team members, Discussed options with patient/fam, Discussed risks with patient/fam The patient is an appropriate candidate to undergo the planned procedure, sedation, and anesthesia. The patient immediately re-assessed prior to indication. JEFFY SCHMITT MD Dec 06, 2021 10:05
[~2021-12-06 11:00] MED LIST changes: +ASPI-808 PO; +CLN.2T PO; +HEParin (CATH LAB) 2,000 ML IV ONE; +HEParin 1000 UNIT/ML (10ML VIAL) FOR BOLUS ONE; +LIDOCAINE 1% INJ 20 ML VIAL ONE; +MIDAZOLAM 2 MG/2 ML (VERSED) VIAL ONE; +NS IV 1000 ML 1,000 ML IV SCH; +NS IV 1000 ML 1,000 ML ONE; -ONDANSETRON 4 MG/2 ML (SDV) Z0FRAN IVP ONE; -ONDANSETRON 4 MG/2 ML (SDV) Z0FRAN ONE; -REGADENOSON 0.4 MG/5 ML SYR (LEXISCAN) IV ONE; +fentaNYL INJ 100 MCG/2 ML AMP ONE; -meTOprolol 5 MG/5 ML (LOPRESSOR) VIAL IV ONE; -meTOprolol 5 MG/5 ML (LOPRESSOR) VIAL ONE
[2021-12-06] MEDS ORDERED: EPTIFIBATIDE BOLUS 20 ML IV ONE (11:20)
[2021-12-06] MEDS ORDERED: ATROPINE INJECTION 1 MG/10 ML SYR (ABBOTT) ONE (11:25)
[2021-12-06] MEDS ORDERED: fentaNYL INJ 100 MCG/2 ML AMP ONE ×2 (11:28→13:20)
[2021-12-06] MEDS ORDERED: TICAGRELOR 90 MG TABLET (BRILINTA) PO ONE (11:35)
[2021-12-06] MEDS ORDERED: ASPIRIN 325 MG (5 GR) TABLET ONE (11:35)
[2021-12-06] MEDS ORDERED: meTOprolol 5 MG/5 ML (LOPRESSOR) VIAL ONE (11:36)
[2021-12-06] MEDS ORDERED: PATIENT MAY USE OWN MEDS, ALL PO SCH (11:45)
[2021-12-06] MEDS ORDERED: NS IV 1000 ML 1,000 ML IV SCH (11:45)
--- NOTE | 2021-12-06 11:50 | Cardiac Cath Report ---
Cardiac Cath Report Physician (s)/[employer]) Physician JEFFY SCHMITT MD Pre-Procedure Diagnosis Pre-Procedure Diagnosis: CAD Post-Procedure Note Procedure Start Date: Dec 06, 2021 Name of Procedure: Left heart catheterization IFR to the right coronary artery Stenting of the right coronary artery Angiogram to the left renal artery Findings/Procedure Note PROCEDURE NOTE: 60-year-old gentleman with peripheral arterial disease, coronary artery disease and hypertension, mitral valve replacement and pacemaker, had an abnormal stress test, scheduled for cardiac catheterization possible PTCA. After explaining the procedure to the patient, all pros and cons were explained, all questions were answered. The patient signed the consent and then he was placed on the cardiac catheterization laboratory. Groin was prepped SL fashion local anesthesia was used. Sheath placed in the right femoral artery artery. Ryan right and left catheter were used to access the coronary system. Ryan right was prolapsed to the left ventricular cavity, then I pulled it back and engage the left renal artery, angiogram was done, I was unable to engage the right renal artery. Patient had multiple lesions in the right coronary artery, received a total of the 6000 heparin double bolus Integrilin Ryan right catheter was used and IFR was advanced to the distal right coronary artery Baseline IFR was 0.84. I proceeded with deployment of three 5 x 15 mm stent expanded to 3.8 mm distally then I checked IFR and stayed 0.84. I did a pullback and it showed the mid right coronary artery with a pressure gradient increase. Then I proceeded with deployment of 3.5 x 23 mm stent in the mid right coronary artery, post intervention angiogram I saw haziness in the proximal to mid right coronary artery and I was concerned about dissection. I proceeded with deployment of a third stent three 5 x 28 mm stent, angiogram showed excellent results. At the end of the procedure the sheath was removed. Closure device was deployed FINDINGS: Hemodynamics LV 162/15, end-diastolic pressure of 15 Aorta 151/94 mean of 119 ANATOMY: Left Main is free of obstructive disease Left Anterior Descending has mild disease nonobstructive disease Left Circumflex has mild disease nonobstructive disease Right Coronary Artery is dominant artery and calcified in the mid right coronary artery, IFR was done and it was significant. Then patient underwent complex intervention with deployment of 3 elinor point stents distally 3.5 x 15 mm midportion 3.5 x 23 mm and proximally 3.5 x 28 mm with excellent results LV Gram was not done, pressure was measured Selective left renal angiogram showed no obstructive disease in the left renal artery I was unable to identify the right renal artery CONCLUSION: 1. Severe stenosis at multiple segment of the right coronary artery with successful deployment of 3 skypoint stents in the right coronary artery distally 3.5 x 15 mm midportion 3.5 x 23 mm and proximally 3.5 x 28 mm with excellent results 2. Normal left ventricular end-diastolic pressure 3. Normal left renal artery 4. Unable to identify the right renal artery DISCUSSION AND RECOMMENDATION: Will continue on aspirin and Brilinta, maximize medical therapy and planning to evaluate CT angiogram of the abdominal aorta and renal arteries in the future Anesthesia Type: Conscious Sedation Estimated blood loss (mL): 35 ml Contrast Amount: 130 ml Total Radiation Dose: 1833 mGy Post-Procedure Diagnosis Post-operative diagnosis: Coronary artery disease Malignant hypertension Hyperlipidemia Mitral valve replacement Permanent pacemaker JEFFY SCHMITT MD Dec 06, 2021 11:50
[2021-12-06] MEDS ORDERED: cloNIDine 0.2 MG (CATAPRES) TAB PO SCH (13:00)
[2021-12-06] MEDS ORDERED: GABAPENTIN 300 MG (NEURONTIN) CAP PO SCH (13:00)
[2021-12-06] MEDS ORDERED: LORazepam INJ 2 MG/ML (ATIVAN) VIAL ONE (13:32)
[2021-12-06] MEDS: LORazepam INJ 2 MG/ML (ATIVAN) VIAL IVP NR ×2 (13:36→16:53)
[2021-12-06] MEDS ORDERED: ASPI-1238 PO (15:41)
[2021-12-06] MEDS ORDERED: TICA90TA PO (15:41)
--- NOTE | 2021-12-06 15:42 | Discharge Inst-Post CATH ---
Discharge Inst-CATH/EP Problems Reviewed?: Yes Post Cardiac Cath/EP D/C Inst Follow Up/Plan Appointment with Dr. Parks's office in 2 to 4 weeks <b>CARDIAC CATH/EP PROCEDURE DISCHARGE INSTRUCTIONS</b> ACTIVITY * Go Home directly and rest. * Limit activity of the leg (or wrist if it was used) for 7 days including aer obics, swimming, jogging, bicycling, etc. * Restrict stair-climbing for 7 days if possible, if not, climb up with your non-cath leg, then bring together on the same step. * Avoid lifting, pushing, pulling or excessive movement of the affected extremi ty for 7 days. * Customary sexual activity may be resumed after 2 days-use caution not to use a position that strains or causes pain to the affected extremity. * No driving for 24 hours. * NO SMOKING. * Avoid straining for bowel movements for 7 days. * Gentle walking on level ground is allowed. * Returning to work will depend on the type of procedure and the results. Your doctor will discuss this with you. CALL YOUR DOCTOR FOR ANY OF THE FOLLOWING: *If bleeding from the puncture site occurs- Apply gentle pressure to site with clean cloth and call your doctor or EMS. * If a knot or lump forms under the skin, increases in size, or causes pain. * If bruising appears to be worsening or moving further down your leg instead of disappearing. * Temperature above 101 F. CARE OF YOUR GROIN INCISION; * Bruising or purple discoloration of the skin near the puncture site is common. * You may shower only, no bathtub bathing for 5 days. Be careful to avoid slipping as your leg may feel stiff. * If a closure device was used on your femoral artery, please see the attached guide regarding care of the device and your leg. * Leave dressing on FOR 24 hours. CARE OF YOUR WRIST INCISION; * Bruising or purple discoloration of the skin near the puncture site is common. * You may shower. * DO NOT submerge wrist. * Leave dressing on FOR 24 hours. JEFFY PARKS MD Dec 06, 2021 15:42
[2021-12-06] MEDS ORDERED: TICAGRELOR 90 MG TABLET (BRILINTA) PO NR (16:30)
[2021-12-06] MEDS ORDERED: AtorvaSTATin TABLET 10 MG TABLET PO SCH (21:00)
[2021-12-06] MEDS ORDERED: meTOprolol TARTRATE 50 MG (LOPRESSOR) TAB PO SCH (21:00)
[2021-12-06] MEDS ORDERED: TICAGRELOR 90 MG TABLET (BRILINTA) PO SCH (21:00)
[2021-12-07] MEDS ORDERED: LOSARTAN 100 MG (COZAAR) TABLET PO SCH (09:00)
[2021-12-07] MEDS ORDERED: PANTOPRAZOLE 40 MG (PROTONIX) TAB PO SCH (09:00)
[2021-12-07] MEDS ORDERED: ASPIRIN E.C. 81 MG (ECOTRIN) TAB PO SCH (09:00)
== END 2021-12-06 18:50 | disposition home or self-care (01) ==
LOC: CATH 11:00 → ICU 11:45 → CATH 18:50
PROVIDERS: ATTEND Internal Medicine Cardiovascular Disease
DX: I25.10 Atherosclerotic heart disease of native coronary artery without angina pectoris (principal); I10 Essential (primary) hypertension; E78.5 Hyperlipidemia, unspecified; Z95.2 Presence of prosthetic heart valve; Z95.0 Presence of cardiac pacemaker; Z79.82 Long term (current) use of aspirin; E66.9 Obesity, unspecified; Z68.27 Body mass index [BMI] 27.0-27.9, adult; F17.210 Nicotine dependence, cigarettes, uncomplicated; I65.23 Occlusion and stenosis of bilateral carotid arteries; E87.2 Acidosis
CPT/HCPCS: 36252; 71045; 80053; 80061; 85027; 85610; 85730; 87081; 93005; 93458; 93571; C1725; C1760; C1769 ×2; C1874 ×3; C1887; C1894; C9600; 36415

== ENCOUNTER 2022-01-11 10:59 | Emergency (ER) | payer MEDICAID ==
[~2022-01-11] VITALS: Ht 177.8 cm; Wt 86.2 kg
[~2022-01-11 10:59] MED LIST changes: +ASPI-1238 PO; -HEParin (CATH LAB) 2,000 ML IV ONE; -HEParin 1000 UNIT/ML (10ML VIAL) FOR BOLUS ONE; -LIDOCAINE 1% INJ 20 ML VIAL ONE; -MIDAZOLAM 2 MG/2 ML (VERSED) VIAL ONE; -NS IV 1000 ML 1,000 ML IV SCH; -NS IV 1000 ML 1,000 ML ONE; +TICA90TA PO; -fentaNYL INJ 100 MCG/2 ML AMP ONE
--- NOTE | 2022-01-11 11:27 | ED Hip Pain/Injury ---
General Chief Complaint: Hip/Pelvic Problems Stated Complaint: RT HIP INJURY/FELL Nursing Triage Note: pt to room by wheelchair. pt states he got dizzy and fell to the floor. pt states he has right hip pain from fall preventing him from walking. pt states he thinks he hit his head on the floor. denies LOC. pt reports approx 25 falls recently. does not use a walking aid. History of Present Illness Date Seen by Provider: Jan 11, 2022 Time Seen by Provider: 11:25 Initial Comments Patient states that he has been falling a lot recently due to change in blood pressure medications. Fell this morning and hit head along with right hip. C/O right hip pain, head pain and lower back pain. Denies neck pain. Denies numbness, tingling, weakness, loss of bowel or bladder. Has not taken anything at home for his symptoms. Timing/Duration: just prior to arrival Location: hip (R) Method of Injury: fell Associated Symptoms: No fatigue, No fever Allergies and Home Medications Allergies Coded Allergies: Penicillins (Verified Allergy, Unknown, 12/06/21) Patient Home Medication List Home Medication List Reviewed: Yes Aspirin (Aspirin EC) 81 Mg Tablet., 81 MG PO DAILY Prescribed by: JEFFY SCHMITT on 12/06/21 1541 Atorvastatin Calcium (Atorvastatin Calcium) 10 Mg Tablet, 10 MG PO HS, (Reported) Entered as Reported by: BOLIVAR POOL on 01/28/17 1214 Clonidine HCl (Clonidine HCl) 0.2 Mg Tablet, 0.2 MG PO TID, (Reported) Entered as Reported by: JENNY DAVILA on 12/06/21 0933 Gabapentin (Neurontin) 300 Mg Capsule, 300 MG PO TID, (Reported) Entered as Reported by: BONNIE JHAVERI on 06/21/21 0947 Losartan Potassium (Losartan Potassium) 100 Mg Tablet, 100 MG PO DAILY, (Reported) Entered as Reported by: ELIZABETH CORBIN on 06/21/21 0256 Metoprolol Tartrate (Metoprolol Tartrate) 50 Mg Tablet, 75 MG PO BID, (Reported) Entered as Reported by: BONNIE JHAVERI on 06/21/21 0947 Pantoprazole Sodium (Pantoprazole Sodium) 40 Mg Tablet., 40 MG PO DAILY, (Reported) Entered as Reported by: BOLIVAR POOL on 02/18/18 0908 Ticagrelor (Brilinta) 90 Mg Tablet, 90 MG PO BID Prescribed by: JEFFY SCHMITT on 12/06/21 1541 Review of Systems Constitutional: No chills; dizziness; No fever EENTM: no symptoms reported Respiratory: No cough, No short of breath, No wheezing Cardiovascular: No chest pain, No edema, No palpitations Gastrointestinal: No abdominal pain, No diarrhea, No nausea, No vomiting Genitourinary: no symptoms reported Musculoskeletal: back pain, joint pain (right hip); No joint swelling Skin: No change in color, No pruritus, No rash Psychiatric/Neurological: Headache; Denies Tingling, Denies Tremors, Denies Weakness All Other Systems Reviewed Negative Unless Noted: Yes Past Zcbguww-Lbeybu-Gvsmab Hx Patient Social History Tobacco Use?: Yes Tobacco type used: Cigarettes Smoking Status: Current Everyday Smoker Use of E-Cig and/or Vaping dev: No Substance use?: No Alcohol Use?: No Immunizations Up To Date Tetanus Booster (TDap): More than 5yrs Influenza Vaccine Up-to-Date: No; Not Current Seasonal Allergies Seasonal Allergies: No Past Medical History Surgery/Hospitalization HX: cabg, valve replacement, ppm, afib, htn, arthritis Surgeries: Yes Abdominal, Cardiac, Pacemaker, Valve Replacement Respiratory: Yes Pneumonia Cardiac: Yes Atrial Fibrillation, High Cholesterol, Hypertension, Valvular Heart Disease Neurological: No Sexually Transmitted Disease: No HIV/AIDS: No Genitourinary: No Gastrointestinal: No Musculoskeletal: Yes Arthritis, Rheumatoid Arthritis Endocrine: No HEENT: Yes (EDENTULOUS) Cancer: No Psychosocial: Yes (SUBSTANCE ABUSE) Anxiety, Depression Integumentary: No Blood Disorders: No Adverse Reaction/Blood Tranf: No Family Medical History Reviewed Nursing Family Hx Alzheimer's disease 19 MOTHER Cardiovascular disease G8 BROTHER (PACEMAKER/DIFIB) No Pertinent Family Hx, Diabetes PT WITH LONG HISTORY OF NON-COMPLIANCE IN ALL ASPECTS OF CARE, PER OLD RECORDS SOCIAL HISTORY: -SMOKES 1 PPD -ETOH--UNKNOWN IF HE DRINKS, OF 06/21/21 -DRUGS--UDS + FOR METHAMPHETAMINE AND THC 06/21/21 PAST SURGICAL HISTORY: -07/02/2018-EGD + REPAIR OF INCARCERATED VENTRAL INCISIONAL HERNIA WITH MESH PLACEMENT BY DR. VERMA. -08/23/2016--CARDIAC CATH BY DR. DICKSON: Post-operative diagnosis: npec-jz-clohfved coronary artery disease. Normal LV function with severe MR. infrarenal abdominal aortic aneurysm. -09/2016--MITRAL VALVE REPLACEMENT -01/28/2017--DUAL CHAMBER PACEMAKER BY DR. DICKSON. Physical Exam Vital Signs Vital Signs - First Documented 01/11/22 11:12 Temp 36.6 Pulse 77 Resp 20 B/P (MAP) 129/92 (104) Pulse Ox 99 Capillary Refill : Height, Weight, BMI Height: 5'10.00" Weight: 197lbs. 0.0oz. 89.525718dx; 27.00 BMI Method:Stated General Appearance: No Apparent Distress, WD/WN Neck: Full Range of Motion, Normal Inspection, Non Tender, Supple Cardiovascular: Regular Rate, Rhythm, Normal Peripheral Pulses Respiratory: Chest Non Tender, Lungs Clear, Normal Breath Sounds, No Accessory Muscle Use, No Respiratory Distress Gastrointestinal: Normal Bowel Sounds, No Organomegaly, No Pulsatile Mass, Non Tender, Soft Back: No Vertebral Tenderness; No Vertebral Tenderness; Other (right lower paraspinal muscle tenderness to palpation) Extremity: Normal Capillary Refill, No Calf Tenderness; No Calf Tenderness; Pelvis Stable, Other (bony tenderness to right hip, no deformity or signs of trauma appreciated.) Neurologic/Psychiatric: Alert, Oriented x3, No Motor/Sensory Deficits, Normal Mood/Affect Skin: Normal Color, Warm/Dry Procedures/Interventions Date of ETT Placement: Jun 21, 2021 Time of ETT Placement: 106 Progress/Results/Core Measures Results/Orders My Orders Orders - SHUBHAM LANIER APRN Ed Iv/Invasive Line Start (01/11/22 11:27) Fentanyl Inj (Sublimaze Injection) (01/11/22 11:30) Ondansetron Injection (Zofran Injectio (01/11/22 11:30) Pelvis With Right Hip 2-3views (01/11/22 11:27) Lumbar Spine - 2-3 Views (01/11/22 11:27) Ct Head/Cervical Spine Wo (01/11/22 11:27) Medications Given in ED Current Medications Medications Dose Ordered Sig/Rao Route Start Time Stop Time Status Last Admin Dose Admin Fentanyl Citrate 50 mcg ONCE ONCE IVP 01/11/22 11:30 01/11/22 11:31 DC 01/11/22 11:35 50 MCG Ondansetron HCl 4 mg ONCE ONCE IVP 01/11/22 11:30 01/11/22 11:31 DC 01/11/22 11:35 4 MG Vital Signs/I&O 01/11/22 01/11/22 11:12 13:20 Temp 36.6 Pulse 77 72 Resp 20 B/P (MAP) 129/92 (104) 133/95 Pulse Ox 99 100 Blood Pressure Mean: 104 Progress Progress Note : Progress Note Patient reported that he has been falling a lot recently due to blood pressure medications adjustments. States that they have been having a hard time to keep things controlled. Denies LOC. Will obtain imaging and go from there. 1250: Had discussion with patient in regards to imaging results. His lumbar spine mentions likely aneurysm. History of aneurysm in the past. When I discussed this with him he states that he has never heard of having that. It is bigger then previous images. He is not having abdominal pain or chest pain. Instructed that he needs to follow up with PCP to see if they would like to do anything further with that. Home instructions reviewed with patient along with reasons to return to the ER. Diagnostic Imaging Diagonstic Imaging: Xray Plain Films/CT/US/NM/MRI: other (lumbar spine) Comments NAME: ZEE VELEZ I [facility] REC#: [id number] PT STATUS: REG ER : 1960 PHYSICIAN: SHUBHAM LANIER APRN ADMIT DATE: 01/11/22/ER Signed Date of Exam:01/11/22 LUMBAR SPINE - 2-3 VIEWS EXAMINATION: Lumbar spine radiograph EXAM DATE: 01/11/2022 12:19 PM COMPARISON: None available. HISTORY: Back pain after fall TECHNIQUE: 3 views FINDINGS: Vertebral body heights and alignment are normal. There is multilevel lumbar spondylosis. Disc heights are preserved. Lower lumbar facet hypertrophy. Vascular calcifications are present with likely aneurysmal dilatation of the aorta measuring up to 5.5 cm. IMPRESSION: 1. Degenerative changes lumbar spine without acute osseous abnormality. 2. Possible abdominal aortic aneurysm. If this has not previously been evaluated, consider evaluation with ultrasound or CT. Dictated by: Dictated on workstation # [id number] Dict: 01/11/22 1230 Trans: 01/11/22 1258 [facility] [id number] Interpreted by: KEMAL RUTLEDGE DO Electronically signed by: KEMAL RUTLEDGE DO 01/11/22 1258 Diagonstic Imaging: Xray Plain Films/CT/US/NM/MRI: pelvis, hip Comments NAME: ZEE VELEZ I [facility] REC#: [id number] PT STATUS: REG ER : 1960 PHYSICIAN: SHUBHAM LANIER APRN ADMIT DATE: 01/11/22/ER Signed Date of Exam:01/11/22 PELVIS WITH RIGHT HIP 2-3VIEWS EXAMINATION: Pelvis and right hip radiograph EXAM DATE: 01/11/2022 12:19 PM COMPARISON: None available. HISTORY: Right hip pain after fall TECHNIQUE: 3 views FINDINGS: There is no acute fracture, dislocation, or destructive osseous process. The joint spaces are normal. The soft tissues are normal. IMPRESSION: 1. No acute osseous abnormality. Dictated by: Dictated on workstation # [id number] Dict: 01/11/22 1233 Trans: 01/11/22 1258 [facility] [id number] Interpreted by: KEMAL RUTLEDGE DO Electronically signed by: KEMAL RUTLEDGE DO 01/11/22 1258 Diagonstic Imaging: CT Plain Films/CT/US/NM/MRI: c-spine, head Comments NAME: ZEE VELEZ [facility] REC#: [id number] PT STATUS: REG ER : 1960 PHYSICIAN: SHUBHAM LANIER APRN ADMIT DATE: 01/11/22/ER Draft Date of Exam:01/11/22 CT HEAD/CERVICAL SPINE WO CLINICAL INDICATION: Patient has fallen multiple times in the past month. This fall, patient hit posterior aspect of the head. Patient has blood pressure issues. EXAM: Head CT without IV contrast with sagittal and coronal reformations. Axial CT scan of the cervical spine with sagittal and coronal reformations. Auto Exposure Controls were utilized during the CT exam to meet ALARA standards for radiation dose reduction. COMPARISON: CT angiogram of the head/neck dated 06/20/2018. FINDINGS: Head CT: There is no evidence of acute cerebral infarct, intracranial hemorrhage, or gross mass effect. The brain parenchymal volume appears appropriate for patient's age. There are small areas of low-attenuation changes involving the left cerebellar hemisphere and white matter of both cerebral hemispheres, likely representing chronic small vessel ischemic disease. There is a 4 mm low-density area involving the anterior aspect of the right caudate which may represent lacunar infarct. There is normal zambrano-white matter distinction. There is no significant midline shift or herniation. There is no evidence of hydrocephalus. The basal cisterns are unremarkable. There is a small area of extracranial soft tissue swelling involving the posterior aspect of the head. There is no skull fracture. There is minimal mucosal thickening involving the frontal sinus and ethmoid sinus. Skull, extracranial soft tissue, and orbits are unremarkable. The paranasal sinuses are unremarkable. Temporal bones show no significant abnormality. Cervical spine: There is no evidence of acute cervical spine fracture. There is straightening of the cervical spine posture. There are hypertrophic spurs and severe loss of disk space height seen from the C4 through C7 levels. There is xolfqoik-cs-jfxiuh bilateral neural foramen narrowing seen from the C4 through C7 levels. There is at least satt-al-gkisuymf central canal narrowing at the C5-C6 level. There is no significant neck soft tissue abnormality. Visualized upper lung doty are clear. There are mild emphysematous changes involving both lung apices. IMPRESSION: 1: There is no evidence of acute intracranial process. 2: There is no skull fracture. 3: There is cervical spine degenerative disease with no acute fracture or dislocation. Dictated on workstation # [id number] Dict: 01/11/22 1216 Trans: 01/11/22 1241 [id number] Interpreted by: JAIMEE OLIVIA MD Electronically signed by: Departure Impression Primary Impression: Contusion of hip Qualified Codes: S70.01XA - Contusion of right hip, initial encounter Additional Impressions: Contusion of back Qualified Codes: S20.229A - Contusion of unspecified back wall of thorax, initial encounter Closed head injury Qualified Codes: S09.90XA - Unspecified injury of head, initial encounter Disposition: 01 HOME, SELF-CARE Condition: Stable Departure-Patient Inst. Decision time for Depature: 12:54 Referrals: JOSE ROBERTS MD (PCP) Primary Care Physician NO,LOCAL PHYSICIAN (Family) Primary Care Physician Patient Instructions: Contusion (DC), Closed Head Injury (DC) Add. Discharge Instructions: 1. Home and rest. 2. Tylenol as needed for pain. 3. Follow up with PCP as needed. 4. Consider using heating pad to areas as needed for pain. 5. Return here if worse or concerns. All discharge instructions reviewed with patient and/or family. Voiced understanding. SHUBHAM LANIER APRN Jan 11, 2022 11:27
[2022-01-11] MEDS ORDERED: ONDANSETRON 4 MG/2 ML (SDV) Z0FRAN IVP ONE (11:30)
[2022-01-11] MEDS ORDERED: fentaNYL INJ 100 MCG/2 ML AMP IVP ONE (11:30)
--- NOTE | 2022-01-11 12:41 | Diagnostic Imaging Report ---
EXAMINATION: Pelvis and right hip radiograph EXAM DATE: 01/11/2022 12:19 PM COMPARISON: None available. HISTORY: Right hip pain after fall TECHNIQUE: 3 views FINDINGS: There is no acute fracture, dislocation, or destructive osseous process. The joint spaces are normal. The soft tissues are normal. IMPRESSION: 1. No acute osseous abnormality. Dictated by: Dictated on workstation # [id number]
--- NOTE | 2022-01-11 12:41 | Diagnostic Imaging Report ---
CLINICAL INDICATION: Patient has fallen multiple times in the past month. This fall, patient hit posterior aspect of the head. Patient has blood pressure issues. EXAM: Head CT without IV contrast with sagittal and coronal reformations. Axial CT scan of the cervical spine with sagittal and coronal reformations. Auto Exposure Controls were utilized during the CT exam to meet ALARA standards for radiation dose reduction. COMPARISON: CT angiogram of the head/neck dated 06/20/2018. FINDINGS: Head CT: There is no evidence of acute cerebral infarct, intracranial hemorrhage, or gross mass effect. The brain parenchymal volume appears appropriate for patient's age. There are small areas of low-attenuation changes involving the left cerebellar hemisphere and white matter of both cerebral hemispheres, likely representing chronic small vessel ischemic disease. There is a 4 mm low-density area involving the anterior aspect of the right caudate which may represent lacunar infarct. There is normal zambrano-white matter distinction. There is no significant midline shift or herniation. There is no evidence of hydrocephalus. The basal cisterns are unremarkable. There is a small area of extracranial soft tissue swelling involving the posterior aspect of the head. There is no skull fracture. There is minimal mucosal thickening involving the frontal sinus and ethmoid sinus. Skull, extracranial soft tissue, and orbits are unremarkable. The paranasal sinuses are unremarkable. Temporal bones show no significant abnormality. Cervical spine: There is no evidence of acute cervical spine fracture. There is straightening of the cervical spine posture. There are hypertrophic spurs and severe loss of disk space height seen from the C4 through C7 levels. There is srkaijqo-kp-thkpiy bilateral neural foramen narrowing seen from the C4 through C7 levels. There is at least hzby-zx-tgriobdb central canal narrowing at the C5-C6 level. There is no significant neck soft tissue abnormality. Visualized upper lung doty are clear. There are mild emphysematous changes involving both lung apices. IMPRESSION: 1: There is no evidence of acute intracranial process. 2: There is no skull fracture. 3: There is cervical spine degenerative disease with no acute fracture or dislocation. Dictated by: Dictated on workstation # [id number]
--- NOTE | 2022-01-11 12:42 | Diagnostic Imaging Report ---
EXAMINATION: Lumbar spine radiograph EXAM DATE: 01/11/2022 12:19 PM COMPARISON: None available. HISTORY: Back pain after fall TECHNIQUE: 3 views FINDINGS: Vertebral body heights and alignment are normal. There is multilevel lumbar spondylosis. Disc heights are preserved. Lower lumbar facet hypertrophy. Vascular calcifications are present with likely aneurysmal dilatation of the aorta measuring up to 5.5 cm. IMPRESSION: 1. Degenerative changes lumbar spine without acute osseous abnormality. 2. Possible abdominal aortic aneurysm. If this has not previously been evaluated, consider evaluation with ultrasound or CT. Dictated by: Dictated on workstation # [id number]
[2022-01-11 13:20] VITALS: BP 133/95
== END 2022-01-11 13:23 | disposition home or self-care (01) ==
LOC: EDUNIT# 10:59 → ER 11:03
DX: S70.01XA Contusion of right hip, initial encounter (principal); S30.0XXA Contusion of lower back and pelvis, initial encounter; S09.90XA Unspecified injury of head, initial encounter; F17.210 Nicotine dependence, cigarettes, uncomplicated; W18.30XA Fall on same level, unspecified, initial encounter; W22.8XXA Striking against or struck by other objects, initial encounter
CPT/HCPCS: 70450; 72100; 72125

== ENCOUNTER → 2022-03-02 | Outpatient (CLI) | payer MEDICAID ==
[~2022-03-02] MED LIST changes: +ALBU8.5H6 INH; -RT-ALBUINH INH
--- NOTE | 2022-03-02 14:00 | Diagnostic Imaging Report ---
TIME OF STUDY: 03/02/2022, 1:06 p.m. CLINICAL HISTORY: History of abdominal aortic aneurysm without rupture. COMPARISON: None. TECHNIQUE: Limited abdominal sonogram was performed to evaluate the abdominal aorta. FINDINGS: The abdominal aorta is normal in course and caliber. There is no evidence of aneurysm. The axial dimensions of the abdominal aorta are: Proximal: Obscured due to bowel gas. Mid: 2.2 x 2.0 cm. Distal: 2.8 x 1.7 cm. Infrarenal abdominal aortic aneurysm is seen measuring 4.9 x 5.3 cm and 7.8 cm craniocaudal. The proximal portions of the right and left common iliac arteries are unremarkable. The right common iliac artery measures 0.9 x 1.5 cm in diameter. The left common iliac artery measures 1.0 x 1.5 cm. No large retroperitoneal masses or fluid collections are seen. IMPRESSION: 1. Infrarenal abdominal aortic aneurysm measuring 5.3 cm. Dictated by: Dictated on workstation # [id number]
== END ==
LOC: RAD 08:54
PROVIDERS: ATTEND Family Medicine
DX: I71.40 Abdominal aortic aneurysm, without rupture, unspecified (principal)
CPT/HCPCS: 76775

== ENCOUNTER → 2022-09-03 | Outpatient (CLI) | payer MEDICAID ==
[~2022-09-03] MED LIST changes: -GABA300S2 PO; +GABA300S3 PO; -LOSA100T57 PO; +LOSA100T58 PO
== END ==
LOC: RAD 08:45
PROVIDERS: ATTEND Family Medicine
DX: I71.40 Abdominal aortic aneurysm, without rupture, unspecified (principal)

== ENCOUNTER 2022-09-04 06:05 | Emergency (ER) | payer MEDICAID ==
[~2022-09-04] VITALS: Ht 177 cm; Wt 90.7 kg
[~2022-09-04 06:05] MED LIST changes: -IOHEXOL 350 MG/ML 100 ML (OMNIPAQUE 350) VIAL IV ONE; -NS 100 ML (IVPB) BAG IV ONE
[2022-09-04 06:17] VITALS: BP 170/134
--- NOTE | 2022-09-04 06:36 | ED Upper Extremity ---
General Chief Complaint: Upper Extremity Stated Complaint: FALL,LEFT ARM PAIN Nursing Triage Note: patient states walking outside, states tripped, complaint of left arm pain. Source: patient, old records Exam Limitations: no limitations History of Present Illness Date Seen by Provider: Sep 04, 2022 Time Seen by Provider: 06:09 Initial Comments 61-year-old male with past medical history of CAD with stenting and hypertension most notably coming in after he went from a sitting to standing position, got lightheaded, fell over landing on his left side. He is having left forearm and upper arm pain since then. Has been ambulatory since the incident. Does not believe he hit his head or passed out. Denies any neck or back pain. Otherwise denying any other acute complaints. He does take Brilinta. Allergies and Home Medications Allergies Coded Allergies: Penicillins (Verified Allergy, Unknown, 12/06/21) Patient Home Medication List Home Medication List Reviewed: Yes Aspirin (Aspirin EC) 81 Mg Tablet.dr, 81 MG PO DAILY Prescribed by: JEFFY PARKS on 12/06/21 1541 Atorvastatin Calcium (Atorvastatin Calcium) 10 Mg Tablet, 10 MG PO HS, (Reported) Entered as Reported by: BOLIVAR POOL on 01/28/17 1214 Clonidine HCl (Clonidine HCl) 0.2 Mg Tablet, 0.2 MG PO TID, (Reported) Entered as Reported by: JENNY DAVILA on 12/06/21 0933 Gabapentin (Neurontin) 300 Mg Capsule, 300 MG PO TID, (Reported) Entered as Reported by: BONNIE JHAVERI on 06/21/21 0947 Losartan Potassium (Losartan Potassium) 100 Mg Tablet, 100 MG PO DAILY, (Reported) Entered as Reported by: ELIZABETH CORBIN on 06/21/21 0256 Metoprolol Tartrate (Metoprolol Tartrate) 50 Mg Tablet, 75 MG PO BID, (Reported) Entered as Reported by: BONNIE JHAVERI on 06/21/21 0947 Pantoprazole Sodium (Pantoprazole Sodium) 40 Mg Tablet.dr, 40 MG PO DAILY, (Reported) Entered as Reported by: BOLIVAR POOL on 02/18/18 0908 Ticagrelor (Brilinta) 90 Mg Tablet, 90 MG PO BID Prescribed by: JEFFY PARKS on 12/06/21 1541 Review of Systems Constitutional: No fever EENTM: no symptoms reported Respiratory: no symptoms reported Cardiovascular: no symptoms reported Gastrointestinal: no symptoms reported Genitourinary: no symptoms reported Musculoskeletal: see HPI Skin: no symptoms reported Psychiatric/Neurological: No Symptoms Reported Past Htuctlp-Lettkc-Dmhbwr Hx Patient Social History Substance use?: No Immunizations Up To Date Tetanus Booster (TDap): More than 5yrs Seasonal Allergies Seasonal Allergies: No Past Medical History Surgery/Hospitalization HX: cabg, valve replacement, ppm, afib, htn, arthritis Surgeries: Yes Abdominal, Cardiac, Pacemaker, Valve Replacement Respiratory: Yes Pneumonia Cardiac: Yes Atrial Fibrillation, High Cholesterol, Hypertension, Valvular Heart Disease Neurological: No Sexually Transmitted Disease: No HIV/AIDS: No Genitourinary: No Gastrointestinal: No Musculoskeletal: Yes Arthritis, Rheumatoid Arthritis Endocrine: No HEENT: Yes (EDENTULOUS) Cancer: No Psychosocial: Yes (SUBSTANCE ABUSE) Anxiety, Depression Integumentary: No Blood Disorders: No Adverse Reaction/Blood Tranf: No Family Medical History Alzheimer's disease 19 MOTHER Cardiovascular disease G8 BROTHER (PACEMAKER/DIFIB) No Pertinent Family Hx, Diabetes PT WITH LONG HISTORY OF NON-COMPLIANCE IN ALL ASPECTS OF CARE, PER OLD RECORDS SOCIAL HISTORY: -SMOKES 1 PPD -ETOH--UNKNOWN IF HE DRINKS, OF 06/21/21 -DRUGS--UDS + FOR METHAMPHETAMINE AND THC 06/21/21 PAST SURGICAL HISTORY: -07/02/2018-EGD + REPAIR OF INCARCERATED VENTRAL INCISIONAL HERNIA WITH MESH PLACEMENT BY DR. VERMA. -08/23/2016--CARDIAC CATH BY DR. DICKSON: Post-operative diagnosis: [id number] coronary artery disease. Normal LV function with severe MR. infrarenal abdominal aortic aneurysm. -09/2016--MITRAL VALVE REPLACEMENT -01/28/2017--DUAL CHAMBER PACEMAKER BY DR. DICKSON. Physical Exam Vital Signs Vital Signs - First Documented 09/04/22 06:17 Temp 36.6 Pulse 78 Resp 18 B/P (MAP) 170/134 (146) Pulse Ox 98 O2 Delivery Room Air Capillary Refill : Less Than 3 Seconds Height, Weight, BMI Height: 5'10.00" Weight: 197lbs. 0.0oz. 89.258643zi; 28.00 BMI Method:Stated General Appearance: WD/WN, no apparent distress HEENT: PERRL/EOMI, normal ENT inspection, pharynx normal Neck: non-tender, full range of motion, supple, normal inspection Cardiovascular: regular rate, rhythm, no edema, no murmur Respiratory: chest non-tender, lungs clear, normal breath sounds, no respiratory distress, no accessory muscle use Gastrointestinal: normal bowel sounds, non tender, soft; No distended, No guarding Back: normal inspection, no CVA tenderness, no vertebral tenderness Shoulder: normal inspection, non-tender, no evidence of injury, normal ROM Elbow/Forearm: Left (Pain along the left mid humerus and left mid forearm and distal forearm, neurovascularly intact distal to injury, normal radial, median, ulnar nerve testing) Hand: normal inspection, non-tender (No scaphoid tenderness), no evidence of injury, normal ROM Neurologic/Tendon: normal sensation, normal motor functions, normal tendon functions Neurologic/Psychiatric: no motor/sensory deficits, alert, normal mood/affect, oriented x 3 Skin: normal color, warm/dry Procedures/Interventions Date of ETT Placement: Jun 21, 2021 Time of ETT Placement: 106 Progress/Results/Core Measures Results/Orders My Orders Orders - CORONA JUNIOR MD Ct Head Wo (09/04/22 06:32) Forearm, Left, 2 Views (09/04/22 06:32) Humerus, Left, 2 Views (09/04/22 06:32) Hydrocodone/Apap 5/325 Tablet (Lortab 5 (09/04/22 06:45) Vital Signs/I&O 09/04/22 06:17 Temp 36.6 Pulse 78 Resp 18 B/P (MAP) 170/134 (146) Pulse Ox 98 O2 Delivery Room Air Blood Pressure Mean: 146 Progress Progress Note : Progress Note 62-year-old male that has been dealing with orthostatic dizziness for some time coming in after he stood up quickly, felt lightheaded, fell to the ground ysabel ng on his left arm. History obtained from his as well as the patient. ABCs intact, GCS 15, vitals unremarkable on presentation. Physical exam with left mid humeral and mid forearm pain. X-rays of the left humerus and forearm ordered and interpreted by me showing no fracture or dislocation. CT head ordered as well and on my interpretation no obvious bleed or intracranial mass that is large. Patient was given hydrocodone here for pain control. Does not have any neck pain and has been ambulatory since the incident, CT cervical spine therefore not ordered. He has been worked up for this in the past in regards to his orthostasis, will not repeat today. I did review his cardiac catheterization from a year ago by Dr. Parks showing the stenting in the RCA. He is not having any chest pain, shortness of breath or any anginal equivalents today. I believe he is otherwise stable for discharge with outpatient follow- up. He was sent home with strict return precautions. Diagnostic Imaging Diagonstic Imaging: Xray (left humerus and left forearm), CT (head) Comments NAME: ZEE VELEZ I [facility] REC#: [id number] PT STATUS: REG ER : 1960 PHYSICIAN: CORONA JUNIOR MD ADMIT DATE: 09/04/22/ER Draft Date of Exam:09/04/22 HUMERUS, LEFT, 2 VIEWS EXAMINATION: Left humerus radiographs, 2 views. COMPARISON: None. HISTORY: 61-year-old male, fall. Left humerus pain. FINDINGS: There is a left-sided cardiac assist device with incompletely imaged leads. There are median sternotomy wires. The acromioclavicular joint is normally aligned. There are mild acromioclavicular degenerative changes. There is mild glenohumeral osteoarthritis. There is no identified acute fracture. There is no obvious bone malalignment. IMPRESSION: 1. No identified acute bony abnormality of the left humerus. Dictated on workstation # [id number] Dict: 09/04/22 0702 Trans: 09/04/[address] [facility] [id number] Interpreted by: BEE MAYBERRY MD Electronically signed by: NAME: ZEE VELEZ [facility] REC#: [id number] PT STATUS: REG ER : 1960 PHYSICIAN: CORONA JUNIOR MD ADMIT DATE: 09/04/22/ER Draft Date of Exam:09/04/22 FOREARM, LEFT, 2 VIEWS EXAMINATION: Left forearm radiographs, 2 views. COMPARISON: None. HISTORY: 61-year-old male, fall. Left forearm pain. FINDINGS: There is no identified acute fracture. There is no radiopaque foreign body. IMPRESSION: 1. No identified acute bony abnormality of the left forearm. Dictated on workstation # [id number] Dict: 09/04/22 0700 Trans: 09/04/[address] [facility] [id number] Interpreted by: BEE MAYBERRY MD Electronically signed by: NAME: ZEE VELEZ I [facility] REC#: [id number] PT STATUS: REG ER : 1960 PHYSICIAN: CORONA JUNIOR MD ADMIT DATE: 09/04/22/ER Draft Date of Exam:09/04/22 CT HEAD WO PROCEDURE: CT head without contrast. TECHNIQUE: Multiple contiguous axial images were obtained through the brain without the use of intravenous contrast. Auto Exposure Controls were utilized during the CT exam to meet ALARA standards for radiation dose reduction. DATE: September 04, 2022. COMPARISON: CT head and cervical spine January 11, 2022. INDICATION: 61-year-old male, fall. Headache. FINDINGS: There is high attenuation in the high parietal scalp near midline likely reflecting site of soft tissue contusion/small hematoma. The ventricles and additional CSF spaces are normal in size and configuration for patient age. There is no abnormal extra-axial fluid collection. There is no evidence of acute intracranial hemorrhage. There is no mass effect or midline shift. There is no identified skull fracture. The visualized portions of the paranasal sinuses, mastoid air cells, and middle ears are well-aerated. IMPRESSION: 1. Soft tissue contusion/small hematoma the high parietal scalp near midline. 2. No identified acute intracranial abnormality. Dictated on workstation # [id number] Dict: 09/04/22 0703 Trans: 09/04/[address] [facility] [id number] Interpreted by: BEE MAYBERRY MD Electronically signed by: Departure Impression Primary Impression: Orthostatic dizziness Additional Impressions: Left arm pain Fall Qualified Codes: W19.XXXA - Unspecified fall, initial encounter Disposition: HOME, SELF-CARE Condition: Stable Departure-Patient Inst. Decision time for Depature: 08:00 Referrals: JOSE ROBERTS MD (PCP/Family) Primary Care Physician Patient Instructions: Contusion (DC), Preventing Falls ED Add. Discharge Instructions: Fortunately nothing is broken or seriously injured. You will have some bruising and swelling likely. Take Tylenol as needed for pain. You can also ice the areas. Follow-up with your regular doctor if is not improving in the next 1 to 2 weeks. If that is the case, please follow-up with orthopedics Work/School Note: Family Work Note, Patient Received Medical Care In the Emergency Department On: Sep 04, 2022 Patient Will Be Able to Return to Work/School On: Sep 05, 2022 Work Release Form Date Seen in the Emergency Department: Sep 04, 2022 Return to Work: Sep 05, 2022 Restrictions: No Restrictions CORONA JUNIOR MD Sep 04, 2022 06:36
[2022-09-04] MEDS ORDERED: HYDROcodone/APAP 5 MG/325 MG (LORTAB) TAB PO ONE (06:45)
--- NOTE | 2022-09-04 07:51 | Diagnostic Imaging Report ---
EXAMINATION: Left forearm radiographs, 2 views. COMPARISON: None. HISTORY: 61-year-old male, fall. Left forearm pain. FINDINGS: There is no identified acute fracture. There is no radiopaque foreign body. IMPRESSION: 1. No identified acute bony abnormality of the left forearm. Dictated by: Dictated on workstation # [id number]
--- NOTE | 2022-09-04 07:52 | Diagnostic Imaging Report ---
EXAMINATION: Left humerus radiographs, 2 views. COMPARISON: None. HISTORY: 61-year-old male, fall. Left humerus pain. FINDINGS: There is a left-sided cardiac assist device with incompletely imaged leads. There are median sternotomy wires. The acromioclavicular joint is normally aligned. There are mild acromioclavicular degenerative changes. There is mild glenohumeral osteoarthritis. There is no identified acute fracture. There is no obvious bone malalignment. IMPRESSION: 1. No identified acute bony abnormality of the left humerus. Dictated by: Dictated on workstation # [id number]
--- NOTE | 2022-09-04 07:53 | Diagnostic Imaging Report ---
PROCEDURE: CT head without contrast. TECHNIQUE: Multiple contiguous axial images were obtained through the brain without the use of intravenous contrast. Auto Exposure Controls were utilized during the CT exam to meet ALARA standards for radiation dose reduction. DATE: September 04, 2022. COMPARISON: CT head and cervical spine January 11, 2022. INDICATION: 61-year-old male, fall. Headache. FINDINGS: There is high attenuation in the high parietal scalp near midline likely reflecting site of soft tissue contusion/small hematoma. The ventricles and additional CSF spaces are normal in size and configuration for patient age. There is no abnormal extra-axial fluid collection. There is no evidence of acute intracranial hemorrhage. There is no mass effect or midline shift. There is no identified skull fracture. The visualized portions of the paranasal sinuses, mastoid air cells, and middle ears are well-aerated. IMPRESSION: 1. Soft tissue contusion/small hematoma the high parietal scalp near midline. 2. No identified acute intracranial abnormality. Dictated by: Dictated on workstation # [id number]
== END 2022-09-04 08:03 | disposition home or self-care (01) ==
LOC: EDUNIT# 06:05 → ER 06:09
DX: M79.602 Pain in left arm (principal); R42 Dizziness and giddiness; F17.210 Nicotine dependence, cigarettes, uncomplicated; Z79.02 Long term (current) use of antithrombotics/antiplatelets; Z28.310 Unvaccinated for COVID-19; W01.0XXA Fall on same level from slipping, tripping and stumbling without subsequent striking against object, initial encounter; Y93.01 Activity, walking, marching and hiking
CPT/HCPCS: 70450; 73060; 73090

== ENCOUNTER → 2022-09-04 | Outpatient (CLI) | payer MEDICAID ==
[~2022-09-04] MED LIST changes: +IOHEXOL 350 MG/ML 100 ML (OMNIPAQUE 350) VIAL IV ONE; +NS 100 ML (IVPB) BAG IV ONE
[2022-09-04 10:20] LABS: CREATININE SERUM 1.08 MG/DL (0.60-1.30)
--- NOTE | 2022-09-04 14:56 | Diagnostic Imaging Report ---
EXAMINATION: CT angiography of the abdomen. TECHNIQUE: After intravenous administration of contrast, thin section axial CT angiography of the abdomen and were obtained. 3D MIP reformats were provided. All CT scans use one or more of the following dose optimizing techniques: automated exposure control, MA and/or KvP adjustment based on a patient size and exam type, or iterative reconstruction. HISTORY: Abdominal aortic aneurysm COMPARISON: 06/20/2018 FINDINGS: Vascular: There is aneurysmal dilatation of the infrarenal abdominal aorta measuring up to 5.6 x 5.1 cm. This has increased in size from prior study of 06/20/2018. There is scattered calcified and noncalcified plaque throughout the aorta. The origin of the celiac, SMA, and right renal artery are patent. There is mild stenosis of the left renal artery origin. The NESHA is patent. No dissection. Lung bases: The lung bases are clear. Solid organs: The liver is normal without focal lesion. The gallbladder is normal. There is no biliary ductal dilation. Pancreas is normal. Spleen is normal. Adrenal glands are normal. The kidneys are normal without hydronephrosis. Bowel: There is no bowel obstruction. Peritoneum: There is no intraperitoneal free fluid or free air. No suspicious lymphadenopathy. Musculoskeletal: Degenerative changes of the spine without suspicious osseous lesion or compression fracture. IMPRESSION: 1. Increasing size of the infrarenal abdominal aortic aneurysm measuring up to 5.6 x 5.1 cm. Dictated by: Dictated on workstation # [id number]
== END ==
LOC: RAD 09:32
PROVIDERS: ATTEND Family Medicine
DX: I71.43 Infrarenal abdominal aortic aneurysm, without rupture (principal)
CPT/HCPCS: 36415; 74175; 82565; 84520

== ENCOUNTER 2022-12-29 16:22 | Emergency (ER) | payer MEDICAID ==
[~2022-12-29] VITALS: Ht 175 cm; Wt 83.9 kg
[2022-12-29] MEDS ORDERED: LIDOCAINE 1% INJ 20 ML VIAL INJ ONE (16:45)
[2022-12-29] MEDS ORDERED: cefTRIAXone 500 MG VIAL IV/IM IM ONE (16:45)
[2022-12-29] MEDS ORDERED: LIDOCAINE 1% INJ 10 ML VIAL ONE (16:49)
[2022-12-29 16:52] LABS: BACTERIA,URINE NEGATIVE /HPF; BILIRUBIN,URINE NEGATIVE (NEGATIVE); CLARITY,URINE CLEAR; COLOR,URINE YELLOW; GLUCOSE, URINE (UA) NEGATIVE (NEGATIVE); KETONES,URINE NEGATIVE (NEGATIVE); LEUKOCYTE ESTERASE ,URINE NEGATIVE (NEGATIVE); NITRITE,URINE NEGATIVE (NEGATIVE); PROTEIN,URINE NEGATIVE (NEGATIVE)
[2022-12-29] MEDS ORDERED: DOXY-227 PO (17:01)
--- NOTE | 2022-12-29 17:01 | ED GU-Male ---
General Chief Complaint: - Reproductive Stated Complaint: WANTS STD CHECK Nursing Triage Note: PT AMB TO FT2 WITH C/O WANTING TO GET CHECKED FOR STD PARTNER POSSIBLY HAS AN STD. PT HAS NO SYMPTOMS Source: patient Exam Limitations: no limitations History of Present Illness Date Seen by Provider: Dec 29, 2022 Time Seen by Provider: 16:36 Initial Comments 62-year-old male presents to the ER for an STD check. He states that his signif icant other was told that she might have an STD and she was recently treated. He reports that he caught his significant other cheating on him a couple months ago. He denies dysuria and penile discharge. Allergies and Home Medications Allergies Coded Allergies: Penicillins (Verified Allergy, Unknown, 12/06/21) Patient Home Medication List Home Medication List Reviewed: Yes Aspirin (Aspirin EC) 81 Mg Tablet., 81 MG PO DAILY Prescribed by: JEFFY SCHMITT on 12/06/21 1541 Atorvastatin Calcium (Atorvastatin Calcium) 10 Mg Tablet, 10 MG PO HS, (Reported) Entered as Reported by: BOLIVAR POOL on 01/28/17 1214 Clonidine HCl (Clonidine HCl) 0.2 Mg Tablet, 0.2 MG PO TID, (Reported) Entered as Reported by: JENNY DAVILA on 12/06/21 0933 Doxycycline Hyclate (Doxycycline Hyclate) 100 Mg Tablet., 100 MG PO BID Prescribed by: Rosa Frank on 12/29/22 1701 Gabapentin (Neurontin) 300 Mg Capsule, 300 MG PO TID, (Reported) Entered as Reported by: BONNIE JHAVERI on 06/21/21 0947 Hydrocodone/Acetaminophen (Hydrocodone-Acetamin 5-325 mg) 5 Mg-325 Mg Tablet, 1 TAB PO Q6H PRN for PAIN-MODERATE (5-7) Prescribed by: GLADIS ELLIS on 10/11/22 1548 Losartan Potassium (Losartan Potassium) 100 Mg Tablet, 100 MG PO DAILY, (Reported) Entered as Reported by: ELIZABETH CORBIN on 06/21/21 0256 Metoprolol Tartrate (Metoprolol Tartrate) 50 Mg Tablet, 75 MG PO BID, (Reported) Entered as Reported by: BONNIE JHAVERI on 06/21/21 0947 Pantoprazole Sodium (Pantoprazole Sodium) 40 Mg Tablet.dr, 40 MG PO DAILY, (Reported) Entered as Reported by: BOLIVAR POOL on 02/18/18 0908 Ticagrelor (Brilinta) 90 Mg Tablet, 90 MG PO BID Prescribed by: JEFFY SCHMITT on 12/06/21 1541 Review of Systems Review of Systems Constitutional: see HPI Past Xznkpio-Ckaivs-Pjzqrm Hx Patient Social History Tobacco Use?: Yes Tobacco type used: Cigarettes Substance use?: Yes Substance type: Marijuana Alcohol Use?: No Pt feels they are or have been: No Immunizations Up To Date Tetanus Booster (TDap): More than 5yrs Influenza Vaccine Up-to-Date: No; Not Current Seasonal Allergies Seasonal Allergies: No Past Medical History Surgery/Hospitalization HX: cabg, valve replacement, ppm, afib, htn, arthritis, 3 STENTS, HLD, HTN Surgeries: Yes Abdominal, Cardiac, Pacemaker, Valve Replacement Respiratory: Yes Pneumonia Cardiac: Yes Atrial Fibrillation, High Cholesterol, Hypertension, Valvular Heart Disease Neurological: No Sexually Transmitted Disease: No HIV/AIDS: No Genitourinary: No Gastrointestinal: No Musculoskeletal: Yes Arthritis, Rheumatoid Arthritis Endocrine: No HEENT: Yes (EDENTULOUS) Cancer: No Psychosocial: Yes (SUBSTANCE ABUSE) Anxiety, Depression Integumentary: No Blood Disorders: No Adverse Reaction/Blood Tranf: No Family Medical History Alzheimer's disease 19 MOTHER Cardiovascular disease G8 BROTHER (PACEMAKER/DIFIB) No Pertinent Family Hx, Diabetes PT WITH LONG HISTORY OF NON-COMPLIANCE IN ALL ASPECTS OF CARE, PER OLD RECORDS SOCIAL HISTORY: -SMOKES 1 PPD -ETOH--UNKNOWN IF HE DRINKS, OF 06/21/21 -DRUGS--UDS + FOR METHAMPHETAMINE AND THC 06/21/21 PAST SURGICAL HISTORY: -07/02/2018-EGD + REPAIR OF INCARCERATED VENTRAL INCISIONAL HERNIA WITH MESH PLACEMENT BY DR. VERMA. -08/23/2016--CARDIAC CATH BY DR. DICKSON: Post-operative diagnosis: [id number]-vbbdogqh coronary artery disease. Normal LV function with severe MR. infrarenal abdominal aortic aneurysm. -09/2016--MITRAL VALVE REPLACEMENT -01/28/2017--DUAL CHAMBER PACEMAKER BY DR. DICKSON. Physical Exam Vital Signs Vital Signs - First Documented 12/29/22 16:30 Temp 36.3 Pulse 89 Resp 20 B/P (MAP) 157/84 (108) Pulse Ox 99 O2 Delivery Room Air Capillary Refill : Height, Weight, BMI Height: 5'10.00" Weight: 197lbs. 0.0oz. 89.912727fi; 27.00 BMI Method:Stated General Appearance: WD/WN, no apparent distress Neck: supple, normal inspection Cardiovascular: regular rate, rhythm Respiratory: lungs clear, normal breath sounds, no respiratory distress, no accessory muscle use Extremities: normal range of motion, normal inspection Neurologic/Psychiatric: alert, normal mood/affect Skin: normal color, warm/dry Procedures/Interventions Date of ETT Placement: Jun 21, 2021 Time of ETT Placement: 106 Progress/Results/Core Measures Suspected Sepsis SIRS Temperature: Pulse: 89 Respiratory Rate: 20 Blood Pressure 157 /84 Mean: 108 Results/Orders Lab Results Laboratory Tests Test 12/29/22 16:30 Range/Units Urine Color YELLOW Urine Clarity CLEAR Urine pH 6.0 5-9 Urine Specific [place] 1.015 L 1.016-1.022 Urine Protein NEGATIVE NEGATIVE Urine Glucose (UA) NEGATIVE NEGATIVE Urine Ketones NEGATIVE NEGATIVE Urine Nitrite NEGATIVE NEGATIVE Urine Bilirubin NEGATIVE NEGATIVE Urine Urobilinogen 1.0 < = 1.0 MG/DL Urine Leukocyte Esterase NEGATIVE NEGATIVE Urine RBC (Auto) NEGATIVE NEGATIVE Urine RBC NONE /HPF Urine WBC NONE /HPF Urine Crystals NONE /LPF Urine Bacteria NEGATIVE /HPF Urine Casts NONE /LPF Urine Mucus NEGATIVE /LPF Urine Culture Indicated NO My Orders Orders - ROSA MARTINO APRN Ua Culture If Indicated (12/29/22 16:36) Neis Ben Dna Urine Test (12/29/22 16:36) Chlamydia Trachomatis Urine (12/29/22 16:36) Ceftriaxone Iv/Im (Ceftriaxone Iv/Im) (12/29/22 16:45) Lidocaine 1% Inj 20 Ml (Xylocaine 1% Inj (12/29/22 16:45) Doxycycline Hyclate Tablet (Doxycycline (12/29/22 16:45) Lidocaine 1% Inj 10 Ml (Xylocaine 1% Inj (12/29/22 16:49) Medications Given in ED Current Medications Medications Dose Ordered Sig/Rao Route Start Time Stop Time Status Last Admin Dose Admin Ceftriaxone Sodium 500 mg ONCE ONCE IM 12/29/22 16:45 12/29/22 16:46 DC 12/29/22 16:54 500 MG Doxycycline Hyclate 100 mg ONCE ONCE PO 12/29/22 16:45 12/29/22 16:46 DC 12/29/22 16:54 100 MG Lidocaine HCl 10 ml STK-MED ONCE .ROUTE 12/29/22 16:49 12/29/22 16:53 DC 12/29/22 16:55 1 ML Vital Signs/I&O 12/29/22 12/29/22 16:30 17:11 Temp 36.3 36.3 Pulse 89 89 Resp 20 20 B/P (MAP) 157/84 (108) 157/84 Pulse Ox 99 99 O2 Delivery Room Air Room Air Capillary Refill : Blood Pressure Mean: 108 Progress Note : Progress Note Patient seen and evaluated, resting comfortably in recliner, no acute distress. Urinalysis, gonorrhea and Chlamydia testing ordered. I discussed treatment options for patient. Patient states that he would rather be treated today than wait for the results. Rocephin ordered as well as first dose of doxycycline. Will discharge with prescription for doxycycline. Discharge instructions and return precautions provided. Departure Impression Primary Impression: Possible exposure to STD Disposition: HOME, SELF-CARE Condition: Stable Departure-Patient Inst. Decision time for Depature: 16:59 Referrals: LOUIS ROBERTS MD (PCP/Family) Primary Care Physician Patient Instructions: Sexually-Transmitted Diseases Add. Discharge Instructions: Complete full course of antibiotic as prescribed. The result of your test will not be back for a couple of days. You will need to contact medical records to get the results of your test. All of your partners need to be tested and treated. No sex for 1 to 2 weeks. Return for any new, concerning, or worsening symptoms. All discharge instructions reviewed with patient and/or family. Voiced understanding. Scripts Doxycycline Hyclate (Doxycycline Hyclate) 100 Mg Tablet. 100 MG PO BID for 7 Days, #13 TAB 0 Refills Prov: ROSA MARTINO APRN 12/29/22 ROSA MARTINO APRN Dec 29, 2022 17:01
[2022-12-29 17:11] VITALS: BP 157/84
== END 2022-12-29 17:11 | disposition home or self-care (01) ==
LOC: EDUNIT# 16:22 → ER 16:24
DX: Z20.2 Contact with and (suspected) exposure to infections with a predominantly sexual mode of transmission (principal); F17.210 Nicotine dependence, cigarettes, uncomplicated; Z88.0 Allergy status to penicillin
CPT/HCPCS: 36415; 81000; 87491; 87591; 99284